=== PATIENT | male | born 1965 | race Caucasian/White ===

== ENCOUNTER → 2017-12-27 16:40 | Outpatient (CLI) | payer BC, SELFPAY ==
--- NOTE | 2017-12-27 16:46 | RAD_ITS ---
STUDY: X-RAY - LUMBAR SPINE REASON FOR EXAM: Male, 52 years old. Back pain TECHNIQUE: 5 view(s) of the lumbar spine were obtained. COMPARISON: None FINDINGS: There is normal alignment and curvature of the lumbosacral spine with degenerative disease at L1-L2. There are no acute fractures. The facet joints are normal.. RAD/L/S Spine Min 4 Views IMPRESSION: Disc disease at L1-L2. No fractures Electronically Signed: Tereso Meier, at 7:44 EDT Tel , Service support ,
--- NOTE | 2017-12-27 16:46 | RAD_ITS ---
STUDY: X-RAY - THORACIC SPINE REASON FOR EXAM: Male, 52 years old. Pain TECHNIQUE: 3 view(s) of the thoracic spine were obtained. COMPARISON: None. FINDINGS: There is an accentuation of the kyphotic curvature of the thoracic spine. No acute fractures. Mild degenerative changes in the mid and distal thoracic disc spaces RAD/Thoracic Spine 3 Views IMPRESSION: An accentuation of the kyphotic curvature of the thoracic spine.. Degenerative changes involving the mid and lower thoracic spine. No acute fractures Electronically Signed: Tereso Meier, at 6:47 EDT Tel , Service support ,
== END ==
PROVIDERS: Family Provider Family Medicine; PCP Family Medicine; Visit Provider Family Medicine
DX: M54.5 Low back pain (principal); M54.6 Pain in thoracic spine; G89.29 Other chronic pain
CPT/HCPCS: 72072; 72110

== ENCOUNTER 2018-04-10 11:05 | Emergency (ER) | payer BC, SELFPAY ==
[2018-04-10 11:06] VITALS: BP 124/65; PULSE 55; RESP 18; TEMP 36.4; O2SAT 99; BMI 24.1
[2018-04-10 11:47] VITALS: BP 135/70; PULSE 62; RESP 14; O2SAT 98
[2018-04-10] MEDS: Orphenadrine 60 MG/2 ML Ampul IM (11:49)
[2018-04-10] MEDS: Morphine 4 MG/ML Syringe SC (11:49)
[2018-04-10 13:11] VITALS: BP 131/70; PULSE 60; RESP 14; O2SAT 98
--- NOTE | 2018-04-10 13:50 | ED.VISSUMM ---
- ER Visit Summary Date of Service: 04/10/18 Chief Complaint: Back pain History of Present Illness: The patient is a 53 M who presents with chronic back pain that became worse over the past 2 days. Patient states he does a lot of lifting at work and his pain became more severe today. Patient states he developed some spasms in his low back today. Patient states he was having difficulty ambulating due to the pain. Patient denies any paresthesias or weakness. Patient denies any radiation of his pain to his legs. Patient denies any bowel or bladder changes. Patient denies any saddle anesthesias. Patient denies any specific trauma. Patient states he had recent x-rays which showed degenerative changes. Physical Examination: Vital signs are stable. Patient is afebrile. Patient is in no acute distress. Heart was regular rate and rhythm. Lungs are clear and equal bilateral. Abdomen is soft and nontender. Muscle skeletal exam reveals tenderness and spasm of the lower thoracic and lumbar paraspinal muscles. There is some mild midline tenderness. There is no bony crepitance or step-off. There is no edema or ecchymosis noted. Range of motion was limited in all motions of the lumbar spine secondary to pain. Strength is 5/5 bilateral in the upper and lower extremities. There are no sensory deficits noted. The remaining physical exam is within normal limits. Emergency Department Course and Treatment: Patient was given injection of morphine and Norflex here. Patient felt better on reevaluation. Patient was given prescription for Flexeril to take in addition to his tramadol. Patient was instructed to follow-up with his primary care physician in 3-5 days. Patient understood and was agreeable with the plan. All questions were answered. Disposition: Discharge home Impression: Acute on chronic back pain This note was generated with [employer] dictation software. It may contain incorrect words, spelling, and punctuation that were not noted in review of the chart prior to signing ED Disposition - Plan for ED Patient: Disposition: Home or Assisted Living Chief Complaint: Back Diagnosis: Acute exacerbation of chronic low back pain Instructions: ED Low Back Pain Injury Prescriptions: Cyclobenzaprine [Flexeril] 10 mg PO TID PRN #20 tab PRN Reason: Muscle Spasm Referrals: Shavon Osborne MD [Primary Care Provider] -
--- NOTE | 2018-04-10 13:56 | ED.DCSUM_ITS ---
- ER Visit Summary Date of Service: 04/10/18 Chief Complaint: Back pain History of Present Illness: The patient is a 53 M who presents with chronic back pain that became worse over the past 2 days. Patient states he does a lot of lifting at work and his pain became more severe today. Patient states he developed some spasms in his low back today. Patient states he was having difficulty ambulating due to the pain. Patient denies any paresthesias or weakness. Patient denies any radiation of his pain to his legs. Patient denies any bowel or bladder changes. Patient denies any saddle anesthesias. Patient denies any specific trauma. Patient states he had recent x-rays which showed degenerative changes. Physical Examination: Vital signs are stable. Patient is afebrile. Patient is in no acute distress. Heart was regular rate and rhythm. Lungs are clear and equal bilateral. Abdomen is soft and nontender. Muscle skeletal exam reveals tenderness and spasm of the lower thoracic and lumbar paraspinal muscles. There is some mild midline tenderness. There is no bony crepitance or step- off. There is no edema or ecchymosis noted. Range of motion was limited in all motions of the lumbar spine secondary to pain. Strength is 5/5 bilateral in the upper and lower extremities. There are no sensory deficits noted. The remaining physical exam is within normal limits. Emergency Department Course and Treatment: Patient was given injection of morphine and Norflex here. Patient felt better on reevaluation. Patient was given prescription for Flexeril to take in addition to his tramadol. Patient was instructed to follow-up with his primary care physician in 3-5 days. Patient understood and was agreeable with the plan. All questions were answered. Disposition: Discharge home Impression: Acute on chronic back pain This note was generated with [employer] dictation software. It may contain incorrect words, spelling, and punctuation that were not noted in review of the chart prior to signing ED Disposition - Plan for ED Patient: Disposition: Home or Assisted Living Chief Complaint: Back Diagnosis: Acute exacerbation of chronic low back pain Instructions: ED Low Back Pain Injury Prescriptions: Cyclobenzaprine [Flexeril] 10 mg PO TID PRN #20 tab PRN Reason: Muscle Spasm Referrals: Shavon Osborne MD [Primary Care Provider] -
[2018-04-10 14:17] VITALS: BP 126/78; PULSE 80; RESP 14; O2SAT 99
== END 2018-04-10 14:18 | disposition home or self-care (01) ==
PROVIDERS: Emergency Provider Emergency Medicine; Family Provider Family Medicine; PCP Family Medicine
DX: M54.5 Low back pain (principal); G89.29 Other chronic pain
CPT/HCPCS: 96372; 99282

== ENCOUNTER → 2018-08-02 12:09 | Outpatient (CLI) | payer BC, SELFPAY ==
--- NOTE | 2018-08-02 12:13 | RAD_ITS ---
STUDY: X-RAY - PELVIS REASON FOR EXAM: Male, 53 years old. Pelvic pain following a fall. TECHNIQUE: One view of the pelvis was obtained. COMPARISON: None. FINDINGS: There is a non-specific bowel gas pattern. There are multiple calcified phleboliths. Normal bilateral iliac wings, sacroiliac joints and visualized sacrum. Normal visualized bilateral superior and inferior pubic rami. Normal pubic symphysis. Normal ischial tuberosities. Normal visualized right femoral head. There is osteoarthritic spur formation of the right acetabular rim. There is moderate articular joint space narrowing of the right hip. Normal visualized left femoral head. Normal left acetabulum. There is moderate articular joint space narrowing of the left hip. RAD/Pelvis 1 or 2 Views IMPRESSION: Moderate degree of osteoarthritis involving both hip joints. Electronically Signed: Sunny Horne MD at 13:11 EDT Tel [phone], Service support ,
== END ==
PROVIDERS: Family Provider Family Medicine; PCP Family Medicine; Referring Provider Family Medicine; Visit Provider Family Medicine
DX: S30.0XXA Contusion of lower back and pelvis, initial encounter (principal)
CPT/HCPCS: 72170

== ENCOUNTER → 2018-12-04 14:09 | Outpatient (CLI) | payer BC, SELFPAY ==
--- NOTE | 2018-12-04 14:15 | CT_ITS ---
We are attempting to reach Shavon Osborne MD to discuss findings. An addendum with communication details will be sent when the communication is complete. STUDY: CT ABDOMEN AND PELVIS WITH CONTRAST REASON FOR EXAM: Male, 53 years old. Diffuse abdominal pain. RADIATION DOSAGE (If Supplied By Facility): CTDIvol = ( 15.61 ) mGy, DLP = ( 816.70 ) mGycm TECHNIQUE: Transaxial images were obtained from the dome of the diaphragm to the symphysis pubis with oral contrast. Isovue 300 100CC IV/Oral was administered. Sagittal and coronal images were reconstructed. Individualized dose optimization techniques were used for this CT. COMPARISON: None. FINDINGS: The visualized lung bases are unremarkable. The visualized portions of the heart are within normal limits. Normal liver. Normal gallbladder and extrahepatic biliary system. Normal spleen. Normal pancreas. Normal bilateral adrenal glands. Normal right kidney. Normal left kidney. Normal visualized stomach. Normal small intestine. There is thickening of the wall of the right thumb appears asymmetric suggesting possible left wall mass. This measures approximately 3.6 x 5.9 x 2.5 cm There is minimal stranding of the surrounding fat. Otherwise normal colon. The appendix is visualized and appears normal. Normal abdominal aorta. Normal inferior vena cava. Normal retroperitoneum. Normal urinary bladder. Normal prostate and seminal vesicles. There are phleboliths in the pelvis without lymphadenopathy. No free air or free fluid is seen within the peritoneal cavity. Normal abdominal wall. There is sclerosis of the left initial tuberosity. Focal areas of sclerosis in the left sacral alar and posterior right iliac wing. There are minimal degenerative changes of the lumbar spine by. CT/Abdomen/Pelvis WITH Contrast IMPRESSION: 1. Question rectal or perirectal mass. This would be better evaluated with direct visualization. 2. Focal sclerosis of the left atrial tuberosity of unknown etiology. Question bony metastasis. 3. No other evidence of acute and intra-abdominal or pelvic abnormality. Electronically Signed: Moshe Mendez DO at 17:00 EST Tel [phone], Service support ,
== END ==
PROVIDERS: Family Provider Family Medicine; PCP Family Medicine; Referring Provider Family Medicine; Visit Provider Family Medicine
DX: R10.32 Left lower quadrant pain (principal)
CPT/HCPCS: 74177; Q9967

== ENCOUNTER 2018-12-04 17:36 | Emergency (ER) | payer BC, SELFPAY ==
[2018-12-04 17:38] VITALS: BP 132/79; PULSE 75; RESP 16; TEMP 36.6; O2SAT 97; BMI 34.0
--- NOTE | 2018-12-04 18:22 | ED.DCSUM_ITS ---
- ER Visit Summary Date of Service: 12/04/18 Chief Complaint: Rectal mass History of Present Illness: The patient is a 53 M presenting with essentially 1 week of a vague nausea, mid low abdominal discomfort, and constipation. He saw his primary care doctor today and had a contrast enhanced abdominal/pelvis CT. A rectal mass with questionable bony metastases was discovered. He does note that he has been having some slight difficulty with bowel movements for the past week but denies dark or tarry stool. Denies recent weight loss, fever, chills, or night sweats. Denies previous similar symptoms. He did have a colonoscopy in 2016 that revealed several small polyps. He was told that he will need a nother colonoscopy in 2019. Physical Examination: Vitals are within normal limits. Not in distress. Neck is supple. Heart tones are regular and without murmur. Lungs are clear bilaterally. Abdomen is soft and nontender. Digital rectal examination reveals no obvious palpable mass. No hemorrhoids. Stool is brown. Test Results: CBC and BMP are normal. Emergency Department Course and Treatment: I reviewed the CT scan. Labs are normal. He really has no discomfort on rectal examination or on palpation of his abdomen. He looks quite well. I discussed the findings with Dr. Pate. The patient would prefer to follow-up in the office tomorrow rather than stay in the hospital if he is not going to have the biopsy tonight. I discussed this with Dr. Pate and he is able to see him tomorrow morning to get him prepped for further evaluation. The patient is comfortable with this plan. Treatment Plan: See Dr. Pate tomorrow Disposition: Home stable Impression: Initial encounter rectal mass uncertain etiology This note was generated with [employer] dictation software. It may contain incorrect words, spelling, and punctuation that were not noted in review of the chart prior to signing ED Disposition - Plan for ED Patient: Referrals: Tucker Pate MD [STAFF PHYSICIAN] - (tomorrow morning) Additional Instructions: See Dr. Pate tomorrow morning
[2018-12-04 18:42] LABS: Absolute Lymphocyte Count 1.95 X10^3/ul (0.83-4.51); Basophil# 0.04 X10^3/uL; Basophil% 0.6 % (0-1); Eosinophil# 0.08 X10^3/uL; Eosinophils% 1.2 % (0-5); Hemoglobin 13.2 g/dl (13.0-16.5); Lymphocyte # 1.95 X10^3/ul (4.0); Lymphocyte % 29.1 % (19-41); Mean Corpuscular Hgb 30.9 pg (27.0-32.0); Mean Corpuscular Volume 93.7 fL (80-94); Mean Platelet Vol. 9.2 fl (6.2-12.0); Monocyte# 0.64 X10^3/uL; Monocyte% 9.6 % (0-10); Neutrophil # 3.97 X10^3/uL (2.7-7.7); Neutrophil % 59.4 % (47-70); Platelet Count 240 K/mm3 (150-450); RBC Distribution Width CV 12.1 % (11.6-14.6); RBC Distribution Width SD 40.9 fl (35.1-43.9); Red Blood Count 4.27 M/mm3 (4.6-6.2); White Blood Count 6.7 K/mm3 (4.4-11.0)
[2018-12-04 18:46] LABS: International Normalized Ratio 1.2; Prothrombin Time (Protime)PT. 14.7 SECONDS (11.7-14.9)
[2018-12-04 19:16] LABS: POSITIVE COUNT NO; POSITIVE DIFFERENTIAL NO; POSITIVE MORPHOLOGY NO
[2018-12-04 19:19] LABS: ALB/GLOB Ratio 1.1 RATIO (0.9-2.4); AST(SGOT) 15 U/L (15-37); Alanine Aminotransfer ALT/SGPT 15 U/L (16-61); Albumin, Serum 3.6 g/dL (3.2-5.0); Alkaline Phosphatase 150 U/L (45-117); Anion Gap 7 (5-15); BUN 16 mg/dL (7-18); BUN/Creat Ratio 18.6 RATIO (10-20); Calcium,Total 8.6 mg/dL (8.5-10.1); Chloride 101 mmol/L (98-107); Creatinine, Serum 0.86 mg/dL (0.70-1.30); EST Glomerular Filtration Rate 98 mL/min (>60); Est Glom Filt Rate - Afr Amer 119 mL/min (>60); Globulin 3.4 g/dL (2.2-4.2); Glucose 158 mg/dL (74-106); Potassium 3.4 mmol/L (3.5-5.1); Sodium Level 135 mmol/L (136-145)
--- NOTE | 2018-12-04 19:36 | ED.VISSUMM ---
- ER Visit Summary Date of Service: 12/04/18 Chief Complaint: [] History of Present Illness: The patient is a 53 M [] Physical Examination: [] Test Results: [] Emergency Department Course and Treatment: [] Treatment Plan: [] Disposition: [] Impression: [] This note was generated with [employer] software. It may contain incorrect words, spelling, and punctuation that were not noted in review of the chart prior to signing ED Disposition - Plan for ED Patient: Referrals: Tucker Pate MD [STAFF PHYSICIAN] - (tomorrow morning) Additional Instructions: See Dr. Pate tomorrow morning
[2018-12-04 19:48] VITALS: BP 122/61; PULSE 57; RESP 16; O2SAT 98
[2018-12-04 19:49] VITALS: BP 122/61; PULSE 57; RESP 16; O2SAT 98
== END 2018-12-04 19:50 | disposition home or self-care (01) ==
PROVIDERS: Emergency Provider Emergency Medicine; Family Provider Family Medicine; PCP Family Medicine
DX: K62.89 Other specified diseases of anus and rectum (principal)
CPT/HCPCS: 80053; 85025; 85610; 99283; A4216

== ENCOUNTER → 2018-12-19 10:36 | Outpatient (CLI) | payer BC, SELFPAY ==
[2018-12-05 15:11] VITALS: BMI 34.0
[2018-12-19 12:32] LABS: Absolute Lymphocyte Count 1.29 X10^3/ul (0.83-4.51); Absolute Neutrophil Count 4.2 X10^3/uL (2.0-7.7); Basophil# 0.04 X10^3/uL; Basophil% 0.6 % (0-1); Eosinophil# 0.04 X10^3/uL; Eosinophils% 0.6 % (0-5); Lymphocyte # 1.29 X10^3/ul (4.0); Lymphocyte % 20.5 % (19-41); Mean Corp Hgb Conc 32.5 g/gl (32-36); Mean Corpuscular Hgb 30.8 pg (27.0-32.0); Mean Corpuscular Volume 94.8 fL (80-94); Mean Platelet Vol. 9.8 fl (6.2-12.0); Monocyte# 0.74 X10^3/uL; Monocyte% 11.8 % (0-10); Neutrophil # 4.17 X10^3/uL (2.7-7.7); Neutrophil % 66.3 % (47-70); Platelet Count 326 K/mm3 (150-450); RBC Distribution Width CV 11.7 % (11.6-14.6); RBC Distribution Width SD 39.6 fl (35.1-43.9); Red Blood Count 4.22 M/mm3 (4.6-6.2); White Blood Count 6.3 K/mm3 (4.4-11.0)
[2018-12-19 12:37] LABS: POSITIVE COUNT NO; POSITIVE DIFFERENTIAL NO; POSITIVE MORPHOLOGY NO
[2018-12-19 13:20] LABS: AST(SGOT) 15 U/L (15-37); Alanine Aminotransfer ALT/SGPT 14 U/L (16-61); Albumin, Serum 3.6 g/dL (3.2-5.0); Alkaline Phosphatase 217 U/L (45-117); Anion Gap 8 (5-15); BUN 12 mg/dL (7-18); BUN/Creat Ratio 14.5 RATIO (10-20); Calcium,Total 8.9 mg/dL (8.5-10.1); Chloride 99 mmol/L (98-107); Creatinine, Serum 0.82 mg/dL (0.70-1.30); EST Glomerular Filtration Rate 103 mL/min (>60); Est Glom Filt Rate - Afr Amer 125 mL/min (>60); Globulin 3.5 g/dL (2.2-4.2); Glucose 98 mg/dL (74-106); Potassium 4.4 mmol/L (3.5-5.1); Protein, Total 7.1 g/dL (6.4-8.2); Sodium Level 137 mmol/L (136-145); Thyroid Stim Hormone (TSH) 0.51 uIU/mL (0.358-3.74)
== END ==
PROVIDERS: Family Provider Family Medicine; PCP Family Medicine; Referring Provider Family Medicine; Visit Provider Nurse Practitioner Adult Health
DX: R53.83 Other fatigue (principal)
CPT/HCPCS: 36415; 80053; 84443; 85025

== ENCOUNTER → 2019-01-02 16:22 | Outpatient (CLI) | payer BC, SELFPAY ==
[2018-12-05 15:11] VITALS: BMI 34.0
[2019-01-02 17:42] LABS: Absolute Lymphocyte Count 1.69 X10^3/ul (0.83-4.51); Absolute Neutrophil Count 3.4 X10^3/uL (2.0-7.7); Basophil# 0.04 X10^3/uL; Basophil% 0.7 % (0-1); Eosinophil# 0.09 X10^3/uL; Eosinophils% 1.6 % (0-5); Hematocrit 37.5 % (40-54); Hemoglobin 12.2 g/dl (13.0-16.5); Lymphocyte # 1.69 X10^3/ul (4.0); Lymphocyte % 29.2 % (19-41); Mean Corp Hgb Conc 32.5 g/gl (32-36); Mean Corpuscular Hgb 30.3 pg (27.0-32.0); Mean Corpuscular Volume 93.3 fL (80-94); Mean Platelet Vol. 9.5 fl (6.2-12.0); Monocyte# 0.57 X10^3/uL; Monocyte% 9.8 % (0-10); Neutrophil # 3.38 X10^3/uL (2.7-7.7); Neutrophil % 58.4 % (47-70); Platelet Count 337 K/mm3 (150-450); RBC Distribution Width SD 40.8 fl (35.1-43.9); Red Blood Count 4.02 M/mm3 (4.6-6.2); White Blood Count 5.8 K/mm3 (4.4-11.0)
[2019-01-02 17:47] LABS: POSITIVE COUNT NO; POSITIVE DIFFERENTIAL NO; POSITIVE MORPHOLOGY NO
[2019-01-02 18:06] LABS: ALB/GLOB Ratio 0.9 RATIO (0.9-2.4); AST(SGOT) 20 U/L (15-37); Alanine Aminotransfer ALT/SGPT 20 U/L (16-61); Albumin, Serum 3.3 g/dL (3.2-5.0); Alkaline Phosphatase 278 U/L (45-117); Anion Gap 8 (5-15); BUN 17 mg/dL (7-18); BUN/Creat Ratio 26.5 RATIO (10-20); Calcium,Total 8.8 mg/dL (8.5-10.1); Chloride 103 mmol/L (98-107); Creatinine, Serum 0.64 mg/dL (0.70-1.30); EST Glomerular Filtration Rate 138 mL/min (>60); Est Glom Filt Rate - Afr Amer 167 mL/min (>60); Globulin 3.7 g/dL (2.2-4.2); Glucose 88 mg/dL (74-106); Potassium 4.7 mmol/L (3.5-5.1); Sodium Level 140 mmol/L (136-145)
[2019-01-02 18:07] LABS: Erythrocyte Sedimentation Rate 40 mm/hr (0-20)
== END ==
PROVIDERS: Family Provider Family Medicine; PCP Family Medicine; Referring Provider Family Medicine; Visit Provider Family Medicine
DX: K62.9 Disease of anus and rectum, unspecified (principal); R63.4 Abnormal weight loss
CPT/HCPCS: 36415; 80053; 85025; 85652; 86141

== ENCOUNTER → 2019-01-08 | Outpatient (CLI) | payer BC, SELFPAY ==
[2018-12-05 15:11] VITALS: BMI 34.0
--- NOTE | 2019-01-08 15:50 | MRI_ITS ---
STUDY: MR PELVIS WITH T WITHOUT CONTRAST REASON FOR EXAM: Male, 53 years old. Follow-up evaluation of a rectal mass. TECHNIQUE: Standardized fat and water weighted pulse sequences were obtained in all 3 orthogonal planes, pre-and post contrast administration. 18 ml IV Dotarem was administered for the contrast portion of the examination. Multiple images are limited by patient motion. COMPARISON: CT abdomen and pelvis dated December 04, 2018. FINDINGS: The urinary bladder is not completely distended. There appears to be some thickening of the urinary bladder wall greater on the left from the right. Maximum thickness of the urinary bladder measures 7.4 mm. There is no evidence for dilated bowel. There is a mass located just the left of the rectum measuring approximately 6.3 x 3.0 x 5.9 cm in size. There is abnormal thickening of the quiroga of the rectum as well which measure up to 1.1 cm in size. The left-sided pelvic mass extends into the posterior limits of the pelvis. The abnormal thickening of the quiroga of the colon extend to the distal sigmoid colon as well. Estimated length of the abnormal colon is approximately 8.4 cm in length. There is no pelvic fluid. Normal visualized pelvic arteries. The external iliac veins and common iliac veins are distended. There is abnormal signal within the iliac wings suggesting metastasis. There is also some abnormal signal within the sacrum that may represent metastatic disease. There are nonspecific foci of abnormal signal within the proximal femurs that may represent additional metastasis. Normal abdominal wall. MRI/Pelvis W/WO Contrast IMPRESSION: 1. Abnormal thickening of the quiroga of the rectum and distal sigmoid colon may be neoplastic in etiology. 2. Left-sided pelvic mass adjacent to the rectum may represent direct extension of neoplasm and possible lymphadenopathy. 3. Nonspecific thickening of the urinary bladder wall. 4. Abnormal signal within the bony pelvis suggests metastasis. 5. Technically limited study with multiple images nondiagnostic secondary to patient motion. 6. Venous distention within the pelvis. Deep venous thrombosis cannot be excluded. Electronically Signed: Alyse Rouse MD at 8:34 EDT , Service support ,
== END | disposition home or self-care (01) ==
LOC: MRI 15:54
PROVIDERS: Family Provider Family Medicine; PCP Family Medicine; Referring Provider Family Medicine; Visit Provider Family Medicine
DX: K62.9 Disease of anus and rectum, unspecified (principal)
CPT/HCPCS: 72197; A9575

== ENCOUNTER 2019-01-11 13:12 | Observation (INO) | payer BC, SELFPAY ==
[2018-12-05 15:11] VITALS: BMI 34.0
[2019-01-11] VITALS (9 sets, daily range): BP systolic 88–124; BP diastolic 59–72; PULSE 65–83; RESP 16–24; TEMP 36.9–38.7; O2SAT 92–99; BMI 23.1; BMI 22.3
--- NOTE | 2019-01-11 13:34 | RAD_ITS ---
STUDY: X-RAY CHEST REASON FOR EXAM: Male, 53 years old. Multiple masses. TECHNIQUE: Single AP portable view of the chest. COMPARISON: July 19, 2010. FINDINGS: Cardiac silhouette unremarkable. Pulmonary vascularity unremarkable. Aorta unremarkable. No focal patchy airspace opacities. No pleural effusions. COPD/hyperaeration. Coarse lung markings. Upper abdomen unremarkable. Osseous structures intact. No pneumothorax. Mild degenerative changes at the shoulders and spine. RAD/Chest 1 View (Portable) IMPRESSION: No acute cardiopulmonary findings COPD/hyperaeration with coarse lung markings Electronically Signed: Willian Major DO at 13:54 EDT Tel , Service support ,
[2019-01-11 13:42] LABS: Absolute Lymphocyte Count 0.77 X10^3/ul (0.83-4.51); Absolute Neutrophil Count 7.7 X10^3/uL (2.0-7.7); Basophil# 0.03 X10^3/uL; Basophil% 0.3 % (0-1); Hematocrit 36.1 % (40-54); Hemoglobin 11.9 g/dl (13.0-16.5); Lymphocyte # 0.77 X10^3/ul (4.0); Lymphocyte % 8.1 % (19-41); Mean Corpuscular Hgb 30.3 pg (27.0-32.0); Mean Corpuscular Volume 91.9 fL (80-94); Mean Platelet Vol. 8.8 fl (6.2-12.0); Monocyte# 0.95 X10^3/uL; Monocyte% 10.1 % (0-10); Neutrophil # 7.67 X10^3/uL (2.7-7.7); Neutrophil % 81.2 % (47-70); POSITIVE COUNT NO; POSITIVE DIFFERENTIAL NO; POSITIVE MORPHOLOGY NO; Platelet Count 320 K/mm3 (150-450); RBC Distribution Width CV 12.2 % (11.6-14.6); RBC Distribution Width SD 41.4 fl (35.1-43.9); Red Blood Count 3.93 M/mm3 (4.6-6.2); White Blood Count 9.5 K/mm3 (4.4-11.0)
[2019-01-11] MEDS: 0.9% Normal Saline 1,000 ML 1000 ML IV (13:43)
[2019-01-11] MEDS: HYDROmorphone 1 MG/ML Syringe IV (13:44)
[2019-01-11] MEDS: Ondansetron 4 MG/2 ML Vial IV ×2 (13:44→18:36)
[2019-01-11 13:57] LABS: ALB/GLOB Ratio 0.7 RATIO (0.9-2.4); AST(SGOT) 29 U/L (15-37); Alanine Aminotransfer ALT/SGPT 18 U/L (16-61); Albumin, Serum 3.1 g/dL (3.2-5.0); Alkaline Phosphatase 374 U/L (45-117); Anion Gap 6 (5-15); BUN 14 mg/dL (7-18); BUN/Creat Ratio 15.4 RATIO (10-20); Calcium,Total 8.9 mg/dL (8.5-10.1); Chloride 95 mmol/L (98-107); Creatinine, Serum 0.91 mg/dL (0.70-1.30); EST Glomerular Filtration Rate 92 mL/min (>60); Est Glom Filt Rate - Afr Amer 111 mL/min (>60); Estimated Creatinine Clearance 125.03 ml/min; Globulin 4.4 g/dL (2.2-4.2); Glucose 134 mg/dL (74-106); Lipase 175 U/L (73-393); Protein, Total 7.5 g/dL (6.4-8.2); Sodium Level 131 mmol/L (136-145)
[2019-01-11 14:03] LABS: Lactic Acid 1.4 mmol/L (0.4-2.0)
--- NOTE | 2019-01-11 14:19 | HP.PCM_ITS ---
History of Present Illness Date of Admission: 01/11/19 Chief Complaint: intractable abdominal and back pain The patient is a 53 year old M with no significant PMH. He was admitted with a complaint of abdominal and back pain. Pain was very severe, rated about 10/10 and was mainly in his lower back and radiated to his abdomen. He also had associated fever and chills as well as easy fatigability and generalized malaise. Symptoms have been ongoing for a few months now. Patient was seen in the ED in December [address] scan done then in the ED showed questionable rectal perirectal mass as well as questionable bony metastasis. He was seen by general surgery who referred him to a colorectal surgeon in [place]. Patient had a colonoscopy done which did not reveal any mass. However symptoms persisted and actually worsened abdominal pain severely worsened. He had a pelvic MRI on 01/08/2019 which showed left-sided pelvic mass adjacent to the rectum which may represent direct extension of neoplasm and possible lymphadenopathy as well as abnormal thickening of the quiroga of the rectum and di stal sigmoid colon and venous distention within pelvis, deep vein thrombosis could not be excluded. Patient therefore had a pelvic mass biopsy scheduled for tomorrow 01/10/2019 on outpatient basis. However pain increasingly worsened and so he came into the ED. In the ED, vitals were significant for a temperature of 101.6 Fahrenheit, respiratory rate of 20, sodium of 131 and chloride of 95 as well as elevated ALP of 374. Total protein was 7.5 and albumin was 3.1. CBC showed hemoglobin of 11.9 and platelets of 320 with white cell count of 9.5. He is been admitted to be managed for intractable pain. [] Past Medical History Medical History: Medical History (Last Updated 12/05/18 @ 15:09 by Chrissie Calderon) Knee pain M25.569 Allergies No Known Allergies Allergy (Verified 01/11/19 13:15) Home Medications: Ambulatory Orders Medication Instructions Recorded tramadol 50 mg tablet 50 mg PO DAILY PRN tab 12/05/18 Bisacodyl [Dulcolax] 10 mg PO DAILY 01/11/19 Oxycodone [Oxyir] 5 mg PO Q4H PRN PRN 01/11/19 RX: Ibuprofen 600 - 800 mg PO Q6H PRN PRN 01/11/19 RX: Lansoprazole 15 mg PO DAILY 01/11/19 Lives: With Family Smoking Status: Never smoker Alcohol: Occasional Drugs: None - *Family History Maternal Family History: Family History (Last Updated 12/05/18 @ 15:10 by Chirssie Calderon) Mother Cancer History Items: Cancer - Non-Hodgkin's lymphoma Paternal Family History: Family History (Last Updated 12/05/18 @ 15:10 by Chrissie Calderon) Mother Cancer History Items: COPD Review of Systems Constitutional: Reports: Anorexia, Chills, Fever, Night Sweats, Malaise, Weakness, Fatigue Eyes: Reports: Blurred vision HEENT: Reports: Difficulty Hearing Cardiovascular: Denies: Chest Pain, Chest Pressure, Palpitations Respiratory: Denies: Cough, Shortness of Breath, Shortness of breath at rest, Sputum production Gastrointestinal: Reports: Abdominal Pain, Vomiting. Denies: Diarrhea, Dyspepsia, Hematemesis, Nausea, Melena Genitourinary: Denies: Dysuria Musculoskeletal: Reports: Back Pain. Denies: Arm Pain, Hand Pain, Joint Pain, Joint stiffness, Joint Tenderness, Neck Pain Skin: Denies: Rash, Wounds Neurological: Denies: Numbness, Tingling, Focal weakness Psychiatric: Denies: Anxiety, Depression, Homicidal Ideations, Suicidal Ideatio ns Hematologic/ Lymphatic: Denies: Easy Bruising, Easy Bleeding VTE Information - Inpt Only VTE Present on Admission: No VTE Pharm Prophylaxis ordered?: Yes Patient Problems: Active and Suspected Problems (Last Updated 12/05/18 @ 15:09 by Chrissie Calderon) Prostate cancer (Acute) Intractable pain (Acute) Bone metastases (Acute) Regional lymph node metastasis present (Acute) Weight loss, non-intentional (Acute) - Physical Exam General: Alert, Oriented x3, Cooperative HEENT: Atraumatic, PERRLA, EOMI, Normocephalic Oral: Dry Mucosa Neck: Supple, No JVD, Negative Carotid Bruits Lungs: Clear to auscultation, Normal air movement, No rhonchi, No wheeze, No rales Cardiovascular: Regular rate, Regular Rhythm, Normal S1, Normal S2, No murmurs Abdomen: Bowel Sounds Present, Soft, - - mild generalised tenderness, no guarding or rebound tenderness Extremities: No clubbing, No cyanosis, No edema, Capillary Refill Less than 3 Seconds Skin: No rashes, No breakdown Musculoskeletal: - - severe tenderness on palpation of right paraspinal muscles in lumbar area. Lymphatic: No Cervical, Supraclavicular, or Inguinal Adenopathy Neurological: Cranial nerves II-XII grossly intact, Neuro grossly intact Psych/Mental Status: Agitated - due to pain, Alert and oriented to time, place, person, mood and affect Vital Signs Temp Pulse Resp BP Pulse Ox 101.4 F H 81 24 H 88/69 L 92 01/11/19 13:12 01/11/19 13:12 01/11/19 13:12 01/11/19 13:12 01/11/19 13:12 Oxygen Delivery Method Room Air Weight: 210 lb Body Mass Index (BMI) 23.1 Laboratory Tests Past 24 Hrs 01/11/19 01/11/19 01/11/19 13:25 13:25 13:25 WBC 9.5 RBC 3.93 L Hgb 11.9 L Hct 36.1 L MCV 91.9 MCH 30.3 MCHC 33.0 RDW 12.2 RDW Differential 41.4 Plt Count 320 MPV 8.8 Immature Gran % (Auto) 0.300 Neut % (Auto) 81.2 H Lymph % (Auto) 8.1 L Arthur % (Auto) 10.1 H Eos % (Auto) 0.0 Baso % (Auto) 0.3 Absolute Neuts (auto) 7.7 Absolute Lymphs (auto) 0.77 L Total Counted Not Reportable Sodium 131 L Potassium 4.0 Chloride 95 L Carbon Dioxide 30.0 Anion Gap 6 BUN 14 Creatinine 0.91 Estim Creat Clear Calc 125.03 Est GFR (MDRD) Af Amer 111 Est GFR (MDRD) Non-Af 92 BUN/Creatinine Ratio 15.4 Glucose 134 H Lactic Acid 1.4 Calcium 8.9 Total Bilirubin 0.50 AST 29 ALT 18 Alkaline Phosphatase 374 H Total Protein 7.5 Albumin 3.1 L Globulin 4.4 H Albumin/Globulin Ratio 0.7 L Lipase 175 Diagnostic Data Chest X-Ray 01/11/19 13:34 IMPRESSION: No acute cardiopulmonary findings COPD/hyperaeration with coarse lung markings Electronically Signed: Willian Major DO at 13:54 EDT Tel , Service support , Assessment/Plan All Active Problems (Last Updated 12/05/18 @ 15:09 by Chrissie Calderon) Prostate cancer (Acute) Intractable pain (Acute) Bone metastases (Acute) Regional lymph node metastasis present (Acute) Weight loss, non-intentional (Acute) 53 y/o male admitted with a complaint of severe abdominal and back pain 1. Intractable lower back and abdominal pain likely due to metastatic prostate cancer * pain is rated at 10/10, patient very uncomfortable and in severe pain * MRI done (01/08/19): Abnormal thickening of quiroga of the rectum and distal sigmoid colon, left pelvic mass adjacent to the rectum which may represent direct extension of neoplasm and possible lymphadenopathy, abnormal signal within the bony felt pelvis suggesting metastasis and venous distention within the pelvis and deep vein thrombus cannot be excluded. * is s/p colonoscopy by colorectal surgeon in [place] which was negative for any malignancy * admit to Med Surg with telemetry * give IV morphine prn for pain * hydrate with IVF * for pelvic mass biopsy by radiology tomorrow * PSA is 629 * 2.Probable metastatic prostate cancer * has a pelvic mass; has been having unexplained systemic symptoms for months, including unexplained fever, chills, anorexia, fatigue and weight loss * for pelvic mass biopsy tomorrow. * PSA done today is 629 * will consult oncology- Dr Libertad velasquez. * 3. Acute hypovolemic hyponatremia: * Sodium is 131. * Likely due to dehydration as patient has not been eating and drinking and has been vomiting. * Chloride is also low. * Will hydrate with IV fluid and monitor. 4. SIRS criteria: * Patient was febrile and tach tachypneic. * However tachypnea is likely due to pain that patient is having and fever may be a systemic reaction from the cancer. * He has no clear focus of infection and has no leukocytosis. Blood cultures obtained. * UA showed no evidence of an infection. * Will hold off on antibiotics for now on account of lack of clear source of infection and symptoms being explained by other reasons * DVT prophylaxis: lovenox Code Visit Inpatient E&M: 56574 Init Hosp L3
--- NOTE | 2019-01-11 14:24 | ED.VISSUMM ---
- ER Visit Summary Date of Service: 01/11/19 Chief Complaint: [Abdomen and back pain] History of Present Illness: The patient is a 53 M [presents to the emergency department with complaint of ongoing pain in his back and his abdomen that started over a month ago. Patient's been worked up including CT scan in December that showed a mass in his pelvis/rectum. Patient was evaluated by general surgeon in [place] referred to colorectal surgeon who then performed a colonoscopy and biopsies however it was noted that the mass was not present within the colon but rather outside of it. Patient is scheduled tomorrow to have a biopsy of the mass. Patient had an MRI on January 08 that showed the mass with bony metastasis. Patient with severe pain for several days. Patient has been using Ultram and today took a Colo which helped for several hours but now the pain returned and is severe. Patient also states that he has been having fevers off and on for over a month. Patient denies any cough. He denies urinary symptoms. Patient has no other medical history.] Physical Examination: [HEENT-PERRLA, EOMI. Cranial nerves II through XII grossly intact. TMs clear. Mucous membranes moist. No adenopathy. Cardiovascular-regular rate and rhythm without murmur or ectopy Lungs-clear to auscultation, chest wall stable without crepitus or subcu emphysema Abdomen-normoactive bowel sounds, soft. Patient has diffuse tenderness to palpation especially over left lower quadrant with some guarding. There is no rebound, rigidity, or perineal signs. Back exam-patient does have some fused tenderness palpation over the lumbar spine and lumbar paraspinal musculature. Patient has negative straight leg raises. Tendon reflexes are plus 2 out of 4 bilaterally at the patella and Achilles. Extremities-intact ?4, normal range of motion, normal pulses, atraumatic] Test Results: [CBC with differential showed a white count 9.5, hemoglobin 11.9, hematocrit 36, platelets 320. Chemistries unremarkable. Alk phos was 374. ALT was 18 and AST was 29. Lipase was 179.] Blood cultures ordered and pending. Urinalysis ordered and pending. Chest x-ray showed COPD changes otherwise nothing acute. Emergency Department Course and Treatment: [She was given Dilaudid 1 mg IV. Patient was given Zofran 4 mill grams IV. No antibiotics were started as patient's had fevers for over a month and I suspect may be related to the mass rather than to infectious etiology given his normal white blood cell count and no obvious source of infection. After Dilaudid patient did start to drop his O2 sat and had nasal cannula O2 placed.] Treatment Plan: [Patient will be admitted for pain control and plan on biopsy tomorrow.] Disposition: [Admit.] Impression: [Intractable abdomen and back pain Pelvic mass Fever-etiology uncertain] This note was generated with [employer] dictation software. It may contain incorrect words, spelling, and punctuation that were not noted in review of the chart prior to signing ED Disposition - Plan for ED Patient: Referrals: Shavon Osborne MD [Primary Care Provider] -
--- NOTE | 2019-01-11 14:58 | CASEMGMT ---
Addendum entered by Talita Vale 01/11/19 15:28: Presentation: Rectal Mass Original Note: RN CM Assessment Introduced role of RN CM to patient, Vivienne, and son at bedside.? Patient is alert, oriented and able?to participate in RN CM Assessment. ?Care providers, pharmacy, and demographics verified. Presentation: Past Couple Months with Pain to rectum, back, abd. Fevers, Malaise, Weight loss approx 15lbs. Has had colonoscopy with biopsy, MRI done 01/08/19, Tomorrow at 0700 has needle biopsy here at [facility] scheduled. Seen rectal surgeon Dr Rodriguez at [facility]. Admit Dx: Intractable abdominal pain Re-Admit: No Barriers/Issues: None PCP: Shavon Osborne Specialists: Rectal Surgeon- Dr Rodriguez. Seen Dr Pate here at [facility]. Preferred Pharmacy: [email or web address] Insurance: [employer] Benefit: Yes? ?LNOK: Vivienne Dubon LW/HPOA: No, Would like information from [facility] Living Arrangements:? Lives with in a 2 story home, 7-8 steps in the front, couple steps in the back. 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 Per Son- if patient needed any help/assistance in the home, him and Vivienne would be able to assist , states they have good family support. Son lives down the street. ADL?s: Independent with ambulation and ADL's. The past couple days d/t pain has needed person Assist for ambulation. Transportation: Patient normally drives. Either Vivienne or Son will drive home on [place]. DME: None. If needed DME, Preference with [employer]. HHC: None SNF: None Goal: Home, assistance from family if needed. Does not think will need any DME. DC PLAN: Home with possible DME- WC. Andrei Hampton RNCM
[2019-01-11 15:29] LABS: Mucous, Urine 0 SEEN /hpf (<or=2+); Squamous Epithelial Cells - UA 0 SEEN /hpf (0-5); White Blood Cells 0 SEEN /hpf (0-5)
[2019-01-11 15:31] LABS: Color, Urine Yellow (Yellow); Glucose, Dipstick Normal (Normal); Ketone-Dipstick Negative (Negative); Leukocyte Esterase-Dipstick Negative /ul (Negative); Nitrite-Dipstick Negative (Negative); Occult Blood-Urine 25 /ul (Negative); Protein-Dipstick 15 mg/dl (Negative); Urine Bilirubin Dipstick Negative (Negative); Urine Clarity Clear (Clear); Urine Urobilinogen 8 mg/dl (Normal)
[2019-01-11 15:41] LABS: Bacteria RARE /hpf (None Seen); Red Blood Cells-Urine 0-5 SEEN /hpf (0-5)
[2019-01-11] MEDS: 0.9% Normal Saline 1,000 ML 150 ML IV ×2 (15:41→22:37)
--- NOTE | 2019-01-11 16:00 | NM_ITS ---
CLINICAL: 53-year-old male with reported history of carcinoma of the prostate. WHOLE BODY 99m Tc MDP RADIONUCLIDE BONE SCINTIGRAPHY COMPARISON: CT of the abdomen-pelvis report 12/04/2018 FINDINGS: Following the intravenous administration of 26.0 mCi of 99m Tc MDP, whole body bone images reveal: 1. Multiple foci of increased radiopharmaceutical concentration disseminated throughout the axial skeletal structures, too many to individually articulate to include the proximal-distal sternum, multiple bilateral ribs, thoracic and lumbar vertebra, the bilateral hemipelvis as well as focally defined in the right proximal humeral metaphysis, right distal humeral diaphysis, right proximal humeral metaphysis. 2. Facilitated uptake is visualized in the acromioclavicular compartments of both shoulders, mid cervical spine posteriorly on the right, bilateral wrists and hands, both knee articulations. 3. The remaining skeletal structures are scintigraphically unremarkable with normal-appearing renal images and urinary bladder activity identified. NM/Bone Scan Whole Body IMPRESSION: 1. The multifocal increase in radiopharmaceutical concentration identified in the axial skeletal structures as well as focally defined and the right humerus, right proximal femur is commensurate with diffuse skeletal metastatic disease. 2. Degenerative arthritis appears otherwise expressed in the bilateral shoulders, cervical parenchyma right and left wrist articulations, hands bilaterally, Electronically Signed: Moises Singh DO at 15:05 EDT Tel , Service support ,
--- NOTE | 2019-01-11 17:05 | ONC.CON.INP2 ---
- Problem List (1) Prostate cancer Status: Acute (2) Bone metastases Status: Acute (3) Regional lymph node metastasis present Status: Acute Consult Referring Physician: Hospitalist service Consult Results: Metastatic prostate cancer Subjective Date of Service:: 01/11/19 Chief Complaint: Pelvic PAIN History of Present Illness: 53-year-old male admitted with intractable pelvic pain after failure to respond to outpatient management including narcotic analgesia. He was in his usual state of health until sometime in December 2018 when he experienced increasing pelvic pain. A CT scan of the abdomen and pelvis revealed rectal/perirectal mass and evidence of metastatic malignancy to bones. He underwent a colonoscopy in the [place] area and no mucosal rectal lesion was visualized and biopsies were negative. He was scheduled for an elective outpatient pelvic mass biopsy on January 12, 2019 when he was hospitalized due to intractable uncontrollable pain. Of note his case was presented at the tumor conference at [facility] January 11, [address] Pate and the consensus that metastatic prostate cancer could be the culprit and a PSA was drawn on that day and came back over 600. On direct questioning patient denies being aware of any change in bladder habit however he has experienced increasing constipation recently. He has been anorexic, nauseous and lost over 20 pounds of weight over the course of the past couple of months. Past Medical/Surgical History: Past Medical History - Most Recent Inpatient Visit Past Medical History Start: 01/11/19 14:21 Text: Status: Complete Freq: Protocol: Document 01/11/19 14:23 JOYCE (Rec: 01/11/19 14:26 DanielSamuel [id number]) BMI Required to complete PMH What is Patient's BMI 23.1 Past Medical History Unable History Recalled No Query Text:Pt Unable/Family Not Present Neurologic Medical History Hx Stroke/TIA No Hx Dementia/Alzheimer's No Hx Parkinson's Disease No Hx Seizures No Hx Multiple Sclerosis No Hx Migraines No Cardiac Medical History VTE Present on Admission No Hx of Deep Vein Thrombosis/VTE/PE No Hx Hypertension No Hx Chest Pain/Angina No Hx Heart Attack No Hx Cardiac Surgery/Stents/Etc. No Hx Heart Failure No Hx Pacemaker/AICD No Hx Irregular Heartbeat and/or Afib No Hx Anticoagulant Therapy No Query Text:(Coumadin, Aspirin, Plavix, Xarelto, etc.) Hx Pain in Legs when Walking/Leg Cramps No Respiratory Medical History Hx COPD No Hx Emphysema No Hx Smoking No Smoking Status Never smoker Tobacco Use Non-smoker Hx Tobacco Use in last 12 months No Hx of Pipe Smoking No Hx of Cigar Smoking No Hx Sleep Apnea No Do you snore loudly (louder than talking No or can be heard through closed doors)? Do you often feel tired/ fatigued/ No sleepy during daytime? Has anyone observed you stop breathing No during sleep? STOP Results Negative GI Medical History Hx Ulcer No Hx Hepatitis No Hx Cirrhosis No Hx GI Bleed No Hx Unplanned Weight Loss Yes Genitourinary Medical History Indwelling Catheter in Place on Arrival/ No Admission Hx Renal Disease No Hx Dialysis No Musculoskeletal History Hx Arthritis Yes Hx Rheumatoid Arthritis No Endocrine Medical History Hx Diabetes No Hx Thyroid Disease No Hematologic Medical History Hx of Blood Transfusion No Hx of Transfusion in last 3 Months No Ever experience any problems with No transfusion(s)? Hx of Preganancy in last 3 Months N/A Nurse Filling Out Transfusion & JLAMP Questions: Date: 01/11/19 Time: 14:25 Psycho/Social Medical History Hx Depression No Hx Anxiety No Hx Behavior Disorder No Hx Alcohol Use No Hx Substance Use No Other Medical History Hx Blood Disorders No Hx Anemia No Hx Cancer Yes Hx Drug Resistant Organism No Wound/Pressure Injury Present on Arrival No /Admission Query Text:If yes, chart assessment in Shift/Clinical Findings Central Line/PICC/VAD Present on Arrival No /Admission Antibiotics within last 7 days? No Risk for Readmission Number of Risk Factors 3 At Risk for Readmission Patient is At Risk For Readmission Patient is eligible for Call Back Y Past Medical History (Last Updated 12/05/18 @ 15:09 by Chrissie Calderon) Knee pain (Acute) Maternal Family History: Family History (Last Updated 12/05/18 @ 15:10 by Chrissie Calderon) Mother Cancer Family History: Cancer - Non-Hodgkin's lymphoma Paternal Family History: Family History (Last Updated 12/05/18 @ 15:10 by Chrissie Calderon) Mother Cancer Family History: COPD - Social History Lives: With Family Smoking Status: Never smoker Tobacco Use: Non-smoker Alcohol: Occasional Drugs: None Allergies/Adverse Reactions: Allergy/AdvReac Type Severity Reaction Status Date / Time No Known Allergies Allergy Verified 01/11/19 13:15 Review of Systems Constitutional:: Reports: Weakness - 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 Denies: Sweats, Chills Cardiovascular:: Denies: Chest pain, Palpitations, Dyspnea on exertion, Orthopnea, PND, Shortness of breath Respiratory: Denies: Cough, Hemoptysis, Shortness of Breath, Wheezing Gastrointestinal:: Reports: Nausea, Constipation. Denies: Abdominal pain, Vomiting, Diarrhea, Hematochezia Genitourinary: Denies: Dysuria, Hematuria, 15, Flank pain Musculoskeletal:: Reports: Back pain - He has had chronic back pain, used to see a chiropractor. The newly experienced pain is more deep in the pelvis and tailbone area.. Denies: Myalgia, Arthralgia Skin: Denies: Rash, Skin Changes, Wounds Neurological:: Denies: Headache, Dizziness, Visual changes, Tinnitus, Hearing loss Psychiatric: Denies: Anxiety, Depression, Homicidal Ideations, Suicidal Ideations Vital Signs Height 6 ft 7.92 in Weight: 91.9 kg Weight in Pounds 202.6 lbs Pulse Ox 99 Temperature 101.6 F Pulse Rate 83 Respiratory Rate 20 Blood Pressure 110/61 Blood Pressure Position Semi-Fowlers - Physical Exam General: Alert, Oriented x3, No apparent distress, - - ECOG 1, comfortable when laying still but pain is aggravated by movements HEENT: Atraumatic, PERRLA, EOMI, Normocephalic Oropharynx:: Dry mucosa Neck:: Supple, Trachea midline. Negative for: JVD, bilateral Cardiac:: Regular rate, Regular rhythm, Normal S1, Normal S2. Negative for: Murmur Lungs: Clear to auscultation, Diminished, Excusion symmetrical. Negative for: Rhonchi, Wheezes Abdomen:: Soft, Non-tender, Non-distended. Negative for: Hepatosplenomegaly Extremities:: Negative for: Cyanosis, Edema Neurological: Neuro grossly intact, - - Ambulated independently but was in pain when moving out of bed Skin:: Negative for: Lesions, Rash, Petechiae, Ecchymosis Psychiatric:: Appropriate affect, Euthymic Lymphatics:: Negative for: Cervical lymphadenopathy, Supraclavicular lymphadenopathy, Axillary lymphadenopathy Laboratory Data: Laboratory Tests 01/11/19 01/11/19 01/11/19 Range/Units 15:15 13:25 13:25 WBC (4.4-11.0) K/mm3 RBC (4.6-6.2) M/mm3 Hgb (13.0-16.5) g/dl Hct (40-54) % MCV (80-94) fL MCH (27.0-32.0) pg MCHC (32-36) g/gl RDW (11.6-14.6) % RDW Differential (35.1-43.9) fl Plt Count (150-450) K/mm3 MPV (6.2-12.0) fl Immature Gran % (Auto) (0.0-0.9) % Neut % (Auto) (47-70) % Lymph % (Auto) (19-41) % [place] % (Auto) (0-10) % Eos % (Auto) (0-5) % Baso % (Auto) (0-1) % Absolute Neuts (auto) (2.0-7.7) X10^3/uL Absolute Lymphs (auto) (0.83-4.51) X10^3/ul Total Counted Sodium 131 L (136-145) mmol/L Potassium 4.0 (3.5-5.1) mmol/L Chloride 95 L (98-107) mmol/L Carbon Dioxide 30.0 (21.0-32.0) mmol/L Anion Gap 6 (5-15) BUN 14 (7-18) mg/dL Creatinine 0.91 (0.70-1.30) mg/dL Estim Creat Clear Calc 125.03 ml/min Est GFR (MDRD) Af Amer 111 (>60) mL/min Est GFR (MDRD) Non-Af 92 (>60) mL/min BUN/Creatinine Ratio 15.4 (10-20) RATIO Glucose 134 H (74-106) mg/dL Lactic Acid 1.4 (0.4-2.0) mmol/L Calcium 8.9 (8.5-10.1) mg/dL Total Bilirubin 0.50 (0.20-1.00) mg/dL AST 29 (15-37) U/L ALT 18 (16-61) U/L Alkaline Phosphatase 374 H (45-117) U/L Total Protein 7.5 (6.4-8.2) g/dL Albumin 3.1 L (3.2-5.0) g/dL Globulin 4.4 H (2.2-4.2) g/dL Albumin/Globulin Ratio 0.7 L (0.9-2.4) RATIO Lipase 175 (73-393) U/L Urine Color Yellow (Yellow) Urine Clarity Clear (Clear) Urine pH 8.0 (5.0 - 8.0) Ur Specific [place] 1.010 (1.002-1.030) Urine Protein 15 H (Negative) mg/dl Urine Glucose (UA) Normal (Normal) mg/dl Urine Ketones Negative (Negative) mg/dl Urine Occult Blood 25 H (Negative) /ul Urine Nitrite Negative (Negative) Urine Bilirubin Negative (Negative) mg/dL Urine Urobilinogen 8 H (Normal) mg/dl Ur Leukocyte Esterase Negative (Negative) /ul Urine RBC 0-5 SEEN (0-5) /hpf Urine WBC 0 SEEN (0-5) /hpf Ur Squamous Epith Cells 0 SEEN (0-5) /hpf Urine Bacteria RARE (None Seen) /hpf Urine Mucus 0 SEEN (<or=2+) /hpf 01/11/19 Range/Units 13:25 WBC 9.5 (4.4-11.0) K/mm3 RBC 3.93 L (4.6-6.2) M/mm3 Hgb 11.9 L (13.0-16.5) g/dl Hct 36.1 L (40-54) % MCV 91.9 (80-94) fL MCH 30.3 (27.0-32.0) pg MCHC 33.0 (32-36) g/gl RDW 12.2 (11.6-14.6) % RDW Differential 41.4 (35.1-43.9) fl Plt Count 320 (150-450) K/mm3 MPV 8.8 (6.2-12.0) fl Immature Gran % (Auto) 0.300 (0.0-0.9) % Neut % (Auto) 81.2 H (47-70) % Lymph % (Auto) 8.1 L (19-41) % [place] % (Auto) 10.1 H (0-10) % Eos % (Auto) 0.0 (0-5) % Baso % (Auto) 0.3 (0-1) % Absolute Neuts (auto) 7.7 (2.0-7.7) X10^3/uL Absolute Lymphs (auto) 0.77 L (0.83-4.51) X10^3/ul Total Counted Not Reportable Sodium (136-145) mmol/L Potassium (3.5-5.1) mmol/L Chloride (98-107) mmol/L Carbon Dioxide (21.0-32.0) mmol/L Anion Gap (5-15) BUN (7-18) mg/dL Creatinine (0.70-1.30) mg/dL Estim Creat Clear Calc ml/min Est GFR (MDRD) Af Amer (>60) mL/min Est GFR (MDRD) Non-Af (>60) mL/min BUN/Creatinine Ratio (10-20) RATIO Glucose (74-106) mg/dL Lactic Acid (0.4-2.0) mmol/L Calcium (8.5-10.1) mg/dL Total Bilirubin (0.20-1.00) mg/dL AST (15-37) U/L ALT (16-61) U/L Alkaline Phosphatase (45-117) U/L Total Protein (6.4-8.2) g/dL Albumin (3.2-5.0) g/dL Globulin (2.2-4.2) g/dL Albumin/Globulin Ratio (0.9-2.4) RATIO Lipase (73-393) U/L Urine Color (Yellow) Urine Clarity (Clear) Urine pH (5.0 - 8.0) Ur Specific [place] (1.002-1.030) Urine Protein (Negative) mg/dl Urine Glucose (UA) (Normal) mg/dl Urine Ketones (Negative) mg/dl Urine Occult Blood (Negative) /ul Urine Nitrite (Negative) Urine Bilirubin (Negative) mg/dL Urine Urobilinogen (Normal) mg/dl Ur Leukocyte Esterase (Negative) /ul Urine RBC (0-5) /hpf Urine WBC (0-5) /hpf Ur Squamous Epith Cells (0-5) /hpf Urine Bacteria (None Seen) /hpf Urine Mucus (<or=2+) /hpf Laboratory Tests 01/11/19 08:51 Total PSA 629.00 H Diagnostic Data: Diagnostic Data Chest X-Ray 01/11/19 13:34 IMPRESSION: No acute cardiopulmonary findings COPD/hyperaeration with coarse lung markings Electronically Signed: Willian Monteiroata, at 13:54 EDT Tel , Service support , His CT scan of the abdomen and pelvis of December 2018 was presented and discussed in detail and the tumor conference earlier this morning which I did attend and participate and Assessment and Plan 53-year-old male who presents with intractable pelvic pain, pelvic mass and evidence for metastatic disease to the bony pelvis and a PSA over 600. These findings are diagnostic of metastatic, stage IV, high volume aggressive prostate cancer. Recommendations: 1. Pain management consult to optimize pain control since he has failed outpatient treatment including narcotic analgesia. 2. Patient is scheduled for a pelvic mass biopsy on January 12, 2019 which will pathologically confirmed the diagnosis and rule out any atypical pathology such as neuroendocrine tumors of the prostate (rare, unlikely). 3. Start androgen deprivation therapy once insurance authorization is obtained. His presentation and the PSA over 600 are sufficient for the diagnosis and should not delay initiation of treatment awaiting pathology. This will also aid in expediting pain control. 4. bone scan to assess the extent of metastatic disease and if needed further imaging depending on findings. 5. Follow-up in 1 week with myself in the office with review of findings to date and to discuss systemic chemotherapy with Taxotere prednisone which in clinical trials have been shown to improve both survival and disease-free survival in the high volume metastatic prostate cancer. 6. Bisphosphonate therapy for metastatic painful bony disease to start in the outpatient. Patient was seen with his , discussed impression and plan. Discussed over the phone with Dr. Simon and Dr. Borja. Medications: Prescriptions This Visit Medication Instructions Recorded Bisacodyl [Dulcolax] 10 mg PO DAILY 01/11/19 Ibuprofen 600 - 800 mg PO Q6H PRN PRN 01/11/19 Lansoprazole 15 mg PO DAILY 01/11/19 Oxycodone [Oxyir] 5 mg PO Q4H PRN PRN 01/11/19 Medications Added to Medication List This Visit Category Date Time Status 0.9% Normal Saline 1,000 ml Med 01/11/19 15:30 Active IV 150 mls/hr 0.9% Normal Saline 500 ml Med 01/12/19 07:30 Active IV KVO mls/hr 0.9% Saline Lock Med 01/11/19 16:20 Active 5 - 15 ml IV UD PRN Bisacodyl [Dulcolax] Med 01/12/19 10:00 Active 10 mg PO DAILY Dextrose 50%-Water [D50w Syringe] Med 01/11/19 15:23 Active See Protocol IV X1 PRN Enoxaparin [Lovenox] Med 01/12/19 10:00 Active 40 mg SC DAILY@1000 Glucagon Med 01/11/19 15:23 Active 1 mg IM .X1 PRN Midazolam [Versed] Med 01/12/19 07:30 Active 1 - 2 mg IV UD PRN Ondansetron [Zofran] Med 01/11/19 15:23 Active 4 mg IV Q8H PRN PRN Oxycodone [Oxyir] Med 01/11/19 15:23 Active 5 mg PO Q4H PRN PRN fentaNYL (100mcg ampule) [Sublimaze (100mcg ampule)] Med 01/12/19 07:30 Active 25 - 50 mcg IV UD PRN morphine Inj Med 01/11/19 15:23 Active 2 mg IV Q3H PRN PRN Primary Care Provider: Shavon Osborne MD Referring Provider: Ilana Simon MD
--- NOTE | 2019-01-11 17:06 | CHAPLAIN ---
Type of Pastoral Visit _x__ Initial Visit ___ Follow-up Visit ___ On-call Visit ___ General Patient Visit ___ Spiritual Assessment ___ Family Conference ___ Bereavement ___ Rapid Response ___ Code Blue ___ Other (describe below) Pastoral Care Referral From _x__ Patient ___ Family ___ Nurse ___ Physician ___ Compound Filler ___ Pot Fireman ___ Other (describe below) Sacrament/Intervention _x__ Active listening ___ Anointing ___ Samaritan ___ Bereavement ___ Communion _x__ Leanne exploration ___ ___ Life review _x__ Prayer ___ Reconciliation ___ Sacrament of Sick _x__ Supportive presence ___ Wedding ___ Other (describe below) Pastoral Comments several family members are gathered in room with patient; pt welcomes 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
[2019-01-11 17:30] LABS: Bedside Glucose 164 mg/dL (70-110)
[2019-01-11] MEDS: Morphine 2 MG/ML Syringe IV ×2 (18:36→21:40)
[2019-01-11] MEDS: oxyCODONE 5 MG Tablet PO (20:25)
[2019-01-11] MEDS: oxyCODONE HCl Cr 10 MG Tablet PO (22:37)
[2019-01-12] VITALS (16 sets, daily range): BP systolic 106–132; BP diastolic 51–70; PULSE 60–97; RESP 13–18; TEMP 36.6–37.8; O2SAT 90–100
--- NOTE | 2019-01-12 | IMM_PTH ---
PATIENT: ELIZABETH OSHEA LOC: MS3 U#:[id number] AGE/SX: 53/M ROOM: MS316 RE01/11/[address]: Dr. Ilana Simon MD : 1965 BED: 1 DIS: 01/14/2019 SPEC #: [id number] RECD: 01/15/19 12:39 STATUS: [place] REQ #: [id number] BETO: 01/12/19 00:[address]: Ilana Simon DEPT: IMMUNOHISTOCHEMISTRY RECD BY: Jovita Contreras ENTERED: 01/15/19 12:40 SP TYPE: IMMUNO OTHR DR: MD Dr. Shavon Santiago MD Dr. Mansour Isckarus, MD Tissues: Pelvis, NOS Procedures: RCC (add) NAPSIN A (add) CK20 (add) CK5-6 (add) CK7 (add) CK8 (add) HEP PAR (add) TTF1 (add) Pankeratin (initial) P40 (add) PSAP (add) PHYSICIAN & [address] [address] SPECIMEN INFORMATION: Tissue Source: Left pelvic mass Clinical Info: Pelvic mass Specimen Number: [id number] CPT code: 47810, 13977 x10 METHODOLOGY: Deparaffinized sections of prefer/formalin-fixed tissue or PAP/DQ stained slides are incubated with monoclonal/polyclonal antibodies/oligonucleotide probes. Localization is made via biotin free immunoperoxidase method. Appropriate controls are performed and reacted as expected. Results on target cell population are indicated in the following table: RESULTS: ANTIBODY / CLONE RESULT AE1-3 (AE1/AE3/PCK26) positive CK7 (OV-TL12/30) positive, rare cells CK8 (71mhfaC51) positive CK20 (KS20.8) negative TTF-1 (8G7G3/1) negative Napsin A (Rabbit Polyclonal) negative HepPar (OCh1E5) negative RCC (PN-15) negative PSAP (PASE/4LJ) positive CK5-6 (D5 & 1684) negative P40 (BC28) negative These tests were developed and their performance characteristics determined by [facility]. They may not have been cleared or approved by the U.S. Food and Drug Administration. The FDA has determined that such clearance or approval is not necessary. INTERPRETATION: Left pelvic mass, CT-guided biopsy: Metastatic carcinoma consistent with prostate primary. SJ:romulo 01/16/19 Comment: Clinical correlation is necessary. Case has been reviewed in consultation with Dr. Donaldson who concurs with the above diagnosis. IDC:JANE
--- NOTE | 2019-01-12 | ASPIGT_PTH ---
PATIENT: ELIZABETH OSHEA LOC: [facility] U#:[id number] AGE/SX: 53/M ROOM: [facility]316 RE01/11/[address]: Dr. Ilana Simon MD : 1965 BED: 1 DIS: 01/14/2019 SPEC #: [id number] RECD: 01/12/19 10:51 STATUS: MERRITT REQ #: [id number] BETO: 01/12/19 00:[address]: Ilana Simon DEPT: SURGICAL PATHOLOGY RECD BY: oRb Epperson ENTERED: 01/12/19 10:52 SP TYPE: ASP RAD OTHR DR: MD Dr. Shavon Santiago MD Dr. Mansour Isckarus, MD Tissues: Pelvis, NOS Procedures: FNA Specimen Adequacy Special Stain Group II Surgery Specimen Level IV Imprint (control) HEADER OPERATION: CT-guided pelvic biopsy PRE-OP DIAGNOSIS: Pelvic mass TISSUE SUBMITTED: Left pelvic mass 18 gauge core x6 MICROSCOPIC DIAGNOSIS Left pelvic mass, CT-guided core biopsy: Metastatic carcinoma, consistent with prostate primary. See comment. MYRIAM:romulo 01/15/19 COMMENT The specimen is evaluated at the time of biopsy by Dr. Reyes. Immediate Evaluation: Set 1 (one touch imprint) - Rare atypical cells noted. Set 2 (two touch imprints) - Adequate for evaluation. Malignant cells noted. Immunohistochemistry ([id number]) supports the above diagnosis. Case has been reviewed in consultation with Dr. Donaldson who concurs with the above diagnosis. IDC:AM MICROSCOPIC DESCRIPTION Slides are reviewed. GROSS DESCRIPTION Received in fixative is one container labeled with the patient's name and designated pelvic mass. The specimen consists of multiple irregular fragments of lenz soft tissue that in aggregate measure 1.5 x 0.3 x 0.1 cm. The specimen is totally submitted in one cassette. Three touch imprints are prepared at the time of core biopsy / MYRIAM:romulo 01/12/19 TC:0 CPT: 19488, 79710, 97877 ADDENDUM ADDENDUM ADDENDUM ADDENDUM ADDENDUM ADDENDUM ADDENDUM ADDENDUM ADDENDUM ADDENDUM ADDENDUM ADDENDUM ADDENDUM ADDENDUM ADDENDUM ADDENDUM ADDENDUM 07/08/2021 09:24 ADDENDUM 03/07/2023 10:29 ADDENDUM 07/08/2021 09:24 ADDENDUM 07/08/2021 09:24 ADDENDUM 07/08/2021 09:24 ADDENDUM 07/08/2021 09:24 ONKOSIGHT ADVANCED PROSTATE NGS REPORT FROM [facility] Oncology RESULT SUMMARY: Abnormal IMMUNOTHERAPY BIOMARKERS: Tumor Mutation [place]: Low (1.6 mutations / MB) Microsatellite Instability: MSI negative PERTINENT NEGATIVE RESULTS: The following genes are NEGATIVE for clinically relevant mutations. Mutational hotspots and surrounding exonic regions were interrogated for DNA level point mutations and indels (fusions not assayed). AR, HEATHER, ATR, BARD1, BRCA1, BRCA2, BRIP1, CDK12, CHEK1, CHEK2, EPCAM, TPK752J, FANCA, FANCL, GEN1, HOXB13, MLH1, MRE11A, MSH2, MSH6, MUTYH, NBN, NTRK1, PALB2, PMS2, BSJ8X9H, PTEN, RAD51B, RAD51C, RAD51D, RAD54L, RB1, TERT Please see complete report in e-chart or EMR This addendum is added to incorporate an outside pathology consultation report. The case was examined at [facility] (#[id number]) and the following diagnosis was rendered. Left pelvic mass, CT-guided core biopsy: Metastatic carcinoma compatible with prostatic carcinoma. Please see complete above mentioned consultation report in EMR
[2019-01-12] MEDS: Morphine 2 MG/ML Syringe IV ×2 (01:48→05:30)
[2019-01-12] MEDS: oxyCODONE 5 MG Tablet PO ×2 (03:54→17:32)
[2019-01-12] MEDS: 0.9% NaCl Peripheral Flush Adult/Peds IV (05:30)
[2019-01-12 05:49] LABS: Absolute Lymphocyte Count 1.29 X10^3/ul (0.83-4.51); Absolute Neutrophil Count 6.1 X10^3/uL (2.0-7.7); Basophil# 0.02 X10^3/uL; Basophil% 0.2 % (0-1); Hematocrit 29.3 % (40-54); Hemoglobin 9.5 g/dl (13.0-16.5); Lymphocyte # 1.29 X10^3/ul (4.0); Lymphocyte % 14.9 % (19-41); Mean Corp Hgb Conc 32.4 g/gl (32-36); Mean Corpuscular Hgb 30.1 pg (27.0-32.0); Mean Corpuscular Volume 92.7 fL (80-94); Monocyte# 1.16 X10^3/uL; Monocyte% 13.4 % (0-10); Neutrophil # 6.13 X10^3/uL (2.7-7.7); Platelet Count 258 K/mm3 (150-450); RBC Distribution Width CV 12.3 % (11.6-14.6); Red Blood Count 3.16 M/mm3 (4.6-6.2); White Blood Count 8.6 K/mm3 (4.4-11.0)
[2019-01-12 05:57] LABS: POSITIVE COUNT NO; POSITIVE DIFFERENTIAL NO; POSITIVE MORPHOLOGY NO
[2019-01-12 06:14] LABS: Anion Gap 7 (5-15); BUN 13 mg/dL (7-18); BUN/Creat Ratio 20.6 RATIO (10-20); Chloride 101 mmol/L (98-107); Creatinine, Serum 0.63 mg/dL (0.70-1.30); EST Glomerular Filtration Rate 140 mL/min (>60); Est Glom Filt Rate - Afr Amer 170 mL/min (>60); Estimated Creatinine Clearance 174.24 ml/min; Glucose 113 mg/dL (74-106); Sodium Level 135 mmol/L (136-145)
--- NOTE | 2019-01-12 07:00 | CT_ITS ---
PROCEDURE: CT guided biopsy of the left pararectal mass. DATE OF EXAMINATION: January 12, 2019. INDICATION: Male, 53 years old. Left pararectal mass. PHYSICIAN: Dr. Horne RADIATION DOSAGE (If Supplied By Facility): CTDIvol = ( 15 ) mGy, DLP = ( 473.08 ) mGycm CONSENT: The risks, benefits and alternatives to the procedure were explained to the patient, and the patient agreed to the procedure and signed the consent. SEDATION: 2 mg of Versed and 50 mcg of fentanyl intravenously. Conscious sedation was started 7:55 AM and terminated 8:20 AM. The patient was monitored by the department nurse. STERILE BARRIER TECHNIQUE: The following sterile barrier precautions were used during the procedure: hand hygiene; use of 2% chlorhexidine aseptic; use of a cap, mask, sterile gown, sterile gloves, sterile full body drape, and a large sterile sheet. PROCEDURE/TECHNIQUE: (All elements of maximal sterile barrier technique followed, including US elements as applicable) The risks, benefits, and alternatives to the procedure were explained to patient, and the patient agreed to the procedure and signed a consent form for the procedure. A timeout was performed to confirm the patient's identity, the type of procedure, to be performed and the site of entry. The patient was in the prone position. Overlying skin was prepped and draped in the usual sterile fashion. Following local anesthetic application, an 18-gauge biopsy needle was placed into the left pararectal mass. 6 18-gauge core biopsies were performed. The patient tolerated procedure well. CT/Biopsy/Inj or Needle Placement IMPRESSION: Successful left pararectal biopsy. Electronically Signed: Sunny Horne, at 11:44 EDT , Service support ,
[2019-01-12] MEDS: fentaNYL 100 MCG/2 ML Ampul IV (07:55)
[2019-01-12] MEDS: Midazolam 2 MG/2 ML Syringe IV (07:55)
--- NOTE | 2019-01-12 08:43 | NURSING ---
Concepción, RN from radiology called report for pt status post CT guided biopsy. Sandra, primary RN notified of report and of pt awaiting injection for bone scan later today prior to returning to [facility].
--- NOTE | 2019-01-12 10:51 | CASEMGMT ---
Social Work Note SW received referral for information regarding advanced directives. SW met with pt, pt's family present in room. SW introduced self and role at [facility]. Pt is alert and orientated x3. SW provided pt with HCPOA and LW documents and SW rack card and informed pt that he is able to complete documents while at [facility] or can call number on rack card to meet with SW at hospital to complete documents. Pt states that he will review documents and doesn't want to complete documents at this time. Talita Hanley PHYSICIAN OFFICE SECRETARY, TELETRAY OPERATOR
[2019-01-12] MEDS: Bisacodyl 5 MG Tablet 10 MG PO (10:56)
[2019-01-12] MEDS: oxyCODONE HCl Cr 10 MG Tablet PO (10:56)
--- NOTE | 2019-01-12 11:37 | PCM.PN.HOSP ---
Patient Problems: Active and Suspected Problems (Last Updated 12/05/18 @ 15:09 by Chrissie Calderon) Prostate cancer (Acute) Intractable pain (Acute) Bone metastases (Acute) Regional lymph node metastasis present (Acute) Weight loss, non-intentional (Acute) Subjective: Patient seen and examined. He still does complain of pain in his back and abdomen. He denies any fever or chills, nausea vomiting or diarrhea. He also denies any shortness of breath or chest pain or palpitations. Family was by his bedside. He was evaluated by oncology yesterday after diagnosis of metastatic prostate cancer. He had a CT-guided biopsy of the pelvic mass today and pain management was also consulted. Vitals/I&O's: Vital Signs Temp Pulse Resp BP Pulse Ox 98.2 F 65 18 108/51 L 99 01/12/19 09:15 01/12/19 09:29 01/12/19 09:15 01/12/19 09:15 01/12/19 09:15 Oxygen Flow Rate (L/min) [5] 2 Oxygen Flow Rate (L/min) [4] 3 Oxygen Flow Rate (L/min) [3] 2 Oxygen Flow Rate (L/min) [2] 3 Oxygen Flow Rate (L/min) [1 ( 3 Initial Baseline)] Oxygen Flow Rate (L/min) 2 Oxygen Delivery Method [6] Nasal Cannula Oxygen Delivery Method [5] Nasal Cannula Oxygen Delivery Method [4] Nasal Cannula Oxygen Delivery Method [3] Nasal Cannula Oxygen Delivery Method [2] Nasal Cannula Oxygen Delivery Method [1 ( Nasal Cannula Initial Baseline)] Oxygen Delivery Method Nasal Cannula Weight: 202 lb 9.677 oz Body Mass Index (BMI) 22.3 Intake and Output for Last 24 Hours 01/10/19 01/11/19 01/12/19 23:59 23:59 23:59 Intake Total 835 / 835 1543 / 1543 Output Total 250 / 250 Balance 585 / 585 1543 / 1543 General: Alert, Oriented x3, Cooperative HEENT: Atraumatic, PERRLA, EOMI, Normocephalic Oral: Dry Mucosa Neck: Supple, No JVD, Negative Carotid Bruits Lungs: Clear to auscultation, Normal air movement, No rhonchi, No wheeze, No rales Cardiovascular: Regular rate, Regular Rhythm, Normal S1, Normal S2, No murmurs Abdomen: Bowel Sounds Present, Soft, - - mild generalised tenderness, no guarding or rebound tenderness Extremities: No clubbing, No cyanosis, No edema, Capillary Refill Less than 3 Seconds Skin: No rashes, No breakdown Musculoskeletal: - - severe tenderness on palpation of right paraspinal muscles in lumbar area. Lymphatic: No Cervical, Supraclavicular, or Inguinal Adenopathy Neurological: Cranial nerves II-XII grossly intact, Neuro grossly intact Psych/Mental Status: Alert and oriented to time, place, person, mood and affect Laboratory Results 01/11/19 13:25: WBC 9.5, RBC 3.93 L, Hgb 11.9 L, Hct 36.1 L, MCV 91.9, MCH 30.3, MCHC 33.0, RDW 12.2, RDW Differential 41.4, Plt Count 320, MPV 8.8, Immature Gran % (Auto) 0.300, Neut % (Auto) 81.2 H, Lymph % (Auto) 8.1 L, Baker % (Auto) 10.1 H, Eos % (Auto) 0.0, Baso % (Auto) 0.3, Absolute Neuts (auto) 7.7, Absolute Lymphs (auto) 0.77 L, Total Counted Not Reportable 01/11/19 13:25: Sodium 131 L, Potassium 4.0, Chloride 95 L, Carbon Dioxide 30.0, Anion Gap 6, BUN 14, Creatinine 0.91, Estim Creat Clear Calc 125.03, Est GFR (MDRD) Af Amer 111, Est GFR (MDRD) Non-Af 92, BUN/Creatinine Ratio 15.4, Glucose 134 H, Calcium 8.9, Total Bilirubin 0.50, AST 29, ALT 18, Alkaline Phosphatase 374 H, Total Protein 7.5, Albumin 3.1 L, Globulin 4.4 H, Albumin/Globulin Ratio 0.7 L, Lipase 175 01/11/19 13:25: Lactic Acid 1.4 01/11/19 15:15: Urine Color Yellow, Urine Clarity Clear, Urine pH 8.0, Ur Specific [place] 1.010, Urine Protein 15 H, Urine Glucose (UA) Normal, Urine Ketones Negative, Urine Occult Blood 25 H, Urine Nitrite Negative, Urine Bilirubin Negative, Urine Urobilinogen 8 H, Ur Leukocyte Esterase Negative, Urine RBC 0-5 SEEN, Urine WBC 0 SEEN, Ur Squamous Epith Cells 0 SEEN, Urine Bacteria RARE, Urine Mucus 0 SEEN 01/11/19 16:43: POC Glucose 164 H 01/12/19 05:28: WBC 8.6, RBC 3.16 L, Hgb 9.5 L, Hct 29.3 L, MCV 92.7, MCH 30.1, MCHC 32.4, RDW 12.3, RDW Differential 40.0, Plt Count 258, MPV 9.0, Immature Gran % (Auto) 0.500, Neut % (Auto) 71.0 H, Lymph % (Auto) 14.9 L, Baker % (Auto) 13.4 H, Eos % (Auto) 0.0, Baso % (Auto) 0.2, Absolute Neuts (auto) 6.1, Absolute Lymphs (auto) 1.29, Total Counted Not Reportable 01/12/19 05:28: Sodium 135 L, Potassium 4.0, Chloride 101, Carbon Dioxide 27.0, Anion Gap 7, BUN 13, Creatinine 0.63 L, Estim Creat Clear Calc 174.24, Est GFR (MDRD) Af Amer 170, Est GFR (MDRD) Non-Af 140, BUN/Creatinine Ratio 20.6 H, Glucose 113 H, Calcium 8.0 L Diagnostic Data Chest X-Ray 01/11/19 13:34 IMPRESSION: No acute cardiopulmonary findings COPD/hyperaeration with coarse lung markings Electronically Signed: Willian Major DO at 13:54 EDT Tel , Service support , Current Medications Bisacodyl (Dulcolax) 10 mg PO DAILY [facility] Last Admin: 01/12/19 10:56 Dose: 10 mg Dextrose (D50w Syringe) 0 gm IV X1 PRN; Protocol PRN Reason: Hypoglycemia Enoxaparin Sodium (Lovenox) 40 mg SC DAILY@1000 A[facility]A Last Admin: 01/12/19 10:58 Dose: Not Given Fentanyl Citrate (Sublimaze (100mcg Ampule)) 25 - 50 mcg IV UD PRN PRN Reason: Procedural Pain Control Stop: 01/12/19 23:59 Last Admin: 01/12/19 07:55 Dose: 50 mcg Glucagon () 1 mg IM .X1 PRN PRN Reason: Hypoglycemia Midazolam HCl (Versed) 1 - 2 mg IV UD PRN PRN Reason: Procedural Sedation Stop: 01/12/19 23:59 Last Admin: 01/12/19 07:55 Dose: 2 mg Morphine Sulfate () 2 mg IV Q3H PRN PRN PRN Reason: Severe pain (7-07/12) Last Admin: 01/12/19 05:30 Dose: 2 mg Ondansetron HCl (Zofran) 4 mg IV Q8H PRN PRN PRN Reason: NAUSEA/VOMITING Last Admin: 01/11/19 18:36 Dose: 4 mg Oxycodone HCl (Oxyir) 5 mg PO Q4H PRN PRN PRN Reason: PAIN Last Admin: 01/12/19 03:54 Dose: 5 mg Oxycodone HCl (Oxycontin) 10 mg PO BID A[facility] Last Admin: 01/12/19 10:56 Dose: 10 mg Sodium Chloride () 5 - 15 ml IV UD PRN PRN Reason: SALINE FLUSH Last Admin: 01/12/19 05:30 Dose: 10 ml Medical Necessity - Tobacco Use Smoking Status: Never smoker Tobacco Use: Non-smoker Assessment/Plan All Active Problems (Last Updated 12/05/18 @ 15:09 by Chrissie Calderon) Prostate cancer (Acute) Intractable pain (Acute) Bone metastases (Acute) Regional lymph node metastasis present (Acute) Weight loss, non-intentional (Acute) 53 y/o male admitted with a complaint of severe abdominal and back pain 1. Intractable lower back and abdominal pain likely due to metastatic prostate cancer still complains of severe pain MRI done (01/08/19): Abnormal thickening of quiroga of the rectum and distal sigmoid colon, left pelvic mass adjacent to the rectum which may represent direct extension of neoplasm and possible lymphadenopathy, abnormal signal within the bony felt pelvis suggesting metastasis and venous distention within the pelvis and deep vein thrombus cannot be excluded. PSA was 629; had biopsy of pelvic mass today for bone scan as per oncology today pain management consulted; await rec's has appointment with Dr Maurer on Tuesday in his office. 2.Probable metastatic prostate cancer s/p pelvic mass biopsy as under 1. 3. Acute hypovolemic hyponatremia: Sodium was 131 on admission and is now 135 continue hydrating with IVF and monitor 4. SIRS criteria: was likely due to systemic reaction from cancer. Fever has resolved and tachypnea has also resolved. no antibiotics given. Will continue monitoring. DVT prophylaxis: lovenox Code Visit OBSV E&M: 80543 Subsequent observation care L3
--- NOTE | 2019-01-12 11:40 | NURSING ---
PT OFF UNIT FOR BONE SCAN.
--- NOTE | 2019-01-12 11:44 | PN_ITS ---
Patient Problems: Active and Suspected Problems (Last Updated 12/05/18 @ 15:09 by Chrissie Calderon) Prostate cancer (Acute) Intractable pain (Acute) Bone metastases (Acute) Regional lymph node metastasis present (Acute) Weight loss, non-intentional (Acute) Subjective: Patient seen and examined. He still does complain of pain in his back and abdomen. He denies any fever or chills, nausea vomiting or diarrhea. He also denies any shortness of breath or chest pain or palpitations. Family was by his bedside. He was evaluated by oncology yesterday after diagnosis of metastatic prostate cancer. He had a CT-guided biopsy of the pelvic mass today and pain management was also consulted. Vitals/I&O's: Vital Signs Temp Pulse Resp BP Pulse Ox 98.2 F 65 18 108/51 L 99 01/12/19 09:15 01/12/19 09:29 01/12/19 09:15 01/12/19 09:15 01/12/19 09:15 Oxygen Flow Rate (L/min) [5] 2 Oxygen Flow Rate (L/min) [4] 3 Oxygen Flow Rate (L/min) [3] 2 Oxygen Flow Rate (L/min) [2] 3 Oxygen Flow Rate (L/min) [1 ( 3 Initial Baseline)] Oxygen Flow Rate (L/min) 2 Oxygen Delivery Method [6] Nasal Cannula Oxygen Delivery Method [5] Nasal Cannula Oxygen Delivery Method [4] Nasal Cannula Oxygen Delivery Method [3] Nasal Cannula Oxygen Delivery Method [2] Nasal Cannula Oxygen Delivery Method [1 ( Nasal Cannula Initial Baseline)] Oxygen Delivery Method Nasal Cannula Weight: 202 lb 9.677 oz Body Mass Index (BMI) 22.3 Intake and Output for Last 24 Hours 01/10/19 01/11/19 01/12/19 23:59 23:59 23:59 Intake Total 835 / 835 1543 / 1543 Output Total 250 / 250 Balance 585 / 585 1543 / 1543 General: Alert, Oriented x3, Cooperative HEENT: Atraumatic, PERRLA, EOMI, Normocephalic Oral: Dry Mucosa Neck: Supple, No JVD, Negative Carotid Bruits Lungs: Clear to auscultation, Normal air movement, No rhonchi, No wheeze, No rales Cardiovascular: Regular rate, Regular Rhythm, Normal S1, Normal S2, No murmurs Abdomen: Bowel Sounds Present, Soft, - - mild generalised tenderness, no guarding or rebound tenderness Extremities: No clubbing, No cyanosis, No edema, Capillary Refill Less than 3 Seconds Skin: No rashes, No breakdown Musculoskeletal: - - severe tenderness on palpation of right paraspinal muscles in lumbar area. Lymphatic: No Cervical, Supraclavicular, or Inguinal Adenopathy Neurological: Cranial nerves II-XII grossly intact, Neuro grossly intact Psych/Mental Status: Alert and oriented to time, place, person, mood and affect Laboratory Results 01/11/19 13:25: WBC 9.5, RBC 3.93 L, Hgb 11.9 L, Hct 36.1 L, MCV 91.9, MCH 30.3, MCHC 33.0, RDW 12.2, RDW Differential 41.4, Plt Count 320, MPV 8.8, Immature Gran % (Auto) 0.300, Neut % (Auto) 81.2 H, Lymph % (Auto) 8.1 L, [place] % (Auto) 10.1 H, Eos % (Auto) 0.0, Baso % (Auto) 0.3, Absolute Neuts (auto) 7.7, Absolute Lymphs (auto) 0.77 L, Total Counted Not Reportable 01/11/19 13:25: Sodium 131 L, Potassium 4.0, Chloride 95 L, Carbon Dioxide 30.0, Anion Gap 6, BUN 14, Creatinine 0.91, Estim Creat Clear Calc 125.03, Est GFR (MDRD) Af Amer 111, Est GFR (MDRD) Non-Af 92, BUN/Creatinine Ratio 15.4, Glucose 134 H, Calcium 8.9, Total Bilirubin 0.50, AST 29, ALT 18, Alkaline Phosphatase 374 H, Total Protein 7.5, Albumin 3.1 L, Globulin 4.4 H, Albumin/Globulin Ratio 0.7 L, Lipase 175 01/11/19 13:25: Lactic Acid 1.4 01/11/19 15:15: Urine Color Yellow, Urine Clarity Clear, Urine pH 8.0, Ur Specific [place] 1.010, Urine Protein 15 H, Urine Glucose (UA) Normal, Urine Ketones Negative, Urine Occult Blood 25 H, Urine Nitrite Negative, Urine Bilirubin Negative, Urine Urobilinogen 8 H, Ur Leukocyte Esterase Negative, Urine RBC 0-5 SEEN, Urine WBC 0 SEEN, Ur Squamous Epith Cells 0 SEEN, Urine Bacteria RARE, Urine Mucus 0 SEEN 01/11/19 16:43: POC Glucose 164 H 01/12/19 05:28: WBC 8.6, RBC 3.16 L, Hgb 9.5 L, Hct 29.3 L, MCV 92.7, MCH 30.1, MCHC 32.4, RDW 12.3, RDW Differential 40.0, Plt Count 258, MPV 9.0, Immature Gran % (Auto) 0.500, Neut % (Auto) 71.0 H, Lymph % (Auto) 14.9 L, [place] % (Auto) 13.4 H, Eos % (Auto) 0.0, Baso % (Auto) 0.2, Absolute Neuts (auto) 6.1, Absolute Lymphs (auto) 1.29, Total Counted Not Reportable 01/12/19 05:28: Sodium 135 L, Potassium 4.0, Chloride 101, Carbon Dioxide 27.0, Anion Gap 7, BUN 13, Creatinine 0.63 L, Estim Creat Clear Calc 174.24, Est GFR (MDRD) Af Amer 170, Est GFR (MDRD) Non-Af 140, BUN/Creatinine Ratio 20.6 H, Glucose 113 H, Calcium 8.0 L Diagnostic Data Chest X-Ray 01/11/19 13:34 IMPRESSION: No acute cardiopulmonary findings COPD/hyperaeration with coarse lung markings Electronically Signed: Willian Major DO at 13:54 EDT Tel , Service support , Current Medications Bisacodyl (Dulcolax) 10 mg PO DAILY [facility] Last Admin: 01/12/19 10:56 Dose: 10 mg Dextrose (D50w Syringe) 0 gm IV X1 PRN; Protocol PRN Reason: Hypoglycemia Enoxaparin Sodium (Lovenox) 40 mg SC DAILY@1000 [facility] Last Admin: 01/12/19 10:58 Dose: Not Given Fentanyl Citrate (Sublimaze (100mcg Ampule)) 25 - 50 mcg IV UD PRN PRN Reason: Procedural Pain Control Stop: 01/12/19 23:59 Last Admin: 01/12/19 07:55 Dose: 50 mcg Glucagon () 1 mg IM .X1 PRN PRN Reason: Hypoglycemia Midazolam HCl (Versed) 1 - 2 mg IV UD PRN PRN Reason: Procedural Sedation Stop: 01/12/19 23:59 Last Admin: 01/12/19 07:55 Dose: 2 mg Morphine Sulfate () 2 mg IV Q3H PRN PRN PRN Reason: Severe pain (7-07/12) Last Admin: 01/12/19 05:30 Dose: 2 mg Ondansetron HCl (Zofran) 4 mg IV Q8H PRN PRN PRN Reason: NAUSEA/VOMITING Last Admin: 01/11/19 18:36 Dose: 4 mg Oxycodone HCl (Oxyir) 5 mg PO Q4H PRN PRN PRN Reason: PAIN Last Admin: 01/12/19 03:54 Dose: 5 mg Oxycodone HCl (Oxycontin) 10 mg PO BID [facility] Last Admin: 01/12/19 10:56 Dose: 10 mg Sodium Chloride () 5 - 15 ml IV UD PRN PRN Reason: SALINE FLUSH Last Admin: 01/12/19 05:30 Dose: 10 ml Medical Necessity - Tobacco Use Smoking Status: Never smoker Tobacco Use: Non-smoker Assessment/Plan All Active Problems (Last Updated 12/05/18 @ 15:09 by Chrissie Calderon) Prostate cancer (Acute) Intractable pain (Acute) Bone metastases (Acute) Regional lymph node metastasis present (Acute) Weight loss, non-intentional (Acute) 53 y/o male admitted with a complaint of severe abdominal and back pain 1. Intractable lower back and abdominal pain likely due to metastatic prostate cancer * still complains of severe pain * MRI done (01/08/19): Abnormal thickening of quiroga of the rectum and distal sigmoid colon, left pelvic mass adjacent to the rectum which may represent direct extension of neoplasm and possible lymphadenopathy, abnormal signal within the bony felt pelvis suggesting metastasis and venous distention within the pelvis and deep vein thrombus cannot be excluded. * PSA was 629; had biopsy of pelvic mass today * for bone scan as per oncology today * pain management consulted; await rec's * has appointment with Dr Maurer on Tuesday in his office. * 2.Probable metastatic prostate cancer * s/p pelvic mass biopsy * as under 1. * 3. Acute hypovolemic hyponatremia: * Sodium was 131 on admission and is now 135 * continue hydrating with IVF and monitor * 4. SIRS criteria: * was likely due to systemic reaction from cancer. Fever has resolved and tachypnea has also resolved. * no antibiotics given. Will continue monitoring. * DVT prophylaxis: lovenox Code Visit OBSV E&M: 24482 Subsequent observation care L3
[2019-01-12] MEDS: oxyCODONE CR 15 MG Tablet PO (21:35)
[2019-01-13 02:35] VITALS: BP 117/61; PULSE 63; RESP 14; TEMP 36.9; O2SAT 98
[2019-01-13] MEDS: 0.9% NaCl Peripheral Flush Adult/Peds IV ×2 (06:23→21:06)
[2019-01-13] MEDS: oxyCODONE 5 MG Tablet PO ×2 (07:26→17:31)
[2019-01-13 07:58] LABS: Absolute Lymphocyte Count 1.29 X10^3/ul (0.83-4.51); Absolute Neutrophil Count 4.6 X10^3/uL (2.0-7.7); Basophil# 0.02 X10^3/uL; Basophil% 0.3 % (0-1); Eosinophil# 0.02 X10^3/uL; Eosinophils% 0.3 % (0-5); Hematocrit 30.5 % (40-54); Hemoglobin 9.9 g/dl (13.0-16.5); Lymphocyte # 1.29 X10^3/ul (4.0); Lymphocyte % 19.7 % (19-41); Mean Corp Hgb Conc 32.5 g/gl (32-36); Mean Corpuscular Hgb 29.9 pg (27.0-32.0); Mean Corpuscular Volume 92.1 fL (80-94); Mean Platelet Vol. 8.7 fl (6.2-12.0); Monocyte% 9.2 % (0-10); Neutrophil % 70.2 % (47-70); Platelet Count 263 K/mm3 (150-450); RBC Distribution Width CV 12.3 % (11.6-14.6); RBC Distribution Width SD 41.8 fl (35.1-43.9); Red Blood Count 3.31 M/mm3 (4.6-6.2); White Blood Count 6.6 K/mm3 (4.4-11.0)
[2019-01-13 08:02] LABS: POSITIVE COUNT NO; POSITIVE DIFFERENTIAL NO; POSITIVE MORPHOLOGY NO
[2019-01-13 08:18] LABS: Anion Gap 6 (5-15); BUN 12 mg/dL (7-18); BUN/Creat Ratio 18.3 RATIO (10-20); Calcium,Total 8.4 mg/dL (8.5-10.1); Chloride 98 mmol/L (98-107); Creatinine, Serum 0.66 mg/dL (0.70-1.30); EST Glomerular Filtration Rate 134 mL/min (>60); Est Glom Filt Rate - Afr Amer 162 mL/min (>60); Estimated Creatinine Clearance 127.95 ml/min; Glucose 122 mg/dL (74-106); Potassium 3.9 mmol/L (3.5-5.1); Sodium Level 134 mmol/L (136-145)
[2019-01-13] MEDS: oxyCODONE CR 15 MG Tablet PO ×2 (09:43→21:04)
[2019-01-13] MEDS: Bisacodyl 5 MG Tablet 10 MG PO (09:43)
[2019-01-13] MEDS: Enoxaparin 40 MG/0.4 ML Syringe SC (09:43)
[2019-01-13 09:46] VITALS: BP 112/53; PULSE 70; RESP 18; TEMP 37.7; O2SAT 93
--- NOTE | 2019-01-13 11:33 | PCM.PN.HOSP ---
Patient Problems: Active and Suspected Problems (Last Updated 12/05/18 @ 15:09 by Chrissie Calderon) Prostate cancer (Acute) Intractable pain (Acute) Bone metastases (Acute) Regional lymph node metastasis present (Acute) Weight loss, non-intentional (Acute) Subjective: Patient seen and examined. He still complains of pain. He still complains of severe pain but is better than when he came in. Review of systems otherwise negative. Bone scan showed diffuse skeletal metastasis of prostate cancer. Labs and vitals reviewed. Vitals/I&O's: Vital Signs Temp Pulse Resp BP Pulse Ox 99.8 F H 70 18 112/53 L 93 01/13/19 09:46 01/13/19 09:46 01/13/19 09:46 01/13/19 09:46 01/13/19 09:46 Oxygen Flow Rate (L/min) [5] 2 Oxygen Flow Rate (L/min) [4] 3 Oxygen Flow Rate (L/min) [3] 2 Oxygen Flow Rate (L/min) [2] 3 Oxygen Flow Rate (L/min) [1 ( 3 Initial Baseline)] Oxygen Flow Rate (L/min) 2 Oxygen Delivery Method [6] Nasal Cannula Oxygen Delivery Method [5] Nasal Cannula Oxygen Delivery Method [4] Nasal Cannula Oxygen Delivery Method [3] Nasal Cannula Oxygen Delivery Method [2] Nasal Cannula Oxygen Delivery Method [1 ( Nasal Cannula Initial Baseline)] Oxygen Delivery Method Room Air Weight: 202 lb 9.677 oz Body Mass Index (BMI) 22.3 Intake and Output for Last 24 Hours 01/11/19 01/12/19 01/13/19 23:59 23:59 23:59 Intake Total 835 / 835 1843 / 1843 710 / 710 Output Total 250 / 250 575 / 575 Balance 585 / 585 184 / 184 135 / 135 General: Alert, Oriented x3, Cooperative HEENT: Atraumatic, PERRLA, EOMI, Normocephalic Oral: Dry Mucosa Neck: Supple, No JVD, Negative Carotid Bruits Lungs: Clear to auscultation, Normal air movement, No rhonchi, No wheeze, No rales Cardiovascular: Regular rate, Regular Rhythm, Normal S1, Normal S2, No murmurs Abdomen: Bowel Sounds Present, Soft, - - mild generalised tenderness, no guarding or rebound tenderness Extremities: No clubbing, No cyanosis, No edema, Capillary Refill Less than 3 Seconds Skin: No rashes, No breakdown Musculoskeletal: - - moderate tenderness on palpation of right paraspinal muscles in lumbar area. Lymphatic: No Cervical, Supraclavicular, or Inguinal Adenopathy Neurological: Cranial nerves II-XII grossly intact, Neuro grossly intact Psych/Mental Status: Alert and oriented to time, place, person, mood and affect Laboratory Results 01/13/19 07:30: WBC 6.6, RBC 3.31 L, Hgb 9.9 L, Hct 30.5 L, MCV 92.1, MCH 29.9, MCHC 32.5, RDW 12.3, RDW Differential 41.8, Plt Count 263, MPV 8.7, Immature Gran % (Auto) 0.300, Neut % (Auto) 70.2 H, Lymph % (Auto) 19.7, [place] % (Auto) 9.2, Eos % (Auto) 0.3, Baso % (Auto) 0.3, Absolute Neuts (auto) 4.6, Absolute Lymphs (auto) 1.29, Total Counted Not Reportable 01/13/19 07:30: Sodium 134 L, Potassium 3.9, Chloride 98, Carbon Dioxide 30.0, Anion Gap 6, BUN 12, Creatinine 0.66 L, Estim Creat Clear Calc 127.95, Est GFR (MDRD) Af Amer 162, Est GFR (MDRD) Non-Af 134, BUN/Creatinine Ratio 18.3, Glucose 122 H, Calcium 8.4 L Diagnostic Data Chest X-Ray 01/11/19 13:34 IMPRESSION: No acute cardiopulmonary findings COPD/hyperaeration with coarse lung markings Electronically Signed: Willian Major DO at 13:54 EDT Tel , Service support , Bone Scan Nuclear Medicine 01/11/19 16:00 IMPRESSION: 1. The multifocal increase in radiopharmaceutical concentration identified in the axial skeletal structures as well as focally defined and the right humerus, right proximal femur is commensurate with diffuse skeletal metastatic disease. 2. Degenerative arthritis appears otherwise expressed in the bilateral shoulders, cervical parenchyma right and left wrist articulations, hands bilaterally, Electronically Signed: Moises Singh, DO at 15:05 EDT Tel , Service support , Biopsy CT 01/12/19 07:00 IMPRESSION: Successful left pararectal biopsy. Electronically Signed: Sunny Coleen, at 11:44 EDT , Service support , Current Medications Acetaminophen (Tylenol) 650 mg PO Q6H PRN PRN PRN Reason: Non-cardiac pain (mod-severe) Al Hydroxide/Mg Hydroxide (Mylanta Ii) 15 - 30 ml PO Q4H PRN PRN PRN Reason: INDIGESTION Albuterol Sulfate (Ventolin Aerosols) 2.5 mg INHALATION Q2H PRN PRN PRN Reason: dyspnea, wheezing Bisacodyl (Dulcolax) 10 mg PO DAILY [facility] Last Admin: 01/13/19 09:43 Dose: 10 mg Dextrose (D50w Syringe) 0 gm IV X1 PRN; Protocol PRN Reason: Hypoglycemia Enoxaparin Sodium (Lovenox) 40 mg SC DAILY@1000 [facility] Last Admin: 01/13/19 09:43 Dose: 40 mg Glucagon () 1 mg IM .X1 PRN PRN Reason: Hypoglycemia Hydralazine HCl (Apresoline Iv) 10 mg IV Q4H PRN PRN PRN Reason: SBP > 160 Morphine Sulfate () 2 mg IV Q3H PRN PRN PRN Reason: Severe pain (7-10/10) Last Admin: 01/12/19 05:30 Dose: 2 mg Ondansetron HCl (Zofran) 4 mg IV Q8H PRN PRN PRN Reason: NAUSEA/VOMITING Last Admin: 01/11/19 18:36 Dose: 4 mg Oxycodone HCl (Oxyir) 5 mg PO Q4H PRN PRN PRN Reason: PAIN Last Admin: 01/13/19 07:26 Dose: 5 mg Oxycodone HCl (Oxycontin) 15 mg PO BID [facility] Last Admin: 01/13/19 09:43 Dose: 15 mg Sodium Chloride () 5 - 15 ml IV UD PRN PRN Reason: SALINE FLUSH Last Admin: 01/13/19 06:23 Dose: 10 ml Temazepam (Restoril) 15 mg PO QHS PRN PRN PRN Reason: INSOMNIA Medical Necessity - Tobacco Use Smoking Status: Never smoker Tobacco Use: Non-smoker Assessment/Plan All Active Problems (Last Updated 12/05/18 @ 15:09 by Chrissie Calderon) Prostate cancer (Acute) Intractable pain (Acute) Bone metastases (Acute) Regional lymph node metastasis present (Acute) Weight loss, non-intentional (Acute) 53 y/o male admitted with a complaint of severe abdominal and back pain 1. Intractable lower back and abdominal pain likely due to metastatic prostate cancer pain has improved slightly MRI done (01/08/19): Abnormal thickening of quiroga of the rectum and distal sigmoid colon, left pelvic mass adjacent to the rectum which may represent direct extension of neoplasm and possible lymphadenopathy, abnormal signal within the bony felt pelvis suggesting metastasis and venous distention within the pelvis and deep vein thrombus cannot be excluded. PSA was 629; is s/p biopsy of pelvic mass; pathology report is pending bone scan showed multifocal increase in radiopharmaceutical concentration in the axial skeletal structures as well as focally defined in the right humerus, right proximal femur commensurate with diffuse skeletal metastatic disease, and also degenerative arthritis in bilateral shoulders, cervical parenchyma on right and left wrists and hands. on oxycontin 15mg bid and oxycodone prn as per pain management has appointment with Dr Maurer on Tuesday in his office. appointment made for patient with Dr Borja for Tuesday01/15/19 at 9:15am 2.Probable metastatic prostate cancer s/p pelvic mass biopsy as under 1. 3. Acute hypovolemic hyponatremia: Sodium was 131 on admission and is now 134 encourage 4. SIRS criteria: was likely due to systemic reaction from cancer. Fever has resolved and tachypnea has also resolved. no antibiotics given. Will continue monitoring. DVT prophylaxis: lovenox Code Visit Inpatient E&M: 37469 Subs Hosp L2
--- NOTE | 2019-01-13 11:41 | PN_ITS ---
Patient Problems: Active and Suspected Problems (Last Updated 12/05/18 @ 15:09 by Chrissie Calderon) Prostate cancer (Acute) Intractable pain (Acute) Bone metastases (Acute) Regional lymph node metastasis present (Acute) Weight loss, non-intentional (Acute) Subjective: Patient seen and examined. He still complains of pain. He still complains of severe pain but is better than when he came in. Review of systems otherwise negative. Bone scan showed diffuse skeletal metastasis of prostate cancer. Labs and vitals reviewed. Vitals/I&O's: Vital Signs Temp Pulse Resp BP Pulse Ox 99.8 F H 70 18 112/53 L 93 01/13/19 09:46 01/13/19 09:46 01/13/19 09:46 01/13/19 09:46 01/13/19 09:46 Oxygen Flow Rate (L/min) [5] 2 Oxygen Flow Rate (L/min) [4] 3 Oxygen Flow Rate (L/min) [3] 2 Oxygen Flow Rate (L/min) [2] 3 Oxygen Flow Rate (L/min) [1 ( 3 Initial Baseline)] Oxygen Flow Rate (L/min) 2 Oxygen Delivery Method [6] Nasal Cannula Oxygen Delivery Method [5] Nasal Cannula Oxygen Delivery Method [4] Nasal Cannula Oxygen Delivery Method [3] Nasal Cannula Oxygen Delivery Method [2] Nasal Cannula Oxygen Delivery Method [1 ( Nasal Cannula Initial Baseline)] Oxygen Delivery Method Room Air Weight: 202 lb 9.677 oz Body Mass Index (BMI) 22.3 Intake and Output for Last 24 Hours 01/11/19 01/12/19 01/13/19 23:59 23:59 23:59 Intake Total 835 / 835 1843 / 1843 710 / 710 Output Total 250 / 250 575 / 575 Balance 585 / 585 184 / 184 135 / 135 General: Alert, Oriented x3, Cooperative HEENT: Atraumatic, PERRLA, EOMI, Normocephalic Oral: Dry Mucosa Neck: Supple, No JVD, Negative Carotid Bruits Lungs: Clear to auscultation, Normal air movement, No rhonchi, No wheeze, No rales Cardiovascular: Regular rate, Regular Rhythm, Normal S1, Normal S2, No murmurs Abdomen: Bowel Sounds Present, Soft, - - mild generalised tenderness, no guarding or rebound tenderness Extremities: No clubbing, No cyanosis, No edema, Capillary Refill Less than 3 Seconds Skin: No rashes, No breakdown Musculoskeletal: - - moderate tenderness on palpation of right paraspinal muscles in lumbar area. Lymphatic: No Cervical, Supraclavicular, or Inguinal Adenopathy Neurological: Cranial nerves II-XII grossly intact, Neuro grossly intact Psych/Mental Status: Alert and oriented to time, place, person, mood and affect Laboratory Results 01/13/19 07:30: WBC 6.6, RBC 3.31 L, Hgb 9.9 L, Hct 30.5 L, MCV 92.1, MCH 29.9, MCHC 32.5, RDW 12.3, RDW Differential 41.8, Plt Count 263, MPV 8.7, Immature Gran % (Auto) 0.300, Neut % (Auto) 70.2 H, Lymph % (Auto) 19.7, [place] % (Auto) 9.2, Eos % (Auto) 0.3, Baso % (Auto) 0.3, Absolute Neuts (auto) 4.6, Absolute Lymphs (auto) 1.29, Total Counted Not Reportable 01/13/19 07:30: Sodium 134 L, Potassium 3.9, Chloride 98, Carbon Dioxide 30.0, Anion Gap 6, BUN 12, Creatinine 0.66 L, Estim Creat Clear Calc 127.95, Est GFR (MDRD) Af Amer 162, Est GFR (MDRD) Non-Af 134, BUN/Creatinine Ratio 18.3, Glucose 122 H, Calcium 8.4 L Diagnostic Data Chest X-Ray 01/11/19 13:34 IMPRESSION: No acute cardiopulmonary findings COPD/hyperaeration with coarse lung markings Electronically Signed: Willian Major DO at 13:54 EDT Tel , Service support , Bone Scan Nuclear Medicine 01/11/19 16:00 IMPRESSION: 1. The multifocal increase in radiopharmaceutical concentration identified in the axial skeletal structures as well as focally defined and the right humerus, right proximal femur is commensurate with diffuse skeletal metastatic disease. 2. Degenerative arthritis appears otherwise expressed in the bilateral shoulders, cervical parenchyma right and left wrist articulations, hands bilaterally, Electronically Signed: Moises Singh, DO at 15:05 EDT Tel , Service support , Biopsy CT 01/12/19 07:00 IMPRESSION: Successful left pararectal biopsy. Electronically Signed: Sunny Coleen, at 11:44 EDT , Service support , Current Medications Acetaminophen (Tylenol) 650 mg PO Q6H PRN PRN PRN Reason: Non-cardiac pain (mod-severe) Al Hydroxide/Mg Hydroxide (Mylanta Ii) 15 - 30 ml PO Q4H PRN PRN PRN Reason: INDIGESTION Albuterol Sulfate (Ventolin Aerosols) 2.5 mg INHALATION Q2H PRN PRN PRN Reason: dyspnea, wheezing Bisacodyl (Dulcolax) 10 mg PO DAILY [facility] Last Admin: 01/13/19 09:43 Dose: 10 mg Dextrose (D50w Syringe) 0 gm IV X1 PRN; Protocol PRN Reason: Hypoglycemia Enoxaparin Sodium (Lovenox) 40 mg SC DAILY@1000 [facility] Last Admin: 01/13/19 09:43 Dose: 40 mg Glucagon () 1 mg IM .X1 PRN PRN Reason: Hypoglycemia Hydralazine HCl (Apresoline Iv) 10 mg IV Q4H PRN PRN PRN Reason: SBP > 160 Morphine Sulfate () 2 mg IV Q3H PRN PRN PRN Reason: Severe pain (7-10/10) Last Admin: 01/12/19 05:30 Dose: 2 mg Ondansetron HCl (Zofran) 4 mg IV Q8H PRN PRN PRN Reason: NAUSEA/VOMITING Last Admin: 01/11/19 18:36 Dose: 4 mg Oxycodone HCl (Oxyir) 5 mg PO Q4H PRN PRN PRN Reason: PAIN Last Admin: 01/13/19 07:26 Dose: 5 mg Oxycodone HCl (Oxycontin) 15 mg PO BID [facility] Last Admin: 01/13/19 09:43 Dose: 15 mg Sodium Chloride () 5 - 15 ml IV UD PRN PRN Reason: SALINE FLUSH Last Admin: 01/13/19 06:23 Dose: 10 ml Temazepam (Restoril) 15 mg PO QHS PRN PRN PRN Reason: INSOMNIA Medical Necessity - Tobacco Use Smoking Status: Never smoker Tobacco Use: Non-smoker Assessment/Plan All Active Problems (Last Updated 12/05/18 @ 15:09 by Chrissie Calderon) Prostate cancer (Acute) Intractable pain (Acute) Bone metastases (Acute) Regional lymph node metastasis present (Acute) Weight loss, non-intentional (Acute) 53 y/o male admitted with a complaint of severe abdominal and back pain 1. Intractable lower back and abdominal pain likely due to metastatic prostate cancer * pain has improved slightly * MRI done (01/08/19): Abnormal thickening of quiroga of the rectum and distal sigmoid colon, left pelvic mass adjacent to the rectum which may represent direct extension of neoplasm and possible lymphadenopathy, abnormal signal within the bony felt pelvis suggesting metastasis and venous distention within the pelvis and deep vein thrombus cannot be excluded. * PSA was 629; * is s/p biopsy of pelvic mass; pathology report is pending * bone scan showed multifocal increase in radiopharmaceutical concentration in the axial skeletal structures as well as focally defined in the right humerus, right proximal femur commensurate with diffuse skeletal metastatic disease, and also degenerative arthritis in bilateral shoulders, cervical parenchyma on right and left wrists and hands. * on oxycontin 15mg bid and oxycodone prn as per pain management * has appointment with Dr Maurer on Tuesday in his office. * appointment made for patient with Dr Borja for Tuesday01/15/19 at 9:15am * 2.Probable metastatic prostate cancer * s/p pelvic mass biopsy * as under 1. * 3. Acute hypovolemic hyponatremia: * Sodium was 131 on admission and is now 134 * encourage * 4. SIRS criteria: * was likely due to systemic reaction from cancer. Fever has resolved and tachypnea has also resolved. * no antibiotics given. Will continue monitoring. * DVT prophylaxis: lovenox Code Visit Inpatient E&M: 56386 Subs Hosp L2
[2019-01-13 13:53] VITALS: BP 111/54; PULSE 62; RESP 18; TEMP 36.5; O2SAT 96
--- NOTE | 2019-01-13 17:17 | NURSING ---
DR SAAVEDRA NOTIFIED OF RED RASH ALL OVER BACK, PT C/O ITCHING.
[2019-01-13] MEDS: DiphenhydrAMINE 25 MG Capsule PO (17:31)
[2019-01-13 20:59] VITALS: BP 121/51; PULSE 67; RESP 16; TEMP 37.1; O2SAT 95
[2019-01-13] MEDS: Polyethylene Glycol 3350 17 GM PACKET PO (21:06)
--- NOTE | 2019-01-13 22:52 | NUR.TO.PHY ---
pt concerned about stairs at home and pt not being able to get to bedroom. is requesting hospital bed script at discharge.
[2019-01-14 02:25] VITALS: BP 124/65; PULSE 64; RESP 14; TEMP 36.6; O2SAT 95
[2019-01-14] MEDS: DiphenhydrAMINE 25 MG Capsule PO (04:24)
[2019-01-14 07:13] VITALS: O2SAT 96
[2019-01-14 08:24] VITALS: BP 104/59; PULSE 57; RESP 18; TEMP 36.7; O2SAT 95
[2019-01-14] MEDS: Bisacodyl 5 MG Tablet 10 MG PO (08:30)
[2019-01-14] MEDS: Polyethylene Glycol 3350 17 GM PACKET PO (08:31)
[2019-01-14] MEDS: Enoxaparin 40 MG/0.4 ML Syringe SC (08:31)
[2019-01-14] MEDS: oxyCODONE CR 15 MG Tablet PO (09:54)
--- NOTE | 2019-01-14 10:12 | NURSING ---
500 ML SSE GIVEN PER ORDER. PT TOLERATED WELL.
--- NOTE | 2019-01-14 10:21 | DCINST_ITS ---
You will use the following diet at home:: No restrictions Your food should be the consistency of: Regular Your liquids should be the consistency of: Regular/Thin Discharge Activity: Return to Normal Activity Weight Bearing Status: Weight bearing as tolerated Call your doctor if you observe: Fever of 101 or Higher, Uncontrolled pain Instructions: Hormone Therapy for Prostate Cancer, What Is Prostate Cancer?, Prostate Cancer: Controlling Cancer Symptoms and Spread Allergies/Adverse Reactions: Allergies No Known Allergies Allergy (Verified 01/11/19 13:15) Medications to take at Discharge Bisacodyl [Dulcolax] 10 mg PO DAILY 01/11/19 Ibuprofen 600 - 800 mg PO Q6H PRN PRN 01/11/19 Lansoprazole 15 mg PO DAILY 01/11/19 DiphenhydrAMINE [Benadryl] 25 mg PO BID PRN PRN #30 capsule 01/14/19 Oxycodone CR [Oxycontin] 15 mg PO BID 5 Days #10 tab 01/14/19 Oxycodone [Oxyir] 5 mg PO Q4H PRN PRN 3 Days #20 tab 01/14/19 Polyethylene Glycol 3350 [Miralax] 17 gm PO DAILY #30 packet 01/14/19 Sennosides/Docusate Sodium [Senna-Docusate Sodium Tablet] 1 each PO BID PRN PRN #30 tablet 01/14/19 The following prescriptions were given: Oxycodone [Oxyir] 5 mg PO Q4H PRN PRN 3 Days #20 tab PRN Reason: Pain DiphenhydrAMINE [Benadryl] 25 mg PO BID PRN PRN #30 capsule PRN Reason: Itching Polyethylene Glycol 3350 [Miralax] 17 gm PO DAILY #30 packet Sennosides/Docusate Sodium [Senna-Docusate Sodium Tablet] 1 each PO BID PRN PRN #30 tablet PRN Reason: Constipation Oxycodone CR [Oxycontin] 15 mg PO BID 5 Days #10 tab Primary Care Physician: Shavon Osborne MD [Primary Care Provider] - Please follow up with your Primary Care Physician in: one week Test Results: Test results from this visit will be discussed in further detail at your follow- up appointment, if applicable. Please Follow Up With: Luis Amaral MD When: Tuesday Please Follow Up With: Jayla Borja MD When: TuesdayJanuary 15 at 9:15am Proposed Discharge Date: 01/14/19
--- NOTE | 2019-01-14 10:22 | DS.PCM_ITS ---
Discharge Date and Diagnosis Date of Admission: 01/11/19 Date of Discharge: 01/14/19 - Primary Discharge Diagnosis metastatic prostate cancer intractable abdominal and back pain due to bony metastases from prostate cancer Hospital Course and Treatment Imaging Results: Diagnostic Data Chest X-Ray 01/11/19 13:34 IMPRESSION: No acute cardiopulmonary findings COPD/hyperaeration with coarse lung markings Electronically Signed: Willian Major, DO at 13:54 EDT Tel , Service support , Bone Scan Nuclear Medicine 01/11/19 16:00 IMPRESSION: 1. The multifocal increase in radiopharmaceutical concentration identified in the axial skeletal structures as well as focally defined and the right humerus, right proximal femur is commensurate with diffuse skeletal metastatic disease. 2. Degenerative arthritis appears otherwise expressed in the bilateral shoulders, cervical parenchyma right and left wrist articulations, hands bilaterally, Electronically Signed: Moises Singh, DO at 15:05 EDT Tel , Service support , Biopsy CT 01/12/19 07:00 IMPRESSION: Successful left pararectal biopsy. Electronically Signed: Sunny Horne, at 11:44 EDT , Service support , oncology- Dr Maurer pain management- Dr Borja Operations: None Procedures: None Summary of Care Provided: The patient is a 53 year old M with no significant PMH. He was admitted on 01/11/19 with a complaint of abdominal and back pain. Pain was very severe, rated about 10/10 and was mainly in his lower back and radiated to his abdomen. He also had associated fever and chills as well as easy fatigability and generalized malaise. Symptoms have been ongoing for a few months now. Patient was seen in the ED in December [address] scan done then in the ED showed questionable rectal perirectal mass as well as questionable bony metastasis. He was seen by general surgery who referred him to a colorectal surgeon in [place]. Patient had a colonoscopy done which did not reveal any mass. However symptoms persisted and actually worsened abdominal pain severely worsened. He had a pelvic MRI on 01/08/2019 which showed left-sided pelvic mass adjacent to the rectum which may represent direct extension of neoplasm and possible lymphadenopathy as well as abnormal thickening of the [place] of the rectum and distal sigmoid colon and venous distention within pelvis, deep vein thrombosis could not be excluded. Patient therefore had a pelvic mass biopsy scheduled for tomorrow 01/10/2019 on outpatient basis. However pain increasingly worsened and so he came into the ED. In the ED, vitals were significant for a temperature of 101.6 Fahrenheit, respiratory rate of 20, sodium of 131 and chloride of 95 as well as elevated ALP of 374. Total protein was 7.5 and albumin was 3.1. CBC showed hemoglobin of 11.9 and platelets of 320 with white cell count of 9.5. He was admitted to be managed for intractable pain. PSA which had been checked on outpatient basis resulted at 629 making this diagnosis metastatic prostate cancer. He was also managed for acute hypovolemic hyponatremia with sodium of 131 which resolved with IV fluid hydration. Patient also had positive SIRS criteria based on fever and tachypnea. However these have been present for a while and was thought to be systemic reactions due to the cancer and not an infective process. He was therefore not given antibiotics. Oncology was consulted. He was started on IV morphine for pain. Pain management was also consulted. Bone scan done showed multifocal increase in radiopharmaceutical concentration in the axial skeletal structures as well as focally defined in the right humerus and right proximal femur and commensurate with diffuse skeletal metastatic disease. He also had a biopsy of the pelvic mass. Patient's pain control gradually improved and he will after he was started on OxyContin and oxycodone per Pain management. Patient was scheduled to follow-up with oncology on Tuesday, 17 January where a definite plan for his treatment would be made. Appointment was also made for patient to follow-up with Dr. Guillory of pain management on January 15 at 9:15 AM. Patient was discharged home on 01/14/2019 with a prescription for p.o. OxyContin 50 mg twice daily for total of 10 pills lasting 5 days. He was also given a prescription for p.o. oxycodone 5 mg every 4 hours as needed for total of 20 pills. OA RRS was checked and no red flags were seen. He was discharged home on 01/14/2019 and is to follow-up as mentioned above. Of note, MRI of the abdomen and pelvis done stated deep vein thrombosis could not be excluded on account of venous distention within the pelvis. This was discussed with Dr. Maurre the special assets officer oncologist who felt that the prostate enlargement from prostate cancer could cause the venous distention by compression effect and this was not on Coumadin prostate cancer. He therefore recommended a duplex ultrasound on outpatient basis to rule out a deep vein thrombosis. Patient and his informed about this and told to call his PCP- Dr Shavon Osborne tomorrow morning a nd try to see her in the office. Possible to see Dr. Osborne in the office, to inform her about the need for duplex ultrasound to rule out a DVT of the lower extremities. Patient and expressed understanding of this. Hospitalist called to Dr. Osborne on his cell phone by the bar finish operator and was informed about the need for duplex ultrasound tomorrow to rule out DVT of the lower extremities. Dr. Osborne stated that she would get this ordered tomorrow. And examined prior to discharge. He did complain of some constipation. He denied any fever or chills, palpitations or dizziness, chest pain, diarrhea vomiting. He did complain of back pain and also of constipation. Labs and vitals reviewed. Home medication reviewed and reconciled. o/e: Vital Signs Height 5 ft 9 in Weight: 202 lb 9.677 oz Weight in Pounds 202.6 lbs Pulse Ox 95 Temperature 98.1 F Pulse Rate [6] 71 Pulse Rate [5] 69 Pulse Rate [4] 68 Pulse Rate [3] 65 Pulse Rate [2] 67 Pulse Rate [1 (Initial 65 Baseline)] Pulse Rate 57 Respiratory Rate [6] 16 Respiratory Rate [5] 16 Respiratory Rate [4] 16 Respiratory Rate [3] 13 Respiratory Rate [2] 17 Respiratory Rate [1 (Initial 13 Baseline)] Respiratory Rate 18 Blood Pressure [6] 123/62 Blood Pressure [5] 119/63 Blood Pressure [4] 111/67 Blood Pressure [3] 126/66 Blood Pressure [2] 116/64 Blood Pressure [1 (Initial 113/70 Baseline)] Blood Pressure 104/59 Blood Pressure Position Semi-Fowlers [] General: Alert, Oriented x3, Cooperative HEENT: Atraumatic, PERRLA, EOMI, Normocephalic Oral: Dry Mucosa Neck: Supple, No JVD, Negative Carotid Bruits Lungs: Clear to auscultation, Normal air movement, No rhonchi, No wheeze, No rales Cardiovascular: Regular rate, Regular Rhythm, Normal S1, Normal S2, No murmurs Abdomen: Bowel Sounds Present, Soft, - - mild generalised tenderness, no guarding or rebound tenderness Extremities: No clubbing, No cyanosis, No edema, Capillary Refill Less than 3 Seconds Skin: No rashes, No breakdown Musculoskeletal: - - moderate tenderness on palpation of right paraspinal muscles in lumbar area. Lymphatic: No Cervical, Supraclavicular, or Inguinal Adenopathy Neurological: Cranial nerves II-XII grossly intact, Neuro grossly intact Psych/Mental Status: Alert and oriented to time, place, person, mood and affect He is to follow-up with his primary care doctor tomorrow. - Physical Exam Vital Signs Temp Pulse Resp BP Pulse Ox 98.1 F 57 L 18 104/59 L 95 01/14/19 08:24 01/14/19 08:24 01/14/19 08:24 01/14/19 08:24 01/14/19 08:24 Oxygen Flow Rate (L/min) [5] 2 Oxygen Flow Rate (L/min) [4] 3 Oxygen Flow Rate (L/min) [3] 2 Oxygen Flow Rate (L/min) [2] 3 Oxygen Flow Rate (L/min) [1 ( 3 Initial Baseline)] Oxygen Flow Rate (L/min) 2 Oxygen Delivery Method [6] Nasal Cannula Oxygen Delivery Method [5] Nasal Cannula Oxygen Delivery Method [4] Nasal Cannula Oxygen Delivery Method [3] Nasal Cannula Oxygen Delivery Method [2] Nasal Cannula Oxygen Delivery Method [1 ( Nasal Cannula Initial Baseline)] Oxygen Delivery Method Room Air Weight: 202 lb 9.677 oz Body Mass Index (BMI) 22.3 Intake and Output for Last 24 Hours 01/12/19 01/13/19 01/14/19 23:59 23:59 23:59 Intake Total 1843 / 1843 1870 / 1870 710 / 710 Output Total 575 / 575 Balance 1843 / 1843 1295 / 1295 710 / 710 Microbiology Past 72 Hours 01/11/19 13:25 Blood Culture - Preliminary Blood Culture (Wb) - Arm Right No growth in 48 hours. 01/11/19 13:25 Blood Culture - Preliminary Blood Culture (Wb) - No Site/Description Given No growth in 48 hours. Discharge Diet: No Restrictions Discharge Activity: Return to Normal Activity Weight Bearing Status: Weight bearing as tolerated Call your doctor if you observe: Fever of 101 or Higher, Uncontrolled pain Home Medications: Medications to take at Discharge Bisacodyl [Dulcolax] 10 mg PO DAILY 01/11/19 Ibuprofen 600 - 800 mg PO Q6H PRN PRN 01/11/19 Lansoprazole 15 mg PO DAILY 01/11/19 DiphenhydrAMINE [Benadryl] 25 mg PO BID PRN PRN #30 capsule 01/14/19 Oxycodone CR [Oxycontin] 15 mg PO BID 5 Days #10 tab 01/14/19 Oxycodone [Oxyir] 5 mg PO Q4H PRN PRN 3 Days #20 tab 01/14/19 Polyethylene Glycol 3350 [Miralax] 17 gm PO DAILY #30 packet 01/14/19 Sennosides/Docusate Sodium [Senna-Docusate Sodium Tablet] 1 each PO BID PRN PRN #30 tablet 01/14/19 Following Prescrptions Were Given to Patient: Oxycodone [Oxyir] 5 mg PO Q4H PRN PRN 3 Days #20 tab PRN Reason: Pain DiphenhydrAMINE [Benadryl] 25 mg PO BID PRN PRN #30 capsule PRN Reason: Itching Polyethylene Glycol 3350 [Miralax] 17 gm PO DAILY #30 packet Sennosides/Docusate Sodium [Senna-Docusate Sodium Tablet] 1 each PO BID PRN PRN #30 tablet PRN Reason: Constipation Oxycodone CR [Oxycontin] 15 mg PO BID 5 Days #10 tab Primary Care Physician: Shavon Osborne MD [Primary Care Provider] - Please follow up with your Primary Care Physician in: one week Please Follow Up With: Luis Amaral MD When: Tuesday Please Follow Up With: Jayla Borja MD When: TuesdayJanuary 15 at 9:15am Patient Instructions: Hormone Therapy for Prostate Cancer, What Is Prostate Cancer?, Prostate Cancer: Controlling Cancer Symptoms and Spread Disposition: Home Minutes spent on discharge:: 55 Patient Condition:: Stable Medical Necessity - Tobacco Use Smoking Status: Never smoker Tobacco Use: Non-smoker Meaningful Use Info Meaningful Use Diagnoses (Choose all that apply): None applicable Code Visit Inpatient E&M: 45459 Disch Hosp
[2019-01-14 11:24] VITALS: BP 104/59; PULSE 57; RESP 18; TEMP 36.7; O2SAT 95
== END 2019-01-14 11:25 | disposition home or self-care (01) ==
LOC: ED 13:38 → MS3 14:55
PROVIDERS: Admitting Provider Student in an Organized Health Care Education/Training Program; Emergency Provider Emergency Medicine; Family Provider Family Medicine; PCP Family Medicine; Referring Provider Student in an Organized Health Care Education/Training Program; Visit Provider Student in an Organized Health Care Education/Training Program
DX: G89.3 Neoplasm related pain (acute) (chronic) (principal); C61 Malignant neoplasm of prostate; C79.51 Secondary malignant neoplasm of bone; C77.9 Secondary and unspecified malignant neoplasm of lymph node, unspecified; Z79.899 Other long term (current) drug therapy; E87.1 Hypo-osmolality and hyponatremia; K59.00 Constipation, unspecified
CPT/HCPCS: 49180; 36415; 71045; 77012; 78306; 80048; 80053; 81001; 82962; 83605; 83690; 85025; 87040; 88172; 88305; 88313; 88341; 88342; 96361; 96372; 96374; 96375; 96376; 97802; 99156; 99157; 99218; 99283; J7030; J7040; A4216; G0378; J2405

== ENCOUNTER → 2019-01-11 | Outpatient (CLI) | payer BC, SELFPAY ==
[2018-12-05 15:11] VITALS: BMI 34.0
== END | disposition home or self-care (01) ==
LOC: MFPLAB 08:50
PROVIDERS: Family Provider Family Medicine; PCP Family Medicine; Referring Provider Family Medicine; Visit Provider Family Medicine
DX: R10.32 Left lower quadrant pain (principal)
CPT/HCPCS: 36415; 84153

== ENCOUNTER → 2019-01-15 | Outpatient (CLI) | payer BC, SELFPAY ==
[2019-01-11 15:26] VITALS: BMI 22.3
--- NOTE | 2019-01-15 13:16 | VDLE_ITS ---
Reason For Study: LEG PAIN RIGHT LEFT GSV is normal. GSV is normal. CFV is compressible, spontaneous, phasic, CFV is compressible, spontaneous, phasic, competent and demonstrates normal competent, and demonstrates normal augmentation. augmentation. FV is compressible, spontaneous, phasic, FV is compressible, spontaneous, phasic, competent and demonstrates normal competent and demonstrates normal augmentation. augmentation. POP V is compressible, spontaneous, phasic, POP V is compressible, spontaneous, phasic, competent and demonstrates normal competent and demonstrates normal augmentation. augmentation. T/P Trunk is compressible. T/P Trunk is compressible. PTV is compressible. PTV is compressible. Acute deep vein thrombosis is noted in the LT PerV is compressible. right peroneal vein. Acute deep vein thrombosis is noted in the Acute deep vein thrombosis is noted in the left soleus vein. right soleus vein. Procedure Exam performed in department. Slow flow throughout venous system. A preliminary report was called and/or faxed to Dr. Osborne. Interpretation Summary Acute deep venous thrombosis right peroneal and soleus veins. Acute deep venous thrombosis left soleus vein Patent and compressible bilateral great saphenous veins. Ordering Physician: Shavon Osborne Referring Physician: Shavon Osborne Performed By: Kiana Lanier RVT
== END | disposition home or self-care (01) ==
LOC: CVS 13:14
PROVIDERS: Family Provider Family Medicine; PCP Family Medicine; Referring Provider Family Medicine; Visit Provider Family Medicine
DX: M79.604 Pain in right leg (principal); M79.605 Pain in left leg
CPT/HCPCS: 93970

== ENCOUNTER → 2019-05-28 | Outpatient (CLI) | payer BC, SELFPAY ==
[2019-05-09 10:26] VITALS: BMI 23.8
[2019-05-21 11:12] VITALS: BMI 23.8
--- NOTE | 2019-05-28 06:52 | CT_ITS ---
STUDY: CT ABDOMEN AND PELVIS WITH CONTRAST REASON FOR EXAM: Male, 54 years old. Restaging. Postchemotherapy. History of prostatic carcinoma with metastasis. RADIATION DOSAGE (If Supplied By Facility): CTDIvol = ( 22.08 ) mGy, DLP = ( 3455.98 ) mGycm TECHNIQUE: Transaxial images were obtained from the dome of the diaphragm to the symphysis pubis without oral contrast. 100 IV Isovue 300 was administered. Sagittal and coronal images were reconstructed. Individualized dose optimization techniques were used for this CT. COMPARISON: Comparison is made with prior study dated December 04, 2018. FINDINGS: The visualized lung bases are unremarkable. The visualized portions of the heart are within normal limits. Normal liver. Normal gallbladder and extrahepatic biliary system. Normal spleen. Normal pancreas. Normal bilateral adrenal glands. Normal right kidney. Normal left kidney. There is a small hiatal hernia. Normal small intestine. There are multiple colonic diverticula consistent with diverticulosis. The previously seen left-sided perirectal mass has almost completely resolved at this time. The appendix is visualized and appears normal. Normal abdominal aorta. Normal inferior vena cava. There is borderline retroperitoneal lymphadenopathy with enlarged nodes no greater than 10mm in the short axis diameter. Diffuse bladder wall thickening. Normal abdominal wall. There is now evidence of diffuse sclerotic metastasis involving the axial as well as appendicular skeletons. CT/Abdomen/Pelvis W IV Cont ONLY IMPRESSION: Diffuse sclerotic metastasis involving the axial as well as appendicular skeletons. Interval resolution of the left perirectal mass. Bladder wall thickening Electronically Signed: Sunny Horne, at 13:44 EDT , Service support ,
--- NOTE | 2019-05-28 07:43 | NURSING ---
PER [employer] OPERATOR, NO CONTRAST SHOW ON EXAM. PT REPORTED SENSATION OF BODY WARMTH. IV FLUSHED BY THIS RN WITH 10 ML OF NS, GOOD BLOOD RETURN NOTED. PT DENIES ANY DISCOMFORT.
== END | disposition home or self-care (01) ==
LOC: CT 06:51
PROVIDERS: Family Provider Internal Medicine; PCP Internal Medicine; Referring Provider Internal Medicine Hematology & Oncology; Visit Provider Internal Medicine Hematology & Oncology
DX: C61 Malignant neoplasm of prostate (principal)
CPT/HCPCS: 74177; Q9967

== ENCOUNTER → 2019-05-31 | Outpatient (CLI) | payer BC, SELFPAY ==
[2019-05-09 10:26] VITALS: BMI 23.8
[2019-05-21 11:12] VITALS: BMI 23.8
--- NOTE | 2019-05-31 06:59 | NM_ITS ---
CLINICAL: 54-year-old male with reported history of carcinoma of the prostate metastatic bone. WHOLE BODY 99m Tc MDP RADIONUCLIDE BONE SCINTIGRAPHY COMPARISON: Previous whole body bone scintigraphy study dated 01/12/2019, CT of the abdomen and pelvis report 05/28/2019 FINDINGS: Following the intravenous administration of 26.0 mCi of 99m Tc MDP, whole body bone images reveal: 1. Increased radiopharmaceutical concentration is currently identified in the left wrist, acromioclavicular and sternoclavicular compartments of both shoulders, bilateral knee articulations. 2. Subtle increased uptake is redefined in the right distal humeral diaphysis and newly visualized in the distal left femoral diaphysis. 3. The remaining skeletal structures are scintigraphically unremarkable with normal-appearing renal images and urinary bladder activity identified. Enhanced tracer distribution is defined in the left lacrimal bone likely representing periostitis. Plain film radiography correlation may be of benefit. Facilitated uptake is noted in the midline vertex calvarium and proximity to the sagittal suture most consistent with a normal variant. The previously identified multifocal increase in tracer concentration noted on the FDG PET study dated 01/12/2019, is not apparent on the present examination. NM/Bone Scan Whole Body IMPRESSION: 1. The increase in radiopharmaceutical concentration visualized in the left wrist, bilateral shoulders, right and left knees is commensurate with degenerative arthritis. 2. Mild increased tracer uptake redefined in the distal right humeral diaphysis and presently observed in the distal left femoral diaphysis is consistent with limited expression of skeletal metastatic disease. There is interval resolution of the prior defined additional multifocal appendicular and axial skeletal foci. 3. Overall compared to the previous whole body bone scintigraphy study dated 01/12/2019, there is significant interval improvement with near complete resolution of all prior defined appendicular and axial skeletal metastatic foci. Electronically Signed: Moises Singh DO at 0:24 EDT Tel , Service support ,
[2019-05-31 07:20] LABS: Absolute Lymphocyte Count 1.77 X10^3/uL (0.83-4.51); Absolute Neutrophil Count 2.6 X10^3/uL (2.0-7.7); Basophil# 0.07 X10^3/uL; Basophil% 1.3 % (0-1); Eosinophil# 0.04 X10^3/uL; Eosinophils% 0.8 % (0-5); Hematocrit 41.8 % (40-54); Hemoglobin 13.3 g/dL (13.0-16.5); Lymphocyte # 1.77 X10^3/ul (4.0); Lymphocyte % 33.5 % (19-41); Mean Corp Hgb Conc 31.8 g/dL (32-36); Mean Corpuscular Hgb 30.2 pg (27.0-32.0); Mean Platelet Vol. 9.1 fl (6.2-12.0); Monocyte# 0.69 X10^3/uL; Monocyte% 13.1 % (0-10); NRBC Flagged by Analyzer 0 % (0-5); Neutrophil # 2.63 X10^3/uL (2.7-7.7); Neutrophil % 49.8 % (47-70); Platelet Count 269 K/mm3 (150-450); RBC Distribution Width CV 14.5 % (11.6-14.6); RBC Distribution Width SD 50.2 fl (35.1-43.9); White Blood Count 5.3 K/mm3 (4.4-11.0)
[2019-05-31 07:53] LABS: ALB/GLOB Ratio 1.2 RATIO (0.9-2.4); AST(SGOT) 15 U/L (15-37); Alanine Aminotransfer ALT/SGPT 23 U/L (16-61); Albumin, Serum 3.8 g/dL (3.2-5.0); Alkaline Phosphatase 62 U/L (45-117); Anion Gap 3 (5-15); BUN 12 mg/dL (7-18); BUN/Creat Ratio 14.2 RATIO (10-20); Calcium,Total 8.2 mg/dL (8.5-10.1); Chloride 105 mmol/L (98-107); Creatinine, Serum 0.84 mg/dL (0.70-1.30); EST Glomerular Filtration Rate 100 mL/min (>60); Est Glom Filt Rate - Afr Amer 121 mL/min (>60); Globulin 3.2 g/dL (2.2-4.2); Glucose 91 mg/dL (74-106); PSA,Total- Diagnostic 1.12 ng/mL (0.0-4.0); Sodium Level 141 mmol/L (136-145)
== END | disposition home or self-care (01) ==
LOC: NM 06:59
PROVIDERS: Family Provider Family Medicine; PCP Family Medicine; Referring Provider Internal Medicine Hematology & Oncology; Visit Provider Internal Medicine Hematology & Oncology
DX: C61 Malignant neoplasm of prostate (principal)
CPT/HCPCS: 36415; 78306; 80053; 84153; 85025

== ENCOUNTER → 2019-08-17 | Outpatient (CLI) | payer BC, SELFPAY ==
[2019-08-06 10:27] VITALS: BMI 23.9
[2019-08-17 09:38] LABS: Absolute Lymphocyte Count 1.61 X10^3/uL (0.83-4.51); Absolute Neutrophil Count 2.3 X10^3/uL (2.0-7.7); Basophil# 0.08 X10^3/uL; Basophil% 1.7 % (0-1); Eosinophil# 0.31 X10^3/uL; Eosinophils% 6.5 % (0-5); Hematocrit 39.9 % (40-54); Hemoglobin 13.3 g/dL (13.0-16.5); Lymphocyte # 1.61 X10^3/ul (4.0); Lymphocyte % 33.7 % (19-41); Mean Corp Hgb Conc 33.3 g/dL (32-36); Mean Corpuscular Hgb 31.7 pg (27.0-32.0); Mean Platelet Vol. 9.9 fl (6.2-12.0); Monocyte# 0.43 X10^3/uL; NRBC Flagged by Analyzer 0 % (0-5); Neutrophil # 2.32 X10^3/uL (2.7-7.7); Neutrophil % 48.5 % (47-70); Platelet Count 249 K/mm3 (150-450); RBC Distribution Width CV 12.4 % (11.6-14.6); RBC Distribution Width SD 42.9 fl (35.1-43.9); White Blood Count 4.8 K/mm3 (4.4-11.0)
[2019-08-17 10:28] LABS: ALB/GLOB Ratio 1.2 RATIO (0.9-2.4); AST(SGOT) 17 U/L (15-37); Alanine Aminotransfer ALT/SGPT 27 U/L (16-61); Albumin, Serum 3.7 g/dL (3.2-5.0); Alkaline Phosphatase 111 U/L (45-117); Anion Gap 4 (5-15); BUN 20 mg/dL (7-18); BUN/Creat Ratio 28.6 RATIO (10-20); Calcium,Total 8.6 mg/dL (8.5-10.1); Chloride 104 mmol/L (98-107); EST Glomerular Filtration Rate 124 mL/min (>60); Est Glom Filt Rate - Afr Amer 151 mL/min (>60); Globulin 3.2 g/dL (2.2-4.2); Glucose 132 mg/dL (74-106); PSA,Total- Diagnostic 1.19 ng/mL (0.0-4.0); Potassium 3.9 mmol/L (3.5-5.1); Protein, Total 6.9 g/dL (6.4-8.2); Sodium Level 139 mmol/L (136-145)
[2019-08-17 16:00] LABS: Xtra Tube EP Lab EXTRA TUBE
== END | disposition home or self-care (01) ==
LOC: LAB 07:57
PROVIDERS: Family Provider Internal Medicine; PCP Internal Medicine; Referring Provider Internal Medicine Hematology & Oncology; Visit Provider Internal Medicine Hematology & Oncology
DX: C61 Malignant neoplasm of prostate (principal); C77.9 Secondary and unspecified malignant neoplasm of lymph node, unspecified; C79.51 Secondary malignant neoplasm of bone
CPT/HCPCS: 36415; 80053; 84153; 85025

== ENCOUNTER → 2019-08-27 09:47 | Outpatient (CLI) | payer BC, SELFPAY ==
[2019-08-22 11:38] VITALS: BMI 24.3
--- NOTE | 2019-08-27 09:49 | RAD_ITS ---
STUDY: X-RAY - CERVICAL SPINE REASON FOR EXAM: Male, 54 years old. Neck pain. Back pain. Prostate cancer with bone metastasis. TECHNIQUE: 3 view(s) of the cervical spine were obtained. COMPARISON: None FINDINGS: No acute fracture. No dislocation. Increased sclerosis of the ribs best seen on the AP projection. Increased sclerosis of the C3 posterior elements best seen on the lateral projection. Minimal grade 1 spondylolisthesis at C4-5 and C5-6. Mild/moderate multilevel endplate spondylosis. Small anterior osteophytes. Mild/moderate facet joint arthrosis. Multilevel disc height loss predominating at C4-5 and C5-6. No significant scoliosis. Cervical straightening. Normal lung apices. Normal soft tissue structures. RAD/Cerv Spine 2 or 3 Views IMPRESSION: Skeletal metastasis Moderate cervical spine osteoarthritis Cervical straightening Electronically Signed: Willian Major DO at 10:21 EST Tel , Service support ,
--- NOTE | 2019-08-27 09:49 | RAD_ITS ---
STUDY: X-RAY - LUMBAR SPINE REASON FOR EXAM: Male, 54 years old. Back pain. Prostate cancer with metastasis. TECHNIQUE: 3 view(s) of the lumbar spine were obtained. COMPARISON: December 27, 2017 FINDINGS: Diffuse abnormal osseous sclerosis involving the vertebral bodies, pelvis and sacrum. No acute fracture. No dislocation. Lumbar lordosis preserved. No significant scoliosis. Minimal grade 1 spondylolisthesis at L1-2. No significant endplate spondylosis. Facet joint arthrosis at L4-5 and L5-S1. Neural foramina narrowing at L5-S1. Minimal disc height loss. Normal bowel gas pattern. Normal soft tissue structures. RAD/Lumbar Spine 2 or 3 Views IMPRESSION: Diffuse skeletal blastic metastasis Mild lumbar spine osteoarthritis Electronically Signed: Willian Major DO at 10:25 EST Tel , Service support ,
== END ==
PROVIDERS: Family Provider Family Medicine; PCP Family Medicine; Referring Provider Anesthesiology Pain Medicine; Visit Provider Anesthesiology Pain Medicine
DX: M54.2 Cervicalgia (principal); M54.9 Dorsalgia, unspecified
CPT/HCPCS: 72040; 72100

== ENCOUNTER → 2019-10-08 11:11 | Outpatient (CLI) | payer BC, SELFPAY ==
[2019-10-08 08:30] VITALS: BMI 24.6
--- NOTE | 2019-10-08 11:19 | RAD_ITS ---
STUDY: X-RAY - LUMBAR SPINE REASON FOR EXAM: Male, 54 years old. FALL, HX PROSTATE CA W/ METS TECHNIQUE: 3 view(s) of the lumbar spine were obtained. COMPARISON: August 27, 2019 FINDINGS: Normal lumbar lordosis. Again noted are the multiple sclerotic lesions of the lumbar vertebral body and pelvis, consistent with history of metastatic disease. These are grossly stable in comparison with the prior examination There is multilevel endplate spondylosis of the lumbar vertebrae. There is multi-level degenerative disc disease with multi-level disc space narrowing. The soft tissue structures are unremarkable. RAD/Lumbar Spine 2 or 3 Views IMPRESSION: Degenerative changes of the spine. Metastatic disease Electronically Signed: Niecy Savage MD at 10:16 EST Tel , Service support ,
--- NOTE | 2019-10-08 11:19 | RAD_ITS ---
STUDY: X-RAY - CERVICAL SPINE REASON FOR EXAM: Male, 54 years old. FALL, HX PROSTATE CA W/ METS TECHNIQUE: 4 view(s) of the cervical spine were obtained. COMPARISON: August 27, 2019 FINDINGS: Normal cervical lordosis. There is multi-level endplate spondylosis. There is multi-level degenerative disc disease with multilevel disc space narrowing. There is stable grade 1 retrolisthesis at C4/C5 Again noted is stable increased sclerosis of C3 posterior elements. Increased sclerosis of the ribs best seen on the AP projection is again noted. The soft tissue structures are unremarkable. RAD/Cerv Spine 2 or 3 Views IMPRESSION: Degenerative changes of the spine. Stable increased sclerotic metastatic disease. Electronically Signed: Niecy Savage MD at 8:58 EST Tel , Service support ,
== END ==
PROVIDERS: Family Provider Family Medicine; PCP Family Medicine; Referring Provider Nurse Practitioner Family; Visit Provider Nurse Practitioner Family
DX: M54.2 Cervicalgia (principal); M54.5 Low back pain
CPT/HCPCS: 72040; 72100

== ENCOUNTER → 2019-10-12 08:12 | Outpatient (CLI) | payer BC, SELFPAY ==
[2019-10-08 08:30] VITALS: BMI 24.6
--- NOTE | 2019-10-12 08:27 | CT_ITS ---
STUDY: CT ABDOMEN AND PELVIS WITH CONTRAST REASON FOR EXAM: Male, 54 years old. NAUSEA AND VOMITING. PROSTATE CANCER WITH METS TO BONE. CHEMO RADIATION DOSAGE (If Supplied By Facility): CTDIvol = ( 5.46 ) mGy, DLP = ( 1004.88 ) mGycm TECHNIQUE: Transaxial images were obtained from the dome of the diaphragm to the symphysis pubis with oral contrast. Oral and amp; IV Readi-CAT and amp; 100mL Isovue-300 was administered. Sagittal and coronal images were reconstructed. Individualized dose optimization techniques were used for this CT. COMPARISON: 05/28/2019 FINDINGS: The visualized lung bases are unremarkable. The visualized portions of the heart are within normal limits. Normal liver. Normal gallbladder and extrahepatic biliary system. Normal spleen. Normal pancreas. Normal bilateral adrenal glands. Normal right kidney. Normal left kidney. Normal visualized stomach. Normal small intestine. Normal colon. The appendix is visualized and appears normal. Normal abdominal aorta. Normal inferior vena cava. Normal retroperitoneum. Normal urinary bladder. Normal abdominal wall. Interval progression of diffuse osseous metastatic disease. CT/Abdomen/Pelvis WITH Contrast IMPRESSION: Interval progression of diffuse osseous metastatic disease. No new soft tissue metastatic lesions are detected. No evidence of appendicitis, acute intestinal pathology, or acute obstructive uropathy. Electronically Signed: Meliton Terrell MD at 4:22 EST Tel , Service support ,
== END ==
LOC: CT 08:14
PROVIDERS: Family Provider Family Medicine; PCP Family Medicine; Referring Provider Nurse Practitioner Family; Visit Provider Nurse Practitioner Family
DX: R11.2 Nausea with vomiting, unspecified (principal)
CPT/HCPCS: 74177; Q9967

== ENCOUNTER → 2019-11-06 | Outpatient (CLI) | payer BC, SELFPAY ==
[2019-10-16 14:00] VITALS: BMI 25.0
--- NOTE | 2019-11-06 10:00 | NM_ITS ---
CLINICAL: 54-year-old male with reported history of carcinoma of the prostate. WHOLE BODY 99m Tc MDP RADIONUCLIDE BONE SCINTIGRAPHY COMPARISON: Previous whole body bone scintigraphy study dated 05/31/2019 FINDINGS: Following the intravenous administration of approximately 25.0 mCi of 99m Tc MDP, whole body bone images reveal: 1. Increased radiopharmaceutical concentration remains apparent in the left wrist, acromioclavicular and sternoclavicular compartments of both shoulders, knees bilaterally. 1. Mild increased uptake remains evident in the distal right humeral diaphysis and left superior pubic ramus. 3. The remaining skeletal structures are scintigraphically unremarkable with normal-appearing renal images and urinary bladder activity identified. The prior defined increase in tracer concentration noted in the distal left femoral diaphysis is not apparent on the present examination. There is apparent urine contamination noted in the region of the perineum-external genitalia. NM/Bone Scan Whole Body IMPRESSION: 1. The increase in radiopharmaceutical concentration redefined in the distal right humeral diaphysis and left superior pubic ramus remains consistent with skeletal metastatic disease. 2. Degenerative arthritis appears currently expressed in the left wrist, bilateral shoulders and right-left knee articulations. 3. Overall compared to the previous whole body bone scintigraphy study dated 05/31/2019, there is no significant interval change. The prior defined subtle increase in uptake noted in the distal left femoral diaphysis is not readily apparent on the present examination. Electronically Signed: Mosies Singh DO at 23:29 EST Tel , Service support ,
== END | disposition home or self-care (01) ==
LOC: NM 10:00
PROVIDERS: Family Provider Family Medicine; PCP Internal Medicine; Referring Provider Internal Medicine Hematology & Oncology; Visit Provider Internal Medicine Hematology & Oncology
DX: C61 Malignant neoplasm of prostate (principal); C77.9 Secondary and unspecified malignant neoplasm of lymph node, unspecified; C79.51 Secondary malignant neoplasm of bone
CPT/HCPCS: 78306

== ENCOUNTER → 2019-12-20 | Outpatient (CLI) | payer BC, SELFPAY ==
[2019-11-13 11:26] VITALS: BMI 25.7
[2019-12-20 12:36] LABS: Absolute Lymphocyte Count 1.38 X10^3/uL (0.83-4.51); Absolute Neutrophil Count 2.2 X10^3/uL (2.0-7.7); Basophil# 0.05 X10^3/uL; Basophil% 1.2 % (0-1); Eosinophil# 0.14 X10^3/uL; Eosinophils% 3.4 % (0-5); Hematocrit 40.4 % (40-54); Hemoglobin 13.4 g/dL (13.0-16.5); Lymphocyte # 1.38 X10^3/ul (4.0); Lymphocyte % 33.1 % (19-41); Mean Corp Hgb Conc 33.2 g/dL (32-36); Mean Corpuscular Hgb 31.4 pg (27.0-32.0); Mean Corpuscular Volume 94.6 fL (80-94); Mean Platelet Vol. 9.4 fl (6.2-12.0); Monocyte# 0.36 X10^3/uL; Monocyte% 8.6 % (0-10); NRBC Flagged by Analyzer 0 % (0-5); Neutrophil # 2.22 X10^3/uL (2.7-7.7); Neutrophil % 53.2 % (47-70); Platelet Count 240 K/mm3 (150-450); RBC Distribution Width SD 41.7 fl (35.1-43.9); Red Blood Count 4.27 M/mm3 (4.6-6.2); White Blood Count 4.2 K/mm3 (4.4-11.0)
[2019-12-20 12:59] LABS: ALB/GLOB Ratio 1.1 RATIO (0.9-2.4); AST(SGOT) 22 U/L (15-37); Alanine Aminotransfer ALT/SGPT 40 U/L (16-61); Albumin, Serum 3.7 g/dL (3.2-5.0); Alkaline Phosphatase 61 U/L (45-117); Anion Gap 3 (5-15); BUN 14 mg/dL (7-18); Calcium,Total 8.9 mg/dL (8.5-10.1); Chloride 104 mmol/L (98-107); Creatinine, Serum 0.78 mg/dL (0.70-1.30); EST Glomerular Filtration Rate 110 mL/min (>60); Est Glom Filt Rate - Afr Amer 133 mL/min (>60); Globulin 3.4 g/dL (2.2-4.2); Glucose 116 mg/dL (74-106); PSA,Total- Diagnostic 5.26 ng/mL (0.0-4.0); Protein, Total 7.1 g/dL (6.4-8.2); Sodium Level 137 mmol/L (136-145)
[2019-12-23 12:07] LABS: Testosterone, Free < 0.05 ng/dL (5.00-21.00)
[2019-12-24 13:07] LABS: Testosterone, % Free 1.52 % (1.50-4.20); Testosterone, Total < 3 ng/dL (264-916)
== END | disposition home or self-care (01) ==
LOC: LAB 11:38
PROVIDERS: PCP Internal Medicine; Referring Provider Internal Medicine Hematology & Oncology; Visit Provider Internal Medicine Hematology & Oncology
DX: C61 Malignant neoplasm of prostate (principal); C77.9 Secondary and unspecified malignant neoplasm of lymph node, unspecified; C79.51 Secondary malignant neoplasm of bone
CPT/HCPCS: 36415; 80053; 84153; 84402; 84403; 85025

== ENCOUNTER → 2020-09-08 07:51 | Outpatient (CLI) | payer OTHER, SELFPAY ==
[2020-07-11 08:49] VITALS: BMI 24.7
[2020-09-03 08:23] VITALS: BMI 26.4
--- NOTE | 2020-09-08 07:53 | CT_ITS ---
STUDY: CT ABDOMEN AND PELVIS WITH CONTRAST REASON FOR EXAM: Male, 55 years old. STAGE 4 PROSTATE CA--FOLLOW UP RESPONSE TO TREATMENT -- HAD CHEMO LAST YEAR RADIATION DOSAGE (If Supplied By Facility): CTDIvol = ( 16.72 ) mGy, DLP = ( 993.43 ) mGycm TECHNIQUE: Transaxial images were obtained from the dome of the diaphragm to the symphysis pubis without oral contrast. IV 100mL Isovue-300 was administered. Sagittal and coronal images were reconstructed. Individualized dose optimization techniques were used for this CT. COMPARISON: Comparison is made with prior study dated 10/12/2019. FINDINGS: The visualized lung bases are unremarkable. The visualized portions of the heart are within normal limits. Normal liver. Normal gallbladder and extrahepatic biliary system. Normal spleen. Normal pancreas. Normal bilateral adrenal glands. Normal right kidney. Normal left kidney. Normal visualized stomach. Normal small intestine. There are scattered colonic diverticula consistent with diverticulosis. The appendix is visualized and appears normal. Normal abdominal aorta. Normal inferior vena cava. Normal retroperitoneum. Diffuse bladder wall thickening. Normal abdominal wall. Stable diffuse sclerotic metastasis involving the axial and appendicular skeletons. CT/Abdomen/Pelvis W IV Cont ONLY IMPRESSION: Diffuse sclerotic metastases involving the axial and appendicular skeletons. Stable examination. Electronically Signed: Sunny Horne, at 10:42 EST , Service support ,
== END ==
PROVIDERS: PCP Internal Medicine; Referring Provider Internal Medicine Hematology & Oncology; Visit Provider Internal Medicine Hematology & Oncology
DX: C61 Malignant neoplasm of prostate (principal); C77.9 Secondary and unspecified malignant neoplasm of lymph node, unspecified; C79.51 Secondary malignant neoplasm of bone
CPT/HCPCS: 74177; Q9967

== ENCOUNTER → 2020-09-12 09:07 | Outpatient (CLI) | payer OTHER, SELFPAY ==
[2020-07-11 08:49] VITALS: BMI 24.7
[2020-09-03 08:23] VITALS: BMI 26.4
--- NOTE | 2020-09-12 09:10 | RAD_ITS ---
STUDY: X-RAY CHEST REASON FOR EXAM: Male, 55 years old. PROSTATE CA TECHNIQUE: PA and lateral views of the chest. COMPARISON: 01/11/2019 FINDINGS: The lungs are clear and expanded. There is no demonstrated pleural abnormality. Normal size heart. Normal mediastinum and marc. Normal visualized pulmonary arteries. Normal visualized aortic arch and descending thoracic aorta. Normal visualized thoracic spine. Multiple sclerotic lesions throughout the thoracic spine and ribs consistent with blastic metastases. There is no demonstrated abnormality of the visualized soft tissue structures of the upper abdomen. RAD/Chest PA and Lateral IMPRESSION: 1. No active pulmonary disease. 2. Blastic skeletal metastases. Electronically Signed: Moises Guerrero MD at 8:47 EST Tel , Service support ,
--- NOTE | 2020-09-12 09:10 | NM_ITS ---
CLINICAL: 55-year-old male with history of carcinoma of the prostate. WHOLE BODY 99m Tc MDP RADIONUCLIDE BONE SCINTIGRAPHY COMPARISON: Previous whole body bone scintigraphy study dated 11/06/2019, CT of the abdomen-pelvis report 09/08/2020 FINDINGS: Following the intravenous administration of 26.8 mCi of 99m Tc MDP, whole body bone images reveal: 1. Increased radiopharmaceutical concentration is currently defined in the right upper lateral chest wall-second rib. 2. Enhanced tracer uptake is observed in the acromioclavicular and sternoclavicular compartments of both shoulders, left wrist, patellofemoral, medial and lateral tibial compartments of both knees, fifth lumbar vertebra posteriorly on the left. 3. The remaining skeletal structures are scintigraphically unremarkable with normal-appearing renal images and urinary bladder activity identified. NM/Bone Scan Whole Body IMPRESSION: 1. The increase in radiopharmaceutical concentration observed in the right upper lateral chest wall-second rib may be further investigated with plain film radiography in the setting of known prostate carcinoma. 2. Degenerative arthritis appears expressed in the bilateral shoulders, left wrist, bilateral knees, fifth lumbar vertebra. 3. Overall compared to the previous whole body bone scintigraphy study dated 11/06/2019, newly identified increased tracer uptake noted in the right lateral second rib may be further investigated with plain film radiography. There is no definitive typical scintigraphic evidence of diffuse axial skeletal metastatic disease on the current examination. Diffuse sclerotic changes noted throughout the visualized skeletal structures on review of CT of the abdomen pelvis dated 09/08/2020 without evidence of corresponding increased radiopharmaceutical concentration on review of the current bone scintigraphic results, likely represents quiescent skeletal metastatic disease. Electronically Signed: Moises Singh DO at 11:59 EST Tel , Service support ,
== END ==
PROVIDERS: PCP Internal Medicine; Referring Provider Internal Medicine Hematology & Oncology; Visit Provider Internal Medicine Hematology & Oncology
DX: C61 Malignant neoplasm of prostate (principal); C77.9 Secondary and unspecified malignant neoplasm of lymph node, unspecified; C79.51 Secondary malignant neoplasm of bone
CPT/HCPCS: 36415; 71046; 78306; 80053; 84153; 85025

== ENCOUNTER → 2020-09-16 08:03 | Outpatient (CLI) | payer OTHER, SELFPAY ==
[2020-07-11 08:49] VITALS: BMI 24.7
[2020-09-03 08:23] VITALS: BMI 26.4
--- NOTE | 2020-09-16 08:06 | CT_ITS ---
STUDY: CT SCAN LOWER EXTREMITY LEFT REASON FOR EXAM: Male, 55 years old. LEFT KNEE PAIN. KNOWN BONE METS FROM PROSTATE CA. IRIS protocol. RADIATION DOSAGE (If Supplied By Facility): CTDIvol = ( 18.76 ) mGy, DLP = ( 1389.63 ) mGycm. Individualized dose optimization techniques were used for this CT.? TECHNIQUE: Multiple axial tomographic images of the left hip, left knee and left ankle were obtained. Coronal and sagittal reconstructions obtained as well. COMPARISON: None. FINDINGS: Imaging of the left hip demonstrates marked degree of the osteosclerotic metastasis involving the left hemipelvis. Sclerotic foci are also seen in the proximal visualized portion of the left femur. There is a mild degree of joint space narrowing of the hip joint. Marked degree of joint space narrowing involving the medial compartment of the knee joint with degenerative spur formation of the medial femoral condyle and medial tibial plateau. There is also evidence of a degenerative spur formation along the anterior aspect of the medial femoral condyle. Mild degree of the joint space narrowing involving the patellofemoral joint. Imaging of the ankle was obtained as well. The ankle mortise is symmetrical. No significant abnormality is seen. CT/Extremity Lower without Contra IMPRESSION: Sclerotic metastasis involving the left hemipelvis as well as the visualized portion of the proximal left femur. Marked degree of joint space narrowing with degenerative spurring along the medial compartment of the knee joint involving the medial femoral condyle as well as the medial tibial plateau. Mild degree of the joint space narrowing of the patellofemoral joint. Electronically Signed: Sunny Horne, at 9:12 EST , Service support ,
--- NOTE | 2020-09-16 08:07 | CT_ITS ---
STUDY: CT SCAN LOWER EXTREMITY RIGHT REASON FOR EXAM: Male, 55 years old. RT KNEE OSTEOARTHRITIS. KNOWN METS FROM PROSTATE CA. IRIS protocol RADIATION DOSAGE (If Supplied By Facility): CTDIvol = ( 17.76 ) mGy, DLP = ( 1505.21 ) mGycm. Individualized dose optimization techniques were used for this CT.? TECHNIQUE: Multiple axial tomographic images of the right hip joint, knee joint and ankle joint were obtained. Coronal and sagittal reconstruction was obtained as well. COMPARISON: None. FINDINGS: Is evidence of diffuse sclerotic metastasis in the right hemipelvis as well as in the proximal portion of the visualized right femur. No significant joint space narrowing is seen. Marked degree of joint space narrowing involving the medial compartment of knee joint with degenerative spur formation along the medial femoral condyle and medial tibial plateau. Mild degree of joint space narrowing involving the patellofemoral joint. No significant joint effusion is seen. Imaging of the ankle joint was obtained as well. The ankle mortise is symmetrical. No abnormalities are seen. CT/Extremity Lower without Contra IMPRESSION: Marked degree of joint space narrowing involving the medial compartment of the knee joint with degenerative spur formation along the medial femoral condyle and medial tibial plateau. Mild degree of joint space narrowing involving the patellofemoral joint. Electronically Signed: Sunny Horne, at 9:15 EST , Service support ,
== END ==
PROVIDERS: PCP Internal Medicine; Referring Provider Specialist; Visit Provider Specialist
DX: M17.11 Unilateral primary osteoarthritis, right knee (principal); M17.12 Unilateral primary osteoarthritis, left knee; M21.161 Varus deformity, not elsewhere classified, right knee; M21.162 Varus deformity, not elsewhere classified, left knee
CPT/HCPCS: 73700

== ENCOUNTER → 2020-10-10 15:19 | Outpatient (CLI) | payer OTHER, SELFPAY ==
[2020-09-19 09:49] VITALS: BMI 25.4
[2020-10-10 16:53] LABS: Absolute Lymphocyte Count 1.32 X10^3/uL (0.83-4.51); Absolute Neutrophil Count 5.1 X10^3/uL (2.0-7.7); Basophil# 0.05 X10^3/uL; Basophil% 0.7 % (0-1); Eosinophil# 0.03 X10^3/uL; Eosinophils% 0.4 % (0-5); Hematocrit 39.9 % (40-54); Hemoglobin 13.4 g/dL (13.0-16.5); Lymphocyte # 1.32 X10^3/ul (4.0); Lymphocyte % 19.2 % (19-41); Mean Corp Hgb Conc 33.6 g/dL (32-36); Mean Corpuscular Hgb 31.3 pg (27.0-32.0); Mean Corpuscular Volume 93.2 fL (80-94); Mean Platelet Vol. 9.9 fl (6.2-12.0); Monocyte# 0.29 X10^3/uL; Monocyte% 4.2 % (0-10); NRBC Flagged by Analyzer 0 % (0-5); Neutrophil # 5.14 X10^3/uL (2.7-7.7); Neutrophil % 75.1 % (47-70); Platelet Count 263 K/mm3 (150-450); RBC Distribution Width CV 11.8 % (11.6-14.6); RBC Distribution Width SD 40.9 fl (35.1-43.9); Red Blood Count 4.28 M/mm3 (4.6-6.2); White Blood Count 6.9 K/mm3 (4.4-11.0)
[2020-10-10 17:36] LABS: PSA,Total- Diagnostic 7.47 ng/mL (0.0-4.0)
== END ==
PROVIDERS: PCP Internal Medicine; Referring Provider Internal Medicine Hematology & Oncology; Visit Provider Internal Medicine Hematology & Oncology
DX: C61 Malignant neoplasm of prostate (principal); C77.9 Secondary and unspecified malignant neoplasm of lymph node, unspecified; C79.51 Secondary malignant neoplasm of bone
CPT/HCPCS: 36415; 84153; 85025

== ENCOUNTER 2020-10-15 10:03 | Observation (INO) | payer OTHER, SELFPAY ==
[2020-07-11 08:49] VITALS: BMI 24.7
--- NOTE | 2020-09-15 14:10 | PCM.HP.BLA ---
History and Physical History and Physical [facility] Patient Name: Jose Dubon : 1965 From: PRATIBHA SALGADO PA-C DATE OF SURGERY: 10/01/2020 SCHEDULED PROCEDURE: left total knee arthroplasty HISTORY OF PRESENT ILLNESS: Preoperative history and physical exam was performed on September 15, 2020. This is a 55-year-old male who has been having ongoing pain in bilateral knees for over 10 years. Left knee is worse than the right. Patient's pain has been constant, aching, sharp, stabbing. Pain is increased with going up and down stairs, driving, sitting, walking. He has difficult time with getting dressed to his knee pain. Leisure activities have been significantly affected including hiking and running. He has stumbled secondary to the knee pain. He feels unsafe climbing ladders. He has attempted heat and previous cortisone injection with no relief in symptoms. He has been through critical care clinical nurse specialist, previous Visco supplementation injection and home exercises with no relief in symptoms. Patient has tried bracing with no relief in symptoms. He states his quality of life is continuing to decrease due to the knee pain. He continues to try to work despite his pain and current medical problem. Patient is being treated for aggressive prostate cancer. 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 Patient is followed by oncologist Dr. Amaral. He is currently being treated medically for the cancer involving medications. He has also seen Dr. Robbins for pain management in which he takes Xtampza. Patient currently denies any chest pain, shortness of breath, fevers chills, recent infections. We are obtaining surgical clearance from the oncologist and primary care physician Dr. Li. Will ask for appropriate time to stop the eliquis prior to surgery. We are also touching base with his pain management doctor with regards to postoperative pain medications. After failing conservative measures and discussing all treatment options with Dr. Leo Sykes, the patient does wish to proceed with a staged knee replacement. He will proceed first with the left total knee arthroplasty. REVIEW OF SYSTEMS: ROS: Const: Denies change in appetite, fever and weight change. CV: Denies chest pain, heart murmur and irregular heartbeat. Resp: Denies cough, pneumonia, shortness of breath, tuberculosis and wheezing. GI: Denies constipation, diarrhea, heartburn, nausea, rectal itching, bloody stools and vomiting. : Denies incontinence. Musculo: Reports trouble walking, but denies leg swelling, pain and weakness. Skin: Denies Raynaud's, history of shingles and tattoo. Neuro: Denies ambulatory dysfunction, dizziness, numbness/tingling and tremor. Psych: Denies anxiety, insomnia and stress. Rm/Lymph: Denies anemia, bleeding/bruising tendency and past transfusion. Reviewed, no changes. PAST MEDICAL HISTORY: Advance Care Plan: No Advance Directives Effective Date: 11/02/2018 PMH: Medical Problems: Arthritis Cancer - PROSTATE Migraines Accidents: Hand Laceration - (1969) RT Pinky Finger - (1969) Surgical Hx: Tonsillectomy - A CHILD Anesthesia Complications: None Assistive Devices: Contacts Reviewed, no changes. 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 Personal Habits: Cigarette Use: Never Smoked Cigarettes.Smokeless Tobacco: Never Used Smokeless Tobacco.E-Cigarette Use: Never used.Alcohol: Weekly use.Drug Use: Denies Use.Enjoy Exercising: Daily. Reviewed, no changes. VITALS: Ht: 78 Wt: 238lb Wt k.957 BMI: 27.5 BP: 120/66 Pulse: 70 Resp: 18 T: 96.8 T: 36.0C ALLERGIES: No Known Drug Allergy MEDICATIONS: Eliquis 5 mg 1po qday, Prednisone 10 mg 1po qday, Stool Softener 250 mg 3 po qd, Diclofenac Sodium 2-3 times daily, Mens 50+ Advanced 1 po qd, Calcium 600 + D 600-200 MG-Unit 1 po qd, Turmeric 1 po qd, Flonase Allergy Relief daily, Zofran 4 mg prn, Imitrex 25 mg 1po qday, prn, Zytiga 250 mg 1 qday, Xtampza ER 13.5 mg 1 by mouth every day PRE-OP EXAM: General appearance:NORMAL Other: Eyes: Conjunctivae and lids: NORMAL Pupils: ERR Ears, Nose, Mouth, and Throat: NORMAL Other: Inspection of lips, teeth and gums: NORMAL Other: Neck: Examination of neck: no masses noted. Respiratory: Assessment of respiratory effort: NORMAL Other: Auscultation of lungs: clear to auscultation no wheezes, rhonchi or rales. Cardiovascular: Auscultation of heart: regular rate and rhythm, no murmurs, gallops or rubs. Exam of carotid arteries: NORMAL Other: Gastrointestinal: Exam of abdomen: soft, nontender, nondistended bowel sounds present. PHYSICAL EXAMINATION: Patient walks with an antalgic gait. He has varus alignment bilaterally. Left knee has medial joint line tenderness. Varus deformity which is correctable partially on exam. Range of motion: 5 to 120 flexion with 6 varus deformity. Moderate effusion. Patient's right knee has medial joint line tenderness with varus deformity partially correctable on exam. Range of motion: 7 to 112 flexion with 6 varus deformity. Moderate effusion. Sensation intact to light touch. IMAGING STUDIES: Previous x-rays of bilateral knees reveals left knee varus alignment with medial joint space narrowing, subchondral sclerosis, osteophyte formation consistent with severe stage IV tricompartmental osteoarthritis. Right knee reveals varus alignment with medial joint space narrowing, subchondral sclerosis, osteophyte formation consistent with severe stage IV tricompartmental osteoarthritis. IMPRESSION: 1. Stage IV left knee tricompartmental osteoarthritis 2. Stage IV right knee tricompartmental osteoarthritis 3. Prostate cancer 4. Migraines PLAN: Dr. Leo Sykes did discuss and review with the patient all treatment options including surgical versus nonsurgical options. Patient does wish to proceed with the above-stated procedure. Potential risks, benefits, and complications of the procedure were discussed in detail including but not limited to , infection, nerve and blood vessel damage, persistent pain, numbness, tingling, paresthesias, blood clot, pulmonary embolism, and requirement for possible further surgery. The patient expressed full understanding and has no further questions for the doctor. Patient does agree to proceed with the above-stated procedure and has signed the surgery consent form. We discussed the current risks associated with COVID 19. This does include the risk of exposure while in the hospital. Patient was reassured local hospitals have low infection rates and are taking all necessary precautions to avoid exposure to patients. In addition, we discussed strategies that can be used to help limit exposure including those that limit the patient's time in the hospital. Also using strategies to limit the patient's need for continued inpatient services after being discharged from the hospital. Patient was notified that we will need to comply with any screening or testing the hospital wishes to perform or that surgery may be delayed for any positive results. This dictation was created using voice recognition software. Phonetic and/or grammatical errors may exist. ___ I have re-examined the patient. There are no clinical changes since date of exam. ___ See progress notes for changes. ___ Dictated on admission Date: Time: Signature:
[2020-09-17 11:28] LABS: Magnesium 2.2 mg/dL (1.6-2.6)
[2020-09-19 09:49] VITALS: BMI 25.4
--- NOTE | 2020-09-22 10:56 | EKG12_ITS ---
Test Reason : PRE OP Blood Pressure : / mmHG Vent. Rate : 064 BPM Atrial Rate : 064 BPM P-R Int : 158 ms QRS Dur : 112 ms QT Int : 412 ms P-R-T Axes : 059 061 052 degrees QTc Int : 425 ms Normal sinus rhythm Incomplete right bundle branch block Confirmed by LIBIA ARMENDARIZ, JOHNNIE ([id number]), assistant editor DOUG WHITMORE ([id number]) on 09/24/2020 11:01:12 AM Referred By: Leo Sykes Confirmed By:JOHNNIE REZA MD
[2020-10-14 09:02] VITALS: BMI 26.6
[2020-10-15] VITALS (11 sets, daily range): BP systolic 107–125; BP diastolic 57–72; PULSE 58–73; RESP 16; TEMP 36.3–37.4; O2SAT 96–100; BMI 27.2; BMI 27.1
[2020-10-15] MEDS: Gabapentin 600 MG Tablet PO (07:00)
[2020-10-15] MEDS: Acetaminophen 500 MG Tablet 1000 MG PO ×3 (07:00→21:25)
[2020-10-15] MEDS: Lactated Ringers 1,000 ML 999 ML IV ×2 (07:00→12:44)
[2020-10-15] MEDS: Celecoxib 200 MG Capsule 400 MG PO (07:00)
[2020-10-15] MEDS: Lactated Ringers 1,000 ML 75 ML IV (07:00)
[2020-10-15] MEDS: Scopolamine 1mg/72hr Patch 1 PATCH TD (08:00)
[2020-10-15] MEDS: Cefazolin 2 GM in 0.9% Normal Saline 100 ML IV (09:33)
--- NOTE | 2020-10-15 09:45 | KNEE_PTH ---
PATIENT: ELIZABETH OSHEA LOC: [facility] U#:[id number] AGE/SX: 55/M ROOM: CA318 RE10/15/[address]: Dr. Vladimir Lester DO : 1965 BED: 1 DIS: 10/19/2020 SPEC #: [id number] RECD: 10/15/20 13:19 STATUS: MERRITT RESidney #: [id number] BETO: 10/15/20 09:[address]: Leo Sykes DEPT: SURGICAL PATHOLOGY RECD BY: Luciana Yen ENTERED: 10/16/20 06:51 SP TYPE: TOTAL KNEE OTHR DR: MD Dr. Jimy Mansfield MD Tissues: Knee, NOS Procedures: Decalcification bone/plaque Surgery Specimen Level IV HEADER OPERATION: ERAS, total knee replacement robotic arm assist PRE-OP DIAGNOSIS: Stage IV left knee tricompartmental osteoarthritis TISSUE SUBMITTED: Debrided bone and tissue left knee MICROSCOPIC DIAGNOSIS Debrided bone and soft tissue, left knee, total knee replacement/resection: Pieces of bone with degenerative osteoarthritic changes. Fibroadipose tissue, fibroconnective tissue and reactive synovial tissue. MYRIAM:romulo 10/22/2020 MICROSCOPIC DESCRIPTION Slides are reviewed. GROSS DESCRIPTION Received is one container designated bone and soft tissue left knee. The specimen consists of multiple fragments of lenz-yellow bone measuring in aggregate 14 x 14 x 2 cm. Also in the specimen container are multiple fragments of yellow-white soft tissue measuring in aggregate 2 x 2 x 0.8 cm. A number of bony fragments contain articular surfaces consistent with tibial plateau and femoral condyle and displaying prominent osteophyte formation, eburnation, and bone erosion. Oil Paint Shader sections are submitted in two cassettes as follows: 1 - soft tissue, 2 - bone after decalcification. / AM:romulo 10/16/20 TC:5 CPT: 36467, 29188
[2020-10-15 09:50] LABS: Bedside Glucose 106 mg/dL (70-110)
--- NOTE | 2020-10-15 11:01 | OP.PCM_ITS ---
Report of Operation Date of Procedure: 10/15/20 Pre-Operative Diagnosis: Left knee primary osteoarthritis Post-Operative Diagnosis: Left knee primary osteoarthritis Surgery/Procedure Performed:: Left robotic assisted minimally invasive knee replacement Description of Surgical Findings:: Stable knee with good patella tracking occupational health specialist: Jeromy Christianson Type of Anesthesia:: General Anesthesiologist: John Win Special Medications: 2 g Ancef, 1 g TXA at incision, 1 g TXA closure, 10 mg Decadron, joint cocktail (5 mg Duramorph, 30 mL of 0.5% Ropivicaine, 1000 units of epinephrine, 30 mg of Toradol) Specimen's removed: Bony cuts, sent to pathology Estimated Blood Loss (mL): 50 Fluids Replaced: 1200 milliliters crystalloid Description of Procedure: Implants used: 1. Tipton size 8 triathlon cruciate retaining distal femoral press-fit component 2. Prasad size 8 press-fit tritanium tibial baseplate 3. [place]on X3 9 millimeters CS polyethylene 4. Prasad X3 40 mm press-fit asymmetric patella Brief history operative indications: 55-year-old M with history of left knee osteoarthritis with radiographic findings with loss of joint space, osteophyte formation and subchondral sclerosis. Failed conservative measures as mentioned in the H&P. Discussion of total knee arthroplasty as well as risk and benefits were discussed the patient including but not limited to blood loss, DVTs, PEs, neurovascular damage, general risk of anesthesia including loss of life, and stiffness or instability were discussed with patient. Patient demonstrated understanding and was able to sign informed consent. Procedure: On the date of procedure patient's left lower extremity was marked in the preoperative area. The patient was then taken back to the operating room where the patient was placed on the table in the supine position. All bony prominences were identified a well-padded. Anesthesia assumed control of the C-spine and airway and remained controlled throughout the remainder of the procedure. A tourniquet was placed on the left upper thigh and the leg was prepped in a sterile fashion. The surgeon then scrubbed at this time .Upon reentering the room left lower extremity was draped in a standard orthopedic fashion. A timeout was then called and everyone agreed upon the side, the site, the procedure to be performed, patient's identity and antibiotics given. Esmarch bandage was used to exsanguinate the extremity and the tourniquet was placed up to 250 mmHg with the knee in flexion. A midline skin incision was made and sharp dissection was taken down through skin subcutaneous tissue and fat. The standard medial parapatellar incision was made and the patella was subluxed laterally. An Appropriate deep MCL release was done and the fat pad was resected. Our attention was then directed to the patella. The patella was everted and a flat resection was made. The knee was then flexed up in 2 femoral pins were placed inside the incision and 2 tibial pins were placed outside the incision in the medial tibia bicortically. Once this was completed the 2 checkpoints in the femur and tibia were placed. Knee was then flexed up and the bony landmarks were registered. Once this was completed knee was taken through range of motion and manually stressed allowing us to a plan for an appropriate tibial cut. The robotic arm was brought into the field sterilely and checkpoint and saw were registered. Based on the patient's deformity the tibial cut was made in 3 degrees varus. At this time the tensioner was then placed in the joint and ligament tension was checked at 90 degrees and full extension. Based on the patient's ligamentous tension appropriate adjustments were made to the operative plan and ligament releases were done. Once we were happy with our operative plan with balanced flexion and extension gaps our attention was directed to the femur. The robot was brought into the field sterilely and registered. Posterior condylar cuts, anterior chamfer cuts and anterior cuts were appropriately made for a size 8 femur. When these were completed the saws were switched out in the distal femoral and posterior chamfer cuts were made. Protecting the soft tissue throughout this time. A size 8 tibial base plate was selected. the knee was flexed to 90 degrees and the soft tissues and posterior osteophytes were removed from the joint. 40 cc of the periarticular injection was injected into the posterior medial corner of the joint. The appropriate trials were then placed on the femur and tibia. A trial polyethylene was trialed to ensure proper balancing and stability of the knee. The appropriate tibial internal rotation was then marked with a bovie. Our attention was then directed to the patella. The lug holes were drilled and the patella trial was placed. Patellar tracking was checked and deemed glendy ropriate. Once we were happy lug holes were drilled for the femur and trial components were removed. the tibia was subluxed and pinned into place and the keel was punched and drilled appropriately. Final components were verified and opened, and cement was mixed in a vacuum. [employer] Simplex cement was used. The wound was copiously irrigated with normal saline. When the cement was ready the components were impacted into place starting with the tibia, femur and finally press fitting the patella. The trial poly component was placed and the knee was placed in full extension. All excess cement was removed in the process. Once the cement had cured the tracking, alignment and balance were verified and a size 9 mm CS polyethylene component was placed. Once the final components were placed an Irrisept lavage was performed and the wound was copiously irrigated with normal saline solution and the periarticular injection was given. The wound was closed in a layer shankar fashion using #1 vicryl interrupted sutures for the arthrotomy, 2-0 interrupted Vicryl suture for the subcuticular layer and zohaib for final skin closure. A sterile compressive dressing was then placed. The patient was then awakened from anesthesia, transferred to the [place] and transferred to the PACU for recovery. Post op plan DVT ppx: Therapeutic Lovenox for 2 weeks as he awaits his second knee replacement, thigh high compression stockings Follow up: in office in 2 weeks for wound check PT: to start POD #0 at hospital, outpatient PT should be arranged. My physician volleyball assistant coach was a vital part of this case. He was important in appropriate retraction during the case, and protection of soft tissues during bony cuts. His intimate knowledge of the case and my steps aided in safe and expedient completion of the procedure as well as appropriate position of the leg during the case. He was also vital in assisting with closure under my direct supervision. Due to the complexity of this case robotic arm was used to assist in the surgery to improve accuracy and clinical outcomes. - Complications No intraoperative complications - Admit VTE Documentation VTE Present on Admission: No VTE Mechan Device Prophylaxis: SCD's, Thigh High JASON Hose VTE Pharm Prophylaxis ordered?: Yes
--- NOTE | 2020-10-15 12:06 | RAD_ITS ---
STUDY: X-RAY - LEFT KNEE REASON FOR EXAM: Postop left total knee arthroplasty. TECHNIQUE: 2 view(s) of the knee. COMPARISON: CT images 09/16/2020 and radiographs 06/15/2017. FINDINGS: There is a left total knee arthroplasty without evidence of complication. There is postoperative gas in the soft tissues and knee joint. There are overlying skin zohaib. RAD/Knee 1 or 2 Views IMPRESSION: Uncomplicated left total knee arthroplasty. Electronically Signed: Shankar Matos MD at 13:02 EST Tel , Service support ,
[2020-10-15] MEDS: Lactated Ringers 1,000 ML 125 ML IV (16:19)
[2020-10-15] MEDS: Famotidine 20 MG Tablet PO (16:19)
[2020-10-15] MEDS: Senna/Docusate Sodium 1 Tablet 2 TABLET PO ×2 (16:20→21:28)
[2020-10-15] MEDS: predniSONE 10 MG Tablet PO (16:20)
[2020-10-15] MEDS: Calcium Carb/Vitamin D 1 TABLET Tablet PO (16:21)
--- NOTE | 2020-10-15 16:57 | CON.PCM_ITS ---
Problem List (1) Osteoarthritis Status: Chronic Qualifiers: Osteoarthritis location: knee Osteoarthritis type: primary Laterality: bilateral Qualified Code(s): M17.0 - Bilateral primary osteoarthritis of knee (2) Chronic migraine Status: Chronic (3) History of DVT (deep vein thrombosis) Status: Chronic (4) Degenerative disc disease Status: Chronic Qualifiers: Mid-cervical spinal level: unspecified (5) Prostate cancer Status: Chronic (6) Regional lymph node metastasis present Status: Chronic (7) Bone metastases Status: Chronic (8) GERD (gastroesophageal reflux disease) Status: Chronic Qualifiers: Esophagitis presence: esophagitis presence not specified Qualified Code(s): K21.9 - Gastro-esophageal reflux disease without esophagitis Reason for Consult Date of Consultation: 10/15/20 Reason for Consultation: Medical consultation, s/p recent L TKR History of Present Illness: The patient is a 55 y/o M w/ PMHx: Metastatic Stage IV prostate CA to bone following w/ Dr. Amaral, Chronic back pain with DDD, Hx DVT on Eliquis (most recent ~ 2 years prior), Migraines, GERD, Severe BL Knee OA who presents to the [facility] on 10/15/20 for planned left total knee replacement per Dr. Sykes. Patient with bilateral significant knee osteoarthritis therefore he noted plan to left total knee replacement this admission and upcoming right total knee replacement in 2 weeks, had originally been 4 weeks apart but with Covid and incidental events it became shortened to 2 weeks. Discussed this plan at length and given patient debility if following this knee replacement he is having issues and also if occurs after 2nd replacement encouraged him to consider acute rehab for rehabilitation. Postoperatively patient without significant complaints, pain c ontrolled, postoperative vital signs appropriate. Past Medical History Past Medical History (Chronic Problems): Chronic Problems (Last Reviewed 10/14/20 @ 08:55 by Jeni Barrera) Prostate cancer (Chronic) Regional lymph node metastasis present (Chronic) Bone metastases (Chronic) DVT of lower extremity, bilateral (Chronic) Diverticular disease (Chronic) Chronic migraine (Chronic) History of DVT (deep vein thrombosis) (Chronic) Degenerative disc disease (Chronic) Osteoarthritis (Chronic) GERD (gastroesophageal reflux disease) (Chronic) Medical History: Medical History (Last Reviewed 10/14/20 @ 08:55 by Jeni Barrera) Arthritis M19.90 Knee pain M25.569 Prostate cancer C61 Allergies grass pollen Allergy (Verified 10/15/20 09:05) Other eye and nose irritation ragweed pollen Allergy (Verified 10/15/20 09:05) Other eye and nose irritation Home Medications: Ambulatory Orders Medication Instructions Recorded Docusate Sodium [Colace] 100 mg PO TID 02/05/19 Multivitamin [Daily Multiple 1 ea PO DAILY 03/07/19 Vitamin] calcium carbonat and lactate 200 2 tab PO BID 05/21/19 mg calcium-vitamin D3 250 unit tablet Diclofenac Sodium [Voltaren] 2 gm TP TID 01/28/20 Prednisone 10 mg PO DAILY 30 Days #30 tab 01/28/20 abiraterone 500 mg tablet 1,000 mg PO DAILY 06/11/20 tumeric 1 tab PO DAILY 06/11/20 apixaban 5 mg tablet 5 mg PO BID #180 tab 07/07/20 Fluticasone Propionate 2 spray INTRANASAL DAILY PRN 09/17/20 Oxycodone Myristate [Xtampza ER] 9 mg PO QHS 09/17/20 sumatriptan succinate 50 mg tablet 50 mg PO PRN PRN 09/19/20 Surgical History: Surgical History (Last Reviewed 10/14/20 @ 08:55 by Jeni Barrera) No history of previous surgery Surgical History: - - Tonsillectomy, recent left total knee replacement. Psychiatric History: No pertinent psych hx Lives: Spouse/ Significant Other Smoking Status: Never smoker Tobacco Use: Non-smoker, Secondhand Alcohol: None Drugs: None - *Family History Maternal Family History: Family History (Last Reviewed 10/14/20 @ 08:55 by Jeni Barrera) Mother Non Hodgkin's lymphoma Father COPD (chronic obstructive pulmonary disease) Skin cancer Grandmother Cancer Lung cancer Grandfather CVA (cerebral vascular accident) Brother Blood disease History Items: Cancer - Non-Hodgkin's lymphoma Paternal Family History: Family History (Last Reviewed 10/14/20 @ 08:55 by Jeni Barrera) Mother Non Hodgkin's lymphoma Father COPD (chronic obstructive pulmonary disease) Skin cancer Grandmother Cancer Lung cancer Grandfather CVA (cerebral vascular accident) Brother Blood disease History Items: Cancer - Father with a significant melanoma history., COPD, Pulmonary Disease Review of Systems Constitutional: Reports: Malaise, Weakness, Fatigue. Denies: Anorexia, Chills, Fever, Weight Change HEENT: Reports: Head Aches. Denies: Sinus Congestion, Sinus Drainage Cardiovascular: Denies: Chest Pain, Palpitations Respiratory: Denies: Cough, Shortness of breath at rest, Sputum production Gastrointestinal: Denies: Abdominal Pain, Nausea, Vomiting Genitourinary: Denies: Dysuria Musculoskeletal: Reports: Back Pain, Joint Pain, Joint stiffness, Joint swelling, Joint Tenderness, Leg Pain Skin: Denies: Rash, Wounds Neurological: Denies: Numbness, Tingling, Focal weakness Psychiatric: Denies: Anxiety, Depression, Homicidal Ideations, Suicidal Ideations Hematologic/ Lymphatic: Denies: Easy Bruising, Easy Bleeding Subjective: Patient seated upright in the medical surgical bed, fatigued, recent OR, sluggish but improving, no pain currently. Objective: Physical Examination: General: awake, alert but still recuperating from anesthesia, oriented x 3 and cooperative, seated upright in the medical surgical bed, fatigued and mildly sluggish but improving. Skin: normal color, turgor, no icterus, cyanosis except status post left knee total replacement, dressings in place, no drainage noted. HEENT: AT/NC, EOMI, PERRLA, dry MM, no carotid bruits or JVD noted. Lungs: Diminished breath sounds, greater bases, moderate effort, no rales, ronchi or wheezing. Heart: Regular rate and rhythm; no gallop, rub audible. Abdomen: soft, NTTP, ND, normal BS, no HSM. Extremities: no cyanosis or clubbing, mild bilateral ankle edema, status post left total knee replacement, dressings in place, no drainage noted. Neurological: patient awake, alert, oriented as noted; cognitive function near baseline intact, recovering from anesthesia; pupils equally reactive to light and accomodation; cranial nerves II-XII grossly normal, moving all 4 extremities except expected limitation given recent left total knee replacement, strength accordingly moderately to severely global decreased. Psychiatric: affect appears fatigued otherwise normal, no acute evidence of depressive or anxiety feelings. - Physical Exam Vitals/I&O's: Vital Signs Temp Pulse Resp BP Pulse Ox 97.3 F L 69 16 117/64 98 10/15/20 15:40 10/15/20 15:40 10/15/20 15:40 10/15/20 15:40 10/15/20 15:40 Oxygen Flow Rate (L/min) 6 Oxygen Delivery Method Room Air Weight: 241 lb 10.026 oz Body Mass Index (BMI) 27.1 Intake and Output for Last 24 Hours 10/13/20 10/14/20 10/15/20 23:59 23:59 23:59 Intake Total 2336.5 / 2336.5 Balance 2336.5 / 2336.5 Microbiology Past 72 Hours 10/14/20 08:30 Interface Orders SARS-CoV-2 Antigen (Rapid) - Final Laboratory Results 10/15/20 08:57: POC Glucose 106 Current Medications Acetaminophen (Acetaminophen 500 Mg Tablet) 1,000 mg PO Q8 [facility] Last Admin: 10/15/20 16:20 Dose: 1,000 mg Documented by: Calcium/Vitamin D (Calcium Carb/Vitamin D 1 Tablet Tablet) 1 tablet PO BIDCM [facility] Last Admin: 10/15/20 16:21 Dose: 1 tablet Documented by: Enoxaparin Sodium (Enoxaparin 150 Mg/Ml Syringe) 150 mg SC DAILY [facility] Famotidine (Famotidine 20 Mg Tablet) 20 mg PO DAILY [facility] Last Admin: 10/15/20 16:19 Dose: 20 mg Documented by: Fluticasone Propionate (Fluticasone 0.05% 1 [place] Nasal.Sry) 2 spray NASAL DAILY PRN PRN Reason: ALLERGIES Lactated Ringer's () 1,000 mls @ 75 mls/hr IV .[id number] [facility] Stop: 10/15/20 20:19 Last Infusion: 10/15/20 12:42 Dose: Infused Documented by: Lactated Ringer's () 1,000 mls @ 125 mls/hr IV .Q8H [facility] Last Admin: 10/15/20 16:19 Dose: 125 mls/hr Documented by: Cefazolin Sodium () 1 gm in 50 mls @ 150 mls/hr IV Q8H [facility] Stop: 10/16/20 01:49 Insulin Human Lispro (Insulin Lispro 100 Unit/Ml Insuln.Pen) 1 - 6 unit SC Q4H PRN PRN; Protocol PRN Reason: BG>/= 180, SEE PROTOCOL Insulin Human Lispro (Insulin Lispro 100 Unit/Ml Insuln.Pen) 1 - 6 unit SC Q4H PRN PRN; Protocol PRN Reason: BG>/= 180, SEE PROTOCOL Stop: 10/15/20 18:00 Morphine Sulfate (Morphine 2 Mg/Ml Syringe) 2 - 4 mg IV Q2H PRN PRN PRN Reason: Pain Score 6-10 Morphine Sulfate (Morphine 4 Mg/Ml Syringe) 2 - 4 mg IV Q2H PRN PRN PRN Reason: Pain Score 6-10 Multivitamins (Multivitamins,Therapeutic Tablet) 1 tablet PO DAILYCOX BRANSON Non-Formulary Medication (Abiraterone) 1,000 mg PO DAILY [facility] Non-Formulary Medication (Oxycodone Myristate [Xtampza Er]) 9 mg PO QHS [facility] Ondansetron HCl (Ondansetron 4 Mg/2 Ml Vial) 4 mg IV Q8H PRN PRN PRN Reason: NAUSEA Oxycodone HCl (Oxycodone 5 Mg Tablet) 5 - 10 mg PO Q4H PRN PRN PRN Reason: Pain Score 4-10 Prednisone (Prednisone 10 Mg Tablet) 10 mg PO DAILYCOX BRANSON Last Admin: 10/15/20 16:20 Dose: 10 mg Documented by: Promethazine HCl (Promethazine 25 Mg/Ml Syringe) 12.5 mg IM Q6H PRN PRN; Protocol PRN Reason: NAUSEA/VOMITING Rizatriptan Benzoate (Rizatriptan Benzoate 10 Mg Tablet) 10 mg PO PRN PRN PRN Reason: MIGRAINES Senna/Docusate Sodium (Senna/Docusate Sodium 1 Tablet) 2 tablet PO BID [facility] Last Admin: 10/15/20 16:20 Dose: 2 tablet Documented by: Sodium Chloride (0.9% Nacl Peripheral Flush Adult/Peds) 5 - 15 ml IV UD PRN PRN Reason: SALINE FLUSH Sodium Chloride (0.9% Saline Lock 10 Ml Syringe) 10 - 40 ml IV UD PRN PRN Reason: SALINE FLUSH Assessment/Plan All Active Problems (Last Reviewed 10/14/20 @ 08:55 by Jeni Barrera) Intractable pain (Acute) Weight loss, non-intentional (Acute) Encounter for education (Acute) Nocturnal leg cramps (Resolved) Diarrhea (Acute) Chemotherapy management, encounter for (Acute) Nausea & vomiting (Acute) Neck pain (Acute) Low back pain (Acute) The patient is a 55 y/o M w/ PMHx: Metastatic Stage IV prostate CA to bone yissel aranda w/ Dr. Amaral, Chronic back pain with DDD, Hx DVT on Eliquis, Migraines, GERD, Severe BL Knee OA who presents to the [facility] on 10/15/20 for planned left total knee replacement per Dr. Sykes. Patient with bilateral significant knee osteoarthritis therefore he noted plan to left total knee replacement this admission and upcoming right total knee. 1. Severe Osteoarthritis, bilateral knees: Failed conservative therapies and treatments, admitted per Dr. Sykes for planned left total knee replacement, post-operative pain management, bowel regimen, DVT history on Eliquis with hold prior to current operative intervention with planned transition to therapeutic lovenox as planned R TKR in 2 weeks, PT/OT/CM per Orthopedic surgery discretion. Discussed with patient that after his neck surgery if necessary we could consider acute rehab given 2 knee replacements within a matter of 2 weeks. 2. Static stage IV prostate cancer: Metastatic disease to the bone and lymph nodes, following with Dr. Marlow, encourage continued outpatient follow-up with oncology. We will continue patient abiraterone own home regimen as well as chronic prednisone therapy, defer any stress dosing at this time. Mag and phos levels requested. 3. Chronic back pain with DDD: Encourage positional changes, as needed oral and IV pain regimen given acute presentation #1, if necessary may add additional regimen. 4. History of DVT: Associated with patient's metastatic prostate cancer likely, 2 years prior to current presentation nearly, currently Eliquis held with plan transition to therapeutic Lovenox given planned repeat OR intervention in 2 weeks with transition back to home Eliquis following this intervention per discussion with orthopedic surgery. Patient is high risk therefore discussed with Dr. Sykes and will transition from 150 mg subcu daily to 110 mg subcu twice daily otherwise to comply with 1.5 mg/kg once daily would need to go up to 165 mg subcu daily. 5. Chronic migraines: We will continue patient home as needed Maxalt regimen. 6. DVT prophylaxis: SCDs, transition to as noted to 1 mg/kg subcu Lovenox. Inpatient E&M: [id number] [facility] L[facility]
[2020-10-15] MEDS: Cefazolin 1 GM/50 ML BAG IV (18:50)
[2020-10-15] MEDS: oxyCODONE 5 MG Tablet PO (23:54)
[2020-10-16 00:01] VITALS: BP 132/65; PULSE 60; RESP 16; TEMP 37.3; O2SAT 100
[2020-10-16] MEDS: Lactated Ringers 1,000 ML 125 ML IV (00:01)
[2020-10-16] MEDS: Cefazolin 1 GM/50 ML BAG IV (01:07)
[2020-10-16] MEDS: ABIRATERONE ACETATE 250 MG TABLET 1000 MG PO (03:28)
[2020-10-16 05:53] VITALS: BP 148/78; PULSE 72; RESP 16; TEMP 37.1; O2SAT 99
[2020-10-16] MEDS: Enoxaparin 120 MG/0.8 ML Syringe 110 MG SC ×2 (06:09→17:38)
[2020-10-16] MEDS: Acetaminophen 500 MG Tablet 1000 MG PO ×3 (06:11→22:19)
[2020-10-16] MEDS: 0.9% NaCl Peripheral Flush Adult/Peds IV ×3 (06:12→23:56)
[2020-10-16 07:25] VITALS: BP 131/68; PULSE 59; RESP 16; TEMP 37.1; O2SAT 99
[2020-10-16 07:25] LABS: Hematocrit 33.5 % (40-54); Hemoglobin 11.2 g/dL (13.0-16.5); Mean Corp Hgb Conc 33.4 g/dL (32-36); Mean Corpuscular Hgb 31.9 pg (27.0-32.0); Mean Corpuscular Volume 95.4 fL (80-94); Mean Platelet Vol. 9.6 fl (6.2-12.0); Platelet Count 202 K/mm3 (150-450); RBC Distribution Width CV 11.9 % (11.6-14.6); Red Blood Count 3.51 M/mm3 (4.6-6.2); White Blood Count 7.9 K/mm3 (4.4-11.0)
[2020-10-16] MEDS: Multivitamins,Therapeutic Tablet 1 TABLET PO (07:44)
[2020-10-16] MEDS: Senna/Docusate Sodium 1 Tablet 2 TABLET PO ×2 (07:44→22:19)
[2020-10-16] MEDS: Famotidine 20 MG Tablet PO (07:44)
[2020-10-16] MEDS: Calcium Carb/Vitamin D 1 TABLET Tablet PO ×2 (07:44→17:37)
[2020-10-16] MEDS: predniSONE 10 MG Tablet PO (07:45)
[2020-10-16 08:11] LABS: Anion Gap 4 (5-15); BUN 16 mg/dL (7-18); Calcium,Total 8.4 mg/dL (8.5-10.1); Chloride 105 mmol/L (98-107); EST Glomerular Filtration Rate 106 mL/min (>60); Est Glom Filt Rate - Afr Amer 128 mL/min (>60); Estimated Creatinine Clearance 136.65 ml/min; Glucose 101 mg/dL (74-106); Potassium 3.7 mmol/L (3.5-5.1); Sodium Level 138 mmol/L (136-145)
[2020-10-16 08:19] LABS: Phosphorus 2.4 mg/dL (2.5-4.9)
[2020-10-16] MEDS: oxyCODONE 5 MG Tablet PO ×4 (08:45→22:20)
--- NOTE | 2020-10-16 09:22 | PN.ORTHO_ITS ---
Subjective: The patient was sitting in bedside chair upon examination. Patient denies any chest pain, shortness of breath, dizziness, lightheadedness, nausea or vomiting, or calf pain. Pain is controlled on medications. No adverse overnight events. Overall patient is doing well postoperatively. Nursing states he has been up walking. His pain is been controlled. Patient has not had physical therapy at this point. Patient is currently being treated for metastatic stage IV prostate cancer and is followed by oncologist. Also is followed by pain management in which she is on chronic long-acting oxycodone. He states he has not been taking this medication at home. He does wish to try to go home today. Objective: Vital signs stable and afebrile. Patient is able to plantarflex and dorsiflex actively. Sensation is intact to light touch to saphenous, sural, superficial and deep peroneal, and tibial distribution. Dressing is clean dry and intact. Negative Homans bilaterally, negative signs and symptoms of DVT. - Physical Exam Vitals/I&O's: Vital Signs Temp Pulse Resp BP Pulse Ox 98.8 F 59 L 16 131/68 H 99 10/16/20 07:25 10/16/20 07:25 10/16/20 07:25 10/16/20 07:25 10/16/20 07:25 Oxygen Flow Rate (L/min) 6 Oxygen Delivery Method Room Air Weight: 109.6 kg Body Mass Index (BMI) 27.1 Intake and Output for Last 24 Hours 10/14/20 10/15/20 10/16/20 23:59 23:59 23:59 Intake Total 3701.08 / 4301.08 1927.08 / 192.08 Balance 3701.08 / 4301.08 1926.08 / 1926.08 General: Alert, Oriented x3, Cooperative, No apparent distress Microbiology Past 72 Hours 10/14/20 08:30 Interface Orders SARS-CoV-2 Antigen (Rapid) - Final Laboratory Results 10/15/20 08:57: POC Glucose 106 10/16/20 06:52: WBC 7.9, RBC 3.51 L, Hgb 11.2 L, Hct 33.5 L, MCV 95.4 H, MCH 31.9, MCHC 33.4, RDW Std Deviation 41.0, RDW Coeff of Alejo 11.9, Plt Count 202, MPV 9.6 10/16/20 06:52: Sodium 138, Potassium 3.7, Chloride 105, Carbon Dioxide 29.0, Anion Gap 4 L, BUN 16, Creatinine 0.80, Estim Creat Clear Calc 136.65, Est GFR (MDRD) Af Amer 128, Est GFR (MDRD) Non-Af 106, BUN/Creatinine Ratio 20.0, Glucose 101, Calcium 8.4 L 10/16/20 06:52: Phosphorus 2.4 L Current Medications Abiraterone Acetate (Abiraterone Acetate 250 Mg Tablet) 1,000 mg PO DAILY@0600 [facility] Last Admin: 10/16/20 03:28 Dose: 1,000 mg Documented by: Acetaminophen (Acetaminophen 500 Mg Tablet) 1,000 mg PO Q8 [facility] Last Admin: 10/16/20 06:11 Dose: 1,000 mg Documented by: Albuterol Sulfate (Albuterol 2.5 Mg/3 Ml Vial.Neb.) 2.5 mg INHALATION Q2H PRN PRN PRN Reason: Dyspnea, wheezing Calcium/Vitamin D (Calcium Carb/Vitamin D 1 Tablet Tablet) 1 tablet PO BIDCM [facility] Last Admin: 10/16/20 07:44 Dose: 1 tablet Documented by: Enoxaparin Sodium (Enoxaparin 120 Mg/0.8 Ml Syringe) 110 mg SC Q12@0600,1800 [facility] Last Admin: 10/16/20 06:09 Dose: 110 mg Documented by: Famotidine (Famotidine 20 Mg Tablet) 20 mg PO DAILY [facility] Last Admin: 10/16/20 07:44 Dose: 20 mg Documented by: Fluticasone Propionate (Fluticasone 0.05% 1 [place] Nasal.Sry) 2 spray NASAL DAILY PRN PRN Reason: ALLERGIES Hydralazine HCl (Hydralazine 20 Mg/Ml Vial) 10 mg IV Q4H PRN PRN PRN Reason: SBP > 160 Insulin Human Lispro (Insulin Lispro 100 Unit/Ml Insuln.Pen) 1 - 6 unit SC Q4H PRN PRN; Protocol PRN Reason: BG>/= 180, SEE PROTOCOL Morphine Sulfate (Morphine 2 Mg/Ml Syringe) 2 - 4 mg IV Q2H PRN PRN PRN Reason: Pain Score 6-10 Morphine Sulfate (Morphine 4 Mg/Ml Syringe) 2 - 4 mg IV Q2H PRN PRN PRN Reason: Pain Score 6-10 Multivitamins ([facility]it[facility],Therapeutic Tablet) [facility] Last Admin: 10/16/20 07:44 Dose: 1 tablet Documented by: Ondansetron HCl (Ondansetron 4 Mg/2 Ml Vial) 4 mg IV Q8H PRN PRN PRN Reason: NAUSEA Oxycodone HCl (Oxycodone 5 Mg Tablet) 5 - 10 mg PO Q4H PRN PRN PRN Reason: Pain Score 4-10 Last Admin: 10/16/20 08:45 Dose: 10 mg Documented by: Prednisone (Prednisone 10 Mg Tablet) [facility] Last Admin: 10/16/20 07:45 Dose: 10 mg Documented by: Promethazine HCl (Promethazine 25 Mg/Ml Syringe) 12.5 mg IM Q6H PRN PRN; Protocol PRN Reason: NAUSEA/VOMITING Rizatriptan Benzoate (Rizatriptan Benzoate 10 Mg Tablet) 10 mg PO PRN PRN PRN Reason: MIGRAINES Senna/Docusate Sodium (Senna/Docusate Sodium 1 Tablet) 2 tablet PO BID [facility] Last Admin: 10/16/20 07:44 Dose: 1 tablet Documented by: Sodium Chloride (0.9% Nacl Peripheral Flush Adult/Peds) 5 - 15 ml IV UD PRN PRN Reason: SALINE FLUSH Last Admin: 10/16/20 06:12 Dose: 10 ml Documented by: Sodium Chloride (0.9% Saline Lock 10 Ml Syringe) 10 - 40 ml IV UD PRN PRN Reason: SALINE FLUSH Medical Necessity - Tobacco Use Smoking Status: Never smoker Tobacco Use: Non-smoker, Secondhand Assessment/Plan All Active Problems (Last Reviewed 10/14/20 @ 08:55 by Jeni Barrera) Intractable pain (Acute) Weight loss, non-intentional (Acute) Encounter for education (Acute) Nocturnal leg cramps (Resolved) Diarrhea (Acute) Chemotherapy management, encounter for (Acute) Nausea & vomiting (Acute) Neck pain (Acute) Low back pain (Acute) 1. S/P left total knee arthroplasty POD #1 2. Continue Pain Medications: Tylenol and oxycodone 3. DVT Prophylaxis: Currently on therapeutic Lovenox and will continue with this anticipating upcoming surgery on the right knee in 2 weeks. 4. PT/OT: Weightbearing as tolerated 5. H & H: 11.2/33.5, asymptomatic. Postoperative anemia secondary to acute blood loss from surgery without any intra operative complications. 6. Continue postoperative medical management per medicine 7. Encouraged Incentive Spirometry 8. Disposition: Plan will be for possible discharge home today as long as patient's pain is well controlled and tolerates physical therapy. Prescriptions will be E scribed to [facility]. He will continue with the Lovenox as we are anticipating upcoming surgery on the right knee. We have obtained clearance from the pain management doctor to continue with postoperative pain control for the first 6 weeks. Patient states he is not taking his long-acting oxycodone at home. He will follow up per postop instructions. He has outpatient physical therapy established. He is inquiring about purchasing a polar ice unit and he will contact our physical therapy department to purchase 1 of these. I have reviewed the [place] Automated Rx Reporting System (OARRS) report for this patient for refill pattern and other prescriber involvement as part of the [facility] for the provision of acute and chronic controlled medications. The report was requested and reviewed on the date of this entry and was considered in the prescribing process.
--- NOTE | 2020-10-16 09:32 | PCM.DC.TKR ---
Discharge Diet: No Restrictions Discharge Activity: May Not Drive May shower in (days): 1 - Okay to shower if dressing is intact to skin. Turn dressing away from water. Do not submerge underwater for 6 weeks postoperatively. Ice area for (Minutes): 20 - Every 1-2 hours while awake Weight Bearing Status: Weight bearing as tolerated Elevate: Operative Extremity Additional Activity Instructions:: Wear elastic stockings for 2 weeks after your surgery. Call your doctor if your incision/area has: Continuous Slow Oozing, Sudden Increased Bleeding, Increased Pain/ Swelling, Increased Redness, Foul Smelling Discharge Call your doctor if you observe: Fever of 101 or Higher, Coldness, Increased Pain, Numbness or Tingling, Change in Color, Calf discomfort, Uncontrolled pain Remove Dressing in (days):: 4 - Okay to remove dressing on October 20, 2020 Additional Instructions: Follow [facility] Post-op Instructions. Once postoperative dressing has been removed only use gentle soap and water over the incision. Do not use any ointments, Neosporin, salves, alcohol pads over the incision for 6 weeks postoperatively. Do not submerge underwater for 6 weeks postoperatively. Allergies/Adverse Reactions: Allergies grass pollen Allergy (Verified 10/15/20 09:05) Other eye and nose irritation ragweed pollen Allergy (Verified 10/15/20 09:05) Other eye and nose irritation Medications to take at Discharge Docusate Sodium [Colace] 100 mg PO TID 02/05/19 Multivitamin [Daily Multiple Vitamin] 1 ea PO DAILY 03/07/19 calcium carbonat and lactate 200 mg calcium-vitamin D3 250 unit tablet 2 tab PO BID 05/21/19 Diclofenac Sodium [Voltaren] 2 gm TP TID 01/28/20 Prednisone 10 mg PO DAILY 30 Days #30 tab 01/28/20 abiraterone 500 mg tablet 1,000 mg PO DAILY 06/11/20 Fluticasone Propionate 2 spray INTRANASAL DAILY PRN 09/17/20 Oxycodone Myristate [Xtampza ER] 9 mg PO QHS 09/17/20 sumatriptan succinate 50 mg tablet 50 mg PO PRN PRN 09/19/20 Acetaminophen [Tylenol] 1,000 mg PO Q8 #100 tab 10/16/20 Enoxaparin [Lovenox] 110 mg SC Q12@0600,1800 14 Days #28 syringe 10/16/20 Oxycodone [Oxyir] 5 - 10 mg PO Q4H PRN PRN 5 Days #60 tablet 10/16/20 Senna/Docusate Sodium [Senokot-S] 2 tab PO BID #14 tab 10/16/20 The following prescriptions were given: Enoxaparin [Lovenox] 110 mg SC Q12@0600,1800 14 Days #28 syringe Transmission Status: Pending to [facility] Oxycodone [Oxyir] 5 - 10 mg PO Q4H PRN PRN 5 Days #60 tablet PRN Reason: Pain Score 4-10 Transmission Status: Sent to [facility] Senna/Docusate Sodium [Senokot-S] 2 tab PO BID #14 tab Transmission Status: Pending to [facility] Acetaminophen [Tylenol] 1,000 mg PO Q8 #100 tab Transmission Status: Pending to [facility] Primary Care Physician: Jimy Li MD [Primary Care Provider] - Test Results: Test results from this visit will be discussed in further detail at your follow-up appointment, if applicable. Please Follow Up With: [facility] When: 10/20/20 @ 9:30 am Please Follow Up With: Jeromy Christianson PA-C When: 10/29/20 @ 9:30 am
--- NOTE | 2020-10-16 10:56 | CASEMGMT ---
DIAN NORRIS Face to Face with patient for initial transition planning/care coordination assessment. DIAN NORRIS introduced self and role at [facility]. Patient sitting in chair, alert and oriented, at bedside. Patient willing to participate in assessment and is able to answer all questions appropriately. Care providers, pharmacy, and demographics verified. Patient wishes to discharge home and is setup for outpatient therapy at [facility]. Patient requesting appt be moved up to Tuesday. DIAN NORRIS called [facility] and appt for outpatient therapy rescheduled for 10/17/2020 at 4 pm. DIAN NORRIS updated patient and . Patient states he has no further needs or concerns at this time. CM to follow for discharge planning needs that may arise. PCP: Jen Specialists: Munir, oncologist; Huong, pain; Onel, ortho Preferred Pharmacy: [facility] Insurance: MMO Prescription Benefit: yes Living Will/HPOA: none, patient working on them LNOK: Living Arrangements: Patient lives with in a 2 story home with bed and 1/2 bath on first floor. Patient has 2 steps to enter the home. Patient states he was independent at home prior to surgery Transportation: DME/HHC: Patient states he has walker and raised toilet at home. Patient has access to additional DME if needed. No previous HHC. Patient setup for outpatient therapy at [facility] Disposition Plan: Patient to discharge home with outpatient therapy, family support, and follow-up plans in place. Talita CHAKRABORTY, RN, CM
[2020-10-16] MEDS: Morphine 2 MG/ML Syringe IV ×2 (11:01→23:57)
--- NOTE | 2020-10-16 11:58 | PHA.DC.MC ---
Addendum entered and electronically signed by Em Morris 10/16/20 11:59: CORRECTION TO MEDS COUNSELED: 1. ACETAMINOPHEN 1000MG PO Q8H 2. ENOXAPARIN 110MG SC Q12 3. SENNA/DOCUSATE 2T PO BID UNTIL FIRST BM, THEN PRN CONSTIPATION 4. OXYCODONE 5-10MG PO Q4H PRN PAIN Did not marriage counselor minister on aspirin, entered in error. Discussed with patient to not take Xtampza while on oxycodone IR as per note from Jeromy. Original Note: Pharmacy Service has performed discharge medication reconciliation and counseling for this patient. 1. ACETAMINOPHEN 1000MG PO Q8H 2. ASPIRIN 81MG PO BIDCM 3. SENNA/DOCUSATE 2T PO BID UNTIL FIRST BM, THEN PRN CONSTIPATION 4. OXYCODONE 5-10MG PO Q4H PRN PAIN The patient's discharge medication list was reviewed for discrepancies and discrepancies were resolved. Home Medications Docusate Sodium [Colace] 100 mg PO TID 02/05/19 Multivitamin [Daily Multiple Vitamin] 1 ea PO DAILY 03/07/19 calcium carbonat and lactate 200 mg calcium-vitamin D3 250 unit tablet 2 tab PO BID 05/21/19 Diclofenac Sodium [Voltaren] 2 gm TP TID 01/28/20 Prednisone 10 mg PO DAILY 30 Days #30 tab 01/28/20 abiraterone 500 mg tablet 1,000 mg PO DAILY 06/11/20 Fluticasone Propionate 2 spray INTRANASAL DAILY PRN 09/17/20 Oxycodone Myristate [Xtampza ER] 9 mg PO QHS 09/17/20 sumatriptan succinate 50 mg tablet 50 mg PO PRN PRN 09/19/20 Acetaminophen [Tylenol] 1,000 mg PO Q8 #100 tab 10/16/20 Enoxaparin [Lovenox] 110 mg SC Q12@0600,1800 14 Days #28 syringe 10/16/20 Oxycodone [Oxyir] 5 - 10 mg PO Q4H PRN PRN 5 Days #60 tab 10/16/20 Senna/Docusate Sodium [Senokot-S] 2 tab PO BID #14 tab 10/16/20 The patient was counseled on the following discharge medications and changes in medications for homegoing were reviewed. The Reason for Use, instructions for use, and potential side effects were reviewed for all new medications. The patient's questions regarding all of their medications were answered. The patient was able to verbally demonstrate an understanding of their discharge medications.
--- NOTE | 2020-10-16 13:26 | PN_ITS ---
Subjective: Patient is sitting up in a chair next to the bed. Legs are elevated and polarize on left knee. Patient states that he is having stiffness in that knee rather than pain. He is anxious to go home today if able. Vitals/I&O's: Vital Signs Temp Pulse Resp BP Pulse Ox 98.8 F 59 L 16 131/68 H 99 10/16/20 07:25 10/16/20 07:25 10/16/20 07:25 10/16/20 07:25 10/16/20 07:25 Oxygen Flow Rate (L/min) 6 Oxygen Delivery Method Room Air Weight: 109.6 kg Body Mass Index (BMI) 27.1 Intake and Output for Last 24 Hours 10/14/20 10/15/20 10/16/20 23:59 23:59 23:59 Intake Total 3701.08 / 4301.08 1927.08 / 1926.08 Balance 3701.08 / 4301.08 1926.08 / 1926.08 General: Alert, Oriented x3, Cooperative, No apparent distress, Well developed, Well nourished, - - Middle-aged white male, appears comfortable, sitting up in chair with legs elevated and polarize on left knee HEENT: Atraumatic, Normocephalic Oral: Moist Mucosa Lungs: Clear to auscultation, Normal air movement, No rhonchi, No wheeze, No rales Cardiovascular: Regular rate, Regular Rhythm, Normal S1, Normal S2, No murmurs, No Ectopic Activity, No rub noted, No Gallop Abdomen: Bowel Sounds Present, Soft, Non Tender, Non-Distended Extremities: No clubbing, No cyanosis, No edema, Capillary Refill Less than 3 Seconds, Peripheral Pulses Normal Skin: No rashes, No breakdown Musculoskeletal: No Tenderness to Palpation of Joints or Extremities, No Muscle Wasting, Arthritic Changes Neurological: Cranial nerves II-XII grossly intact Psych/Mental Status: Normal Affect, Appropriate, Alert and oriented to time, place, person, mood and affect Microbiology Past 72 Hours 10/14/20 08:30 Interface Orders SARS-CoV-2 Antigen (Rapid) - Final Laboratory Results 10/16/20 06:52: WBC 7.9, RBC 3.51 L, Hgb 11.2 L, Hct 33.5 L, MCV 95.4 H, MCH 31.9, MCHC 33.4, RDW Std Deviation 41.0, RDW Coeff of Alejo 11.9, Plt Count 202, MPV 9.6 10/16/20 06:52: Sodium 138, Potassium 3.7, Chloride 105, Carbon Dioxide 29.0, Anion Gap 4 L, BUN 16, Creatinine 0.80, Estim Creat Clear Calc 136.65, Est GFR (MDRD) Af Amer 128, Est GFR (MDRD) Non-Af 106, BUN/Creatinine Ratio 20.0, Glucose 101, Calcium 8.4 L 10/16/20 06:52: Phosphorus 2.4 L Current Medications Abiraterone Acetate (Abiraterone Acetate 250 Mg Tablet) 1,000 mg PO DAILY@0600 [facility] Last Admin: 10/16/20 03:28 Dose: 1,000 mg Documented by: Acetaminophen (Acetaminophen 500 Mg Tablet) 1,000 mg PO Q8 [facility] Last Admin: 10/16/20 06:11 Dose: 1,000 mg Documented by: Albuterol Sulfate (Albuterol 2.5 Mg/3 Ml Vial.Neb.) 2.5 mg INHALATION Q2H PRN PRN PRN Reason: Dyspnea, wheezing Calcium/Vitamin D (Calcium Carb/Vitamin D 1 Tablet Tablet) 1 tablet PO BIDCM [facility] Last Admin: 10/16/20 07:44 Dose: 1 tablet Documented by: Enoxaparin Sodium (Enoxaparin 120 Mg/0.8 Ml Syringe) 110 mg [place] Q12@0600,1800 [facility] Last Admin: 10/16/20 06:09 Dose: 110 mg Documented by: Famotidine (Famotidine 20 Mg Tablet) 20 mg PO DAILY [facility] Last Admin: 10/16/20 07:44 Dose: 20 mg Documented by: Fluticasone Propionate (Fluticasone 0.05% 1 [place] Nasal.Sry) 2 spray NASAL DAILY PRN PRN Reason: ALLERGIES Hydralazine HCl (Hydralazine 20 Mg/Ml Vial) 10 mg IV Q4H PRN PRN PRN Reason: SBP > 160 Insulin Human Lispro (Insulin Lispro 100 Unit/Ml Insuln.Pen) 1 - 6 unit SC Q4H PRN PRN; Protocol PRN Reason: BG>/= 180, SEE PROTOCOL Morphine Sulfate (Morphine 2 Mg/Ml Syringe) 2 - 4 mg IV Q2H PRN PRN PRN Reason: Pain Score 6-10 Last Admin: 10/16/20 11:01 Dose: 2 mg Documented by: Morphine Sulfate (Morphine 4 Mg/Ml Syringe) 2 - 4 mg IV Q2H PRN PRN PRN Reason: Pain Score 6-10 Multivitamins (Multivitamins,Therapeutic Tablet) [facility] Last Admin: 10/16/20 07:44 Dose: 1 tablet Documented by: Ondansetron HCl (Ondansetron 4 Mg/2 Ml Vial) 4 mg IV Q8H PRN PRN PRN Reason: NAUSEA Oxycodone HCl (Oxycodone 5 Mg Tablet) 5 - 10 mg PO Q4H PRN PRN PRN Reason: Pain Score 4-10 Last Admin: 10/16/20 12:35 Dose: 10 mg Documented by: Prednisone (Prednisone 10 Mg Tablet) [facility] Last Admin: 10/16/20 07:45 Dose: 10 mg Documented by: Promethazine HCl (Promethazine 25 Mg/Ml Syringe) 12.5 mg IM Q6H PRN PRN; Protocol PRN Reason: NAUSEA/VOMITING Rizatriptan Benzoate (Rizatriptan Benzoate 10 Mg Tablet) 10 mg PO PRN PRN PRN Reason: MIGRAINES Senna/Docusate Sodium (Senna/Docusate Sodium 1 Tablet) 2 tablet PO BID [facility] Last Admin: 10/16/20 07:44 Dose: 1 tablet Documented by: Sodium Chloride (0.9% Nacl Peripheral Flush Adult/Peds) 5 - 15 ml IV UD PRN PRN Reason: SALINE FLUSH Last Admin: 10/16/20 11:01 Dose: 10 ml Documented by: Sodium Chloride (0.9% Saline Lock 10 Ml Syringe) 10 - 40 ml IV UD PRN PRN Reason: SALINE FLUSH Medical Necessity - Tobacco Use Smoking Status: Never smoker Tobacco Use: Non-smoker, Secondhand Assessment/Plan All Active Problems (Last Reviewed 10/14/20 @ 08:55 by Jeni Barrera) Intractable pain (Acute) Weight loss, non-intentional (Acute) Encounter for education (Acute) Nocturnal leg cramps (Resolved) Diarrhea (Acute) Chemotherapy management, encounter for (Acute) Nausea & vomiting (Acute) Neck pain (Acute) Low back pain (Acute) Left TKA -Postop day 1 -Requiring minimal narcotics for pain control -Continue bowel regimen -Physical therapy, Occupational Therapy -DVT prophylaxis with therapeutic Lovenox given history of DVTs -Plan is for right total knee arthroplasty in 2 weeks -Discharge is planned for later today after therapies as patient is doing well Stage IV prostate cancer -Metastatic to bone and lymph nodes -Follows with -Continue chronic prednisone -Continue abiraterone Hypophosphatemia -Replacement Mild acute anemia -Baseline hemoglobin appears to be 13-14 -Suspect related to surgery History of DVT -He had been on Eliquis prior to surgery but this was discontinued for his total knee arthroplasty -They are planning for surgery in 2 weeks on his right lower extremity therefore he will be on therapeutic Lovenox so he can be transitioned quickly and placed back on anticoagulation quickly in the perioperative Chronic low back pain with DDD -Pain medication as needed Inpatient E&M: [id number] [facility] L[facility]
[2020-10-16] MEDS: Na Biphos/Potassium Phosphate PACKET 1 PACKET PO (14:47)
[2020-10-16 17:25] VITALS: BP 130/74; PULSE 75; RESP 16; TEMP 37.4; O2SAT 96
[2020-10-16 20:21] VITALS: BP 136/81; PULSE 95; RESP 18; TEMP 37.4; O2SAT 93
[2020-10-16 23:35] VITALS: BP 136/74; PULSE 81; RESP 18; TEMP 37.4; O2SAT 96
[2020-10-17] MEDS: 0.9% NaCl Peripheral Flush Adult/Peds IV ×4 (00:01→23:38)
[2020-10-17 03:23] VITALS: BP 129/77; PULSE 93; RESP 18; TEMP 37.7; O2SAT 95
[2020-10-17] MEDS: oxyCODONE 5 MG Tablet PO ×6 (03:41→23:46)
[2020-10-17] MEDS: Acetaminophen 500 MG Tablet 1000 MG PO ×3 (06:57→21:23)
[2020-10-17] MEDS: ABIRATERONE ACETATE 250 MG TABLET 1000 MG PO (06:57)
[2020-10-17] MEDS: Enoxaparin 120 MG/0.8 ML Syringe 110 MG SC ×2 (06:58→17:39)
[2020-10-17 07:13] LABS: Hematocrit 29.8 % (40-54); Hemoglobin 10.3 g/dL (13.0-16.5); Mean Corp Hgb Conc 34.6 g/dL (32-36); Mean Corpuscular Hgb 32.3 pg (27.0-32.0); Mean Corpuscular Volume 93.4 fL (80-94); Mean Platelet Vol. 9.8 fl (6.2-12.0); Platelet Count 163 K/mm3 (150-450); RBC Distribution Width CV 11.7 % (11.6-14.6); RBC Distribution Width SD 40.1 fl (35.1-43.9); Red Blood Count 3.19 M/mm3 (4.6-6.2); White Blood Count 8.3 K/mm3 (4.4-11.0)
--- NOTE | 2020-10-17 07:25 | PN.ORTHO_ITS ---
Subjective: The patient was sitting in bed upon examination. Patient denies any chest pain, shortness of breath, dizziness, lightheadedness, nausea or vomiting, or calf pain. Patient had to stay an additional night due to pain control. His pain is been 10/10. Patient's block did wear off yesterday. He states minimal improvement this morning. He has been on extended release Xtampza 9mg at home by his pain management physician. Per patient he states he has not been using this as much. He states she has difficulty sleeping and getting comfortable. Patient has history of bone mets. Objective: Vital signs stable with temperature of 99.8 overnight. Denies chest pain or shortness of breath. Patient is able to plantarflex and dorsiflex actively. Sensation is intact to light touch to saphenous, sural, superficial and deep peroneal, and tibial distribution. Dressing is stable with minimal drainage over the main dressing. Negative Homans bilaterally, negative signs and symptoms of DVT. - Physical Exam Vitals/I&O's: Vital Signs Temp Pulse Resp BP Pulse Ox 99.8 F H 93 18 129/77 H 95 10/17/20 03:23 10/17/20 03:23 10/17/20 03:23 10/17/20 03:23 10/17/20 03:23 Oxygen Flow Rate (L/min) 6 Oxygen Delivery Method Room Air Weight: 109.6 kg Body Mass Index (BMI) 27.1 Intake and Output for Last 24 Hours 10/15/20 10/16/20 10/17/20 23:59 23:59 23:59 Intake Total 3701.08 / 4301.08 2427.08 / 2427.08 Balance 3701.08 / 4301.08 2427.08 / 2427.08 General: Alert, Oriented x3, Cooperative, No apparent distress Microbiology Past 72 Hours 10/14/20 08:30 Interface Orders SARS-CoV-2 Antigen (Rapid) - Final Laboratory Results 10/16/20 06:52: WBC 7.9, RBC 3.51 L, Hgb 11.2 L, Hct 33.5 L, MCV 95.4 H, MCH 31.9, MCHC 33.4, RDW Std Deviation 41.0, RDW Coeff of Alejo 11.9, Plt Count 202, MPV 9.6 10/16/20 06:52: Sodium 138, Potassium 3.7, Chloride 105, Carbon Dioxide 29.0, Anion Gap 4 L, BUN 16, Creatinine 0.80, Estim Creat Clear Calc 136.65, Est GFR (MDRD) Af Amer 128, Est GFR (MDRD) Non-Af 106, BUN/Creatinine Ratio 20.0, Glucose 101, Calcium 8.4 L 10/16/20 06:52: Phosphorus 2.4 L 10/17/20 06:44: WBC 8.3, RBC 3.19 L, Hgb 10.3 L, Hct 29.8 L, MCV 93.4, MCH 32.3 H, MCHC 34.6, RDW Std Deviation 40.1, RDW Coeff of Alejo 11.7, Plt Count 163, MPV 9.8 Current Medications Abiraterone Acetate (Abiraterone Acetate 250 Mg Tablet) 1,000 mg PO DAILY@0600 [facility] Last Admin: 10/17/20 06:57 Dose: 1,000 mg Documented by: Acetaminophen (Acetaminophen 500 Mg Tablet) 1,000 mg PO Q8 [facility] Last Admin: 10/17/20 06:57 Dose: 1,000 mg Documented by: Albuterol Sulfate (Albuterol 2.5 Mg/3 Ml Vial.Neb.) 2.5 mg INHALATION Q2H PRN PRN PRN Reason: Dyspnea, wheezing Calcium/Vitamin D (Calcium Carb/Vitamin D 1 Tablet Tablet) 1 tablet PO BIDCM [facility] Last Admin: 10/16/20 17:37 Dose: 1 tablet Documented by: Duloxetine HCl (Duloxetine Hcl 30 Mg Capsule) 30 mg PO DAILY [facility] Enoxaparin Sodium (Enoxaparin 120 Mg/0.8 Ml Syringe) 110 mg SC Q12@0600,1800 [facility] Last Admin: 10/17/20 06:58 Dose: 110 mg Documented by: Famotidine (Famotidine 20 Mg Tablet) 20 mg PO DAILY [facility] Last Admin: 10/16/20 07:44 Dose: 20 mg Documented by: Fluticasone Propionate (Fluticasone 0.05% 1 [place] Nasal.Sry) 2 spray NASAL DAILY PRN PRN Reason: ALLERGIES Hydralazine HCl (Hydralazine 20 Mg/Ml Vial) 10 mg IV Q4H PRN PRN PRN Reason: SBP > 160 Insulin Human Lispro (Insulin Lispro 100 Unit/Ml Insuln.Pen) 1 - 6 unit SC Q4H PRN PRN; Protocol PRN Reason: BG>/= 180, SEE PROTOCOL Morphine Sulfate (Morphine 2 Mg/Ml Syringe) 2 - 4 mg IV Q2H PRN PRN PRN Reason: Pain Score 6-10 Last Admin: 10/16/20 23:57 Dose: 4 mg Documented by: Morphine Sulfate (Morphine 4 Mg/Ml Syringe) 2 - 4 mg IV Q2H PRN PRN PRN Reason: Pain Score 6-10 Multivitamins ([facility]ivitamins,Therapeutic Tablet) [facility] Last Admin: 10/16/20 07:44 Dose: 1 tablet Documented by: Ondansetron HCl (Ondansetron 4 Mg/2 Ml Vial) 4 mg IV Q8H PRN PRN PRN Reason: NAUSEA Oxycodone HCl (Oxycodone 5 Mg Tablet) 5 - 10 mg PO Q4H PRN PRN PRN Reason: Pain Score 4-10 Last Admin: 10/17/20 03:41 Dose: 10 mg Documented by: Oxycodone HCl (Oxycodone Hcl Cr 10 Mg Tablet) 10 mg PO BID [facility] Prednisone (Prednisone 10 Mg Tablet) [facility] Last Admin: 10/16/20 07:45 Dose: 10 mg Documented by: Promethazine HCl (Promethazine 25 Mg/Ml Syringe) 12.5 mg IM Q6H PRN PRN; Protocol PRN Reason: NAUSEA/VOMITING Rizatriptan Benzoate (Rizatriptan Benzoate 10 Mg Tablet) 10 mg PO PRN PRN PRN Reason: MIGRAINES Senna/Docusate Sodium (Senna/Docusate Sodium 1 Tablet) 2 tablet PO BID [facility] Last Admin: 10/16/20 22:19 Dose: 2 tablet Documented by: Sodium Chloride (0.9% Nacl Peripheral Flush Adult/Peds) 5 - 15 ml IV UD PRN PRN Reason: SALINE FLUSH Last Admin: 10/17/20 00:01 Dose: 10 ml Documented by: Sodium Chloride (0.9% Saline Lock 10 Ml Syringe) 10 - 40 ml IV UD PRN PRN Reason: SALINE FLUSH Medical Necessity - Tobacco Use Smoking Status: Never smoker Tobacco Use: Non-smoker, Secondhand Assessment/Plan All Active Problems (Last Reviewed 10/14/20 @ 08:55 by Jeni Barrera) Intractable pain (Acute) Weight loss, non-intentional (Acute) Encounter for education (Acute) Nocturnal leg cramps (Resolved) Diarrhea (Acute) Chemotherapy management, encounter for (Acute) Nausea & vomiting (Acute) Neck pain (Acute) Low back pain (Acute) 1. S/P left total knee arthroplasty POD #2 2. Continue Pain Medications: Tylenol and oxycodone. Case was discussed with Dr. Leo Sykes. At this time we are going to add in long-acting narcotic as he was on at home. I did discuss with inpatient pharmacy and they do not have Xtampza. The equivalent will be OxyContin 10 mg twice daily. Order has been placed to begin this. I discussed with the patient that we will continue with this through Tuesday of next week and then he can contact his pain management doctor on Tuesday for more of the Xtampza. Patient would not have enough of this to get through to Tuesday. Dr. Leo Sykes will also place the patient on Cymbalta 30 mg once daily. If this helps we will send in prescription to the pharmacy. 3. DVT Prophylaxis: Currently on therapeutic Lovenox and will continue with this anticipating upcoming surgery on the right knee in 2 weeks. 4. PT/OT: Weightbearing as tolerated 5. H & H: 10.3/29.8, asymptomatic. Postoperative anemia secondary to acute blood loss from surgery without any intra operative complications. 6. Continue postoperative medical management per medicine 7. Encouraged Incentive Spirometry 8. Disposition: Due to patient's pain control patient had to stay an additional night. Patient may have to stay an additional night tonight depending upon control of his pain. I do feel the medical history involving the bone metastas is with his cancer and his chronic narcotic use is playing a role into pain control postoperatively. The above pain medications were added and this was discussed with Dr. Leo Sykes. We will follow him closely today with regards to his pain control and discharge home. Patient will need to be in touch with his pain management doctor on October 20, 2020 for further long-acting narcotics. I have reviewed the [place] Automated Rx Reporting System (OARRS) report for this patient for refill pattern and other prescriber involvement as part of the appropriate surveillance for the provision of acute and chronic controlled medications. The report was requested and reviewed on the date of this entry and was considered in the prescribing process.
[2020-10-17 08:30] VITALS: BP 155/93; PULSE 89; RESP 18; TEMP 37.4; O2SAT 98
[2020-10-17] MEDS: DULoxetine Hcl 30 MG Capsule PO (08:30)
[2020-10-17] MEDS: oxyCODONE HCl Cr 10 MG Tablet PO ×2 (08:30→21:22)
[2020-10-17] MEDS: Calcium Carb/Vitamin D 1 TABLET Tablet PO ×2 (08:31→17:39)
[2020-10-17] MEDS: Famotidine 20 MG Tablet PO (08:31)
[2020-10-17] MEDS: predniSONE 10 MG Tablet PO (08:31)
[2020-10-17] MEDS: Senna/Docusate Sodium 1 Tablet 2 TABLET PO ×2 (08:31→21:23)
[2020-10-17] MEDS: Multivitamins,Therapeutic Tablet 1 TABLET PO (08:31)
[2020-10-17] MEDS: Ondansetron 4 MG/2 ML Vial IV ×2 (11:15→23:38)
[2020-10-17 14:15] VITALS: BP 131/61; PULSE 73; RESP 18; TEMP 36.6; O2SAT 94
[2020-10-17] MEDS: Morphine 4 MG/ML Syringe IV (15:58)
--- NOTE | 2020-10-17 19:00 | PN_ITS ---
Subjective: Patient was seen and examined today, orthopedic surgery adjusted his pain medications, he remains in the hospital at this time mainly due to debility and uncontrolled pain. Patient complained of constipation today. - Physical Exam Vitals/I&O's: Vital Signs Temp Pulse Resp BP Pulse Ox 97.9 F 73 18 131/61 H 94 10/17/20 14:15 10/17/20 14:15 10/17/20 14:15 10/17/20 14:15 10/17/20 14:15 Oxygen Flow Rate (L/min) 6 Oxygen Delivery Method Room Air Weight: 109.6 kg Body Mass Index (BMI) 27.1 Intake and Output for Last 24 Hours 10/15/20 10/16/20 10/17/20 23:59 23:59 23:59 Intake Total 3701.08 / 4301.08 2427.08 / 2427.08 1800 / 1800 Balance 3701.08 / 4301.08 2427.08 / 2427.08 1800 / 1800 General: Alert, Oriented x3, Cooperative, No apparent distress, Well developed, Well nourished HEENT: Atraumatic, PERRLA, EOMI, Normocephalic Oral: Moist Mucosa Neck: Supple, No JVD, Trachea Midline, Thyroid Normal Size and Texture Lungs: Clear to auscultation, Normal air movement, No rhonchi, No wheeze, No rales Cardiovascular: Regular rate, Regular Rhythm, Normal S1, Normal S2, No murmurs, PMI Normal, No rub noted, No Gallop Abdomen: Bowel Sounds Present, Soft, Non Tender, Non-Distended, No hernias noted Extremities: No clubbing, No cyanosis, Capillary Refill Less than 3 Seconds Skin: No rashes, No breakdown Neurological: Cranial nerves II-XII grossly intact, Neuro grossly intact, Sensory exam intact to light touch and pain Psych/Mental Status: Normal Affect, Appropriate, Alert and oriented to time, place, person, mood and affect Laboratory Results 10/17/20 06:44: WBC 8.3, RBC 3.19 L, Hgb 10.3 L, Hct 29.8 L, MCV 93.4, MCH 32.3 H, MCHC 34.6, RDW Std Deviation 40.1, RDW Coeff of Alejo 11.7, Plt Count 163, MPV 9.8 Current Medications Abiraterone Acetate (Abiraterone Acetate 250 Mg Tablet) 1,000 mg PO DAILY@0600 [facility] Last Admin: 10/17/20 06:57 Dose: 1,000 mg Documented by: Acetaminophen (Acetaminophen 500 Mg Tablet) 1,000 mg PO Q8 [facility] Last Admin: 10/17/20 14:15 Dose: 1,000 mg Documented by: Albuterol Sulfate (Albuterol 2.5 Mg/3 Ml Vial.Neb.) 2.5 mg INHALATION Q2H PRN PRN PRN Reason: Dyspnea, wheezing Calcium/Vitamin D (Calcium Carb/Vitamin D 1 Tablet Tablet) [facility] Last Admin: 10/17/20 17:39 Dose: 1 tablet Documented by: Duloxetine HCl (Duloxetine Hcl 30 Mg Capsule) 30 mg PO DAILY [facility] Last Admin: 10/17/20 08:30 Dose: 30 mg Documented by: Enoxaparin Sodium (Enoxaparin 120 Mg/0.8 Ml Syringe) 110 mg SC Q12@0600,1800 [facility] Last Admin: 10/17/20 17:39 Dose: 110 mg Documented by: Famotidine (Famotidine 20 Mg Tablet) 20 mg PO DAILY [facility] Last Admin: 10/17/20 08:31 Dose: 20 mg Documented by: Fluticasone Propionate (Fluticasone 0.05% 1 [place] Nasal.Sry) 2 spray NASAL DAILY PRN PRN Reason: ALLERGIES Hydralazine HCl (Hydralazine 20 Mg/Ml Vial) 10 mg IV Q4H PRN PRN PRN Reason: SBP > 160 Insulin Human Lispro (Insulin Lispro 100 Unit/Ml Insuln.Pen) 1 - 6 unit SC Q4H PRN PRN; Protocol PRN Reason: BG>/= 180, SEE PROTOCOL Morphine Sulfate (Morphine 2 Mg/Ml Syringe) 2 - 4 mg IV Q2H PRN PRN PRN Reason: Pain Score 6-10 Last Admin: 10/16/20 23:57 Dose: 4 mg Documented by: Morphine Sulfate (Morphine 4 Mg/Ml Syringe) 2 - 4 mg IV Q2H PRN PRN PRN Reason: Pain Score 6-10 Last Admin: 10/17/20 15:58 Dose: 4 mg Documented by: Multivitamins (Multivitamins,Therapeutic Tablet) [facility] Last Admin: 10/17/20 08:31 Dose: 1 tablet Documented by: Ondansetron HCl (Ondansetron 4 Mg/2 Ml Vial) 4 mg IV Q8H PRN PRN PRN Reason: NAUSEA Last Admin: 10/17/20 11:15 Dose: 4 mg Documented by: Oxycodone HCl (Oxycodone 5 Mg Tablet) 5 - 10 mg PO Q4H PRN PRN PRN Reason: Pain Score 4-10 Last Admin: 10/17/20 15:15 Dose: 10 mg Documented by: Oxycodone HCl (Oxycodone Hcl Cr 10 Mg Tablet) 10 mg PO BID [facility] Last Admin: 10/17/20 08:30 Dose: 10 mg Documented by: Prednisone (Prednisone 10 Mg Tablet) [facility] Last Admin: 10/17/20 08:31 Dose: 10 mg Documented by: Promethazine HCl (Promethazine 25 Mg/Ml Syringe) 12.5 mg IM Q6H PRN PRN; Protocol PRN Reason: NAUSEA/VOMITING Rizatriptan Benzoate (Rizatriptan Benzoate 10 Mg Tablet) 10 mg PO PRN PRN PRN Reason: MIGRAINES Senna/Docusate Sodium (Senna/Docusate Sodium 1 Tablet) 2 tablet PO BID [facility] Last Admin: 10/17/20 08:31 Dose: 2 tablet Documented by: Sodium Chloride (0.9% Nacl Peripheral Flush Adult/Peds) 5 - 15 ml IV UD PRN PRN Reason: SALINE FLUSH Last Admin: 10/17/20 15:58 Dose: 10 ml Documented by: Sodium Chloride (0.9% Saline Lock 10 Ml Syringe) 10 - 40 ml IV UD PRN PRN Reason: SALINE FLUSH Medical Necessity - Tobacco Use Smoking Status: Never smoker Tobacco Use: Non-smoker, Secondhand Assessment/Plan All Active Problems (Last Reviewed 10/14/20 @ 08:55 by Jeni Barrera) Intractable pain (Acute) Weight loss, non-intentional (Acute) Encounter for education (Acute) Nocturnal leg cramps (Resolved) Diarrhea (Acute) Chemotherapy management, encounter for (Acute) Nausea & vomiting (Acute) Neck pain (Acute) Low back pain (Acute) #1 osteoarthritis #2 stage IV prostate cancer #3 acute anemia from expected blood loss from total knee replacement-patient does not need a transfusion at this time #4 postop day #2 total knee arthroplasty-robotic assisted minimally invasive-PT and OT will continue to see the patient, pain medications were adjusted by orthopedic surgery Inpatient E&M: 10591 Subs Hosp L2
[2020-10-17 21:19] VITALS: BP 138/81; PULSE 82; RESP 18; TEMP 37.3; O2SAT 93
[2020-10-17] MEDS: Magnesium Citrate 300 ML PO (21:23)
--- NOTE | 2020-10-17 23:15 | PCS.PANDOC ---
PANDEMIC DOCUMENTATION INITIATED: Date: 10/15 Time: 1899
[2020-10-18 01:28] VITALS: BP 122/70; PULSE 73; RESP 18; TEMP 36.4; O2SAT 93
[2020-10-18] MEDS: Morphine 4 MG/ML Syringe IV ×2 (01:47→18:39)
[2020-10-18] MEDS: 0.9% NaCl Peripheral Flush Adult/Peds IV ×4 (01:48→18:39)
[2020-10-18 03:49] VITALS: BP 116/64; PULSE 88; RESP 18; TEMP 37.2; O2SAT 96
[2020-10-18] MEDS: oxyCODONE 5 MG Tablet PO (03:59)
[2020-10-18] MEDS: proMETHazine 25 MG/ML Syringe 12.5 MG IM ×2 (06:07→21:54)
[2020-10-18] MEDS: Acetaminophen 500 MG Tablet 1000 MG PO ×3 (06:08→21:09)
[2020-10-18] MEDS: Enoxaparin 120 MG/0.8 ML Syringe 110 MG SC ×2 (06:08→17:24)
[2020-10-18] MEDS: ABIRATERONE ACETATE 250 MG TABLET 1000 MG PO (06:08)
--- NOTE | 2020-10-18 07:05 | PN.ORTHO_ITS ---
Subjective: Patient continues to have complains of pain in the left knee. He does note that they have seem to have improved. He did have some nausea overnight. He reports abdominal pain this morning. He has been complaining of constipation and has had difficulty with bowel movements since surgery. Due to his pain move been steadily increasing his pain medication. Constipation is likely side effect of this. During the encounter this morning he is noticeably uncomfortable clutching his stomach. No reports of chest pain or shortness of breath. Objective: Postop x-rays were reviewed showing stable well aligned total knee replacement - Physical Exam Vitals/I&O's: Vital Signs Temp Pulse Resp BP Pulse Ox 98.9 F 88 18 116/64 96 10/18/20 03:49 10/18/20 03:49 10/18/20 03:49 10/18/20 03:49 10/18/20 03:49 Oxygen Flow Rate (L/min) 6 Oxygen Delivery Method Room Air Weight: 241 lb 10.026 oz Body Mass Index (BMI) 27.1 Intake and Output for Last 24 Hours 10/16/20 10/17/20 10/18/20 23:59 23:59 23:59 Intake Total 2427.08 / 2427.08 1800 / 1800 Balance 2427.08 / 2427.08 1800 / 1800 General: Alert, Oriented x3, Cooperative, - - Noticeably uncomfortable HEENT: Atraumatic Abdomen: - - Patient has small area of ecchymosis on the abdomen where he is receiving his Lovenox injection. Mild distention of the abdomen. Mild tenderness to palpation. No rebound. Extremities: - - Left lower extremity: Dressing is clean dry and intact Sensations intact to light touch saphenous, sural, superficial peroneal, deep peroneal, and tibial distributions Motors intact EHL, DF, PF calves are soft and supple Laboratory Results 10/17/20 06:44: WBC 8.3, RBC 3.19 L, Hgb 10.3 L, Hct 29.8 L, MCV 93.4, MCH 32.3 H, MCHC 34.6, RDW Std Deviation 40.1, RDW Coeff of Alejo 11.7, Plt Count 163, MPV 9.8 10/18/20 06:54: WBC Pending, RBC Pending, Hgb Pending, Hct Pending, MCV Pending, MCH Pending, MCHC Pending, RDW Std Deviation Pending, RDW Coeff of Alejo Pending, Plt Count Pending Current Medications Abiraterone Acetate (Abiraterone Acetate 250 Mg Tablet) 1,000 mg PO DAILY@0600 [facility] Last Admin: 10/18/20 06:08 Dose: 1,000 mg Documented by: Acetaminophen (Acetaminophen 500 Mg Tablet) 1,000 mg PO Q8 [facility]S [facility] Last Admin: 10/18/20 06:08 Dose: 1,000 mg Documented by: Albuterol Sulfate (Albuterol 2.5 Mg/3 Ml Vial.Neb.) 2.5 mg INHALATION Q2H PRN PRN PRN Reason: Dyspnea, wheezing Calcium/Vitamin D (Calcium Carb/Vitamin D 1 Tablet Tablet) 1 tablet PO BIDCM [facility]S [facility]CLUDE 234 BEDS AT [facility] Last Admin: 10/17/20 17:39 Dose: 1 tablet Documented by: Duloxetine HCl (Duloxetine Hcl 30 Mg Capsule) 30 mg PO DAILY [facility] 234 B[facility]S AT [facility] Last Admin: 10/17/20 08:30 Dose: 30 mg Documented by: Enoxaparin Sodium (Enoxaparin 120 Mg/0.8 Ml Syringe) 110 mg SC Q12@0600,1800 [facility]S [facility] 234 BEDS AT [facility] Last Admin: 10/18/20 06:08 Dose: 110 mg Documented by: Famotidine (Famotidine 20 Mg Tablet) 20 mg PO DAILY [facility]CLUDE 234 BEDS AT [facility] Last Admin: 10/17/20 08:31 Dose: 20 mg Documented by: Fluticasone Propionate (Fluticasone 0.05% 1 [place] Nasal.Sry) 2 spray NASAL DAILY PRN PRN Reason: ALLERGIES Hydralazine HCl (Hydralazine 20 Mg/Ml Vial) 10 mg IV Q4H PRN PRN PRN Reason: SBP > 160 Insulin Human Lispro (Insulin Lispro 100 Unit/Ml Insuln.Pen) 1 - 6 unit SC Q4H PRN PRN; Protocol PRN Reason: BG>/= 180, SEE PROTOCOL Morphine Sulfate (Morphine 2 Mg/Ml Syringe) 2 - 4 mg IV Q2H PRN PRN PRN Reason: Pain Score 6-10 Last Admin: 10/16/20 23:57 Dose: 4 mg Documented by: Morphine Sulfate (Morphine 4 Mg/Ml Syringe) 2 - 4 mg IV Q2H PRN PRN PRN Reason: Pain Score 6-10 Last Admin: 10/18/20 01:47 Dose: 4 mg Documented by: Multivitamins (Multivitamins,Therapeutic Tablet) [facility] Last Admin: 10/17/20 08:31 Dose: 1 tablet Documented by: Ondansetron HCl (Ondansetron 4 Mg/2 Ml Vial) 4 mg IV Q8H PRN PRN PRN Reason: NAUSEA Last Admin: 10/17/20 23:38 Dose: 4 mg Documented by: Oxycodone HCl (Oxycodone 5 Mg Tablet) 5 - 10 mg PO Q4H PRN PRN PRN Reason: Pain Score 4-10 Last Admin: 10/18/20 03:59 Dose: 10 mg Documented by: Oxycodone HCl (Oxycodone Hcl Cr 10 Mg Tablet) 10 mg PO BID [facility] 234 [facility] Last Admin: 10/17/20 21:22 Dose: 10 mg Documented by: Prednisone (Prednisone 10 Mg Tablet) [facility] Last Admin: 10/17/20 08:31 Dose: 10 mg Documented by: Promethazine HCl (Promethazine 25 Mg/Ml Syringe) 12.5 mg IM Q6H PRN PRN; Protocol PRN Reason: NAUSEA/VOMITING Last Admin: 10/18/20 06:07 Dose: 12.5 mg Documented by: Rizatriptan Benzoate (Rizatriptan Benzoate 10 Mg Tablet) 10 mg PO PRN PRN PRN Reason: MIGRAINES Senna/Docusate Sodium (Senna/Docusate Sodium 1 Tablet) 2 tablet PO BID [facility] 234 BEDS AT [facility] Last Admin: 10/17/20 21:23 Dose: 2 tablet Documented by: Sodium Chloride (0.9% Nacl Peripheral Flush Adult/Peds) 5 - 15 ml IV UD PRN PRN Reason: SALINE FLUSH Last Admin: 10/18/20 01:48 Dose: 10 ml Documented by: Sodium Chloride (0.9% Saline Lock 10 Ml Syringe) 10 - 40 ml IV UD PRN PRN Reason: SALINE FLUSH Medical Necessity - Tobacco Use Smoking Status: Never smoker Tobacco Use: Non-smoker, Secondhand Assessment/Plan All Active Problems (Last Reviewed 10/14/20 @ 08:55 by Jeni Barrera) Intractable pain (Acute) Weight loss, non-intentional (Acute) Encounter for education (Acute) Nocturnal leg cramps (Resolved) Diarrhea (Acute) Chemotherapy management, encounter for (Acute) Nausea & vomiting (Acute) Neck pain (Acute) Low back pain (Acute) 1. S/P left total knee arthroplasty POD #2 2. Continue Pain Medications: Tylenol and oxycodone. OxyContin and Cymbalta were added yesterday. Patient is knee pain is reported as improved. However he continues to have constipation and associated abdominal pain. When asked which is more painful patient notes that his abdomen appears more painful than his knee today. He did have nausea and vomiting overnight. He reports this is something that occurs even without surgery at times he will get these bouts at home. He reports they are similar to bouts he has without surgery however, his lack of a bowel movement remains concerning. He has been getting IV morphine which we will discontinue today as we need to continue to look towards discharge home. 3. DVT Prophylaxis: Currently on therapeutic Lovenox and will continue with this anticipating upcoming surgery on the right knee in 2 weeks. 4. PT/OT: Weightbearing as tolerated 5. H & H: Labs are pending, currently asymptomatic. Postoperative anemia secondary to acute blood loss from surgery without any intra operative complications. 6. Continue postoperative medical management per medicine. I spoke with a nurse to have the medical team call me after the assessment today 7. Constipation: Likely related to postoperative changes and narcotic use. Patient has been on relatively high dose of narcotics in the past and is requiring high doses of narcotics now. Currently using Senokot stool softener. At this point I am going to add MiraLAX to his regular regimen and a fleets enema. We will also have him order warm prune juice with breakfast. Will discuss with medicine once have assessed him to see if any further work-up is needed for further intra-abdominal pathology. 7. Encouraged Incentive Spirometry 8. Disposition: At this point patient's constipation is significant I think if we were able to relieve his constipation and get his bowel movements moving he will improve rapidly however I think until we can determine this is the root cause we need to allow monitoring throughout the day. If his bowels do begin to move with this regimen and he feels better we can likely get him home is orthopedically stable. I have reviewed the [place] Automated Rx Reporting System (OARRS) report for this patient for refill pattern and other prescriber involvement as part of the appropriate surveillance for the provision of acute and chronic controlled medications. The report was requested and reviewed on the date of this entry and was considered in the prescribing process.
[2020-10-18 07:06] LABS: Hematocrit 29.4 % (40-54); Hemoglobin 9.8 g/dL (13.0-16.5); Mean Corp Hgb Conc 33.3 g/dL (32-36); Mean Corpuscular Hgb 31.5 pg (27.0-32.0); Mean Corpuscular Volume 94.5 fL (80-94); Platelet Count 154 K/mm3 (150-450); RBC Distribution Width CV 11.9 % (11.6-14.6); RBC Distribution Width SD 41.2 fl (35.1-43.9); Red Blood Count 3.11 M/mm3 (4.6-6.2); White Blood Count 8.8 K/mm3 (4.4-11.0)
[2020-10-18] MEDS: Ondansetron 4 MG/2 ML Vial IV ×2 (08:10→17:26)
[2020-10-18 08:13] VITALS: BP 124/65; PULSE 78; RESP 18; TEMP 36.6; O2SAT 95
[2020-10-18] MEDS: Fleet Enema 1 ML RECTAL (08:18)
[2020-10-18] MEDS: Calcium Carb/Vitamin D 1 TABLET Tablet PO (08:28)
[2020-10-18] MEDS: Multivitamins,Therapeutic Tablet 1 TABLET PO (08:28)
[2020-10-18] MEDS: predniSONE 10 MG Tablet PO (08:28)
[2020-10-18] MEDS: Senna/Docusate Sodium 1 Tablet 2 TABLET PO ×2 (08:28→21:08)
[2020-10-18] MEDS: DULoxetine Hcl 30 MG Capsule PO (08:29)
[2020-10-18] MEDS: Famotidine 20 MG Tablet PO (08:32)
[2020-10-18] MEDS: oxyCODONE HCl Cr 10 MG Tablet PO ×2 (09:26→21:08)
[2020-10-18] MEDS: Polyethylene Glycol 3350 17 GM PACKET PO (09:26)
[2020-10-18] MEDS: Lactulose 20 GM/30 ML UDC 30 GM PO ×2 (11:28→15:24)
[2020-10-18 13:56] VITALS: BP 137/73; PULSE 78; RESP 16; TEMP 36.8; O2SAT 96
--- NOTE | 2020-10-18 17:51 | PN_ITS ---
Subjective: Patient was seen and examined today, he has had abdominal distention today and I gave him doses of lactulose to try to see if I could have him stool, late this afternoon, patient had an emesis and I have decided to make him n.p.o. and get a KUB of the abdomen. On examination, patient does not appear to have rebound abdominal tenderness, his abdomen is tympanic but he does have bowel sounds. I discussed the case with Dr. Sykes today by phone and recommended that he stay another day. - Physical Exam Vitals/I&O's: Vital Signs Temp Pulse Resp BP Pulse Ox 98.3 F 78 16 137/73 H 96 10/18/20 13:56 10/18/20 13:56 10/18/20 13:56 10/18/20 13:56 10/18/20 13:56 Oxygen Flow Rate (L/min) 6 Oxygen Delivery Method Room Air Weight: 109.6 kg Body Mass Index (BMI) 27.1 Intake and Output for Last 24 Hours 10/16/20 10/17/20 10/18/20 23:59 23:59 23:59 Intake Total 2427.08 / 2427.08 1800 / 1800 Balance 2427.08 / 2427.08 1800 / 1800 General: Alert, Oriented x3, Cooperative, No apparent distress, Well developed, Well nourished HEENT: Atraumatic, PERRLA, EOMI, Normocephalic Oral: Moist Mucosa Neck: Supple, No JVD, Trachea Midline, Thyroid Normal Size and Texture Lungs: Clear to auscultation, Normal air movement, No rhonchi, No wheeze, No rales Cardiovascular: Regular rate, Regular Rhythm, Normal S1, Normal S2, No murmurs, PMI Normal, No rub noted, No Gallop Abdomen: Bowel Sounds Present, Soft, Distended, Tender - Mild abdominal tenderness across the abdomen is noted Extremities: No clubbing, No cyanosis, No edema, Capillary Refill Less than 3 Seconds Skin: No rashes, No breakdown Musculoskeletal: No Tenderness to Palpation of Joints or Extremities Neurological: Cranial nerves II-XII grossly intact, Neuro grossly intact, Sensory exam intact to light touch and pain, Coordination normal Psych/Mental Status: Normal Affect, Appropriate, Alert and oriented to time, place, person, mood and affect Laboratory Results 10/18/20 06:54: WBC 8.8, RBC 3.11 L, Hgb 9.8 L, Hct 29.4 L, MCV 94.5 H, MCH 31.5, MCHC 33.3, RDW Std Deviation 41.2, RDW Coeff of [place] 11.9, Plt Count 154, MPV 9.0 Current Medications Abiraterone Acetate (Abiraterone Acetate 250 Mg Tablet) 1,000 mg PO DAILY@0600 [facility] Last Admin: 10/18/20 06:08 Dose: 1,000 mg Documented by: Acetaminophen (Acetaminophen 500 Mg Tablet) 1,000 mg PO Q8 [facility] Last Admin: 10/18/20 14:00 Dose: 1,000 mg Documented by: Albuterol Sulfate (Albuterol 2.5 Mg/3 Ml Vial.Neb.) 2.5 mg INHALATION Q2H PRN PRN PRN Reason: Dyspnea, wheezing Calcium/Vitamin D (Calcium Carb/Vitamin D 1 Tablet Tablet) 1 tablet PO BIDCM [facility] Last Admin: 10/18/20 17:20 Dose: Not Given Documented by: Duloxetine HCl (Duloxetine Hcl 30 Mg Capsule) 30 mg PO DAILY [facility] Last Admin: 10/18/20 08:29 Dose: 30 mg Documented by: Enoxaparin Sodium (Enoxaparin 120 Mg/0.8 Ml Syringe) 110 mg SC Q12@0600,1800 [facility] Last Admin: 10/18/20 17:24 Dose: 110 mg Documented by: Famotidine (Famotidine 20 Mg Tablet) 20 mg PO DAILY [facility] Last Admin: 10/18/20 08:32 Dose: 20 mg Documented by: Fluticasone Propionate (Fluticasone 0.05% 1 [place] Nasal.Sry) 2 spray NASAL DAILY PRN PRN Reason: ALLERGIES Hydralazine HCl (Hydralazine 20 Mg/Ml Vial) 10 mg IV Q4H PRN PRN PRN Reason: SBP > 160 Insulin Human Lispro (Insulin Lispro 100 Unit/Ml Insuln.Pen) 1 - 6 unit SC Q4H PRN PRN; Protocol PRN Reason: BG>/= 180, SEE PROTOCOL Multivitamins (Multivitamins,Therapeutic Tablet) 1 tablet PO DAILYCM [facility] Last Admin: 10/18/20 08:28 Dose: 1 tablet Documented by: Ondansetron HCl (Ondansetron 4 Mg/2 Ml Vial) 4 mg IV Q8H PRN PRN PRN Reason: NAUSEA Last Admin: 10/18/20 17:26 Dose: 4 mg Documented by: Oxycodone HCl (Oxycodone 5 Mg Tablet) 5 - 10 mg PO Q4H PRN PRN PRN Reason: Pain Score 4-10 Last Admin: 10/18/20 03:59 Dose: 10 mg Documented by: Oxycodone HCl (Oxycodone Hcl Cr 10 Mg Tablet) 10 mg PO BID [facility] Last Admin: 10/18/20 09:26 Dose: 10 mg Documented by: Polyethylene Glycol (Polyethylene Glycol 3350 17 Gm Packet) 17 gm PO BID [facility] Last Admin: 10/18/20 09:26 Dose: 17 gm Documented by: Prednisone ([facility] 10 Mg Tablet) [facility] Last Admin: 10/18/20 08:28 Dose: 10 mg Documented by: Promethazine HCl (Promethazine 25 Mg/Ml Syringe) 12.5 mg IM Q6H PRN PRN; Protocol PRN Reason: NAUSEA/VOMITING Last Admin: 10/18/20 06:07 Dose: 12.5 mg Documented by: Rizatriptan Benzoate (Rizatriptan Benzoate 10 Mg Tablet) 10 mg PO PRN PRN PRN Reason: MIGRAINES Senna/Docusate Sodium (Senna/Docusate Sodium 1 Tablet) 2 tablet PO BID [facility] Last Admin: 10/18/20 08:28 Dose: 2 tablet Documented by: Sodium Chloride (0.9% Nacl Peripheral Flush Adult/Peds) 5 - 15 ml IV UD PRN PRN Reason: SALINE FLUSH Last Admin: 10/18/20 17:26 Dose: 10 ml Documented by: Sodium Chloride (0.9% Saline Lock 10 Ml Syringe) 10 - 40 ml IV UD PRN PRN Reason: SALINE FLUSH Medical Necessity - Tobacco Use Smoking Status: Never smoker Tobacco Use: Non-smoker, Secondhand Assessment/Plan All Active Problems (Last Reviewed 10/14/20 @ 08:55 by Jeni Barrera) Intractable pain (Acute) Weight loss, non-intentional (Acute) Encounter for education (Acute) Nocturnal leg cramps (Resolved) Diarrhea (Acute) Chemotherapy management, encounter for (Acute) Nausea & vomiting (Acute) Neck pain (Acute) Low back pain (Acute) #1 osteoarthritis #2 stage IV prostate cancer #3 acute anemia from expected blood loss from total knee replacement-patient does not need a transfusion at this time #4 postop day #3 total knee arthroplasty-robotic assisted minimally invasive-PT and OT will continue to see the patient, pain medications were adjusted by orthopedic surgery #5 abdominal distention-possibly secondary to ileus, I will obtain an abdominal x-ray this afternoon and make the patient n.p.o. except for sips and chips. OBSV E&M: [id number] Subsequent observation care L3
--- NOTE | 2020-10-18 18:15 | NURSING ---
xray called to expedite the Kub.
--- NOTE | 2020-10-18 18:20 | RAD_ITS ---
STUDY: X-RAY - ABDOMEN/PELVIS REASON FOR EXAM: Male, 55 years old. ABDOMEN PAIN patient has a history of prostate cancer. TECHNIQUE: AP supine and upright views of the abdomen and pelvis. COMPARISON: Bone scan 09/12/2020. CT scan 09/08/2020. FINDINGS: Nodular densities throughout the visualized lung bases could be metastatic disease and/or liver lesions. A moderately distended loop of bowel across the upper abdomen is most likely transverse colon. It appears to have wall thickening. Possible colitis or ileitis. Consider CT with oral contrast. The visualized liver, spleen and kidneys are grossly normal in size and morphology. Normal soft tissue structures. Extensive blastic densities throughout the spine, pelvis and femurs consistent with widespread metastatic prostate cancer. RAD/Abdomen Single View (Portable) IMPRESSION: Widespread blastic metastatic disease to the bones. Suspicious loop of large bowel across the upper abdomen with question of wall thickening. Consider CT with oral contrast and appropriate delay. Electronically Signed: Clyde Sofia MD at 19:20 EST , Service support ,
[2020-10-18 18:36] VITALS: BP 125/83; PULSE 74; RESP 18; TEMP 37.1; O2SAT 94
[2020-10-19 02:15] VITALS: BP 143/71; PULSE 90; RESP 18; TEMP 36.9; O2SAT 94
--- NOTE | 2020-10-19 02:37 | NURSING ---
caught pt chugging glass of water upon entering room to do vitals, vitals taken wnl, pt then c/o abd pain but refused need for medication, pt belching then had x1 emesis, Zofran given.
[2020-10-19] MEDS: Ondansetron 4 MG/2 ML Vial IV ×2 (02:49→15:53)
[2020-10-19] MEDS: Morphine 4 MG/ML Syringe IV (03:29)
--- NOTE | 2020-10-19 03:44 | NURSING ---
pt assisted to br. walked in barth, c/o knee pain. pain medication offered but pt refused. Pt was passing lots of gas and belching in barth, BS normoactive x4. Pt then asked this RN can I please have at least some juice or something? Pt was told no, he is NPO status and chugging the water made him vomit. Pt stated drinking the water didn't make me vomit. Damn it! I can't stand this shit! Once back in room pt c/o pain in the left knee again, pain medication offered a second time and pt agreed, morphine given.
[2020-10-19] MEDS: Enoxaparin 120 MG/0.8 ML Syringe 110 MG SC (04:54)
[2020-10-19] MEDS: ABIRATERONE ACETATE 250 MG TABLET 1000 MG PO (04:55)
[2020-10-19] MEDS: Acetaminophen 500 MG Tablet 1000 MG PO ×2 (04:55→13:15)
[2020-10-19] MEDS: oxyCODONE 5 MG Tablet PO ×2 (05:01→15:35)
[2020-10-19 05:18] VITALS: BP 147/79; PULSE 92; RESP 16; TEMP 36.7; O2SAT 96
[2020-10-19 10:04] VITALS: BP 120/74; PULSE 68; PULSE 70; RESP 18; TEMP 37; O2SAT 96
[2020-10-19] MEDS: Polyethylene Glycol 3350 17 GM PACKET PO (10:17)
[2020-10-19] MEDS: Famotidine 20 MG Tablet PO (10:17)
[2020-10-19] MEDS: Senna/Docusate Sodium 1 Tablet 2 TABLET PO (10:17)
[2020-10-19] MEDS: Multivitamins,Therapeutic Tablet 1 TABLET PO (10:18)
[2020-10-19] MEDS: oxyCODONE HCl Cr 10 MG Tablet PO (10:18)
[2020-10-19] MEDS: DULoxetine Hcl 30 MG Capsule PO (10:18)
[2020-10-19] MEDS: Calcium Carb/Vitamin D 1 TABLET Tablet PO (10:18)
[2020-10-19] MEDS: predniSONE 10 MG Tablet PO (10:19)
--- NOTE | 2020-10-19 14:11 | PCM.PN.ORT ---
Subjective: Patient is improved from yesterday. He still has not had a bowel movement but is beginning to pass gas. He notes his knee pain slowly improving. He is still requiring long-acting and short acting narcotic pain medications in addition to the Tylenol. He has not had emesis. He did tolerate some light lunch today. His is at the bedside with him today to discuss the treatment plan. He did receive KUB x-rays yesterday which were reviewed by the in-house hospitalist service. They did not feel there are signs of obstruction or clear indications for further imaging. I discussed the case with him on the phone this morning. They do feel the patient is appropriate for discharge today. Previously we had discussed proceeding with his second knee replacement in 2 weeks however based on his slow recovery and associated abdominal pain I have advised the patient that we should allow for adequate recovery prior to proceeding with any further surgeries. In light of this patient will discontinue his Lovenox and restart his Eliquis today. Objective: Report reviewed and discussed with medicine - Physical Exam Vitals/I&O's: Vital Signs Temp Pulse Resp BP Pulse Ox 98.6 F 70 18 120/74 96 10/19/20 10:04 10/19/20 10:04 10/19/20 10:04 10/19/20 10:04 10/19/20 10:04 Oxygen Flow Rate (L/min) 6 Oxygen Delivery Method Room Air Weight: 241 lb 10.026 oz Body Mass Index (BMI) 27.1 Intake and Output for Last 24 Hours 10/17/20 10/18/20 10/19/20 23:59 23:59 23:59 Intake Total 1800 / 1800 450 / 450 Output Total 200 / 200 Balance 1800 / 1800 250 / 250 General: Alert, Oriented x3, Cooperative Abdomen: - - soft no tenderness palpation today. Ecchymosis from injection sites Extremities: - - Left lower extremity: Dressing is clean dry and intact Sensations intact to light touch saphenous, sural, superficial peroneal, deep peroneal, and tibial distributions Motors intact EHL, DF, PF calves are soft and supple Current Medications Abiraterone Acetate (Abiraterone Acetate 250 Mg Tablet) 1,000 mg PO DAILY@0600 [facility] Last Admin: 10/19/20 04:55 Dose: 1,000 mg Documented by: Acetaminophen (Acetaminophen 500 Mg Tablet) 1,000 mg PO Q8 [facility] Last Admin: 10/19/20 13:15 Dose: 1,000 mg Documented by: Albuterol Sulfate (Albuterol 2.5 Mg/3 Ml Vial.Neb.) 2.5 mg INHALATION Q2H PRN PRN PRN Reason: Dyspnea, wheezing Calcium/Vitamin D (Calcium Carb/Vitamin D 1 Tablet Tablet) [facility] Last Admin: 10/19/20 10:18 Dose: 1 tablet Documented by: Duloxetine HCl (Duloxetine Hcl 30 Mg Capsule) 30 mg PO DAILY [facility] Last Admin: 10/19/20 10:18 Dose: 30 mg Documented by: Enoxaparin Sodium (Enoxaparin 120 Mg/0.8 Ml Syringe) 110 mg SC Q12@0600,1800 [facility] Last Admin: 10/19/20 04:54 Dose: 110 mg Documented by: Famotidine (Famotidine 20 Mg Tablet) 20 mg PO DAILY [facility] Last Admin: 10/19/20 10:17 Dose: 20 mg Documented by: Fluticasone Propionate (Fluticasone 0.05% 1 [place] Nasal.Sry) 2 spray NASAL DAILY PRN PRN Reason: ALLERGIES Hydralazine HCl (Hydralazine 20 Mg/Ml Vial) 10 mg IV Q4H PRN PRN PRN Reason: SBP > 160 Insulin Human Lispro (Insulin Lispro 100 Unit/Ml Insuln.Pen) 1 - 6 unit SC Q4H PRN PRN; Protocol PRN Reason: BG>/= 180, SEE PROTOCOL Morphine Sulfate (Morphine 4 Mg/Ml Syringe) 4 mg IV Q4H PRN PRN PRN Reason: Pain Score 1-10 Last Admin: 10/19/20 03:29 Dose: 4 mg Documented by: Multivitamins (Multivitamins,Therapeutic Tablet) [facility] Last Admin: 10/19/20 10:18 Dose: 1 tablet Documented by: Ondansetron HCl (Ondansetron 4 Mg/2 Ml Vial) 4 mg IV Q8H PRN PRN PRN Reason: NAUSEA Last Admin: 10/19/20 02:49 Dose: 4 mg Documented by: Oxycodone HCl (Oxycodone 5 Mg Tablet) 5 - 10 mg PO Q4H PRN PRN PRN Reason: Pain Score 4-10 Last Admin: 10/19/20 05:01 Dose: 10 mg Documented by: Oxycodone HCl (Oxycodone Hcl Cr 10 Mg Tablet) 10 mg PO BID [facility] Last Admin: 10/19/20 10:18 Dose: 10 mg Documented by: Polyethylene Glycol (Polyethylene Glycol 3350 17 Gm Packet) 17 gm PO BID [facility] Last Admin: 10/19/20 10:17 Dose: 17 gm Documented by: Prednisone (Prednisone 10 Mg Tablet) [facility] Last Admin: 10/19/20 10:19 Dose: 10 mg Documented by: Promethazine HCl (Promethazine 25 Mg/Ml Syringe) 12.5 mg IM Q6H PRN PRN; Protocol PRN Reason: NAUSEA/VOMITING Last Admin: 10/18/20 21:54 Dose: 12.5 mg Documented by: Rizatriptan Benzoate (Rizatriptan Benzoate 10 Mg Tablet) 10 mg PO PRN PRN PRN Reason: MIGRAINES Senna/Docusate Sodium (Senna/Docusate Sodium 1 Tablet) 2 tablet PO BID [facility] Last Admin: 10/19/20 10:17 Dose: 2 tablet Documented by: Sodium Chloride (0.9% Nacl Peripheral Flush Adult/Peds) 5 - 15 ml IV UD PRN PRN Reason: SALINE FLUSH Last Admin: 10/18/20 18:39 Dose: 10 ml Documented by: Sodium Chloride (0.9% Saline Lock 10 Ml Syringe) 10 - 40 ml IV UD PRN PRN Reason: SALINE FLUSH Medical Necessity - Tobacco Use Smoking Status: Never smoker Tobacco Use: Non-smoker, Secondhand Assessment/Plan All Active Problems (Last Reviewed 10/14/20 @ 08:55 by Jeni Barrera) Intractable pain (Acute) Weight loss, non-intentional (Acute) Encounter for education (Acute) Nocturnal leg cramps (Resolved) Diarrhea (Acute) Chemotherapy management, encounter for (Acute) Nausea & vomiting (Acute) Neck pain (Acute) Low back pain (Acute) 1. S/P left total knee arthroplasty POD #4 2. Continue Pain Medications: Tylenol and oxycodone. OxyContin and Cymbalta seem to be improving his pain as well. Patient has Extamsa at home and a limited quantity from previous prescriptions. We will discharge him with a new prescription for OxyContin as well as his pain medicine physician will not be able to see him till Tuesday night. 3. DVT Prophylaxis: Currently on therapeutic Lovenox and based on our discussions today we have elected to hold on a definitive date for his neck surgery. Due to this we will go back to his therapeutic dose of Eliquis. Patient has Eliquis at home. 4. PT/OT: Weightbearing as tolerated 5. H & H: Labs and vitals are stable postoperative anemia secondary to acute blood loss from surgery without any intra operative complications. 6. Continue postoperative medical management per medicine. I spoken with the medicine team today. They feel the patient is appropriate for discharge with his increased bowel gas and decreased emesis. They reviewed the results of the KUB with me did not feel further imaging was necessary. 7. Constipation: Likely related to postoperative changes and narcotic use as well as chronic issues. Patient has been on relatively high dose of narcotics in the past and is requiring high doses of narcotics now. Discussed an aggressive bowel regimen upon discharge as well as regular laps around his house in order to help with mobility and bowel mobility. 8. Encouraged Incentive Spirometry 9. Disposition: After thorough discussion with the patient as well as his today and the medicine service we will plan on discharge home today. Patient will be discharged with instructions to remove his dressing tomorrow. He can shower as long as he keeps the incision clean and dry. He has an appointment in 2 weeks to have the zohaib removed. He has physical therapy scheduled for tomorrow. He has pain management appointment scheduled for Tuesday. We discussed his pain regimen upon discharge which will include Tylenol, OxyContin and oxycodone immediate release. He will be discharged on his therapeutic Eliquis which she will start this evening. I have reviewed the [place] Automated Rx Reporting System (OARRS) report for this patient for refill pattern and other prescriber involvement as part of the appropriate surveillance for the provision of acute and chronic controlled medications. The report was requested and reviewed on the date of this entry and was considered in the prescribing process.
--- NOTE | 2020-10-19 14:37 | DCINST_ITS ---
Discharge Diet: No Restrictions Discharge Activity: May Not Drive May shower in (days): 1 - Okay to shower if dressing is intact to skin. Turn dressing away from water. Do not submerge underwater for 6 weeks postoperatively. Ice area for (Minutes): 20 - Every 1-2 hours while awake Weight Bearing Status: Weight bearing as tolerated Elevate: Operative Extremity Additional Activity Instructions:: Wear elastic stockings for 2 weeks after your surgery. Call your doctor if your incision/area has: Continuous Slow Oozing, Sudden Increased Bleeding, Increased Pain/ Swelling, Increased Redness, Foul Smelling Discharge Call your doctor if you observe: Fever of 101 or Higher, Coldness, Increased Pain, Numbness or Tingling, Change in Color, Calf discomfort, Uncontrolled pain Change Dressing in (Days):: 1 - and daily as needed. Remove Dressing in (days):: 4 - Okay to remove dressing on October 20, 2020 Additional Dressing/Incision Instructions:: If incision is clean dry and intact may leave the wound open to air and continue showering. If there is continued drainage continue daily dry dressing changes and keep incision clean dry and intact until there is no drainage. Additional Instructions: Follow [facility] Post-op Instructions. Once postoperative dressing has been removed only use gentle soap and water over the incision. Do not use any ointments, Neosporin, salves, alcohol pads over the incision for 6 weeks postoperatively. Do not submerge underwater for 6 weeks postoperatively. Allergies/Adverse Reactions: Allergies grass pollen Allergy (Verified 10/15/20 09:05) Other eye and nose irritation ragweed pollen Allergy (Verified 10/15/20 09:05) Other eye and nose irritation Medications to take at Discharge Docusate Sodium [Colace] 100 mg PO TID 02/05/19 Multivitamin [Daily Multiple Vitamin] 1 ea PO DAILY 03/07/19 calcium carbonat and lactate 200 mg calcium-vitamin D3 250 unit tablet 2 tab PO BID 05/21/19 Diclofenac Sodium [Voltaren] 2 gm TP TID 01/28/20 Prednisone 10 mg PO DAILY 30 Days #30 tab 01/28/20 abiraterone 500 mg tablet 1,000 mg PO DAILY 06/11/20 Fluticasone Propionate 2 spray INTRANASAL DAILY PRN 09/17/20 sumatriptan succinate 50 mg tablet 50 mg PO PRN PRN 09/19/20 Acetaminophen [Tylenol] 1,000 mg PO Q8 #100 tab 10/16/20 Oxycodone [Oxyir] 5 - 10 mg PO Q4H PRN PRN 5 Days #60 tab 10/16/20 Senna/Docusate Sodium [Senokot-S] 2 tab PO BID #14 tab 10/16/20 Apixaban [Eliquis] 5 mg PO BID tab 10/19/20 Duloxetine Hcl [Cymbalta] 30 mg PO DAILY #40 cap 10/19/20 Oxycodone CR [Oxycontin] 10 mg PO BID 4 Days #8 tab 10/19/20 Polyethylene Glycol 3350 [Miralax] 17 gm PO BID packet 10/19/20 The following prescriptions were given: Duloxetine Hcl [Cymbalta] 30 mg PO DAILY #40 cap Prescription Printed Oxycodone CR [Oxycontin] 10 mg PO BID 4 Days #8 tab Prescription Printed Oxycodone [Oxyir] 5 - 10 mg PO Q4H PRN PRN 5 Days #60 tab PRN Reason: Pain Score 4-10 Transmission Status: Received by [facility] Senna/Docusate Sodium [Senokot-S] 2 tab PO BID #14 tab Transmission Status: Received by [facility] Acetaminophen [Tylenol] 1,000 mg PO Q8 #100 tab Transmission Status: Received by [facility] Primary Care Physician: Jimy Li MD [Primary Care Provider] - Test Results: Test results from this visit will be discussed in further detail at your follow- up appointment, if applicable. Please Follow Up With: Shikha calderon Physical [facility] When: 10/17/2020 @ 4pm Please Follow Up With: Jeromy Christianson PA-C When: 10/29/20 @ 9:30 am
--- NOTE | 2020-10-19 14:40 | DS.PCM_ITS ---
Discharge Date and Diagnosis Date of Admission: 10/15/20 Date of Discharge: 10/19/20 - Primary Discharge Diagnosis Acute Problems: Left total knee replacement Constipation/abdominal pain - Secondary Discharge Diagnosis Chronic Problems: Chronic Problems (Last Reviewed 10/14/20 @ 08:55 by Jeni Barrera) Prostate cancer (Chronic) Regional lymph node metastasis present (Chronic) Bone metastases (Chronic) DVT of lower extremity, bilateral (Chronic) Diverticular disease (Chronic) Chronic migraine (Chronic) History of DVT (deep vein thrombosis) (Chronic) Degenerative disc disease (Chronic) Osteoarthritis (Chronic) GERD (gastroesophageal reflux disease) (Chronic) Hospital Course and Treatment Imaging Results: Postop knee x-rays [facility] Hospitalist service Operations: total knee replacement Summary of Care Provided: The patient is a 55 year old M with history of end-stage prostate cancer presented for palliative left total knee replacement. Knee replacement went uneventful. However on postop day 1 prior to being discharged home patient developed significant abdominal pain. He also had significant pain in his knee. He was placed on long-acting narcotics. This exacerbated his abdominal pain. He is plagued with constipation throughout his visit. Medicine follow the patient with me. We did perform a KUB no further studies were felt to be needed from the medicine service. He developed gas on postop day 4. He did have some emesis throughout that time. Overall as he improved he was able to pass physical therapy and was eventually ready for discharge home. He was initially started on Lovenox because a second knee replacement was planned for 2 weeks after the first 1 however based on his abdominal pain we have elected to delay the second surgery to a later date. He will go home and continue on his Eliquis which he takes 5 mg twice daily. - Physical Exam Vitals/I&O's: Vital Signs Temp Pulse Resp BP Pulse Ox 98.6 F 70 18 120/74 96 10/19/20 10:04 10/19/20 10:04 10/19/20 10:04 10/19/20 10:04 10/19/20 10:04 Oxygen Flow Rate (L/min) 6 Oxygen Delivery Method Room Air Weight: 241 lb 10.026 oz Body Mass Index (BMI) 27.1 Intake and Output for Last 24 Hours 10/17/20 10/18/20 10/19/20 23:59 23:59 23:59 Intake Total 1800 / 1800 450 / 450 Output Total 200 / 200 Balance 1800 / 1800 250 / 250 General: Alert, Oriented x3, Cooperative Abdomen: - - Mild abdominal distention, minimal tenderness palpation. Extremities: - - Left lower extremity: Dressing is clean dry and intact Sensations intact to light touch saphenous, sural, superficial peroneal, deep peroneal, and tibial distributions Motors intact EHL, DF, PF calves are soft and supple Current Medications Abiraterone Acetate (Abiraterone Acetate 250 Mg Tablet) 1,000 mg PO DAILY@0600 [facility] Last Admin: 10/19/20 04:55 Dose: 1,000 mg Documented by: Acetaminophen (Acetaminophen 500 Mg Tablet) 1,000 mg PO Q8 [facility] Last Admin: 10/19/20 13:15 Dose: 1,000 mg Documented by: Albuterol Sulfate (Albuterol 2.5 Mg/3 Ml Vial.Neb.) 2.5 mg INHALATION Q2H PRN PRN PRN Reason: Dyspnea, wheezing Apixaban (Apixaban 5 Mg Tablet) 5 mg PO BID [facility] Calcium/Vitamin D (Calcium Carb/Vitamin D 1 Tablet [facility]) [facility] Last Admin: 10/19/20 10:18 Dose: 1 tablet Documented by: Duloxetine HCl (Duloxetine Hcl 30 Mg Capsule) 30 mg PO DAILY [facility] Last Admin: 10/19/20 10:18 Dose: 30 mg Documented by: Famotidine (Famotidine 20 Mg Tablet) 20 mg PO DAILY [facility] Last Admin: 10/19/20 10:17 Dose: 20 mg Documented by: Fluticasone Propionate (Fluticasone 0.05% 1 [place] Nasal.Sry) 2 spray NASAL DAILY PRN PRN Reason: ALLERGIES Hydralazine HCl (Hydralazine 20 Mg/Ml Vial) 10 mg IV Q4H PRN PRN PRN Reason: SBP > 160 Insulin Human Lispro (Insulin Lispro 100 Unit/Ml Insuln.Pen) 1 - 6 unit SC Q4H PRN PRN; Protocol PRN Reason: BG>/= 180, SEE PROTOCOL Morphine Sulfate (Morphine 4 Mg/Ml Syringe) 4 mg IV Q4H PRN PRN PRN Reason: Pain Score 1-10 Last Admin: 10/19/20 03:29 Dose: 4 mg Documented by: Multivitamins (Multivitamins,Therapeutic Tablet) [facility] Last Admin: 10/19/20 10:18 Dose: 1 tablet Documented by: Ondansetron HCl (Ondansetron 4 Mg/2 Ml Vial) 4 mg IV Q8H PRN PRN PRN Reason: NAUSEA Last Admin: 10/19/20 02:49 Dose: 4 mg Documented by: Oxycodone HCl (Oxycodone 5 Mg Tablet) 5 - 10 mg PO Q4H PRN PRN PRN Reason: Pain Score 4-10 Last Admin: 10/19/20 05:01 Dose: 10 mg Documented by: Oxycodone HCl (Oxycodone Hcl Cr 10 Mg Tablet) 10 mg PO BID [facility] Last Admin: 10/19/20 10:18 Dose: 10 mg Documented by: Polyethylene Glycol (Polyethylene Glycol 3350 17 Gm Packet) 17 gm PO BID [facility] Last Admin: 10/19/20 10:17 Dose: 17 gm Documented by: Prednisone (Prednisone 10 Mg Tablet) [facility] Last Admin: 10/19/20 10:19 Dose: 10 mg Documented by: Promethazine HCl (Promethazine 25 Mg/Ml Syringe) 12.5 mg IM Q6H PRN PRN; Protocol PRN Reason: NAUSEA/VOMITING Last Admin: 10/18/20 21:54 Dose: 12.5 mg Documented by: Rizatriptan Benzoate (Rizatriptan Benzoate 10 Mg Tablet) 10 mg PO PRN PRN PRN Reason: MIGRAINES Senna/Docusate Sodium (Senna/Docusate Sodium 1 Tablet) 2 tablet PO BID [facility] Last Admin: 10/19/20 10:17 Dose: 2 tablet Documented by: Sodium Chloride (0.9% Nacl Peripheral Flush Adult/Peds) 5 - 15 ml IV UD PRN PRN Reason: SALINE FLUSH Last Admin: 10/18/20 18:39 Dose: 10 ml Documented by: Sodium Chloride (0.9% Saline Lock 10 Ml Syringe) 10 - 40 ml IV UD PRN PRN Reason: SALINE FLUSH Discharge Diet: No Restrictions Discharge Activity: May Not Drive May shower in (days): 1 - Okay to shower if dressing is intact to skin. Turn dressing away from water. Do not submerge underwater for 6 weeks postoperatively. Ice area for (Minutes): 20 - Every 1-2 hours while awake Weight Bearing Status: Weight bearing as tolerated Keep extremity elevated above heart level: Operative Extremity Additional Activity Instructions:: Wear elastic stockings for 2 weeks after your surgery. Call your doctor if your incision/area has: Continuous Slow Oozing, Sudden Increased Bleeding, Increased Pain/ Swelling, Increased Redness, Foul Smelling Discharge Call your doctor if you observe: Fever of 101 or Higher, Coldness, Increased Pain, Numbness or Tingling, Change in Color, Calf discomfort, Uncontrolled pain Change Dressing in (Days):: 1 - and daily as needed. Remove Dressing in (days):: 4 - Okay to remove dressing on October 20, 2020 Additional Dressing/Incision Instructions:: If incision is clean dry and intact may leave the wound open to air and continue showering. If there is continued drainage continue daily dry dressing changes and keep incision clean dry and intact until there is no drainage. Home Medications: Medications to take at Discharge Docusate Sodium [Colace] 100 mg PO TID 02/05/19 Multivitamin [Daily Multiple Vitamin] 1 ea PO DAILY 03/07/19 calcium carbonat and lactate 200 mg calcium-vitamin D3 250 unit tablet 2 tab PO BID 05/21/19 Diclofenac Sodium [Voltaren] 2 gm TP TID 01/28/20 Prednisone 10 mg PO DAILY 30 Days #30 tab 01/28/20 abiraterone 500 mg tablet 1,000 mg PO DAILY 06/11/20 Fluticasone Propionate 2 spray INTRANASAL DAILY PRN 09/17/20 sumatriptan succinate 50 mg tablet 50 mg PO PRN PRN 09/19/20 Acetaminophen [Tylenol] 1,000 mg PO Q8 #100 tab 10/16/20 Oxycodone [Oxyir] 5 - 10 mg PO Q4H PRN PRN 5 Days #60 tab 10/16/20 Senna/Docusate Sodium [Senokot-S] 2 tab PO BID #14 tab 10/16/20 Apixaban [Eliquis] 5 mg PO BID tab 10/19/20 Duloxetine Hcl [Cymbalta] 30 mg PO DAILY #40 cap 10/19/20 Oxycodone CR [Oxycontin] 10 mg PO BID 4 Days #8 tab 10/19/20 Polyethylene Glycol 3350 [Miralax] 17 gm PO BID packet 10/19/20 Following Prescriptions Were Given to Patient: Duloxetine Hcl [Cymbalta] 30 mg PO DAILY #40 cap Prescription Printed Oxycodone CR [Oxycontin] 10 mg PO BID 4 Days #8 tab Prescription Printed Oxycodone [Oxyir] 5 - 10 mg PO Q4H PRN PRN 5 Days #60 tab PRN Reason: Pain Score 4-10 Transmission Status: Received by [facility] Senna/Docusate Sodium [Senokot-S] 2 tab PO BID #14 tab Transmission Status: Received by [facility] Acetaminophen [Tylenol] 1,000 mg PO Q8 #100 tab Transmission Status: Received by [facility] Primary Care Physician: Jimy Li MD [Primary Care Provider] - Please Follow Up With: [facility] When: 10/17/2020 @ 4pm Please Follow Up With: Jeromy Christianson PA-C When: 10/29/20 @ 9:30 am Additional Instructions: Follow [facility] Post-op Instructions. Once postoperative dressing has been removed only use gentle soap and water over the incision. Do not use any ointments, Neosporin, salves, alcohol pads over the incision for 6 weeks postoperatively. Do not submerge underwater for 6 weeks postoperatively. Medical Necessity - Tobacco Use Smoking Status: Never smoker Tobacco Use: Non-smoker, Secondhand Meaningful Use Info Meaningful Use Diagnoses (Choose all that apply): None applicable
--- NOTE | 2020-10-19 15:02 | PN_ITS ---
Subjective: Patient was seen and examined today, I talked briefly with Dr. Sykes about his care. Patient's abdominal distention is improved today, he is passing flatus and is able to eat without nausea or emesis. Patient has Eliquis at home, he will need to resume this medication, unfortunately he will have to take the loading dose of 10 mg twice a day for a week and then reduce the dose to Eliquis 5 mg twice a day thereafter. Objective: General: Alert, Oriented x3, Cooperative, No apparent distress, Well developed, Well nourished HEENT: Atraumatic, PERRLA, EOMI, Normocephalic Oral: Moist Mucosa Neck: Supple, No JVD, Trachea Midline, Thyroid Normal Size and Texture Lungs: Clear to auscultation, Normal air movement, No rhonchi, No wheeze, No rales Cardiovascular: Regular rate, Regular Rhythm, Normal S1, Normal S2, No murmurs, PMI Normal, No rub noted, No Gallop Abdomen: Bowel Sounds Present, Soft, mildly distended, non-tender Extremities: No clubbing, No cyanosis, No edema, Capillary Refill Less than 3 Seconds Skin: No rashes, No breakdown Musculoskeletal: No Tenderness to Palpation of Joints or Extremities Neurological: Cranial nerves II-XII grossly intact, Neuro grossly intact, Sensory exam intact to light touch and pain, Coordination normal Psych/Mental Status: Normal Affect, Appropriate, Alert and oriented to time, place, person, mood and affect - Physical Exam Vitals/I&O's: Vital Signs Temp Pulse Resp BP Pulse Ox 98.6 F 70 18 120/74 96 10/19/20 10:04 10/19/20 10:04 10/19/20 10:04 10/19/20 10:10/19/20 10:04 Oxygen Flow Rate (L/min) 6 Oxygen Delivery Method Room Air Weight: 109.6 kg Body Mass Index (BMI) 27.1 Intake and Output for Last 24 Hours 10/17/20 10/18/20 10/19/20 23:59 23:59 23:59 Intake Total 1800 / 1800 450 / 450 Output Total 200 / 200 Balance 1800 / 1800 250 / 250 Current Medications Abiraterone Acetate (Abiraterone Acetate 250 Mg Tablet) 1,000 mg PO DAILY@0600 [facility] Last Admin: 10/19/20 04:55 Dose: 1,000 mg Documented by: Acetaminophen (Acetaminophen 500 Mg Tablet) 1,000 mg PO Q8 [facility] Last Admin: 10/19/20 13:15 Dose: 1,000 mg Documented by: Albuterol Sulfate (Albuterol 2.5 Mg/3 Ml Vial.Neb.) 2.5 mg INHALATION Q2H PRN PRN PRN Reason: Dyspnea, wheezing Apixaban (Apixaban 5 Mg Tablet) 5 mg PO BID [facility] Calcium/Vitamin D (Calcium Carb/Vitamin D 1 Tablet Tablet) [facility] Last Admin: 10/19/20 10:18 Dose: 1 tablet Documented by: Duloxetine HCl (Duloxetine Hcl 30 Mg Capsule) 30 mg PO DAILY [facility] Last Admin: 10/19/20 10:18 Dose: 30 mg Documented by: Famotidine (Famotidine 20 Mg Tablet) 20 mg PO DAILY [facility] Last Admin: 10/19/20 10:17 Dose: 20 mg Documented by: Fluticasone Propionate (Fluticasone 0.05% 1 [place] Nasal.Sry) 2 spray NASAL LUCERO LY PRN PRN Reason: ALLERGIES Hydralazine HCl (Hydralazine 20 Mg/Ml Vial) 10 mg IV Q4H PRN PRN PRN Reason: SBP > 160 Insulin Human Lispro (Insulin Lispro 100 Unit/Ml Insuln.Pen) 1 - 6 unit SC Q4H PRN PRN; Protocol PRN Reason: BG>/= 180, SEE PROTOCOL Morphine Sulfate (Morphine 4 Mg/Ml Syringe) 4 mg IV Q4H PRN PRN PRN Reason: Pain Score 1-10 Last Admin: 10/19/20 03:29 Dose: 4 mg Documented by: Multivitamins (Multivitamins,Therapeutic Tablet) [facility] Last Admin: 10/19/20 10:18 Dose: 1 tablet Documented by: Ondansetron HCl (Ondansetron 4 Mg/2 Ml Vial) 4 mg IV Q8H PRN PRN PRN Reason: NAUSEA Last Admin: 10/19/20 02:49 Dose: 4 mg Documented by: Oxycodone HCl (Oxycodone 5 Mg Tablet) 5 - 10 mg PO Q4H PRN PRN PRN Reason: Pain Score 4-10 Last Admin: 10/19/20 05:01 Dose: 10 mg Documented by: Oxycodone HCl (Oxycodone Hcl Cr 10 Mg Tablet) 10 mg PO BID [facility] Last Admin: 10/19/20 10:18 Dose: 10 mg Documented by: Polyethylene Glycol (Polyethylene Glycol 3350 17 Gm Packet) 17 gm PO BID [facility] Last Admin: 10/19/20 10:17 Dose: 17 gm Documented by: Prednisone (Prednisone 10 Mg Tablet) [facility] Last Admin: 10/19/20 10:19 Dose: 10 mg Documented by: Promethazine HCl (Promethazine 25 Mg/Ml Syringe) 12.5 mg IM Q6H PRN PRN; Protocol PRN Reason: NAUSEA/VOMITING Last Admin: 10/18/20 21:54 Dose: 12.5 mg Documented by: Rizatriptan Benzoate (Rizatriptan Benzoate 10 Mg Tablet) 10 mg PO PRN PRN PRN Reason: MIGRAINES Senna/Docusate Sodium (Senna/Docusate Sodium 1 Tablet) 2 tablet PO BID [facility] Last Admin: 10/19/20 10:17 Dose: 2 tablet Documented by: Sodium Chloride (0.9% Nacl Peripheral Flush Adult/Peds) 5 - 15 ml IV UD PRN PRN Reason: SALINE FLUSH Last Admin: 10/18/20 18:39 Dose: 10 ml Documented by: Sodium Chloride (0.9% Saline Lock 10 Ml Syringe) 10 - 40 ml IV UD PRN PRN Reason: SALINE FLUSH Medical Necessity - Tobacco Use Smoking Status: Never smoker Tobacco Use: Non-smoker, Secondhand Assessment/Plan All Active Problems (Last Reviewed 10/14/20 @ 08:55 by Jeni Barrera) Intractable pain (Acute) Weight loss, non-intentional (Acute) Encounter for education (Acute) Nocturnal leg cramps (Resolved) Diarrhea (Acute) Chemotherapy management, encounter for (Acute) Nausea & vomiting (Acute) Neck pain (Acute) Low back pain (Acute) #1 osteoarthritis #2 stage IV prostate cancer #3 acute anemia from expected blood loss from total knee replacement #4 postop day #4 total knee arthroplasty-robotic assisted minimally invasive- #5 abdominal distention-possibly secondary to ileus, appears to be resolving at this time #6 recent VTE associated with his prostate cancer-patient will need to resume Eliquis 10 mg twice daily for 14 doses, then reduce the Eliquis to 5 mg twice daily thereafter. Inpatient E&M: 49257 Subs Hosp L2
[2020-10-19 15:37] VITALS: BP 158/55; PULSE 80; RESP 16; TEMP 36.2; O2SAT 100
[2020-10-19] MEDS: 0.9% NaCl Peripheral Flush Adult/Peds IV (15:54)
--- NOTE | 2020-10-19 16:05 | NURSING ---
script/med lovenox from retail pharmacy picked up by Carmen from pharmacy to be returned to retail [facility] as advised by Geoff pharmacist.
== END 2020-10-19 16:15 | disposition home or self-care (01) ==
LOC: SDC 10:04 → MS3 10:04
PROVIDERS: Anesthesiology; Family Medicine; Admitting Provider Specialist; PCP Internal Medicine; Referring Provider Specialist; Visit Provider Internal Medicine
PROC: 0SRD0JZ Replacement of Left Knee Joint with Synthetic Substitute, Open Approach (ICD-10-PCS; CPT 27447; principal; 2020-10-15 09:15)
DX: M17.0 Bilateral primary osteoarthritis of knee (principal); C61 Malignant neoplasm of prostate; G43.909 Migraine, unspecified, not intractable, without status migrainosus; C77.9 Secondary and unspecified malignant neoplasm of lymph node, unspecified; C79.51 Secondary malignant neoplasm of bone; K21.9 Gastro-esophageal reflux disease without esophagitis; Z20.828 Contact with and (suspected) exposure to other viral communicable diseases; Z79.899 Other long term (current) drug therapy; Z79.01 Long term (current) use of anticoagulants; Z79.52 Long term (current) use of systemic steroids; Z86.718 Personal history of other venous thrombosis and embolism; E83.39 Other disorders of phosphorus metabolism
CPT/HCPCS: 01402; 27447; 64447; S2900; 36415; 73560; 74018; 80048; 82962; 83735; 84100; 85027; 87077; 87081; 87426; 88305; 88311; 93005; 96361; 96365; 96366; 96372; 96375; 96376; 97110; 97116; 97162; 97166; 97530; 97535; 99218; 99251; C1776; C9803; J7120; A4216; G0378; G0379; G0463; J2405

== ENCOUNTER → 2020-11-13 | Outpatient (CLI) | payer OTHER, SELFPAY ==
--- NOTE | 2019-01-12 | IMM_PTH ---
PATIENT: ELIZABETH OSHEA LOC: [facility] U#:[id number] AGE/SX: 55/M ROOM: RE11/13/[address]: Dr. Luis Amaral MD : 1965 BED: DIS: 11/13/2020 SPEC #: [id number] RECD: 11/13/20 10:25 STATUS: MERRITT RESidney #: [id number] BETO: 01/12/19 00:[address]: Luis Amaral DEPT: IMMUNOHISTOCHEMISTRY RECD BY: Jovita Contreras ENTERED: 11/13/20 10:27 SP TYPE: IMMUNO OTHR DR: Dr. Jimy Li MD Tissues: Pelvis, NOS Procedures: MSH2 (add) MLH-1 (add) MSH6 (add) Anti-PMS2 (add) P53 (add) KI-67 (initial) PHYSICIAN & INSTITUTION [place] [id number] SPECIMEN INFORMATION: Tissue Source: Left pelvic mass Clinical Info: Pelvic mass Specimen Number: [id number] CPT code: 83812, 72307 x5 METHODOLOGY: Deparaffinized sections of prefer/formalin-fixed tissue or PAP/DQ stained slides are incubated with monoclonal/polyclonal antibodies/oligonucleotide probes. Localization is made via biotin free immunoperoxidase method. Appropriate controls are performed and reacted as expected. Results on target cell population are indicated in the following table: RESULTS: ANTIBODY / CLONE RESULT Ki-67 (30-9) positive, moderate P53 (DO-7) positive, low MLH-1 (M1) positive MSH2 (25D12) positive MSH6 (44) positive PMS2 (OQL7303) positive These tests were developed and their performance characteristics determined by [facility]. They may not have been cleared or approved by the U.S. Food and Drug Administration. The FDA has determined that such clearance or approval is not necessary. The above immunohistochemical/dualISH markers are ordered by Dr. Amaral and reviewed by the Pathologist. INTERPRETATION: Left pelvic mass, CT-guided biopsy: Metastatic carcinoma, consistent with prostate primary. Result of Microsatellite Instability Study: Negative (no loss of mismatch protein; no microsatellite instability detected). Fabricio 11/14/2020 Comment: Please also refer to [id number] and [id number] for complete report.
[2020-11-12 15:07] VITALS: BMI 25.7
== END | disposition home or self-care (01) ==
LOC: LABSPEC 10:24
PROVIDERS: PCP Internal Medicine; Visit Provider Internal Medicine Hematology & Oncology
DX: C61 Malignant neoplasm of prostate (principal); C77.9 Secondary and unspecified malignant neoplasm of lymph node, unspecified; C79.51 Secondary malignant neoplasm of bone; R91.8 Other nonspecific abnormal finding of lung field
CPT/HCPCS: 88341; 88342

== ENCOUNTER → 2020-11-19 17:46 | Outpatient (CLI) | payer OTHER, SELFPAY ==
[2020-11-12 15:07] VITALS: BMI 25.7
--- NOTE | 2020-11-19 17:50 | CT_ITS ---
STUDY: CT CHEST WITH CONTRAST REASON FOR EXAM: Male, 55 years old. Nodules seen on plain film. Shortness of breath. History of prostate cancer with extensive blastic bone metastases. RADIATION DOSAGE (If Supplied By Facility): CTDIvol = ( 13.90 ) mGy, DLP = ( 658.85 ) mGycm TECHNIQUE: Transaxial imaging was performed following intravenous administration of IV 100mL Isovue-300. Multiplanar coronal and sagittal images were reformatted. Individualized dose optimization techniques were used for this CT. COMPARISON: [facility], 10/18/2020. FINDINGS: The lungs are hyperexpanded. No focal mass or infiltrate. There is no demonstrated pleural abnormality. Normal heart and pericardium. Normal mediastinum. Normal hilar regions. Normal enhanced pulmonary arteries. Normal aorta arch and descending thoracic aorta. There is diffuse blastic metastases within the humeri, skull scapula and multiple ribs and multiple thoracic vertebra. There is no demonstrated abnormality of the visualized upper abdomen. CT/Chest WITH Contrast IMPRESSION: 1. No evidence of pulmonary nodules. There is no mass or infiltrate. 2. Diffuse bony metastases. Electronically Signed: Moshe Mendez DO at 22:32 EST Tel [phone], Service support ,
== END ==
PROVIDERS: PCP Internal Medicine; Referring Provider Internal Medicine Hematology & Oncology; Visit Provider Internal Medicine Hematology & Oncology
DX: R91.8 Other nonspecific abnormal finding of lung field (principal)
CPT/HCPCS: 71260; Q9967

== ENCOUNTER → 2021-01-26 16:50 | Outpatient (CLI) | payer OTHER, SELFPAY ==
[2021-01-19 15:48] VITALS: BMI 26.0
--- NOTE | 2021-01-26 17:03 | RAD_ITS ---
STUDY: X-RAY - PELVIS AND BILATERAL HIPS REASON FOR EXAM: Male, 56 years old. History of cancer. Trauma. TECHNIQUE: AP view of the pelvis.? 2 views of the right hip, and 2 views of the left hip were obtained. COMPARISON: Radionuclide bone scan performed 09/12/2020. FINDINGS: There is a non-specific bowel gas pattern. There are multiple calcified phleboliths. Diffuse sclerotic metastases throughout the visualized pelvis and proximal femurs. Findings most compatible with metastatic prostate carcinoma. Normal bilateral iliac wings, sacroiliac joints and visualized sacrum. Normal bilateral superior and inferior pubic rami. Normal pubic symphysis. Normal bilateral ischial tuberosities. Mild arthrosis of both hips. RAD/Hips B/L min 2 views w/ Pelvis IMPRESSION: Diffuse sclerotic metastases as described. Mild arthrosis of both hips. No acute osseous abnormality. Electronically Signed: Jose Ruvalcaba MD at 15:07 EDT , Service support ,
== END ==
PROVIDERS: PCP Internal Medicine; Referring Provider Anesthesiology Pain Medicine; Visit Provider Anesthesiology Pain Medicine
DX: Z85.9 Personal history of malignant neoplasm, unspecified (principal); T14.90XA Injury, unspecified, initial encounter
CPT/HCPCS: 73521

== ENCOUNTER → 2021-04-07 07:31 | Outpatient (CLI) | payer OTHER, SELFPAY ==
[2021-03-03 14:09] VITALS: BMI 26.2
--- NOTE | 2021-04-07 07:34 | NM_ITS ---
CLINICAL: 56-year-old male with reported history of carcinoma of the prostate. WHOLE BODY 99m Tc MDP RADIONUCLIDE BONE SCINTIGRAPHY COMPARISON: Whole body bone scintigraphy study dated 09/12/2020 FINDINGS: Following the intravenous administration of approximately 25.0 mCi of 99m Tc MDP, whole body bone images reveal: 1. Increased radiopharmaceutical concentration is newly defined in the fifth lumbar vertebra involving the vertebral body to left midline anteriorly. 2. Facilitated uptake is persistently visualized in the acromioclavicular and sternoclavicular compartments of both shoulders, medial and lateral tibial compartments of the right knee, the left wrist, first lumbar vertebra posteriorly on the right, third-fourth lumbar vertebra anteriorly in proximity to the intervertebral disc space. 3. The remaining skeletal structures are scintigraphically unremarkable with normal-appearing renal images and urinary bladder activity identified. There is interim placement of an apparent asymptomatic left knee arthroplasty an increase in radiotracer distribution observed in the tibial and femoral components most consistent with normal postsurgical change. NM/Bone Scan Whole Body IMPRESSION: 1. The increase in radiopharmaceutical concentration identified in the fifth lumbar vertebra may be further investigated with plain film radiography in the setting of known prostate carcinoma. 2. Degenerative arthritis appears currently expressed in the bilateral shoulders, right knee, left wrist, first, third-fourth lumbar vertebra. 3. Overall compared to the previous whole body bone scintigraphy study dated 09/12/2020, newly identified increased tracer uptake noted in the fifth lumbar vertebra warrants further radiologic investigation. Electronically Signed: Moises Singh DO at 22:33 EDT Tel , Service support ,
== END ==
PROVIDERS: PCP Internal Medicine; Referring Provider Internal Medicine Hematology & Oncology; Visit Provider Internal Medicine Hematology & Oncology
DX: C61 Malignant neoplasm of prostate (principal); C77.9 Secondary and unspecified malignant neoplasm of lymph node, unspecified; C79.51 Secondary malignant neoplasm of bone
CPT/HCPCS: 78306; A9503

== ENCOUNTER → 2021-07-21 | Outpatient (CLI) | payer OTHER, SELFPAY | END | disposition home or self-care (01) | LOC: LABSPEC 10:39 | PROVIDERS: PCP Internal Medicine; Referring Provider Physician Assistant Surgical; Visit Provider Physician Assistant Surgical | DX: Z11.52 Encounter for screening for COVID-19 (principal) | CPT/HCPCS: 87635; U0005; U0003 ==

== ENCOUNTER → 2021-09-11 09:00 | Outpatient (CLI) | payer OTHER, SELFPAY ==
--- NOTE | 2021-09-11 09:01 | NM_ITS ---
CLINICAL: 56-year-old male with reported history of carcinoma of the prostate. WHOLE BODY 99m Tc MDP RADIONUCLIDE BONE SCINTIGRAPHY COMPARISON: Whole body bone scintigraphy study dated 04/07/2021 FINDINGS: Following the intravenous administration of approximately 25.0 mCi of 99m Tc MDP, whole body bone images reveal: 1. Increased radiopharmaceutical concentration is currently visualized in the eighth, 10th-11th thoracic, second-fifth lumbar vertebra, the left scapula, right iliac wing, the right anterolateral fifth rib, right posterior inferior acetabulum, the right coracoid process. 2. There is increased tracer distribution identified in the sternoclavicular and acromioclavicular compartments of both shoulders, medial tibial compartment of the right knee, the left wrist. 3. The remaining skeletal structures are scintigraphically unremarkable with normal-appearing renal images and urinary bladder activity identified. The visualized presumably asymptomatic left knee prosthesis continues to demonstrate facilitated uptake in the femoral and tibial components most consistent with normal postsurgical change.. NM/Bone Scan Whole Body IMPRESSION: 1. The increase in radiopharmaceutical concentration presently multifocally apparent in the axial skeletal structures is consistent with osseous metastatic disease. 2. Degenerative arthritis is identified in the bilateral shoulders, right knee, the left wrist. 3. Overall compared to the previous whole body bone scintigraphy study dated 09/12/2020, there is interval progression of skeletal metastasis. Electronically Signed: Moises Singh DO at 7:56 EST Tel , Service support ,
== END ==
PROVIDERS: PCP Internal Medicine; Referring Provider Internal Medicine Hematology & Oncology; Visit Provider Internal Medicine Hematology & Oncology
DX: C61 Malignant neoplasm of prostate (principal); C77.9 Secondary and unspecified malignant neoplasm of lymph node, unspecified; C79.51 Secondary malignant neoplasm of bone
CPT/HCPCS: 78306; A9503

== ENCOUNTER → 2021-09-21 10:40 | Outpatient (CLI) | payer OTHER, SELFPAY ==
[2021-09-21 12:04] LABS: Amphetamine Urine VISTA NEGATIVE (<1000 ng/mL); Barbiturate Urine VISTA NEGATIVE (< 200 ng/mL); Benzodiazepine Urine VISTA NEGATIVE (< 200 ng/mL); Cocaine Urine VISTA NEGATIVE (< 300 ng/mL); Ecstacy Urine VISTA NEGATIVE (< 500 ng/mL); Methadone Urine VISTA NEGATIVE (< 300 ng/mL); PCP Urine VISTA NEGATIVE (< 25 ng/mL); THC Urine VISTA NEGATIVE (< 50 ng/mL); Vista UDS pH Range 5
== END ==
PROVIDERS: PCP Internal Medicine; Referring Provider Anesthesiology Pain Medicine; Visit Provider Anesthesiology Pain Medicine
DX: F11.20 Opioid dependence, uncomplicated (principal)
CPT/HCPCS: 80307

== ENCOUNTER 2021-12-03 09:23 | Day surgery (SDC) | payer OTHER, SELFPAY ==
--- NOTE | 2021-12-03 10:22 | HP.PCM_ITS ---
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 Is patient in pain?: No Allergies grass pollen Allergy (Verified 11/30/21 13:28) Other ragweed pollen Allergy (Verified 11/30/21 13:28) Other Medications multivitamin 1 ea PO DAILY 03/07/19 [History Confirmed 11/30/21] calcium carb and lactate 200 mg-vitamin D3 6.25 mcg (250 unit) tablet 2 tab PO BID 05/21/19 [History Confirmed 11/30/21] diclofenac sodium 2 g TP TID 01/28/20 [History Confirmed 11/30/21] abiraterone 500 mg tablet 1,000 mg PO DAILY 06/11/20 [History Confirmed 11/30/21] fluticasone propionate 2 spray INTRANASAL DAILY PRN 09/17/20 [History Confirmed 11/30/21] ondansetron HCl 4 mg tablet 4 mg PO Q6H PRN 10/24/20 [History Confirmed 11/30/21] acetaminophen 1,000 mg PO Q8H PRN 11/12/20 [History Confirmed 11/30/21] oxycodone myristate 9 mg PO BID 11/12/20 [History Confirmed 11/30/21] cetirizine 10 mg tablet 10 mg PO DAILY PRN 05/25/21 [History Confirmed 11/30/21] naloxegol 25 mg tablet 25 mg PO QAM 06/29/21 [History Confirmed 11/30/21] prednisone 10 mg PO DAILY 30 Days #30 tab 07/23/21 [Rx Confirmed 11/30/21] rivaroxaban 20 mg tablet 20 mg PO DAILY #30 tab 11/05/21 [Rx Confirmed 11/30/21] polyethylene glycol 3350 17 gram oral powder packet 17 g PO .QOD ea 11/23/21 [History Confirmed 11/30/21] PFSH Medical History Arthritis Knee pain Prostate cancer Surgical History No history of previous surgery Status post total left knee replacement Family History Mother Non Hodgkin's lymphoma Father COPD (chronic obstructive pulmonary disease) Skin cancer Grandmother Cancer Lung cancer Grandfather CVA (cerebral vascular accident) Brother Blood disease Social History Smoking Status: Never smoker alcohol intake: current alcohol intake frequency: a few times a month substance use type: does not use what type of physical activity do you participate in: other details: physical job HPI HPI HPI: ELIZABETH OSHEA, is a 56 M who presents to the office today for port placement. Patient is being treated for prostate cancer and requires chemotherapy and requires port for venous access. ROS General General: Yes weight change and fatigue; No appetite, colon cancer, breast cancer or weakness HEENT HEENT: No difficulty swallowing, eye injury, eye surgery, swollen glands or hoarseness Endo Endocrine: No thyroid disease, diabetes mellitus, thyroid cancer, Hair loss, heat intolerance or cold intolerance Skin Skin: No rash or changing moles Musc Musculoskeletal: Yes back problems and arthritis; No rheumatoid arthritis, gout or joint pain Cardio Cardiovascular: No murmur, pacemaker, heart disease, atrial fibrillation, high blood pressure, heart attack, heart stent, palpitations, shortness of breat with exertion or chest pain Psych Psychiatric: No depression, anxiety or hearing voices Resp Respiratory: No shortness of breath, No sleep apnea, No cough, No COPD, No asthma, No emphysema and No wheezing Gastro Gastrointestinal: No abdominal pain, No nausea or vomiting, Yes diarrhea, Yes constipation, No blood in stool, No acid reflux, No hemorrhoids, No ulcers, No gallbladder problem and No black,tarry stools Rm Hematologic: Yes blood thinners, No blood disorders, No bleeding, No anemia and No blood clots Neuro Neurologic: No system reviewed and no additional complaints, except as documented, No as per HPI, No abnormal gait, No abnormal hearing, No abnormal movements, No abnormal speech, No behavioral changes, No burning sensations, No confusion, No convulsions, No disequilibrium, No dizziness, No localized weakness, No frequent falls, No headache(s), No lack of coordination, No loss of vision, No memory loss, No numbness, No other visual disturbances, No radicular pain, No restless legs, No sensory deficit, No syncope, No tingling, No tremor(s), No weakness and No other Exam Const General: cooperative Orientation: alert and oriented x3 HENMT Head: normal to inspection Neck Neck: normal visual inspection and full ROM Chest Chest palpation & inspection: normal inspection of the chest Resp Effort & Inspection: normal respiratory effort Auscultation: clear to auscultation bilaterally Cardio Rate: regular rate Rhythm: regular rhythm GI Inspection: non-distended Palpation: soft and nontender Skin General: no rashes or lesions noted Neuro General: patient alert and patient oriented x3 Extrem General: full ROM Psych Appearance: grossly normal Mental Status: mental status grossly normal Assessment and Plan Assessment and Plan (1) Prostate cancer: Status: Chronic Comment: Supportive treatment for cabazitaxel will include premedication with antiemetic, H1 and H2 junior and primary prophylaxis with Neulasta (patient is a high risk for febrile neutropenic sepsis due to advanced stage of disease involving bone marrow and prior heavy treatment that included prior chemotherapy. (2) Encounter for insertion of venous access port: Status: Acute Plan - Dr. Tucker Pate MD: I discussed right chest port placement with the patient in detail. I discussed the risks including but not limited to bleeding, infection, pneumothorax, line infection or DVT. I have asked the patient to stop Xarelto the day before surgery. Patient agrees to proceed. Tucker Pate MD Pager: [facility] [address] [place] [address], [address] [place] [address] Office: I have re-examined the patient. There are no clinical changes since date of exam.
[2021-12-03] MEDS: Cefazolin 2 GM in 0.9% Normal Saline 100 ML IV (10:40)
[2021-12-03] MEDS: Bupivacaine Mpf 0.5% 30 ML VIAL (11:10)
--- NOTE | 2021-12-03 11:32 | OP.PCM_ITS ---
Problems Associated Problem List Diagnoses (1) Encounter for insertion of venous access port: Report of Operation Date of Procedure: 12/03/21 Pre-Operative Diagnosis: Prostate cancer need for vascular access for chemotherapy Post-Operative Diagnosis: Same Surgery/Procedure Performed:: Ultrasound and fluoroscopy guided right chest port placement utilizing right IJ Description of Procedure: After obtaining informed consent patient was brought back to the operating room MAC anesthesia was induced and the right chest and neck were prepped in normal sterile fashion. Ultrasound was used to evaluate both IJs and the right IJ was selected. Next, using a needle, the right IJ was accessed and a guidewire was passed on into the superior vena cava under fluoroscopy guidance. A small incision was made over the puncture site and the dilator introducer was placed over the guidewire. Next this was capped and the pocket was made for the port. 1% lidocaine with epinephrine was injected in the proposed port site. An incision was made with scalpel. Electrocautery was used to make a pocket under the skin and subcutaneous tissue. Hemostasis was obtained. Next, the catheter was tunneled up to the neck incision site and placed through the introducer. The peel-away introducer was removed and the position of the catheter was confirmed on fluoroscopy. Next, the catheter was trimmed and attached to the port with the locking device. Interrupted 2-0 Vicryl sutures were used to anchor the port to the chest wall and then the port was placed inside the pocket. The pocket was then flushed with saline and the port irrigated with saline. There was good blood return and the port flushed easily. Next, heparin was injected into the port. The skin was closed with subcutaneous interrupted 3-0 Vicryl sutures. A single 3-0 Vicryl sutures placed under the skin at the neck incision site. Steri-Strips were placed as well as op sites. Patient tolerated procedure well, was taken to PACU in stable condition. Chest x-ray will be obtained. Grafts/Implants Used: 8 [employer] PowerPort Admit VTE Documentation VTE Mechan Device Prophylaxis: SCD's
--- NOTE | 2021-12-03 11:34 | EX.PCM.DISCH ---
Discharge Instructions Procedure Port-A-Cath Diet Discharge Diet: Light diet - advance as tolerated (Pain medication may cause nausea. You should typically eat light foods as you take your pain medication.) Activity Discharge Activity: Return to Normal Activity and May Shower (with your bandage in place in 1-2 days after surgery. DO NOT SHOWER WHEN YOUR PORT IS ACCESSED.) Dressing / Incision Call your doctor if your incision/area has: Continuous Slow Oozing, Sudden Increased Bleeding, Increased Pain/ Swelling, Increased Redness and Foul Smelling Discharge Call your doctor if you observe: Fever of 101 or Higher Remove Dressing in: 2 days (Remove bandage in 2 days, steri strips in 7-10 days) Cleanse incision/area with: Soap & Water Additional Dressing/Incision Instructions:: Resume blood thinners tomorrow night Follow Up Care Please Follow Up With: Tucker Pate MD When: as needed [phone] Test Results: Test results from this visit will be discussed in further detail at your follow-up appointment, if applicable. Discharge Plan Admission Attending Provider: Tucker Pate Primary Care Provider: Jimy Li Discharge Orders/Prescriptions Prescriptions: No Action calcium carbonat and lactate 200 mg calcium-vitamin D3 250 unit tablet 200 mg calcium -250 unit tablet 2 tab PO BID RF: 0 ondansetron HCl [Zofran] 4 mg tablet 4 mg PO Q6H PRN (Reason: Nausea) RF: 0 cetirizine [All Day Allergy (cetirizine)] 10 mg tablet 10 mg PO DAILY PRN (Reason: ALLERGIES) RF: 0 Movantik 25 mg tablet 25 mg PO QAM RF: 0 polyethylene glycol 3350 [Miralax] 17 gram powder in packet 17 g PO .QOD RF: 0 multivitamin 1 EACH tablet 1 ea PO DAILY RF: 0 diclofenac sodium 1 APPLIC gel 2 g TP TID RF: 0 acetaminophen 500 MG tablet 1,000 mg PO Q8H PRN (Reason: Pain 1-10 Or Fever) RF: 0 prednisone 10 mg Tablet 10 mg PO DAILY 30 Days Qty: 30 RF: 12 fluticasone propionate 16 GM spray,suspension 2 spray INTRANASAL DAILY PRN (Reason: Allergies) RF: 0 pantoprazole 40 mg tablet,delayed release (DR/EC) 40 mg PO DAILY RF: 0 Movantik 25 mg tablet 25 mg PO DAILY RF: 0 Xtampza ER 9 mg cap,sprinkl,ER12hr(DONT CRUSH) 9 mg PO BID RF: 0 Xarelto 20 mg tablet 20 mg PO DAILY RF: 0 Referrals / Follow Up: Jimy Li MD [Primary Care Provider] - Disposition Disposition (needs filled in before D/C Order can be placed): Home, Self Care
--- NOTE | 2021-12-03 11:45 | RAD_ITS ---
STUDY: X-RAY CHEST REASON FOR EXAM: Male, 56 years old. Right jugular chest port. TECHNIQUE: AP COMPARISON: CT 11/19/2020 FINDINGS: Right jugular chest port present with tip overlying the lower SVC. The lungs are clear and expanded. There is no demonstrated pleural abnormality. Normal size heart. Normal mediastinum and marc. Normal visualized pulmonary arteries. Normal visualized aortic arch and descending thoracic aorta. Multiple osseous sclerotic lesions/metastasis. Normal visualized ribs, clavicles, and shoulders. There is no demonstrated abnormality of the visualized soft tissue structures of the upper abdomen. RAD/CXR for Line Placement IMPRESSION: Satisfactory position of right jugular chest port. No pneumothorax. Electronically Signed: Maikel Garland MD ([place]) at 12:01 EST ,
[2021-12-03 12:44] VITALS: BP 111/50; BP 115/51; PULSE 53; RESP 16; TEMP 36.2; O2SAT 97
== END 2021-12-03 23:59 | disposition home or self-care (01) ==
LOC: SDC 09:28 → AC 09:30
PROVIDERS: PCP Internal Medicine; Referring Provider Surgery; Visit Provider Surgery
PROC: (CPT 36561; principal; 2021-12-03 10:45)
DX: C61 Malignant neoplasm of prostate (principal); Z80.8 Family history of malignant neoplasm of other organs or systems; Z80.1 Family history of malignant neoplasm of trachea, bronchus and lung; K21.9 Gastro-esophageal reflux disease without esophagitis; M19.90 Unspecified osteoarthritis, unspecified site
CPT/HCPCS: 36561; 71045; 77001; 87426; J7120; C1788

== ENCOUNTER 2021-12-23 13:05 | Outpatient (CLI) | payer OTHER, SELFPAY ==
--- NOTE | 2021-12-23 13:06 | MRI_ITS ---
STUDY: MRI BRAIN WITH AND WITHOUT CONTRAST ENHANCEMENT 1353 HOURS ON 12/23/2021 REASON FOR EXAM: 56-year-old male with headaches and increasing memory loss. TECHNIQUE: Standardized multiplanar fat and water weighted pulse sequences were obtained. IV 22ML DOTAREM was administered for the contrast portion of the examination. COMPARISON: None. FINDINGS: In the T2 FLAIR sequence, there is a 1.2 cm in diameter high intensity lesion (bright spot) in the central high left parietal region. There is no evidence of any similar abnormal findings in this examination. Causes of this abnormality can be a brain tumor (such as lymphoma), B12 deficiency, a focal site of infection (such as Lyme disease or HIV), lupus, migraines, and multiple sclerosis. There are no other findings in the self-examination of intracranial neoplasms. There is evidence of other findings of ischemic or hemorrhagic cerebral infarction. There is no evidence of a subdural catheter, intracerebral hematoma, hemorrhage or contusion. There is no evidence of significant cortical, central or cerebellar atrophy. There are no findings of focal demyelination. A generous sized sella is noted with a normal pituitary. The brainstem patel and cerebellum are normal. There are normal orbits, globes, and optic nerves. MRI/Brain W/WO Contrast IMPRESSION: 1. Abnormal 1.2 cm diameter high intensity lesion (bright spot in the central marc parietal region on the T2 FLAIR sequence. This finding suggests inflammation or change in water content at that site. Causes of this abnormality can be brain tumor (such as lymphoma), B12 deficiency, a focal site of infection (such as Lyme disease or HIV), lupus, migraines, and multiple sclerosis. 2. No evidence of other abnormalities in the examination. 3. No cortical, central, or cerebellar atrophy. 4. No evidence of distinct ischemic or hemorrhagic cerebral infarcts-(within the possibility of the signal abnormality that was noted.) 5. Generous sized sella and normal pituitary. 6. Normal orbits, globes and optic nerves. Electronically Signed: Masoud Wheeler MD at 2:03 EDT ,
[2021-12-23] MEDS: 0.9% Saline Lock 10 ML Syringe IV (14:30)
== END 2021-12-23 23:59 | disposition home or self-care (01) ==
LOC: MRI 13:06
PROVIDERS: PCP Internal Medicine; Referring Provider Internal Medicine Hematology & Oncology; Visit Provider Internal Medicine Hematology & Oncology
DX: R41.3 Other amnesia (principal); R51.9 Headache, unspecified
CPT/HCPCS: 70553; A9575

== ENCOUNTER → 2022-02-16 | Outpatient (CLI) | payer OTHER, SELFPAY ==
--- NOTE | 2022-02-16 08:51 | RAD_ITS ---
EXAM: XR CHEST, 2 VIEWS CLINICAL INDICATION: covid TECHNIQUE: Frontal and lateral views of the chest. This report was created using [employer] report generation technology. COMPARISON: 12/03/2021 FINDINGS: LUNGS AND PLEURAL SPACES: Unremarkable. No consolidation or edema. No pneumothorax. No effusion. HEART: Unremarkable. Cardiac silhouette not enlarged. MEDIASTINUM: Central airways and mediastinal contour are unremarkable. BONES/JOINTS: Multiple sclerotic bony lesions are unchanged. SOFT TISSUES: Unremarkable. TUBES, LINES AND DEVICES: Right-sided Port-A-Cath in stable position. RAD/Chest PA and Lateral IMPRESSION: Multiple sclerotic bony lesions. There is no acute pulmonary abnormality. There has been no change from the reference exam. Electronically Signed: Jace Khan MD at 17:14 EDT ,
== END | disposition home or self-care (01) ==
LOC: RAD 08:50
PROVIDERS: PCP Internal Medicine; Visit Provider Physician Assistant
DX: U07.1 COVID-19 (principal)
CPT/HCPCS: 71046

== ENCOUNTER → 2022-03-18 | Outpatient (CLI) | payer OTHER, SELFPAY ==
[2022-03-18 18:35] LABS: Thyroid Stim Hormone (TSH) 0.79 uIU/mL (0.358-3.74)
[2022-03-25 13:07] LABS: Free Kappa Light Chains 20.6 mg/L (3.3-19.4); Free Lambda Light Chains 14.5 mg/L (5.7-26.3)
[2022-03-25 18:22] LABS: Vitamin B1, Thiamine 317.7 nmol/L (66.5-200.0)
== END | disposition home or self-care (01) ==
LOC: MTLAB 15:23
PROVIDERS: PCP Internal Medicine; Referring Provider Psychiatry & Neurology Neurology; Visit Provider Psychiatry & Neurology Neurology
DX: G62.9 Polyneuropathy, unspecified (principal)
CPT/HCPCS: 36415; 82746; 83883; 84425; 84443

== ENCOUNTER → 2022-03-30 | Outpatient (CLI) | payer OTHER, SELFPAY ==
--- NOTE | 2022-03-30 16:15 | MRI_ITS ---
EXAM: MR VENOGRAPHY HEAD WITHOUT INTRAVENOUS CONTRAST CLINICAL INDICATION: Headache; cerebrovascular disease TECHNIQUE: Magnetic resonance venography images of the head without intravenous contrast. This report was created using [employer] report generation technology. COMPARISON: Dec 23 2021 1:50pm mri brain FINDINGS: SUPERIOR SAGITTAL SINUS: Unremarkable. Patent. STRAIGHT SINUS: Unremarkable. Patent. TRANSVERSE SINUSES: Unremarkable. Patent. SIGMOID SINUSES: Unremarkable. Patent. INTERNAL JUGULAR VEINS: Unremarkable as visualized. INTERNAL CEREBRAL AND CORTICAL VEINS: Unremarkable as visualized. MRI/MRV Head Without Contrast IMPRESSION: Normal head/brain MRV. Electronically Signed: Tom Persaud MD at 17:07 EDT ,
== END | disposition home or self-care (01) ==
LOC: MRI 16:15
PROVIDERS: PCP Internal Medicine; Referring Provider Psychiatry & Neurology Neurology; Visit Provider Psychiatry & Neurology Neurology
DX: R51.9 Headache, unspecified (principal); I67.9 Cerebrovascular disease, unspecified
CPT/HCPCS: 70544

== ENCOUNTER → 2022-03-31 | Outpatient (CLI) | payer OTHER, SELFPAY ==
--- NOTE | 2022-03-31 12:19 | RAD_ITS ---
STUDY: RIGHT FEMORAL X-RAY SERIES OF 1243 HOURS OF 03/31/2022 REASON FOR STUDY: 57-year-old male with right femoral pain. TECHNIQUE: 6 view(s) of the femur. COMPARISON: None. FINDINGS: There are 15 sclerotic metastatic lesions in the right femoral head and neck and in the subcutaneous scanner territory region varying from 3 mm to 3.46 m in diameter. There is extensive sclerotic metastatic disease in the right pelvis, symphysis pubis, and right acetabulum. There are a few scattered sclerotic metastases in the distal right femur. There is mild narrowing of the right hip joint space. There is no evidence of fractures, diastatic fractures, dislocations. No osseous lytic, sclerotic or mass lesions are present. There is marked narrowing of the medial knee joint with joint surface irregularity and sclerotic changes. There are moderate osteophytic degenerative changes at the medial left knee joint. The patella has normal appearance. RAD/Femur Min 2 Views IMPRESSION: 1. Prominent sclerotic metastatic disease in the right femoral head and neck and a few scattered sclerotic metastases in the distal femur. 2. Extensive sclerotic metastatic disease of the right acetabulum and right pubic rami. 3. No fractures, pathologic fractures, or dislocations. 4. Mild narrowing of the right hip joint space. 5. Prominent narrowing of the medial right knee joint with degenerative sclerotic changes adjacent to the joint. 6. Normal soft tissues. Electronically Signed: Masoud Wheeler MD at 0:51 EDT ,
--- NOTE | 2022-03-31 12:25 | RAD_ITS ---
STUDY: LEFT FEMORAL X-RAY SERIES OF 1249 HOURS ON 03/31/2022 REASON FOR STUDY: 57-year-old male with left femoral pain. TECHNIQUE: 4 view(s) of the femur. COMPARISON: None. FINDINGS: There are 16 sclerotic metastatic lesions (ranging from 3 mm in size to 2.3 cm in size) in the proximal left femoral neck proximal left femur. There are 3 sclerotic metastases in the distal left femur. There is no evidence of fractures or dislocation. Left hip joint. There is mild left hip joint space narrowing. There is no evidence of fractures or dislocations. There is no evidence of pathologic fractures. A complete knee prosthesis is noted without evidence of loosening. 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 Surrounding soft tissues are normal. RAD/Femur Min 2 Views IMPRESSION: 1. Relatively extensive osseous metastatic disease at the left femur. There are extensive pelvic sclerotic metastases are evident. 2. No fractures, pathologic fractures, or dislocations. 3. Mild narrowing of left hip joint space. 4. Left knee prosthesis without dislocation, fracture, or loosening. 5. Normal surrounding soft tissues. Electronically Signed: Masoud Wheeler MD at 0:45 EDT ,
== END | disposition home or self-care (01) ==
PROVIDERS: PCP Internal Medicine; Referring Provider Nurse Practitioner Family; Visit Provider Nurse Practitioner Family
DX: C79.51 Secondary malignant neoplasm of bone (principal); M79.652 Pain in left thigh; M79.651 Pain in right thigh
CPT/HCPCS: 73552

== ENCOUNTER 2022-05-26 13:08 | Emergency (ER) | payer OTHER, SELFPAY ==
[2022-05-26 13:10] VITALS: BP 141/78; PULSE 61; RESP 14; TEMP 37.2; O2SAT 98; BMI 24.7
--- NOTE | 2022-05-26 14:30 | EX.ED.DYSGE1 ---
HPI History of Present Illness Chief Complaint: Weakness Informant: patient and family Narrative Narrative: History of stage IV prostate cancer followed by Dr. Little presents with family today vomiting since yesterday unable to keep things down. Denies bloody emesis. No diarrhea. No fevers. Reports chemo last treatment of last month states did not continue due to it not working. He had grace scan this past week currently going to [facility]. He has an appointment tomorrow for a PET scan. Per spouse and patient cancer into his spine pelvis and femur. She reports there was no progression of cancerous lesions noted on the scan however spouse to discuss this tomorrow. He presents due to increasing vomiting. Currently nauseated. Reporting increasing myalgias and bone pain. He is on Percocet 5 mg every 6 hours last dose was a few hours ago he states he did vomit shortly afterwards. Prior similar symptoms: Yes PFSH PFS Medical History Alcohol use Arthritis Arthritis Cancer DVT (deep venous thrombosis) Encounter for chemotherapy management Excessive bleeding Gastric reflux History of diverticulitis History of epidural anesthesia History of pain when walking History of steroid therapy Injury of back Injury of head and neck Knee pain Leg pain, bilateral Migraine headache Non-smoker Prostate cancer Shortness of breath on exertion Syncope Home Medications multivitamin 1 ea PO DAILY 03/07/19 [History Last Taken 10/10/20 08:00] calcium carb and lactate 200 mg-vitamin D3 6.25 mcg (250 unit) tablet 2 tab PO BID 05/21/19 [History Last Taken 10/10/20 10:00] diclofenac sodium 1 % topical gel 2 g TP TID 01/28/20 [History Last Taken 10/14/20 22:00] fluticasone propionate 50 mcg/actuation nasal spray,suspension 2 spray intranasal DAILY PRN Allergies 09/17/20 [History Last Taken Unknown] ondansetron HCl 4 mg tablet (Zofran) 4 mg PO Q6H PRN Nausea 10/24/20 [History Last Taken Unknown] prednisone 10 mg tablet 10 mg PO DAILY 30 days #30 tabs 07/23/21 [Rx Last Taken Unknown] polyethylene glycol 3350 17 gram oral powder packet (Miralax) 17 g PO .QOD 11/23/21 [History Last Taken Unknown] oxycodone myristate 9 mg capsule sprinkle extended release 12 hr(DON'T CRUSH) (Xtampza ER) 9 mg PO BID 12/02/21 [History Last Taken Unknown] lidocaine-prilocaine 2.5 %-2.5 % topical cream 1 applic topical ONCE PRN port access 30 days #30 grams 12/11/21 [Rx Last Taken Unknown] rivaroxaban 20 mg tablet (Xarelto) 20 mg PO DAILY 30 days #30 tabs 02/08/22 [Rx Last Taken Unknown] slippery elm bark 400 mg capsule mg PO 02/16/22 [History Last Taken Unknown] benzonatate 200 mg capsule 200 mg PO TID PRN cough #60 caps 02/17/22 [Rx Last Taken Unknown] guaifenesin 400 mg tablet 400 mg PO TID PRN congestion, cough #60 tabs 02/17/22 [Rx Last Taken Unknown] loratadine 10 mg tablet 10 mg PO DAILY #30 tabs 03/18/22 [Rx Last Taken Unknown] ubrogepant 100 mg tablet (Ubrelvy) 100 mg PO DAILY PRN headache #10 tabs 03/18/22 [Rx Last Taken Unknown] acetaminophen 500 mg tablet (Tylenol Extra Strength) 500 mg PO Q6H PRN 05/17/22 [History Last Taken Unknown] dexamethasone 4 mg tablet (Decadron) 4 mg PO BID 05/17/22 [History Last Taken Unknown] gabapentin 300 mg capsule 300 mg PO BID 05/17/22 [History Last Taken Unknown] naldemedine 0.2 mg tablet (Symproic) 0.2 mg PO DAILY 05/17/22 [History Last Taken Unknown] oxycodone-acetaminophen 5 mg-325 mg tablet (Percocet) 1 tab PO Q6H PRN 05/17/22 [History Last Taken Unknown] ondansetron 4 mg disintegrating tablet 4 mg PO Q6H PRN nausea and vomiting #10 tabs 05/26/22 [Rx Last Taken Unknown] Allergy/AdvReac Type Severity Reaction Status Date / Time grass pollen Allergy Other Verified 05/26/22 13:10 ragweed pollen Allergy Other Verified 05/26/22 13:10 Family History Mother Non Hodgkin's lymphoma Father COPD (chronic obstructive pulmonary disease) Skin cancer Grandmother Cancer Lung cancer Grandfather CVA (cerebral vascular accident) Brother Blood disease Surgical History Hx of colonoscopy Hx of tonsillectomy Status post total left knee replacement Social History Smoking Status: Never smoker alcohol intake: current alcohol intake frequency: a few times a month substance use type: does not use what type of physical activity do you participate in: other details: physical job seatbelt use: always ROS ROS ED Constitutional Constitutional ED: Denies chills, fever(s) or sweats Eyes Eyes: Denies change in vision ENT ENT ED: Denies dysphagia or sore throat Cardiovascular Cardiovascular: Denies chest pain, leg edema, palpitations or racing heartbeat Respiratory/Chest Respiratory/Chest: Denies cough, dyspnea or dyspnea on exertion Gastrointestinal Gastrointestinal: Reports nausea and vomiting; Denies abdominal pain or diarrhea Genitourinary Genitourinary ED: Denies dysuria, hematuria or urinary frequency Musculoskeletal Musculoskeletal: Reports arthralgias and myalgias; Denies back pain, extremity pain or neck pain Integumentary Denies rash or wounds Neurologic Neurologic: Denies headache(s), paresthesias or weakness EXAM Physical Exam Const Vital Signs: 05/26/22 13:10 05/26/22 14:58 05/26/22 16:14 Temperature 99 F Temperature Source Temporal Pulse Rate 61 Respiratory Rate 14 16 16 Blood Pressure 141/78 H Blood Pressure Mean 99 Pulse Ox 98 Oxygen Delivery Method Room Air Room Air Room Air 05/26/22 16:53 Temperature Temperature Source Pulse Rate 69 Respiratory Rate 17 Blood Pressure Blood Pressure Mean Pulse Ox 97 Oxygen Delivery Method Positive well nourished and well developed General Appearance ED: well developed and NAD HEENT Reports moist mucous membranes normocephalic and atraumatic Eyes PERRL, EOMs intact bilaterally and conjunctivae normal General Eye ED: Yes normal appearance of both eyes Neck no lymphadenopathy and supple General: Negative for tenderness Chest Wall Chest: Negative for tenderness Resp normal respiratory effort and normal air movement Effort and Inspection: symmetric chest movement; Negative for respiratory distress Cardio regular rate, regular rhythm and no murmurs Peripheral Pulses: pulses 2+ throughout GI normal to inspection, nondistended, normoactive bowel sounds and non-tender Palpation: Negative for guarding or rebound tenderness present Back/Spine no CVA tenderness and no thoracic nor lumbar tenderness Extremity normal to inspection General Extremety ED: Negative for edema or tenderness General Extremity: Negative for edema Neuro oriented x3 and no sensory deficits noted Sensorium / Orientation: awake and alert Skin no rashes or lesions noted and no wounds MDM MDM MDM Narrative Medical decision making narrative: Patient vital signs stable nontoxic nonsurgical abdomen. Vomiting since last night. He has pain throughout his metastatic regions. He was given IV fluids Zofran morphine. Symptoms were improving. Basic labs were normal. He is able to tolerate p.o. intake in the ED. He was sent in for Zofran and ODT's. He has oxycodone to use as needed. He has follow-up tomorrow with his oncologist in [place] for further outpatient plan of care. He will keep that appointment. All questions were answered. Lab Data Attestation: I reviewed the patient's lab results. Labs: Laboratory Results - last 24 hr 05/26/22 05/26/22 13:42 13:42 WBC 6.4 RBC 3.42 L Hgb 11.1 L Hct 33.3 L MCV 97.4 H MCH 32.5 H MCHC 33.3 RDW Std Deviation 50.2 H RDW Coeff of [place] 14.1 Plt Count 213 MPV 9.1 Immature Gran % (Auto) 0.500 Neut % (Auto) 78.7 H Lymph % (Auto) 12.2 L [place] % (Auto) 7.5 Eos % (Auto) 0.6 Baso % (Auto) 0.5 Absolute Neuts (auto) 5.0 Absolute Lymphs (auto) 0.78 L Nucleated RBC % 0 Sodium 136 Potassium 3.5 Chloride 101 Carbon Dioxide 31.0 Anion Gap 4 L BUN 11 Creatinine 0.57 L Estim Creat Clear Calc 191.81 Est GFR (MDRD) Af Amer 189 Est GFR (MDRD) Non-Af 156 BUN/Creatinine Ratio 19.3 Glucose 106 Calcium 8.9 Discharge Plan Triage Chief Complaint: Weakness ED Provider: Kevin Gaspar Dx/Rx/DC Orders Clinical Impression: Vomiting, Prostate cancer, Metastatic cancer to bone Instructions: ED Vomiting (Adult) Prescriptions: New ondansetron 4 mg tablet,disintegrating 4 mg PO Q6H PRN (Reason: nausea and vomiting) Qty: 10 0RF No Action calcium carbonat and lactate 200 mg calcium-vitamin D3 250 unit tablet 200 mg calcium -250 unit tablet 2 tab PO BID ondansetron HCl [Zofran] 4 mg tablet 4 mg PO Q6H PRN (Reason: Nausea) polyethylene glycol 3350 [Miralax] 17 gram powder in packet 17 g PO .QOD slippery elm bark 400 mg capsule PO loratadine 10 mg tablet 10 mg PO DAILY Qty: 30 3RF Ubrelvy 100 mg tablet 100 mg PO DAILY PRN (Reason: headache) Qty: 10 3RF dexamethasone [Decadron] 4 mg tablet 4 mg PO BID gabapentin 300 mg capsule 300 mg PO BID Symproic 0.2 mg tablet 0.2 mg PO DAILY oxycodone-acetaminophen [Percocet] 5-325 mg tablet 1 tab PO Q6H PRN acetaminophen [Tylenol Extra Strength] 500 mg tablet 500 mg PO Q6H PRN multivitamin 1 EACH tablet 1 ea PO DAILY diclofenac sodium 1 APPLIC gel 2 g TP TID Rx Instructions: 2 GM TWO TIMES A DAY OR THREE TIMES A DAY prednisone 10 mg Tablet 10 mg PO DAILY 30 Days Qty: 30 12RF Rx Instructions: Start September 14, 2021 with first cycle of chemotherapy Xarelto 20 mg Tablet 20 mg PO DAILY 30 Days Qty: 30 12RF Rx Instructions: must administer with evening meal fluticasone propionate 16 GM spray,suspension 2 spray INTRANASAL DAILY PRN (Reason: Allergies) Rx Instructions: administer into each nostril Xtampza ER 9 mg cap,sprinkl,ER12hr(DONT CRUSH) 9 mg PO BID Label Comments: TAKE 1 CAPSULE TWICE DAILY lidocaine-prilocaine 2.5-2.5 % cream 1 applic topical ONCE PRN (Reason: port access) 30 Days Qty: 30 2RF guaifenesin 400 mg tablet 400 mg PO TID PRN (Reason: congestion, cough) Qty: 60 1RF benzonatate 200 mg capsule 200 mg PO TID PRN (Reason: cough) Qty: 60 1RF Primary Care Provider: Jimy Li Referrals: Jimy Li MD [Primary Care Provider] - Activity Restrictions/Additional Instructions: Recent labs are stable normal creatinine electrolytes. Continue Zofran as needed. May use up to 2 tabs of your Percocet for pain as also reported with your specialist. Keep your follow-up with oncology tomorrow at [facility]. Disposition Disposition: Home, Self Care Discharge Date/Time: 05/26/22 16:56
[2022-05-26 14:39] LABS: Absolute Lymphocyte Count 0.78 X10^3/uL (0.83-4.51); Basophil# 0.03 X10^3/uL; Basophil% 0.5 % (0-1); Eosinophil# 0.04 X10^3/uL; Eosinophils% 0.6 % (0-5); Hematocrit 33.3 % (40-54); Hemoglobin 11.1 g/dL (13.0-16.5); Lymphocyte # 0.78 X10^3/ul (0.83-4.51); Lymphocyte % 12.2 % (19-41); Mean Corp Hgb Conc 33.3 g/dL (32-36); Mean Corpuscular Hgb 32.5 pg (27.0-32.0); Mean Corpuscular Volume 97.4 fL (80-94); Mean Platelet Vol. 9.1 fl (6.2-12.0); Monocyte# 0.48 X10^3/uL; Monocyte% 7.5 % (0-10); NRBC Flagged by Analyzer 0 % (0-5); Neutrophil # 5.03 X10^3/uL (2.7-7.7); Neutrophil % 78.7 % (47-70); Platelet Count 213 K/mm3 (150-450); RBC Distribution Width CV 14.1 % (11.6-14.6); RBC Distribution Width SD 50.2 fl (35.1-43.9); Red Blood Count 3.42 M/mm3 (4.6-6.2); White Blood Count 6.4 K/mm3 (4.4-11.0)
[2022-05-26 14:51] LABS: Anion Gap 4 (5-15); BUN 11 mg/dL (7-18); BUN/Creat Ratio 19.3 RATIO (10-20); Calcium,Total 8.9 mg/dL (8.5-10.1); Chloride 101 mmol/L (98-107); Creatinine, Serum 0.57 mg/dL (0.70-1.30); EST Glomerular Filtration Rate 156 mL/min (>60); Est Glom Filt Rate - Afr Amer 189 mL/min (>60); Estimated Creatinine Clearance 191.81 ml/min; Glucose 106 mg/dL (74-106); Potassium 3.5 mmol/L (3.5-5.1); Sodium Level 136 mmol/L (136-145)
[2022-05-26] MEDS: 0.9% Normal Saline 1,000 ML 1000 ML IV (14:52)
[2022-05-26] MEDS: Morphine 4 MG/ML Syringe IV (14:53)
[2022-05-26] MEDS: Ondansetron 4 MG/2 ML Vial IV (14:54)
[2022-05-26 14:58] VITALS: RESP 16
[2022-05-26 16:14] VITALS: RESP 16
[2022-05-26 16:53] VITALS: PULSE 69; RESP 17; O2SAT 97
== END 2022-05-26 16:56 | disposition home or self-care (01) ==
PROVIDERS: Emergency Provider Emergency Medicine; PCP Internal Medicine; Visit Provider Emergency Medicine
DX: C61 Malignant neoplasm of prostate (principal); C79.51 Secondary malignant neoplasm of bone; R11.10 Vomiting, unspecified; M19.90 Unspecified osteoarthritis, unspecified site; G89.3 Neoplasm related pain (acute) (chronic); Z92.21 Personal history of antineoplastic chemotherapy
CPT/HCPCS: 36591; 80048; 85025; 96361; 96374; 96375; 99283; A4216; J2405

== ENCOUNTER → 2022-07-12 | Outpatient (CLI) | payer OTHER, SELFPAY ==
[2022-07-12 15:35] LABS: Absolute Lymphocyte Count 1.22 X10^3/uL (0.83-4.51); Absolute Neutrophil Count 5.2 X10^3/uL (2.0-7.7); Basophil# 0.04 X10^3/uL; Basophil% 0.6 % (0-1); Eosinophil# 0.01 X10^3/uL; Eosinophils% 0.1 % (0-5); Hematocrit 34.3 % (40-54); Hemoglobin 11.2 g/dL (13.0-16.5); Lymphocyte # 1.22 X10^3/ul (0.83-4.51); Lymphocyte % 17.6 % (19-41); Mean Corp Hgb Conc 32.7 g/dL (32-36); Mean Corpuscular Hgb 32.3 pg (27.0-32.0); Mean Corpuscular Volume 98.8 fL (80-94); Mean Platelet Vol. 8.8 fl (6.2-12.0); Monocyte% 5.8 % (0-10); NRBC Flagged by Analyzer 0 % (0-5); Neutrophil # 5.22 X10^3/uL (2.7-7.7); Neutrophil % 75.5 % (47-70); Platelet Count 250 K/mm3 (150-450); RBC Distribution Width CV 12.5 % (11.6-14.6); RBC Distribution Width SD 44.7 fl (35.1-43.9); Red Blood Count 3.47 M/mm3 (4.6-6.2); White Blood Count 6.9 K/mm3 (4.4-11.0)
[2022-07-12 23:32] LABS: Xtra Tube EP Lab EXTRA TUBE
== END | disposition home or self-care (01) ==
LOC: PAVLAB 15:16
PROVIDERS: PCP Internal Medicine
DX: C61 Malignant neoplasm of prostate (principal); C79.51 Secondary malignant neoplasm of bone
CPT/HCPCS: 36415; 85025

== ENCOUNTER → 2022-08-02 | Outpatient (CLI) | payer OTHER, SELFPAY ==
[2022-08-02 08:42] LABS: Absolute Lymphocyte Count 0.98 X10^3/uL (0.83-4.51); Absolute Neutrophil Count 2.6 X10^3/uL (2.0-7.7); Basophil# 0.04 X10^3/uL; Eosinophil# 0.11 X10^3/uL; Eosinophils% 2.7 % (0-5); Hematocrit 34.5 % (40-54); Hemoglobin 11.8 g/dL (13.0-16.5); Lymphocyte # 0.98 X10^3/ul (0.83-4.51); Mean Corp Hgb Conc 34.2 g/dL (32-36); Mean Corpuscular Hgb 32.6 pg (27.0-32.0); Mean Corpuscular Volume 95.3 fL (80-94); Mean Platelet Vol. 9.1 fl (6.2-12.0); Monocyte% 9.8 % (0-10); NRBC Flagged by Analyzer 0 % (0-5); Neutrophil # 2.55 X10^3/uL (2.7-7.7); Neutrophil % 62.3 % (47-70); Platelet Count 199 K/mm3 (150-450); RBC Distribution Width CV 12.2 % (11.6-14.6); RBC Distribution Width SD 42.6 fl (35.1-43.9); Red Blood Count 3.62 M/mm3 (4.6-6.2); White Blood Count 4.1 K/mm3 (4.4-11.0)
== END | disposition home or self-care (01) ==
LOC: PAVLAB 08:10
PROVIDERS: PCP Internal Medicine; Referring Provider Nurse Practitioner; Visit Provider Nurse Practitioner
DX: C61 Malignant neoplasm of prostate (principal); C79.51 Secondary malignant neoplasm of bone
CPT/HCPCS: 36415; 85025

== ENCOUNTER 2022-08-04 05:22 | Emergency (ER) | payer OTHER, SELFPAY ==
[2022-08-04 05:23] VITALS: BP 165/75; PULSE 77; RESP 16; TEMP 36.4; O2SAT 100; BMI 25.0
[2022-08-04] MEDS: Ondansetron 4 MG/2 ML Vial IV (05:50)
[2022-08-04] MEDS: HYDROmorphone 1 MG/ML Syringe IV (05:50)
[2022-08-04 06:02] LABS: Absolute Lymphocyte Count 1.16 X10^3/uL (0.83-4.51); Absolute Neutrophil Count 2.7 X10^3/uL (2.0-7.7); Basophil# 0.03 X10^3/uL; Basophil% 0.7 % (0-1); Eosinophil# 0.08 X10^3/uL; Eosinophils% 1.8 % (0-5); Hematocrit 33.2 % (40-54); Hemoglobin 11.5 g/dL (13.0-16.5); Lymphocyte # 1.16 X10^3/ul (0.83-4.51); Lymphocyte % 25.8 % (19-41); Mean Corp Hgb Conc 34.6 g/dL (32-36); Mean Corpuscular Hgb 32.5 pg (27.0-32.0); Mean Corpuscular Volume 93.8 fL (80-94); Mean Platelet Vol. 9.2 fl (6.2-12.0); Monocyte# 0.48 X10^3/uL; Monocyte% 10.7 % (0-10); NRBC Flagged by Analyzer 0 % (0-5); Neutrophil # 2.73 X10^3/uL (2.7-7.7); Neutrophil % 60.8 % (47-70); Platelet Count 221 K/mm3 (150-450); RBC Distribution Width CV 12.1 % (11.6-14.6); RBC Distribution Width SD 42.1 fl (35.1-43.9); Red Blood Count 3.54 M/mm3 (4.6-6.2); White Blood Count 4.5 K/mm3 (4.4-11.0)
[2022-08-04] MEDS: DiphenhydrAMINE 50 MG/ML Syringe IV (06:12)
[2022-08-04] MEDS: HYDROmorphone 1 MG/ML Syringe 2 MG IV (06:12)
--- NOTE | 2022-08-04 06:18 | EDS_ITS ---
HPI History of Present Illness Chief Complaint: Other, Pain/Inj Narrative Narrative: Patient has metastatic prostate cancer with multiple bone metastases, he has history of intractable pain, he is on Dilaudid at home, he presents with even worse intractable pain today. It is generalized in his legs knees arms and back this is consistent with his prior pain it is just worse today and patient cannot sleep. He is on palliative care and when he called he was referred to the ED [facility] Medical History Alcohol use Arthritis Arthritis Cancer DVT (deep venous thrombosis) Encounter for chemotherapy management Encounter for chemotherapy management Excessive bleeding Gastric reflux History of diverticulitis History of epidural anesthesia History of pain when walking History of steroid therapy Injury of back Injury of head and neck Knee pain Leg pain, bilateral Migraine headache Non-smoker Prostate cancer Shortness of breath on exertion Syncope Home Medications multivitamin 1 ea PO DAILY 03/07/19 [History Last Taken 10/10/20 08:00] calcium carb and lactate 200 mg-vitamin D3 6.25 mcg (250 unit) tablet 2 tab PO BID 05/21/19 [History Last Taken 10/10/20 10:00] diclofenac sodium 1 % topical gel 2 g TP TID 01/28/20 [History Last Taken 10/14/20 22:00] fluticasone propionate 50 mcg/actuation nasal spray,suspension 2 spray intranasal DAILY PRN Allergies 09/17/20 [History Last Taken Unknown] ondansetron HCl 4 mg tablet (Zofran) 4 mg PO Q6H PRN Nausea 10/24/20 [History Last Taken Unknown] prednisone 10 mg tablet 10 mg PO DAILY 30 days #30 tabs 07/23/21 [Rx Last Taken Unknown] polyethylene glycol 3350 17 gram oral powder packet (Miralax) 17 g PO .QOD 11/23/21 [History Last Taken Unknown] lidocaine-prilocaine 2.5 %-2.5 % topical cream 1 applic topical ONCE PRN port access 30 days #30 grams 12/11/21 [Rx Last Taken Unknown] rivaroxaban 20 mg tablet (Xarelto) 20 mg PO DAILY 30 days #30 tabs 02/08/22 [Rx Last Taken Unknown] slippery elm bark 400 mg capsule mg PO 02/16/22 [History Last Taken Unknown] benzonatate 200 mg capsule 200 mg PO TID PRN cough #60 caps 02/17/22 [Rx Last Taken Unknown] guaifenesin 400 mg tablet 400 mg PO TID PRN congestion, cough #60 tabs 02/17/22 [Rx Last Taken Unknown] loratadine 10 mg tablet 10 mg PO DAILY #30 tabs 03/18/22 [Rx Last Taken Unknown] ubrogepant 100 mg tablet (Ubrelvy) 100 mg PO DAILY PRN headache #10 tabs 03/18/22 [Rx Last Taken Unknown] acetaminophen 500 mg tablet (Tylenol Extra Strength) 500 mg PO Q6H PRN Pain 05/17/22 [History Last Taken Unknown] dexamethasone 4 mg tablet (Decadron) 4 mg PO BID 05/17/22 [History Last Taken Unknown] gabapentin 300 mg capsule 300 mg PO BID 05/17/22 [History Last Taken Unknown] naldemedine 0.2 mg tablet (Symproic) 0.2 mg PO DAILY 05/17/22 [History Last Taken Unknown] ondansetron 4 mg disintegrating tablet 4 mg PO Q6H PRN nausea and vomiting #10 tabs 05/26/22 [Rx Last Taken Unknown] oxycodone 5 mg tablet 5 mg PO Q4H PRN 05/31/22 [History Last Taken Unknown] oxycodone myristate 13.5 mg capsule sprinkle extend release 12hr(DON'T CRUSH) 13.5 mg PO BID 05/31/22 [History Last Taken Unknown] Allergy/AdvReac Type Severity Reaction Status Date / Time grass pollen Allergy Other Verified 08/04/22 05:30 ragweed pollen Allergy Other Verified 08/04/22 05:30 Family History Mother Non Hodgkin's lymphoma Father COPD (chronic obstructive pulmonary disease) Skin cancer Grandmother Cancer Lung cancer Grandfather CVA (cerebral vascular accident) Brother Blood disease Surgical History Hx of colonoscopy Hx of tonsillectomy Status post total left knee replacement Social History Smoking Status: Never smoker alcohol intake: current alcohol intake frequency: a few times a month substance use type: does not use what type of physical activity do you participate in: other details: physical job seatbelt use: always ROS ROS ED ROS Narrative Past medical history: Reviewed Medications: Reviewed Social history: Noncontributory Review of systems: All systems negative except as indicated General: No fever. Some generalized weakness Eyes: No visual changes ENT: No upper airway congestion, normal voice Neck: No neck pain Cardiovascular: No chest pain Respiratory: No shortness of breath or cough Gastrointestinal: No abdominal pain, nausea vomiting or diarrhea Genitourinary: No dysuria Musculoskeletal: Generalized pain Skin: No rash Neurological: No memory loss, confusion or any focal weakness Psych: No recent behavioral changes Hematologic: No easy bleeding or easy bruising EXAM Physical Exam Narrative Exam Narrative: Physical exam General: Patient appears quite uncomfortable. Head: Normocephalic, Atraumatic Eyes: Conjunctiva not pale ENT: Slightly dry mucous membranes Neck: Supple, Nontender, No lymphadenopathy Cardiovascular: Regular rate, Regular rhythm Respiratory: No distress, CTA bilaterally Abdomen: Soft, Nontender, Nondistended Back: Nontender, Normal Inspection. Negative for: CVA tenderness Extremities: Full range of motion without obvious signs of trauma or abnormality but he points towards multiple areas of pain. Skin: Normal color, No rash Neurological: Alert, Normal Strength, Normal Sensation Psychological: Quite anxious Const Vital Signs: 08/04/22 05:23 08/04/22 05:22 08/04/22 05:30 Temperature 97.6 F L Temperature Source Temporal Pulse Rate 77 Respiratory Rate 16 Respiratory Effort Non-Labored Respiratory Pattern Normal Blood Pressure 165/75 H Blood Pressure Mean 105 Pulse Ox 100 Oxygen Delivery Method Room Air Room Air Oxygen Flow Rate (L/min) 08/04/22 06:23 08/04/22 06:23 Temperature Temperature Source Pulse Rate 69 Respiratory Rate 17 Respiratory Effort Respiratory Pattern Blood Pressure 124/71 H Blood Pressure Mean 88 Pulse Ox 89 96 Oxygen Delivery Method Room Air Nasal Cannula Oxygen Flow Rate (L/min) 3 MDM MDM MDM Narrative Medical decision making narrative: Patient is given a milligram of Dilaudid. This did not solve his pain I then gave him 2 mg of Dilaudid and Benadryl per his request. His pain is now controlled. He will follow-up with palliative care this morning at [facility] Data Labs: Laboratory Results - last 24 hr 08/04/22 08/04/22 05:58 05:58 WBC 4.5 RBC 3.54 L Hgb 11.5 L Hct 33.2 L MCV 93.8 MCH 32.5 H MCHC 34.6 RDW Std Deviation 42.1 RDW Coeff of [place] 12.1 Plt Count 221 MPV 9.2 Immature Gran % (Auto) 0.200 Neut % (Auto) 60.8 Lymph % (Auto) 25.8 [place] % (Auto) 10.7 H Eos % (Auto) 1.8 Baso % (Auto) 0.7 Absolute Neuts (auto) 2.7 Absolute Lymphs (auto) 1.16 Nucleated RBC % 0 Sodium 136 Potassium 3.5 Chloride 103 Carbon Dioxide 25.0 Anion Gap 8 BUN 14 Creatinine 0.65 L Estim Creat Clear Calc 164.18 Est GFR (MDRD) Af Amer 163 Est GFR (MDRD) Non-Af 134 BUN/Creatinine Ratio 21.6 H Glucose 106 Calcium 9.1 Total Bilirubin 0.50 AST 19 ALT 26 Alkaline Phosphatase 49 Total Protein 6.7 Albumin 3.5 Globulin 3.2 Albumin/Globulin Ratio 1.1 Discharge Plan Triage Chief Complaint: Other, Pain/Inj ED Provider: Deangelo Leonard Dx/Rx/DC Orders Clinical Impression: Prostate cancer, Bone metastases, Intractable back pain Instructions: Understanding Bone Metastasis Prescriptions: No Action calcium carbonat and lactate 200 mg calcium-vitamin D3 250 unit tablet 200 mg calcium -250 unit tablet 2 tab PO BID ondansetron HCl [Zofran] 4 mg tablet 4 mg PO Q6H PRN (Reason: Nausea) polyethylene glycol 3350 [Miralax] 17 gram powder in packet 17 g PO .QOD slippery elm bark 400 mg capsule PO loratadine 10 mg tablet 10 mg PO DAILY Qty: 30 3RF Ubrelvy 100 mg tablet 100 mg PO DAILY PRN (Reason: headache) Qty: 10 3RF dexamethasone [Decadron] 4 mg tablet 4 mg PO BID gabapentin 300 mg capsule 300 mg PO BID Symproic 0.2 mg tablet 0.2 mg PO DAILY acetaminophen [Tylenol Extra Strength] 500 mg tablet 500 mg PO Q6H PRN (Reason: Pain) oxycodone myristate 13.5 mg cap,sprinkl,ER12hr(DONT CRUSH) 13.5 mg PO BID Rx Instructions: must administer with a meal/food oxycodone 5 mg tablet 5 mg PO Q4H PRN Rx Instructions: 1-2 tablets multivitamin 1 EACH tablet 1 ea PO DAILY diclofenac sodium 1 APPLIC gel 2 g TP TID Rx Instructions: 2 GM TWO TIMES A DAY OR THREE TIMES A DAY prednisone 10 mg Tablet 10 mg PO DAILY 30 Days Qty: 30 12RF Rx Instructions: Start September 14, 2021 with first cycle of chemotherapy Xarelto 20 mg Tablet 20 mg PO DAILY 30 Days Qty: 30 12RF Rx Instructions: must administer with evening meal fluticasone propionate 16 GM spray,suspension 2 spray INTRANASAL DAILY PRN (Reason: Allergies) Rx Instructions: administer into each nostril ondansetron 4 mg tablet,disintegrating 4 mg PO Q6H PRN (Reason: nausea and vomiting) Qty: 10 0RF lidocaine-prilocaine 2.5-2.5 % cream 1 applic topical ONCE PRN (Reason: port access) 30 Days Qty: 30 2RF guaifenesin 400 mg tablet 400 mg PO TID PRN (Reason: congestion, cough) Qty: 60 1RF benzonatate 200 mg capsule 200 mg PO TID PRN (Reason: cough) Qty: 60 1RF Primary Care Provider: Jimy Li Referrals: Jimy Li MD [Primary Care Provider] - Activity Restrictions/Additional Instructions: Follow-up with palliative care at [facility] Disposition: Home, Self Care
[2022-08-04 06:21] LABS: ALB/GLOB Ratio 1.1 RATIO (0.9-2.4); AST(SGOT) 19 U/L (15-37); Alanine Aminotransfer ALT/SGPT 26 U/L (16-61); Albumin, Serum 3.5 g/dL (3.2-5.0); Alkaline Phosphatase 49 U/L (45-117); Anion Gap 8 (5-15); BUN 14 mg/dL (7-18); BUN/Creat Ratio 21.6 RATIO (10-20); Calcium,Total 9.1 mg/dL (8.5-10.1); Chloride 103 mmol/L (98-107); Creatinine, Serum 0.65 mg/dL (0.70-1.30); EST Glomerular Filtration Rate 134 mL/min (>60); Est Glom Filt Rate - Afr Amer 163 mL/min (>60); Estimated Creatinine Clearance 164.18 ml/min; Globulin 3.2 g/dL (2.2-4.2); Glucose 106 mg/dL (74-106); Potassium 3.5 mmol/L (3.5-5.1); Protein, Total 6.7 g/dL (6.4-8.2); Sodium Level 136 mmol/L (136-145)
[2022-08-04 06:23] VITALS: BP 124/71; PULSE 69; RESP 17; O2SAT 89; O2SAT 96
--- NOTE | 2022-08-04 08:55 | NURSING ---
talking to [facility] palliative care doc on phone outside of room now. not decided on what to do. pt to have another palliative radiology tx on tuesday. seems to be resting now on just taking motrin and tylenol. repeat dose of iv dilaudid held this am per request
[2022-08-04 09:13] VITALS: BP 125/74; PULSE 75; RESP 16; O2SAT 96
[2022-08-04] MEDS: 0.9 % NaCl (Sterile) Posiflush 10 mL IV (09:40)
== END 2022-08-04 09:56 | disposition home or self-care (01) ==
PROVIDERS: Emergency Provider Emergency Medicine; PCP Internal Medicine; Visit Provider Emergency Medicine
DX: C61 Malignant neoplasm of prostate (principal); C79.51 Secondary malignant neoplasm of bone; Z51.5 Encounter for palliative care; M54.9 Dorsalgia, unspecified
CPT/HCPCS: 36591; 80053; 85025; 96374; 96375; 99285; A4216; J2405

== ENCOUNTER 2022-08-25 11:11 | Emergency (ER) | payer OTHER, SELFPAY ==
[2022-08-25 11:12] VITALS: BP 111/62; PULSE 66; RESP 16; TEMP 36.2; O2SAT 98; BMI 22.6
--- NOTE | 2022-08-25 11:57 | EX.ED.DYSGE1 ---
HPI History of Present Illness Chief Complaint: Nausea/Vomiting Narrative Narrative: 57-year-old male with history of metastatic prostate cancer with bony metastasis to the pelvis, lumbar, sacrum, proximal femur who recently spent time at [facility] for focal radiation of these areas to try to alleviate some of his pain presenting with nausea and vomiting. He states his pain is not really the issue today its more that he cannot hold down food or fluids. He states he was seen as an outpatient yesterday and had lab work drawn and was given IV fluids. Today is not able to hold anything down. Patient is on methadone 15?10-15 mg p.o. every 8 hours and this was increased on the . He is also on Dilaudid 6 mg p.o. every 4 hours for breakthrough pain. He is on desipramine 50 mg p.o. nightly for neuropathic pain, gabapentin 900 mg p.o. 3 times daily is also prescribed. He is taking dexamethasone 4 mg p.o. twice daily. He still takes Tylenol 975 mg every 8 hours. He previously was on Valium and this was stopped. He was not a candidate for an epidural steroid injection. [facility] Medical History Alcohol use Arthritis Arthritis Cancer DVT (deep venous thrombosis) Encounter for chemotherapy management Encounter for chemotherapy management Excessive bleeding Gastric reflux History of diverticulitis History of epidural anesthesia History of pain when walking History of steroid therapy Injury of back Injury of head and neck Knee pain Leg pain, bilateral Migraine headache Non-smoker Prostate cancer Shortness of breath on exertion Syncope Home Medications multivitamin 1 ea PO DAILY 03/07/19 [History Last Taken 10/10/20 08:00] calcium carb and lactate 200 mg-vitamin D3 6.25 mcg (250 unit) tablet 2 tab PO BID 05/21/19 [History Last Taken 10/10/20 10:00] ondansetron HCl 4 mg tablet (Zofran) 4 mg PO Q8H PRN Nausea 10/24/20 [History Last Taken Unknown] polyethylene glycol 3350 17 gram oral powder packet (Miralax) 17 g PO .QOD 11/23/21 [History Last Taken Unknown] rivaroxaban 20 mg tablet (Xarelto) 20 mg PO DAILY 30 days #30 tabs 02/08/22 [Rx Last Taken Unknown] guaifenesin 400 mg tablet 400 mg PO TID PRN congestion, cough #60 tabs 02/17/22 [Rx Last Taken Unknown] loratadine 10 mg tablet 10 mg PO DAILY #30 tabs 03/18/22 [Rx Last Taken Unknown] acetaminophen 500 mg tablet (Tylenol Extra Strength) 500 mg PO Q6H PRN Pain 05/17/22 [History Last Taken Unknown] dexamethasone 4 mg tablet (Decadron) 4 mg PO BID 05/17/22 [History Last Taken Unknown] gabapentin 300 mg capsule 300 mg PO TID 05/17/22 [History Last Taken Unknown] naldemedine 0.2 mg tablet (Symproic) 0.2 mg PO DAILY 05/17/22 [History Last Taken Unknown] desipramine 25 mg tablet 50 mg PO QHS 08/25/22 [History Last Taken Unknown] haloperidol 2 mg tablet 2 mg PO TID PRN nausea and vomiting #20 tabs 08/25/22 [Rx Last Taken Unknown] hydromorphone 4 mg tablet 6 mg PO Q4H PRN Pain 08/25/22 [History Last Taken Unknown] methadone 5 mg tablet 5 mg PO BID 08/25/22 [History Last Taken Unknown] naldemedine 0.2 mg tablet (Symproic) 0.2 mg PO DAILY 08/25/22 [History Last Taken Unknown] pantoprazole 40 mg tablet,delayed release 40 mg PO DAILY 08/25/22 [History Last Taken Unknown] promethazine 25 mg rectal suppository 25 mg NM Q6H PRN nausea and vomiting #12 ea 08/25/22 [Rx Last Taken Unknown] Allergy/AdvReac Type Severity Reaction Status Date / Time grass pollen Allergy Other Verified 08/25/22 11:15 ragweed pollen Allergy Other Verified 08/25/22 11:15 Family History Mother Non Hodgkin's lymphoma Father COPD (chronic obstructive pulmonary disease) Skin cancer Grandmother Cancer Lung cancer Grandfather CVA (cerebral vascular accident) Brother Blood disease Surgical History Hx of colonoscopy Hx of tonsillectomy Status post total left knee replacement Social History Smoking Status: Never smoker alcohol intake: current alcohol intake frequency: a few times a month substance use type: does not use what type of physical activity do you participate in: other details: physical job seatbelt use: always EXAM Physical Exam Const Vital Signs: 08/25/22 11:12 Temperature 97.2 F L Temperature Source Temporal Pulse Rate 66 Respiratory Rate 16 Blood Pressure 111/62 Blood Pressure Mean 78 Pulse Ox 98 Oxygen Delivery Method Room Air MDM MDM MDM Narrative Medical decision making narrative: Patient medicated with IV fluids and Haldol for nausea. Blood work is obtained and his CBC shows no leukocytosis. His hemoglobin hematocrit are stable. Platelets are normal. Renal function electrolytes appear to be within normal limits. LFTs are normal. Lipase is normal. Review of the medical record shows that he had an MRI performed. On 08/12/2022 MRI of his pelvis showed extensive sclerotic osseous metastases throughout the visualized structures. Patient also had MRIs of the femurs on 08/12/2022 which showed numerous sclerotic osseous lesions throughout the bilateral femoral suggestive of metastases. MRI of the lumbar spine performed 08/11/2022 showed numerous metastases appearing to be progressed from prior PET/CT May 27, 2022 with extensive associated epidural tumor at the L3 level resulting in complete effacement of the spinal canal and severe spinal canal stenosis and likely involving the cauda equina nerve roots at this level tumor also completely effaced and failed bilateral L2-L3 and L3-L4 neural foramina. While he was here he was medicated with IV fluids, and given Haldol for nausea. On reevaluation the patient's nausea is very much improved. I do not believe he needs further imaging. Patient requests Haldol for home as this helped with his nausea and vomiting. I will also give him some Phenergan suppositories to take as needed. He will follow-up with his oncology team at [facility]. Return precautions discussed. Impression: 1. Nausea/vomiting 2. History of metastatic prostate cancer Lab Data Attestation: I reviewed the patient's lab results. Labs: Laboratory Results - last 24 hr 08/25/22 08/25/22 12:11 12:11 WBC 6.9 RBC 4.01 L Hgb 12.6 L Hct 36.6 L MCV 91.3 MCH 31.4 MCHC 34.4 RDW Std Deviation 40.9 RDW Coeff of Alejo 12.2 Plt Count 203 MPV 8.9 Immature Gran % (Auto) 0.400 Neut % (Auto) 74.7 H Lymph % (Auto) 7.2 L [place] % (Auto) 10.4 H Eos % (Auto) 6.9 H Baso % (Auto) 0.4 Absolute Neuts (auto) 5.2 Absolute Lymphs (auto) 0.50 L Nucleated RBC % 0 Differential Comment SCANNED Sodium 135 L Potassium 3.6 Chloride 99 Carbon Dioxide 28.0 Anion Gap 8 BUN 18 Creatinine 0.67 L Estim Creat Clear Calc 158.83 Est GFR (MDRD) Af Amer 155 Est GFR (MDRD) Non-Af 128 BUN/Creatinine Ratio 26.7 H Glucose 104 Calcium 9.2 Total Bilirubin 0.50 AST 13 L ALT 21 Alkaline Phosphatase 52 Total Protein 7.1 Albumin 3.4 Globulin 3.7 Albumin/Globulin Ratio 0.9 Lipase 315 Discharge Plan Triage Chief Complaint: Nausea/Vomiting ED Provider: Samy Strickland Dx/Rx/DC Orders Instructions: ED Vomiting (Adult) Prescriptions: New haloperidol 2 mg tablet 2 mg PO TID PRN (Reason: nausea and vomiting) Qty: 20 0RF promethazine 25 mg suppository 25 mg NM Q6H PRN (Reason: nausea and vomiting) Qty: 12 0RF No Action calcium carbonat and lactate 200 mg calcium-vitamin D3 250 unit tablet 200 mg calcium -250 unit tablet 2 tab PO BID ondansetron HCl [Zofran] 4 mg tablet 4 mg PO Q8H PRN (Reason: Nausea) polyethylene glycol 3350 [Miralax] 17 gram powder in packet 17 g PO .QOD loratadine 10 mg tablet 10 mg PO DAILY Qty: 30 3RF dexamethasone [Decadron] 4 mg tablet 4 mg PO BID gabapentin 300 mg capsule 300 mg PO TID Symproic 0.2 mg tablet 0.2 mg PO DAILY acetaminophen [Tylenol Extra Strength] 500 mg tablet 500 mg PO Q6H PRN (Reason: Pain) multivitamin 1 EACH tablet 1 ea PO DAILY Xarelto 20 mg Tablet 20 mg PO DAILY 30 Days Qty: 30 12RF Rx Instructions: must administer with evening meal desipramine 25 mg tablet 50 mg PO QHS pantoprazole 40 mg tablet,delayed release (DR/EC) 40 mg PO DAILY Label Comments: TAKE 1 TABLET EVERY DAY DIRECTED. hydromorphone 4 mg tablet 6 mg PO Q4H PRN (Reason: Pain) methadone 5 mg tablet 5 mg PO BID Label Comments: TAKE 1 TABLET BY MOUTH EVERY MORNING and ONE TABLET IN THE EVENING AND TAKE 1 & 1/2 (ONE AND ONE-HALF) TABLETS AT BEDTIME Symproic 0.2 mg tablet 0.2 mg PO DAILY guaifenesin 400 mg tablet 400 mg PO TID PRN (Reason: congestion, cough) Qty: 60 1RF Primary Care Provider: Jimy Li Referrals: Jimy Li MD [Primary Care Provider] - Disposition Disposition: Home, Self Care
[2022-08-25] MEDS: 0.9% Normal Saline 1,000 ML 1000 ML IV (12:16)
[2022-08-25] MEDS: Haloperidol Lactate 5 MG/ML Vial 2 MG IV (12:16)
[2022-08-25 12:21] LABS: Absolute Neutrophil Count 5.2 X10^3/uL (2.0-7.7); Basophil# 0.03 X10^3/uL; Basophil% 0.4 % (0-1); Differential Indicated SCAN CRITERIA MET; Eosinophil# 0.48 X10^3/uL; Eosinophils% 6.9 % (0-5); Hematocrit 36.6 % (40-54); Hemoglobin 12.6 g/dL (13.0-16.5); Lymphocyte % 7.2 % (19-41); Mean Corp Hgb Conc 34.4 g/dL (32-36); Mean Corpuscular Hgb 31.4 pg (27.0-32.0); Mean Corpuscular Volume 91.3 fL (80-94); Mean Platelet Vol. 8.9 fl (6.2-12.0); Monocyte# 0.72 X10^3/uL; Monocyte% 10.4 % (0-10); NRBC Flagged by Analyzer 0 % (0-5); Neutrophil # 5.17 X10^3/uL (2.7-7.7); Neutrophil % 74.7 % (47-70); POSITIVE DIFFERENTIAL YES; Platelet Count 203 K/mm3 (150-450); RBC Distribution Width CV 12.2 % (11.6-14.6); RBC Distribution Width SD 40.9 fl (35.1-43.9); Red Blood Count 4.01 M/mm3 (4.6-6.2); White Blood Count 6.9 K/mm3 (4.4-11.0)
[2022-08-25 12:37] LABS: ALB/GLOB Ratio 0.9 RATIO (0.9-2.4); AST(SGOT) 13 U/L (15-37); Alanine Aminotransfer ALT/SGPT 21 U/L (16-61); Albumin, Serum 3.4 g/dL (3.2-5.0); Alkaline Phosphatase 52 U/L (45-117); Anion Gap 8 (5-15); BUN 18 mg/dL (7-18); BUN/Creat Ratio 26.7 RATIO (10-20); Calcium,Total 9.2 mg/dL (8.5-10.1); Chloride 99 mmol/L (98-107); Creatinine, Serum 0.67 mg/dL (0.70-1.30); EST Glomerular Filtration Rate 128 mL/min (>60); Est Glom Filt Rate - Afr Amer 155 mL/min (>60); Estimated Creatinine Clearance 158.83 ml/min; Globulin 3.7 g/dL (2.2-4.2); Glucose 104 mg/dL (74-106); Lipase 315 U/L (73-393); Potassium 3.6 mmol/L (3.5-5.1); Protein, Total 7.1 g/dL (6.4-8.2); Sodium Level 135 mmol/L (136-145)
[2022-08-25 12:54] LABS: Differential Comment SCANNED
[2022-08-25 14:10] VITALS: BP 124/68; PULSE 74; RESP 16; O2SAT 98
== END 2022-08-25 14:11 | disposition home or self-care (01) ==
PROVIDERS: Emergency Provider Student in an Organized Health Care Education/Training Program; PCP Internal Medicine; Visit Provider Student in an Organized Health Care Education/Training Program
DX: R11.2 Nausea with vomiting, unspecified (principal); C79.51 Secondary malignant neoplasm of bone; G62.9 Polyneuropathy, unspecified
CPT/HCPCS: 36591; 80053; 83690; 85025; 96361; 96374; 99282; J7030; A4216

== ENCOUNTER → 2022-11-19 | Outpatient (CLI) | payer OTHER, SELFPAY ==
[2022-11-19 08:06] LABS: Absolute Neutrophil Count 2.3 X10^3/uL (2.0-7.7); Basophil# 0.04 X10^3/uL; Eosinophil# 0.25 X10^3/uL; Eosinophils% 6.4 % (0-5); Hematocrit 34.1 % (40-54); Hemoglobin 11.3 g/dL (13.0-16.5); Lymphocyte % 20.6 % (19-41); Mean Corp Hgb Conc 33.1 g/dL (32-36); Mean Corpuscular Volume 96.6 fL (80-94); Mean Platelet Vol. 8.3 fl (6.2-12.0); Monocyte# 0.45 X10^3/uL; Monocyte% 11.6 % (0-10); NRBC Flagged by Analyzer 0 % (0-5); Neutrophil # 2.31 X10^3/uL (2.7-7.7); Neutrophil % 59.6 % (47-70); Platelet Count 211 K/mm3 (150-450); RBC Distribution Width CV 12.3 % (11.6-14.6); RBC Distribution Width SD 43.6 fl (35.1-43.9); Red Blood Count 3.53 M/mm3 (4.6-6.2); White Blood Count 3.9 K/mm3 (4.4-11.0)
== END | disposition home or self-care (01) ==
LOC: LAB 07:47
PROVIDERS: PCP Internal Medicine; Referring Provider Internal Medicine Medical Oncology; Visit Provider Internal Medicine Medical Oncology
DX: G89.3 Neoplasm related pain (acute) (chronic) (principal)
CPT/HCPCS: 36415; 85025

== ENCOUNTER 2023-09-28 14:39 | Emergency (ER) | payer OTHER, SELFPAY ==
[2023-09-28 14:40] VITALS: BP 128/66; PULSE 83; RESP 14; TEMP 36.2; O2SAT 98; BMI 24.2
--- NOTE | 2023-09-28 15:28 | EX.ED.UPPERE ---
HPI History of Present Illness Chief Complaint: Laceration Detail of Chief Complaint: Laceration dorsum right thumb Informant: patient Occured/Mechanism Mechanism/Context: Yes blunt trauma Comment: Accidentally cut with hedge cutters Onset/Context/Timing Onset: Hours Context: Sudden Onset Timing: Continuous Location: Bleeding dorsum of the right over the proximal phalanx Current Severity: There is no active bleeding Maximum Severity: Severe Worsened by: Patient is on Xarelto for history of deep venous thrombosis both LE Relieved by: Pressure Associated Symptoms Associated Symptoms: Negative for Parasthesia, Weakness or Loss of Funtion Narrative Narrative: Patient is a 58-year-old male with history of bilateral lower extremity DVT on Xarelto due to cancer. He denies paresthesia, anesthesia or motor weakness of his right thumb. He is right-hand dominant. He states he believes his last tetanus was 3 to 4 years ago. Tetanus Immunization: <5 years Prior similar symptoms: No PFSH PFSH Medical History Alcohol use Arthritis Arthritis Cancer DVT (deep venous thrombosis) Encounter for chemotherapy management Encounter for chemotherapy management Excessive bleeding Gastric reflux History of diverticulitis History of epidural anesthesia History of pain when walking History of steroid therapy Injury of back Injury of head and neck Knee pain Leg pain, bilateral Migraine headache Non-smoker Prostate cancer Shortness of breath on exertion Syncope Home Medications multivitamin 1 ea PO DAILY 03/07/19 [History Last Taken 10/10/20 08:00] calcium carb and lactate 200 mg-vitamin D3 6.25 mcg (250 unit) tablet 2 tab PO BID 05/21/19 [History Last Taken 10/10/20 10:00] ondansetron HCl 4 mg tablet (Zofran) 4 mg PO Q8H PRN Nausea 10/24/20 [History Last Taken Unknown] polyethylene glycol 3350 17 gram oral powder packet (Miralax) 17 g PO .QOD 11/23/21 [History Last Taken Unknown] loratadine 10 mg tablet 10 mg PO DAILY #30 tabs 03/18/22 [Rx Last Taken Unknown] acetaminophen 500 mg tablet (Tylenol Extra Strength) 500 mg PO Q6H PRN Pain 05/17/22 [History Last Taken Unknown] gabapentin 300 mg capsule 300 mg PO TID 05/17/22 [History Last Taken Unknown] naldemedine 0.2 mg tablet (Symproic) 0.2 mg PO DAILY 05/17/22 [History Last Taken Unknown] desipramine 25 mg tablet 50 mg PO QHS 08/25/22 [History Last Taken Unknown] haloperidol 2 mg tablet 2 mg PO TID PRN nausea and vomiting #20 tabs 08/25/22 [Rx Last Taken Unknown] naldemedine 0.2 mg tablet (Symproic) 0.2 mg PO DAILY 08/25/22 [History Last Taken Unknown] senna 187 mg tablet 187 mg PO PRN PRN Diarrhea 01/05/23 [History Last Taken Unknown] methadone 5 mg tablet 5 mg PO Q8H 02/14/23 [History Last Taken Unknown] rivaroxaban 20 mg tablet (Xarelto) 20 mg PO DAILY 30 days #30 tabs 03/11/23 [Rx Last Taken Unknown] Allergy/AdvReac Type Severity Reaction Status Date / Time grass pollen Allergy Other Verified 09/28/23 14:40 ragweed pollen Allergy Other Verified 09/28/23 14:40 Family History Mother Non Hodgkin's lymphoma Father COPD (chronic obstructive pulmonary disease) Skin cancer Grandmother Cancer Lung cancer Grandfather CVA (cerebral vascular accident) Brother Blood disease Surgical History Hx of colonoscopy Hx of tonsillectomy Status post total left knee replacement Social History Smoking Status: Never smoker alcohol intake: current alcohol intake frequency: a few times a month substance use type: does not use what type of physical activity do you participate in: other details: physical job seatbelt use: always ROS ROS ED Integumentary Reports other Details: Laceration right thumb Neurologic Neurologic: Reports paresthesias and weakness Hematologic/Lymphatic Hematologic/Lymphatic: Reports easy bleeding and easy bruising EXAM Physical Exam Const Vital Signs: 09/28/23 14:40 Temperature 97.2 F L Temperature Source Temporal Pulse Rate 83 Respiratory Rate 14 Blood Pressure 128/66 H Blood Pressure Mean 86 Pulse Ox 98 Oxygen Delivery Method Room Air Positive well nourished and well developed General Appearance ED: well developed and NAD HEENT normocephalic and atraumatic Eyes PERRL and EOMs intact bilaterally Neck full ROM Resp normal respiratory effort Cardio regular rate and regular rhythm Extremity full ROM; Negative for normal to inspection Extremity Narrative: There is a curvilinear laceration dorsum of the right thumb that is 2.5 cm in length. There is no active bleeding. Capillary fill is normal. 2 point semination is normal. The EPL is intact. There is no point bony tenderness. Neuro oriented x3, CN's II-XII intact bilaterally and moves all extremities Neuro Narrative: Median, radial and ulnar function intact. Psych mental status grossly normal Skin Skin Narrative: Laceration dorsum of the right thumb MDM MDM MDM Narrative Medical decision making narrative: Laceration will require repair. This is documented under the procedure portion of the medical record. Procedures Other Procedures Procedure(s): Wound was anesthetized by local filtration with 2 cc of 1% lidocaine. The wound was irrigated with 150 cc of normal saline. The wound was closed using 4-0 Ethilon. A total of 5 stitches was placed. Patient tolerated procedure well. Discharge Plan Triage Chief Complaint: Laceration ED Provider: Danilo Latham Dx/Rx/DC Orders Clinical Impression: Prostate cancer metastatic to bone, Anticoagulant long-term use, Laceration of right thumb Instructions: ED Laceration, Hand: All Closures Prescriptions: No Action calcium carbonat and lactate 200 mg calcium-vitamin D3 250 unit tablet 200 mg calcium -250 unit tablet 2 tab PO BID ondansetron HCl [Zofran] 4 mg tablet 4 mg PO Q8H PRN (Reason: Nausea) polyethylene glycol 3350 [Miralax] 17 gram powder in packet 17 g PO .QOD loratadine 10 mg tablet 10 mg PO DAILY Qty: 30 3RF gabapentin 300 mg capsule 300 mg PO TID Symproic 0.2 mg tablet 0.2 mg PO DAILY acetaminophen [Tylenol Extra Strength] 500 mg tablet 500 mg PO Q6H PRN (Reason: Pain) senna 187 mg tablet 187 mg PO PRN PRN (Reason: Diarrhea) multivitamin 1 EACH tablet 1 ea PO DAILY desipramine 25 mg tablet 50 mg PO QHS Symproic 0.2 mg tablet 0.2 mg PO DAILY haloperidol 2 mg tablet 2 mg PO TID PRN (Reason: nausea and vomiting) Qty: 20 0RF methadone 5 mg tablet 5 mg PO Q8H Patient Comments: TAKE 1 TABLET BY MOUTH EVERY MORNING and ONE TABLET IN THE EVENING AND TAKE 1 & 1/2 (ONE AND ONE-HALF) TABLETS AT BEDTIME Xarelto 20 mg tablet 20 mg PO DAILY 30 Days Qty: 30 12RF Rx Instructions: must administer with evening meal Primary Care Provider: Jimy Li Referrals: Jimy Li MD [Primary Care Provider] - 10 Day for suture removal Activity Restrictions/Additional Instructions: 1. Keep wound clean and dry for the next 48 to 72 hours 2. Clean wound with peroxide on a Q-tip 3 times a day then apply bacitracin ointment 3. There is any evidence or concern for infection follow-up with your doctor. Disposition Disposition: Home, Self Care
[2023-09-28] MEDS: Lidocaine 1% (20 ml mdv) 20 ML Vial INFILT (15:40)
== END 2023-09-28 16:04 | disposition home or self-care (01) ==
PROVIDERS: Emergency Provider Emergency Medicine; PCP Internal Medicine; Visit Provider Emergency Medicine
DX: S61.011A Laceration without foreign body of right thumb without damage to nail, initial encounter (principal); C79.51 Secondary malignant neoplasm of bone; C61 Malignant neoplasm of prostate; Z79.01 Long term (current) use of anticoagulants; Z86.718 Personal history of other venous thrombosis and embolism; R20.2 Paresthesia of skin; W29.3XXA Contact with powered garden and outdoor hand tools and machinery, initial encounter
CPT/HCPCS: 12001; 99283

== ENCOUNTER 2023-12-11 14:18 | Emergency (ER) | payer OTHER, SELFPAY ==
[2023-12-11 14:20] VITALS: BP 126/79; PULSE 70; RESP 18; TEMP 36.3; O2SAT 98; BMI 24.6
--- NOTE | 2023-12-11 14:45 | CT_ITS ---
STUDY: CTA CHEST REASON FOR EXAM: Male, 58 years old. chest pain RADIATION DOSAGE (If Supplied By Facility): CTDIvol = ( 10.09 ) mGy, DLP = ( 602.21 ) mGycm TECHNIQUE: The examination was performed with the intravenous administration of IV 100mL Isovue-370. Post-processing of the angiographic images was performed, with multiplanar reformation and 3D reconstruction. Individualized dose optimization techniques were used for this CT. COMPARISON: 11/19/2020 FINDINGS: Normal enhancement of the main pulmonary artery and right and left pulmonary arteries. Normal enhancement of the bilateral peripheral pulmonary arteries. Filling defects within segmental branches of the right middle lobe and right lower lobe consistent with pulmonary emboli. Normal thoracic aorta and visualized great vessels. There is no demonstrated aortic dissection. Normal heart and pericardium. No right ventricular dilatation to suggest right heart strain. Normal mediastinum. Normal hilar regions. Normal visualized trachea and bronchi. The lungs are well expanded. Mild bilateral apical scarring. Mild emphysema. No change in a 6 mm noncalcified nodule in the medial left upper lobe of the lungs on image 204 consistent with a noncalcified granuloma. Normal pleura. Normal chest wall structures. Innumerable sclerotic lesions of the axial skeleton consistent with blastic metastases. No pathologic compression fracture. Normal visualized upper abdomen. CT/CTA Chest W/WO Contrast IMPRESSION: 1. Positive for segmental pulmonary emboli within the right middle lobe and right lower lobe. No right heart strain. 2. Mild emphysema with a left upper lobe noncalcified granuloma. 3. Widespread blastic metastases. Electronically Signed: Moises Guerrero MD at 17:19 EDT ,
--- NOTE | 2023-12-11 14:45 | CT_ITS ---
STUDY: CT BRAIN WITHOUT CONTRAST REASON FOR EXAM: Male, 58 years old. headache, recent craniotomy 11/2023 RADIATION DOSAGE (If Supplied By Facility): CTDIvol = ( 43.66 ) mGy, DLP = ( 1677.71 ) mGycm TECHNIQUE: Transaxial CT imaging of the brain was performed without administration of intravenous contrast material. Individualized dose optimization techniques were used for this CT. COMPARISON: No relevant priors. FINDINGS: Normal soft tissue structures. Healed left occipital craniotomy with some subjacent encephalomalacia. Normal size ventricles and extra-axial spaces for the patient''s age. Normal white matter tracts of the cerebral hemispheres. Normal basal ganglia and thalami. Normal brainstem. Normal cerebellum. There is no intracranial hemorrhage. There are no findings of an acute ischemic infarction. Normal visualized paranasal sinuses. CT/Brain/Head without Contrast IMPRESSION: 1. No acute abnormality. 2. Status post left occipital craniotomy with focal resection or encephalomalacia in the left occipital lobe. Electronically Signed: Moises Guerrero MD at 17:08 EDT ,
--- NOTE | 2023-12-11 14:45 | EKG12_ITS ---
Test Reason : OTHER Blood Pressure : / mmHG Vent. Rate : 062 BPM Atrial Rate : 062 BPM P-R Int : 154 ms QRS Dur : 138 ms QT Int : 426 ms P-R-T Axes : 051 016 025 degrees QTc Int : 432 ms Normal sinus rhythm Right bundle branch block Abnormal ECG Confirmed by Marco Eldridge ([id number]), photograph editor JOHN SMALL ([id number]) on 12/13/2023 7:13:57 AM Referred By: Confirmed By:Marco Eldridge
--- NOTE | 2023-12-11 14:47 | EDS_ITS ---
HPI History of Present Illness Chief Complaint: Other, Pain/Inj Detail of Chief Complaint: Headache, right leg weakness and numbness Narrative Narrative: Patient presents secondary to headache and feeling slightly foggy as well as having right lower extremity symptoms. He has a history of prostate cancer that is metastatic. On November 22 of this year he had a left occipital craniotomy and resection of a hemorrhagic brain lesion. This was found to be a metastatic lesion. Given his history of blood clots he was restarted on Xarelto 2 days ago. Patient does report mild headache. He feels that he has some swelling around the incision over the forehead. 3 days ago he had severe pain in the left side of his chest that he described as sharp and cramp-like. Symptoms lasted approximate 12 hours and then subsided. For the last 3 or 4 days he has also noted increased problems with his right leg. He reports having a bad knee on the right and will have intermittent pain. He has had increased pain that is now going down into his calf as well as up into his thigh and feels like his right leg is swollen. He also reports that it feels like it is numb. He called his doctors at [facility] in [place] who encouraged him to come to the nearest emergency room to be evaluated. [facility] Medical History Alcohol use Arthritis Cancer Contact with or exposure to other viral diseases DVT (deep venous thrombosis) Encounter for chemotherapy management Excessive bleeding Gastric reflux History of diverticulitis History of epidural anesthesia History of pain when walking History of steroid therapy Injury of back Injury of head and neck Knee pain Leg pain, bilateral Migraine headache Non-smoker Open wound of right thumb Prostate cancer Shortness of breath on exertion Syncope Home Medications multivitamin 1 ea PO DAILY 03/07/19 [History Last Taken 10/10/20 08:00] calcium carb and lactate 200 mg-vitamin D3 6.25 mcg (250 unit) tablet 2 tab PO BID 05/21/19 [History Last Taken 10/10/20 10:00] polyethylene glycol 3350 17 gram oral powder packet (Miralax) 17 g PO .QOD 0 11/23/21 [History Last Taken Unknown] loratadine 10 mg tablet 10 mg PO DAILY #30 tabs 03/18/22 [Rx Last Taken Unknown] acetaminophen 500 mg tablet (Tylenol Extra Strength) 500 mg PO Q6H PRN Pain 05/17/22 [History Last Taken Unknown] gabapentin 300 mg capsule 300 mg PO TID 05/17/22 [History Last Taken Unknown] desipramine 25 mg tablet 50 mg PO QHS 08/25/22 [History Last Taken Unknown] senna 187 mg tablet 187 mg PO PRN PRN Diarrhea 01/05/23 [History Last Taken Unknown] rivaroxaban 20 mg tablet (Xarelto) 20 mg PO DAILY 30 days #30 tabs 03/11/23 [Rx Last Taken Unknown] famotidine 20 mg tablet (Pepcid) 20 mg PO BID 12/07/23 [History Last Taken Unknown] tizanidine 4 mg capsule 4 mg PO QHS 12/07/23 [History Last Taken Unknown] Allergy/AdvReac Type Severity Reaction Status Date / Time grass pollen Allergy Other Verified 12/11/23 14:19 ragweed pollen Allergy Other Verified 12/11/23 14:19 Family History Mother Non Hodgkin's lymphoma Father COPD (chronic obstructive pulmonary disease) Skin cancer Grandmother Cancer Lung cancer Grandfather CVA (cerebral vascular accident) Brother Blood disease Surgical History Hx of colonoscopy Hx of tonsillectomy Status post total left knee replacement Social History Smoking Status: Never smoker alcohol intake: current alcohol intake frequency: a few times a month substance use type: does not use what type of physical activity do you participate in: other details: physical job seatbelt use: always ROS ROS ED Constitutional Constitutional ED: Denies chills or fever(s) Eyes Eyes: Denies diplopia ENT ENT ED: Denies rhinorrhea or sore throat Cardiovascular Cardiovascular: Reports other Details: Chest pain on 12/07, now resolved. Respiratory/Chest Respiratory/Chest: Denies cough or dyspnea Gastrointestinal Gastrointestinal: Denies abdominal pain or diarrhea Musculoskeletal Musculoskeletal: Denies back pain or neck pain Integumentary Denies abscess or Abrasions Neurologic Neurologic: Reports headache(s), paresthesias and weakness Psychiatric Psychiatric: Denies anxiety or depression EXAM Physical Exam Const Vital Signs: 12/11/23 14:20 12/11/23 15:29 12/11/23 17:57 Temperature 97.3 F L Temperature Source Temporal Pulse Rate 70 61 Respiratory Rate 18 16 Blood Pressure 126/79 H 121/79 H 139/81 H Blood Pressure Mean 94 93 100 Pulse Ox 98 98 Oxygen Delivery Method Room Air Room Air Positive well nourished and well developed General Appearance ED: well developed HEENT HEENT Narrative: Healing surgical scar over the left parietal scalp. No sign of infection. Eyes EOMs intact bilaterally Chest Wall inspection of chest normal and palpation of chest normal Resp normal respiratory effort and clear to auscultation bilaterally Cardio regular rate and regular rhythm GI non-tender Palpation: soft Extremity Extremity Narrative: Mild edema noted to the right lower extremity with mild tenderness around the right knee. Neuro Neuro Narrative: Patient is able to raise his left leg off the bed to the count of 5 without difficulty. Patient is not able to raise his right leg off the bed, however states that has been an ongoing issue for quite some time and is not new over the past 3 days. Although he reports numbness to his right leg, when I test both legs he reports sensation is equal. Normal strength with dorsiflexion and plantarflexion. Sensorium / Orientation: alert Skin no rashes or lesions noted MDM MDM MDM Narrative Medical decision making narrative: IV line initiated. Labwork obtained to evaluate for leukocytosis, anemia, and electrolyte derangement. EKG obtained to evaluate for cardiac arrhythmia/ischemia. CT scan of the head will be obtained given his recent hemorrhagic brain lesion and recently being restarted on Xarelto. I will also obtain a CTA of the chest given his recent chest pain with concern for DVT. He presents on a Tuesday afternoon but I do not have vascular available to perform a venous ultrasound of the lower extremities. History & Record Review Discussion w/independent historian: Patient and Family Lab Data Attestation: I reviewed the patient's lab results. Labs: Laboratory Results - last 24 hr 12/11/23 15:15 WBC 4.4 RBC 2.96 L Hgb 9.5 L Hct 28.8 L MCV 97.3 H MCH 32.1 H MCHC 33.0 RDW Std Deviation 51.2 H RDW Coeff of Alejo 14.5 Plt Count 259 MPV 8.5 Immature Gran % (Auto) 0.500 Neut % (Auto) 83.1 H Lymph % (Auto) 10.7 L Mills % (Auto) 4.3 Eos % (Auto) 0.7 Baso % (Auto) 0.7 Absolute Neuts (auto) 3.7 Absolute Lymphs (auto) 0.47 L Nucleated RBC % 0 D-Dimer Quant (PE/DVT) 1.77 H* Sodium 141 Potassium 4.3 Chloride 106 Carbon Dioxide 28.0 Anion Gap 7 BUN 30 H Creatinine 0.92 Estim Creat Clear Calc 114.58 Est GFR (MDRD) Af Amer 108 Est GFR (MDRD) Non-Af 90 BUN/Creatinine Ratio 32.7 H Glucose 118 H Calcium 8.8 Troponin I High Sens 4 Radiography Diagnostic Testing: Clinical Impression(s) from Imaging Studies Brain CT 12/11/23 14:45 IMPRESSION: 1. No acute abnormality. 2. Status post left occipital craniotomy with focal resection or encephalomalacia in the left occipital lobe. Electronically Signed: Moises Guerrero MD at 17:08 EDT Reading Location ID and State: [id number] / [employer] , Service support , Chest CTA 12/11/23 14:45 IMPRESSION: 1. Positive for segmental pulmonary emboli within the right middle lobe and right lower lobe. No right heart strain. 2. Mild emphysema with a left upper lobe noncalcified granuloma. 3. Widespread blastic metastases. Electronically Signed: Moises Guerrero MD at 17:19 EDT Reading Location ID and State: [id number] / [employer] , Service support , EKG Initial EKG: Attestation: I personally reviewed and interpreted this EKG as follows: Interpretation: Sinus Rhythm (Sinus at 62 with right bundle branch block. No acute ischemia.) Treatment and Re-Evaluation :: CBC was a white count of 4.4 with a hemoglobin 9.5. 83% neutrophils noted. D- dimer is elevated at 1.77. Chemistry studies significantly for BUN of 30 with normal creatinine of 0.92. Glucose is 118. Troponin is normal at 4. CT scan of the head reveals no acute abnormality. He is status post left occipital craniotomy. CTA of the chest is positive for segmental pulmonary emboli in the right middle lobe and right lower lobe. No evidence of heart strain. Patient is stable on room air. He has already restarted his Xarelto. I spoke with the transfer line at [facility] after pushing images to them. Patient stated that the neurosurgeon wanted to see images before he was discharged from the hospital. They called back stating that Dr. Kumar was excepting the patient and they wanted him transferred ER to ER. Discharge Plan Triage Chief Complaint: Other, Pain/Inj Other Complaint: Headache ED Provider: Elma Patricio Dx/Rx/DC Orders Prescriptions: No Action calcium carbonat and lactate 200 mg calcium-vitamin D3 250 unit tablet 200 mg calcium -250 unit tablet 2 tab PO BID polyethylene glycol 3350 [Miralax] 17 gram powder in packet 17 g PO .QOD loratadine 10 mg tablet 10 mg PO DAILY Qty: 30 3RF gabapentin 300 mg capsule 300 mg PO TID acetaminophen [Tylenol Extra Strength] 500 mg tablet 500 mg PO Q6H PRN (Reason: Pain) senna 187 mg tablet 187 mg PO PRN PRN (Reason: Diarrhea) famotidine [Pepcid] 20 mg tablet 20 mg PO BID tizanidine 4 mg capsule 4 mg PO QHS multivitamin 1 EACH tablet 1 ea PO DAILY desipramine 25 mg tablet 50 mg PO QHS Xarelto 20 mg tablet 20 mg PO DAILY 30 Days Qty: 30 12RF Rx Instructions: must administer with evening meal Primary Care Provider: Jimy Li Referrals: Jimy Li MD [Primary Care Provider] -
[2023-12-11 15:25] LABS: Absolute Lymphocyte Count 0.47 X10^3/uL (0.83-4.51); Absolute Neutrophil Count 3.7 X10^3/uL (2.0-7.7); Basophil# 0.03 X10^3/uL; Basophil% 0.7 % (0-1); Eosinophil# 0.03 X10^3/uL; Eosinophils% 0.7 % (0-5); Hematocrit 28.8 % (40-54); Hemoglobin 9.5 g/dL (13.0-16.5); Lymphocyte # 0.47 X10^3/ul (0.83-4.51); Lymphocyte % 10.7 % (19-41); Mean Corpuscular Hgb 32.1 pg (27.0-32.0); Mean Corpuscular Volume 97.3 fL (80-94); Mean Platelet Vol. 8.5 fl (6.2-12.0); Monocyte# 0.19 X10^3/uL; Monocyte% 4.3 % (0-10); NRBC Flagged by Analyzer 0 % (0-5); Neutrophil # 3.65 X10^3/uL (2.7-7.7); Neutrophil % 83.1 % (47-70); POSITIVE DIFFERENTIAL YES; Platelet Count 259 K/mm3 (150-450); RBC Distribution Width CV 14.5 % (11.6-14.6); RBC Distribution Width SD 51.2 fl (35.1-43.9); Red Blood Count 2.96 M/mm3 (4.6-6.2); White Blood Count 4.4 K/mm3 (4.4-11.0)
[2023-12-11 15:29] VITALS: BP 121/79
[2023-12-11 15:49] LABS: Anion Gap 7 (5-15); BUN 30 mg/dL (7-18); BUN/Creat Ratio 32.7 RATIO (10-20); Calcium,Total 8.8 mg/dL (8.5-10.1); Chloride 106 mmol/L (98-107); Creatinine, Serum 0.92 mg/dL (0.70-1.30); EST Glomerular Filtration Rate 90 mL/min (>60); Est Glom Filt Rate - Afr Amer 108 mL/min (>60); Estimated Creatinine Clearance 114.58 ml/min; Glucose 118 mg/dL (74-106); Potassium 4.3 mmol/L (3.5-5.1); Sodium Level 141 mmol/L (136-145); Troponin-I HS 4 pg/mL (3.0-78.0)
[2023-12-11 15:58] LABS: D-Dimer Quantitative (DVT/PE) 1.77 FEU/ug/m (0.27-0.49)
--- NOTE | 2023-12-11 17:48 | NURSING ---
FAXED FACESHEET TO [facility]
[2023-12-11 17:57] VITALS: BP 139/81; PULSE 61; RESP 16; O2SAT 98
--- NOTE | 2023-12-11 18:13 | NURSING ---
CALLED [facility], ETA IS 3 HRS
--- NOTE | 2023-12-11 18:37 | ED.RN ---
pt signed the consent to transfer pt to [facility] and then was informed when squad is to arrive at 2114. Pt's daughter asked if pt could go by private car, this nurse informed Dr. Patricio of same. This nurse then called the transfer line and asked it pt is allowed to arrive by private care and Diandra from [facility], stated that yes pt is okay to arrive by private car and will be triaged in the emergency department. Dr. Patricio informed of same and requested that pt's VAD be de-accessed prior to leaving [facility]. Pt informed of same.
[2023-12-11 18:52] VITALS: BP 139/81; PULSE 61; RESP 16; TEMP 36.5; O2SAT 98
== END 2023-12-11 19:03 | disposition short-term general hospital (02) ==
PROVIDERS: Emergency Provider Emergency Medicine; PCP Internal Medicine; Visit Provider Emergency Medicine
DX: R51.9 Headache, unspecified (principal); I26.99 Other pulmonary embolism without acute cor pulmonale; J43.9 Emphysema, unspecified; R07.9 Chest pain, unspecified; M79.661 Pain in right lower leg; R29.898 Other symptoms and signs involving the musculoskeletal system; Z79.01 Long term (current) use of anticoagulants; Z79.899 Other long term (current) drug therapy; K21.9 Gastro-esophageal reflux disease without esophagitis; R20.2 Paresthesia of skin; Z79.890 Hormone replacement therapy; Z85.46 Personal history of malignant neoplasm of prostate; Z85.841 Personal history of malignant neoplasm of brain; Z85.830 Personal history of malignant neoplasm of bone
CPT/HCPCS: 36591; 70450; 71275; 80048; 84484; 85025; 85379; 93005; 99285; Q9967; A4216

== ENCOUNTER 2024-03-09 11:55 | Emergency (ER) | payer OTHER, SELFPAY ==
[2024-03-09 11:56] VITALS: BP 139/77; PULSE 74; RESP 16; TEMP 36.3; O2SAT 100; BMI 24.3
--- NOTE | 2024-03-09 12:27 | CT_ITS ---
STUDY: CT BRAIN WITH AND WITHOUT CONTRAST REASON FOR EXAM: Male, 59 years old. Headache, on Xarelto. Prior brain surgery for metastatic prostate cancer. RADIATION DOSAGE (If Supplied By Facility): CTDIvol = ( 40.88 ) mGy, DLP = ( 3348.13 ) mGycm TECHNIQUE: Transaxial CT imaging of the brain was performed pre and post contrast administration. The examination was performed with intravenous administration of IV 50mL Isovue-370. Individualized dose optimization techniques were used for this CT. COMPARISON: Comparison is made with prior study dated December 11, 2023. FINDINGS: Normal soft tissue structures. The patient is status post left posterior parietal occipital craniotomy. There is mild cerebral atrophy with widening of the extra-axial spaces and ventricular dilatation. Stable focal M encephalomalacia in the posterior medial aspect of the left occipital lobe. Normal basal ganglia and thalami. Normal brainstem. Normal cerebellum. There is no intracranial hemorrhage. There are no findings of an acute ischemic infarction. Normal visualized paranasal sinuses. CT/Brain/Head W/WO Contrast IMPRESSION: Stable examination. No acute abnormality is seen. Electronically Signed: Sunny Horne MD at 13:39 EDT ,
--- NOTE | 2024-03-09 12:27 | EKG12_ITS ---
Test Reason : GENERAL Blood Pressure : / mmHG Vent. Rate : 065 BPM Atrial Rate : 065 BPM P-R Int : 168 ms QRS Dur : 152 ms QT Int : 442 ms P-R-T Axes : 053 042 037 degrees QTc Int : 459 ms Normal sinus rhythm Right bundle branch block Abnormal ECG Confirmed by JANET ARMENDARIZ, MARIELENA ([id number]), supervising editor trailer JOHN SMALL ([id number]) on 03/12/2024 8:33:53 AM Referred By: Confirmed By:MARIELENA GONZALES MD
--- NOTE | 2024-03-09 12:28 | EDS_ITS ---
HPI History of Present Illness Chief Complaint: Headache Detail of Chief Complaint: Headache and not feeling well Informant: patient and spouse/S.O. Narrative Narrative: Patient presents to the emergency department with multiple complaints today. Patient states that he has had a headache off and on for months. Patient tells me a week or 2 ago he had an episode of vomiting and had severe pain in his left ear. This morning he was working and started having bleeding from the left ear. He complains of feeling off balance. He complains of persistent headache that feels like a sinus into the frontal part of his head. Patient on Xarelto. Patient with history of prostate cancer with metastasis to the brain. He is 5- year survivor of metastatic prostate cancer. Patient was advised to come to the ER and get evaluated. Patient denies any cough or sore throat. recently diagnosed with pharyngitis. Patient's last chemotherapy was 8 days ago. [facility] Medical History (Updated 03/09/24 @ 14:[address] Etta Canales, ) Metastasis to brain Contact with or exposure to other viral diseases Open wound of right thumb Encounter for chemotherapy management Leg pain, bilateral Cancer Alcohol use History of steroid therapy Arthritis Excessive bleeding DVT (deep venous thrombosis) Injury of back Injury of head and neck Migraine headache Syncope History of diverticulitis Gastric reflux Non-smoker Shortness of breath on exertion History of pain when walking History of epidural anesthesia Prostate cancer Knee pain Home Medications ?Medication ?Instructions ?Recorded ?Last Taken ?Type multivitamin 1 ea PO DAILY 03/07/19 10/10/20 08:00 History calcium carb and lactate 200 2 tab PO BID 05/21/19 10/10/20 10:00 History mg-vitamin D3 6.25 mcg (250 unit) tablet polyethylene glycol 3350 17 gram 17 g PO .QOD 11/23/21 Unknown History oral powder packet (Miralax) loratadine 10 mg tablet 10 mg PO DAILY #30 tabs 03/18/22 Unknown Rx acetaminophen 500 mg tablet 500 mg PO Q6H PRN Pain 05/17/22 Unknown History (Tylenol Extra Strength) gabapentin 300 mg capsule 300 mg PO TID 05/17/22 Unknown History desipramine 25 mg tablet 50 mg PO QHS 08/25/22 Unknown History senna 187 mg tablet 187 mg PO PRN PRN Diarrhea 01/05/23 Unknown History rivaroxaban 20 mg tablet (Xarelto) 20 mg PO DAILY 30 days #30 tabs 03/11/23 Unknown Rx famotidine 20 mg tablet (Pepcid) 20 mg PO BID 12/07/23 Unknown History tizanidine 4 mg capsule 4 mg PO QHS 12/07/23 Unknown History amoxicillin 875 mg-potassium 875 mg PO Q12H #20 TABLETS 03/09/24 Unknown Rx clavulanate 125 mg tablet ofloxacin 0.3 % ear drops 5 drp LEFT EAR BID 14 days #10 mL 03/09/24 Unknown Rx Allergy/AdvReac Type Severity Reaction Status Date / Time grass pollen Allergy Other Verified 02/29/24 14:27 ragweed pollen Allergy Other Verified 02/29/24 14:27 Family History Mother Non Hodgkin's lymphoma Father COPD (chronic obstructive pulmonary disease) Skin cancer Grandmother Cancer Lung cancer Grandfather CVA (cerebral vascular accident) Brother Blood disease Surgical History Hx of tonsillectomy Hx of colonoscopy Status post total left knee replacement Social History Smoking Status: Never smoker alcohol intake: current alcohol intake frequency: a few times a month substance use type: does not use what type of physical activity do you participate in: other details: physical job seatbelt use: always ROS ROS ED Review of Systems ROS Unobtainable: other Constitutional Constitutional ED: Reports lethargy; Denies chills, fever(s), sweats or weight loss Eyes Eyes: Denies blurry vision, change in vision or diplopia ENT ENT ED: Reports other Details: Left ear pain and bleeding ; Denies rhinorrhea or sore throat Cardiovascular Cardiovascular: Denies chest pain, orthopnea or racing heartbeat Respiratory/Chest Respiratory/Chest: Denies cough, dyspnea, dyspnea on exertion, orthopnea or sputum Gastrointestinal Gastrointestinal: Reports nausea and vomiting; Denies abdominal pain or diarrhea Genitourinary Genitourinary ED: Denies dysuria, hematuria or urinary frequency Musculoskeletal Musculoskeletal: Denies arthralgias, back pain, myalgias or neck pain Integumentary Denies abscess, Abrasions or rash Neurologic Neurologic: Reports headache(s); Denies weakness Psychiatric Psychiatric: Denies anxiety, depression or suicidal thoughts Endocrine Endocrinology: Denies polydipsia, polyphagia or polyuria Hematologic/Lymphatic Hematologic/Lymphatic: Denies easy bleeding, easy bruising or lymphadenopathy Allergic/Immunologic Allergic/Immunologic ED: Denies mouth swelling, tongue swelling or urticaria EXAM Physical Exam Const Vital Signs: 03/09/24 11:56 03/09/24 11:56 03/09/24 13:56 Temperature 97.4 F L Temperature Source Temporal Pulse Rate 74 74 66 Respiratory Rate 16 16 12 Blood Pressure 139/77 H 139/77 H 124/82 H Blood Pressure Mean 97 97 96 Pulse Ox 100 100 95 Oxygen Delivery Method Room Air Room Air Room Air Positive well nourished and well developed General Appearance ED: well developed and NAD HEENT Reports TM's clear and moist mucous membranes HEENT Narrative: Left TM with dried blood in the ear canal and wax and really unable to visualize the tympanic membrane. No active bleeding. normocephalic and atraumatic; Negative for trauma or tenderness Tympanic Membrane ED: Yes TM's clear Eyes PERRL and EOMs intact bilaterally General Eye ED: Negative for pale conjunctiva or scleral icterus Neck no lymphadenopathy, supple and no JVD General: Negative for tenderness Chest Wall inspection of chest normal and palpation of chest normal Chest Narrative: Patient with a Mediport in right chest. Chest: Negative for tenderness Resp normal respiratory effort and clear to auscultation bilaterally Effort and Inspection: Negative for respiratory distress or pain with movement Auscultation: Negative for rhonchi, wheezes or diminished lung sounds Cardio regular rate, regular rhythm, S1 normal heart sound, S2 normal heart sound and no murmurs Peripheral Pulses: pulses 2+ throughout GI normal to inspection, nondistended, normoactive bowel sounds, soft to palpation, non-tender, non-distended and no masses Back/Spine no CVA tenderness and no thoracic nor lumbar tenderness Extremity normal to inspection General Extremety ED: Negative for edema General Extremity: Negative for edema Neuro oriented x3, CN's II-XII intact bilaterally, no sensory deficits noted and gait normal Sensorium / Orientation: awake, alert, oriented to person, oriented to place and oriented to time Motor Exam: strength 5/5 throughout and strength abnormal Psych mental status grossly normal Skin no rashes or lesions noted and no wounds MDM MDM MDM Narrative Medical decision making narrative: Patient presents with multiple complaints today. Patient is a cancer patient prostate cancer that is metastasized with mets to the brain as well. Patient on Xarelto. Presents with headache and bleeding from the left ear. Has had intermittent nausea. He denies chest pain or shortness of breath. Does have some history of migraines and he complains of photophobia. Headaches have been ongoing for weeks. He called his oncologist who advised him to be evaluated and get a brain scan. Patient states that his ear actually feels better now. Has not had any fevers or chills or sweats. He chronically takes prednisone and gets Neulasta after chemo and his last chemo was about 8 days ago. IV line established. CBC with differential obtained showed an elevated white count of 20.4 with hemoglobin of 8.8 and platelet count of 269. Chemistries unremarkable. Absolute neutrophil count 15.7. Chemistries unremarkable. LFTs were normal. Lipase normal. Troponin was normal. CT scan of the brain with and without contrast showed no intracranial hemorrhage or mass lesions. Stable exam when compared with prior. I did order Reglan and Benadryl as well as a liter saline fluid bolus. Will discuss case with ENT regarding the bleeding from the ears I suspect he may have had a TM perforation and recommend follow- up. I did discuss case with ENT. Dr. Shelton recommended we start patient on Floxin drops to the left ear as well as Augmentin orally. If his ear should bleed again and he is to squirt Afrin into the ear. At this point clinically he looks well. I do not feel patient is otherwise infected. Had long discussion with patient and his . He wants to go home does not want to be admitted. feels like she can care for him and her daughters there as well that can help with caring for the patient. Their main concern was intracranial issue that would warrant emergent transfer for to [facility]. Lab Data Attestation: I reviewed the patient's lab results. Labs: Laboratory Results - last 24 hr 03/09/24 12:20 WBC 20.4 H RBC 2.81 L Hgb 8.8 L Hct 26.9 L MCV 95.7 H MCH 31.3 MCHC 32.7 RDW Std Deviation 56.3 H RDW Coeff of Alejo 15.9 H Plt Count 269 MPV 9.4 Neut % (Auto) Not Reportable Absolute Neuts (auto) 15.7 H Absolute Lymphs (auto) 2.65 Total Counted 100 Neutrophils % (Manual) 76 H Band Neutrophils % 1 Lymphocytes % (Manual) 13 L Monocytes % (Manual) 3 Metamyelocytes % 5 H Myelocytes % 2 H Diff Path Review May foll Toxic Granulation 1+ Dohle Bodies 1+ Polychromasia 1+ Anisocytosis 1+ Macrocytosis 1+ Tear Drop Cells 1+ Ovalocytes 1+ Schistocytes RARE Sodium 136 Potassium 3.8 Chloride 102 Carbon Dioxide 27.0 Anion Gap 7 BUN 19 H Creatinine 0.98 Estim Creat Clear Calc 106.24 Est GFR (MDRD) Af Amer 100 Est GFR (MDRD) Non-Af 82 BUN/Creatinine Ratio 19.3 Glucose 160 H Calcium 8.9 Total Bilirubin 0.30 AST 17 ALT 22 Alkaline Phosphatase 100 Troponin I High Sens 3 Total Protein 6.6 Albumin 3.3 Globulin 3.3 Albumin/Globulin Ratio 1.0 Lipase 17 Radiography Diagnostic Testing: Clinical Impression(s) from Imaging Studies Brain CT 03/09/24 12:27 IMPRESSION: Stable examination. No acute abnormality is seen. Electronically Signed: Sunny Horne MD at 13:39 EDT , EKG Initial EKG: Attestation: I personally reviewed and interpreted this EKG as follows: Comments: Sinus rhythm with rate of 65 bpm with right bundle branch block Discharge Plan Triage Chief Complaint: Headache Other Complaint: Ear Problem ED Provider: Etta Canales Dx/Rx/DC Orders Clinical Impression: Headache, Bleeding from left ear Instructions: ED Headache Unspecified, ED PERFORATED TM Infected [Adult] Prescriptions: New amoxicillin-pot clavulanate 875-125 mg tablet 875 mg PO Q12H Qty: 20 0RF ofloxacin 0.3 % drops 5 drp LEFT EAR BID 14 Days Qty: 10 0RF No Action calcium carb,lactat-vitamin D3 200 mg calcium -250 unit tablet 2 tab PO BID polyethylene glycol 3350 [Miralax] 17 gram powder in packet 17 g PO .QOD loratadine 10 mg tablet 10 mg PO DAILY Qty: 30 3RF gabapentin 300 mg capsule 300 mg PO TID acetaminophen [Tylenol Extra Strength] 500 mg tablet 500 mg PO Q6H PRN (Reason: Pain) senna 187 mg tablet 187 mg PO PRN PRN (Reason: Diarrhea) famotidine [Pepcid] 20 mg tablet 20 mg PO BID tizanidine 4 mg capsule 4 mg PO QHS multivitamin 1 EACH tablet 1 ea PO DAILY desipramine 25 mg tablet 50 mg PO QHS Xarelto 20 mg tablet 20 mg PO DAILY 30 Days Qty: 30 12RF Rx Instructions: must administer with evening meal Primary Care Provider: Jimy Li Referrals: Jimy Li MD [Primary Care Provider] - Cheo Gonzalez MD [Med Staff - Active Staff] - 3-5 Days Print Language: Syriac Disposition Disposition: Home, Self Care
[2024-03-09 12:43] LABS: Hematocrit 26.9 % (40-54); Hemoglobin 8.8 g/dL (13.0-16.5); Mean Corp Hgb Conc 32.7 g/dL (32-36); Mean Corpuscular Hgb 31.3 pg (27.0-32.0); Mean Corpuscular Volume 95.7 fL (80-94); Mean Platelet Vol. 9.4 fl (6.2-12.0); POSITIVE COUNT YES; POSITIVE DIFFERENTIAL YES; POSITIVE MORPHOLOGY YES; Platelet Count 269 K/mm3 (150-450); RBC Distribution Width CV 15.9 % (11.6-14.6); RBC Distribution Width SD 56.3 fl (35.1-43.9); Red Blood Count 2.81 M/mm3 (4.6-6.2); White Blood Count 20.4 K/mm3 (4.4-11.0)
[2024-03-09 12:44] LABS: Differential Indicated MANUAL DIFF
[2024-03-09] MEDS: 0.9% Normal Saline (1000mL) 1,000 ML 1000 ML IV (12:45)
[2024-03-09 12:59] LABS: AST(SGOT) 17 U/L (15-37); Alanine Aminotransfer ALT/SGPT 22 U/L (16-61); Albumin, Serum 3.3 g/dL (3.2-5.0); Alkaline Phosphatase 100 U/L (45-117); Anion Gap 7 (5-15); BUN 19 mg/dL (7-18); BUN/Creat Ratio 19.3 RATIO (10-20); Calcium,Total 8.9 mg/dL (8.5-10.1); Chloride 102 mmol/L (98-107); Creatinine, Serum 0.98 mg/dL (0.70-1.30); EST Glomerular Filtration Rate 82 mL/min (>60); Est Glom Filt Rate - Afr Amer 100 mL/min (>60); Estimated Creatinine Clearance 106.24 ml/min; Globulin 3.3 g/dL (2.2-4.2); Glucose 160 mg/dL (74-106); Lipase 17 U/L (13-75); Potassium 3.8 mmol/L (3.5-5.1); Protein, Total 6.6 g/dL (6.4-8.2); Sodium Level 136 mmol/L (136-145); Troponin-I HS 3 pg/mL (3.0-78.0)
[2024-03-09 13:12] LABS: Lymphocyte 13 % (19-41); Metamyelocyte 5 % (0-1); Monocyte 3 % (0-10); Myelocyte 2 % (0-0); Neutrophil-Band 1 % (0-5); Neutrophil-Segmented 76 % (47-70); Total Cells Counted 100 (MANUAL DIFF)
[2024-03-09 13:13] LABS: Dohle Bodies 1+; Toxic Granulation 1+
[2024-03-09 13:14] LABS: Anisocytosis 1+; Macrocytosis 1+; Ovalocyte 1+; Polychromasia 1+; Schistocytes RARE; Tear Drop Cell 1+
[2024-03-09 13:15] LABS: Absolute Lymphocyte Count 2.65 X10^3/uL (0.83-4.51); Absolute Neutrophil Count 15.7 X10^3/uL (2.0-7.7)
[2024-03-09 13:56] VITALS: BP 124/82; PULSE 66; RESP 12; O2SAT 95
[2024-03-09] MEDS: Metoclopramide 10 MG/2 ML Vial IV (14:07)
[2024-03-09] MEDS: DiphenhydrAMINE 50 MG/ML Syringe 25 MG IV (14:07)
[2024-03-09 14:35] VITALS: BP 128/79; PULSE 64; RESP 12; TEMP 36.1; O2SAT 94
[2024-03-09] MEDS: Amox/Clavulanate 875 MG Tablet PO (14:47)
[2024-03-12 13:57] LABS: Pathologist Review Reviewed
== END 2024-03-09 14:51 | disposition home or self-care (01) ==
PROVIDERS: Emergency Provider Emergency Medicine; PCP Internal Medicine; Visit Provider Emergency Medicine
DX: H92.22 Otorrhagia, left ear (principal); C79.31 Secondary malignant neoplasm of brain; C61 Malignant neoplasm of prostate; R51.9 Headache, unspecified; R11.0 Nausea; Z79.01 Long term (current) use of anticoagulants; K21.9 Gastro-esophageal reflux disease without esophagitis
CPT/HCPCS: 36591; 70470; 80053; 83690; 84484; 85025; 87631; 93005; 96361; 96374; 96375; 99284; J7030; Q9967; A4216

== ENCOUNTER 2024-03-27 17:00 | Outpatient (RCR) | payer OTHER, SELFPAY ==
--- NOTE | 2024-02-13 13:43 | HP.PTEVAL ---
Patient's Visit Information Visit Information Visit Information: ELIZABETH OSHEA is a 59 year old M referred to Physical Therapy by Out of Town Doctor with a diagnosis of R LE weakness. Date of Evaluation: 02/13/24 Physical Therapist: Willian Mark, JOSET, OCS, CSCS Visit Plan Frequency: 2-3x /Week Duration: 4-6 Weeks Plan: 2-3x/week for 4-6 weeks for aquatic based : quad stretching, LB postural correction and core, hip LE strength emphasizing R hip and knee. Progress to HEP as tolerated care with R knee OA and/or I pool program. 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 R knee is bad but cannot be replaced. Has had radiation in back. Nerve damage R LE and it getting weaker. 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 Sometimes trips on R leg and he drags it alot. Does not want to give up work as it fulfills him. Everything else is not bad. 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 Upper leg neuropathy is from CA et in LB. Radiation to spinal cord to shrink tumor. Brain surgery November. Take some out from prostate CA that were causing MORENO and vision issues. Sleep is fair. Pain is not an issue. Can get leg and back pain as he has DDD. Activities: enjoys hiking but has to limit it and would like to do it more. Went a mile and hurt R LE. Wants to ease leg pain and strengthen R leg. Pain R leg: Pain Intensity (Out of 10): 0 Pain Intensity Range: 0 and 9 Objective Objective: Walks with R antalgia and decreased stance time R, varus at the knee and slight steppage but I. Steps reciprocal today with one rail I but sometimes needs to just use L he says. Trasnfeers are I bed and chair, back pain form lying. 35# HS R adb 21# R quad. DF and PF 4- B, hip flexion R 3- and L 3+, hip abduction 4 B, extension 4- B. reflexes 1/3 patella and achilles B. Sensation LE is diminished to light touch in B feet and R quad area. quad R is max tight vs L and painful at knee. AROM knees and hips WFL outside of tightness. Posture is hunched forward from a typical 6'8 to about 6' 4, kyphotic Thoracic spine and max forward head structural, unable to lie flat. Balance/Special Test Scores Functional Gait Assessment Score: 25 % Disability: 16.6700 Lower Extremity Functional Score: 43 Goals Goal 1:: lift R leg I to get out of truck without using UE Goal Time Frame: 4-6 Weeks Goal 2:: I appropriate pool ex to strengthen aand stretch LE Goal Time Frame: 4-6 Weeks Goal 3:: 40# HS and quad strength R to show improved strength in LE. Goal Time Frame: 4-6 Weeks Goal 4:: Pt feel 50% better in pain and streength of R LE Goal Time Frame: 4-6 Weeks Goal 5:: LEFS 55 Goal Time Frame: 4-6 Weeks Rehabilitation Potential Physical Therapy Diagnosis: pain and weakness R LE limiting functiona dn comfort and transfers. Rehabilitation Potential: Fair Anticipated Interventions Patient/Client Instruction: Educate patient on: Condition and Plan of Care For the Purpose of:: To decrease pain, To improve nutrient delivery to tissue, To improve muscle performance and motor function, To increase tolerance to activity/condition/position, To improve ability of physical actions for home/community/work/leisure and To improve gait and locomotor functions Therapeutic Exercise to Include: Strength training, Postural training, Flexibilty training, In an aquatic setting, Passive ROM and Active ROM For the Purpose of:: To decrease pain, To increase ROM, To improve nutrient delivery to tissue, To improve muscle performance and motor function, To increase tolerance to activity/condition/position and To improve gait and locomotor functions Text: Thank you for the opportunity to evaluate your patient. For Medicare and Medicare HMO plans, please review the plan of care and approve it. It will need to be FAXED BACK to us at [phone] for Medicare purposes. For Medicare only, by signing this I certify the plan of care. Please let me know if there are questions or concerns regarding this plan of care. Physician Signature: Date:
--- NOTE | 2024-03-27 17:20 | HP.PTREVAL ---
Re-Evaluation Intro: Out of Town Doctor, It has been my pleasure to treat ELIZABETH OSHEA over the last 10 visits for R LE weakness. Please see the progress note below for an update on the physical therapy plan of care! Subjective Subjective: Better motion, easier to get on shoes. Some days worse than others. Limited some days by pain but does get fatigued. Pain this week 3/10 mostly in leg this week. R leg getting stronger but working all day fatigues it. Therapy makes it even more tired. Getting into car is easier. HEP: No. Has them but no time. To doctor for chemo in a couple weeks. Will not do this on own but will continue work. Wants to hold therapy and call if worsens. Objective Objective/Function: R HS adn quad strength, 58 # HS and 36# quad. Improving. Walking with varus in B knees R>L and some R quad pain but not bad, no antlagia today. Trasnfers easily. Overall feeling and moving better, does not wihs to continue with consistent therapy but willing to return in a month to ensure results are lasting. Plan Plan Plan: f/u one month to check R HS/quad strength, subjective and if needs to return to pool or d/c Will call prior if problems Balance/Gait/Functional tests Balance/Special Test Scores Functional Gait Assessment Score: 25 % Disability: 16.6700 Lower Extremity Functional Score: 42 Goals Goals Goal 1:: lift R leg I to get out of truck without using UE Goal Time Frame: 4-6 Weeks Goal Progress: Goal Met Goal 2:: I appropriate pool ex to strengthen aand stretch LE Goal Time Frame: 4-6 Weeks Goal Progress: noncompliant Goal 3:: 40# HS and quad strength R to show improved strength in LE. Goal Time Frame: 4-6 Weeks Goal 4:: Pt feel 50% better in pain and streength of R LE Goal Time Frame: 4-6 Weeks Goal Progress: Goal Met Goal 5:: LEFS 55 Goal Time Frame: 4-6 Weeks Goal Progress: Progressing Anticipated Interventions Anticipated Interventions Patient/Client Instruction: Educate patient on: Condition and Plan of Care For the Purpose of:: To decrease pain, To improve nutrient delivery to tissue, To improve muscle performance and motor function, To increase tolerance to activity/condition/position, To improve ability of physical actions for home/community/work/leisure and To improve gait and locomotor functions Therapeutic Exercise to Include: Strength training, Postural training, Flexibilty training, In an aquatic setting, Passive ROM and Active ROM For the Purpose of:: To decrease pain, To increase ROM, To improve nutrient delivery to tissue, To improve muscle performance and motor function, To increase tolerance to activity/condition/position and To improve gait and locomotor functions Re-Evaluation Ending Re-evaluation ending: Please do not hesitate to contact me at [phone] by phone or if you have questions or concerns regarding this new plan of care! Sincerely, Willian Mark, DPT, OCS, CSCS
--- NOTE | 2024-05-09 07:39 | HP.PT.NRP ---
Patient Information Patient Information: ELIZABETH OSHEA was seen in my office for initial evaluation on 02/13/24. The following Plan of Care was established for this patient: POC Established Initial Frequency: 2-3x /Week Initial Duration: 4-6 Weeks Anticipated Interventions Patient/Client Instruction: Educate patient on: Condition and Plan of Care For the Purpose of:: To decrease pain, To improve nutrient delivery to tissue, To improve muscle performance and motor function, To increase tolerance to activity/condition/position, To improve ability of physical actions for home/community/work/leisure and To improve gait and locomotor functions Therapeutic Exercise to Include: Strength training, Postural training, Flexibilty training, In an aquatic setting, Passive ROM and Active ROM For the Purpose of:: To decrease pain, To increase ROM, To improve nutrient delivery to tissue, To improve muscle performance and motor function, To increase tolerance to activity/condition/position and To improve gait and locomotor functions Last Seen Last Seen: This patient was last seen in our office 03/27/24. Pertinent comments regarding their Physical therapy will appear below: Pt seen 10 visits of POC and was 50% better. He no showed for his last scheduled visit. At this point it has been over a month and I will discontinue due to nonattendance. At this point I will be discontinuing this patient from physical therapy. I would be happy to see this patient again in the future if found appropriate by the physician. Thank you! Willian Mark, DPT, OCS, CSCS Balance/Gait/Functional tests Balance/Special Test Scores Functional Gait Assessment Score: 25 % Disability: 16.6700 Lower Extremity Functional Score: 42
== END 2024-03-27 19:00 | disposition home or self-care (01) ==
LOC: PT 17:00
PROVIDERS: PCP Internal Medicine
DX: T45.1X5D Adverse effect of antineoplastic and immunosuppressive drugs, subsequent encounter (principal); G62.0 Drug-induced polyneuropathy
CPT/HCPCS: 97113; 97162; 97530

== ENCOUNTER 2024-06-26 10:22 | Outpatient (CLI) | payer OTHER, SELFPAY ==
[2024-06-26 11:28] LABS: AST(SGOT) 21 U/L (15-37); Alanine Aminotransfer ALT/SGPT 20 U/L (16-61); Albumin, Serum 3.5 g/dL (3.2-5.0); Alkaline Phosphatase 63 U/L (45-117); Anion Gap 4 (5-15); BUN 20 mg/dL (7-18); BUN/Creat Ratio 24.6 RATIO (10-20); Calcium,Total 9.3 mg/dL (8.5-10.1); Chloride 103 mmol/L (98-107); Creatinine, Serum 0.81 mg/dL (0.70-1.30); EST Glomerular Filtration Rate 103 mL/min (>60); Est Glom Filt Rate - Afr Amer 125 mL/min (>60); Globulin 3.5 g/dL (2.2-4.2); Glucose 102 mg/dL (74-106); Sodium Level 135 mmol/L (136-145)
== END 2024-06-26 23:59 | disposition home or self-care (01) ==
LOC: PAVLAB 10:37 → MEDOUTP 10:40
PROVIDERS: PCP Internal Medicine; Referring Provider Nurse Practitioner; Visit Provider Nurse Practitioner
DX: C61 Malignant neoplasm of prostate (principal)
CPT/HCPCS: 36591; 80053; A4216

== ENCOUNTER → 2024-07-17 | Outpatient (CLI) | payer OTHER, SELFPAY ==
--- NOTE | 2024-07-17 07:06 | ECHODONC_ITS ---
Reason For Study: BONE CANCER, HIGH RISK MEDS Procedure This was a 2D Doppler, Color Flow transthoracic echocardiogram. The study was technically limited. PT was very uncomfortable, difficulty staying in position. Exam performed in department. Left Ventricle Normal LV size. Left ventricular systolic function is normal. The left ventricular ejection fraction is 60 %. No regional wall motion abnormalities noted. Right Ventricle Normal RV size. Normal systolic function. Atria Normal left atrium. Normal right atrium. Mitral Valve Posterior leaflet mitral valve prolapse. Moderate (2+) anteriorly directed mitral valve insufficiency. Tricuspid Valve Normal tricuspid valve. Aortic Valve Trisinus/trileaflet aortic valve. Pulmonic Valve Normal pulmonic valve. Great Vessels Normal aortic root. The pulmonary artery is normal size. Inferior vena cava collapse with respiration. Pericardium/Pleural No pericardial effusion. MMode/2D Measurements & Calculations LVIDd: 5.8 cm IVSd: 1.1 cm Ao root diam: 3.8 cm LVIDs: 3.8 cm LVPWd: 1.0 cm RVDd: 4.8 cm FS: 34.9 % LAV(MOD-bp): 124.1 ml LA A4 area: 21.4 cm2 LA dimension(2D): 4.9 cm LAV(MOD-bp) Indexed: 53.2 ml/m2 LAV(MOD-sp2): 120.4 ml LAV(MOD-sp4): 84.0 ml TAPSE: 2.5 cm RA A4 area: 16.2 cm2 Time Measurements MV dec time: 0.25 sec Doppler Measurements & Calculations MV E max king: 76.0 cm/sec Lat Peak E' King: 15.3 cm/sec Med Peak E' King: 7.8 cm/sec MV A max king: 64.3 cm/sec E/E' lat: 5.0 E/E' med: 9.8 MV E/A: 1.2 MV V2 max: 82.1 cm/sec MV P1/2t max king: 86.2 cm/sec Ao V2 max: 131.1 cm/sec MV max P.7 mmHg MV P1/2t: 82.4 msec Ao max P.9 mmHg MV V2 mean: 54.0 cm/sec MV dec slope: 306.6 cm/sec2 Ao V2 mean: 94.0 cm/sec MV mean P.3 mmHg Ao mean P.0 mmHg MV V2 VTI: 25.5 cm MVA(P1/2t): 2.7 cm2 Ao V2 VTI: 29.9 cm AV (velocity ratio): 0.72 LV V1 max: 103.7 cm/sec PA V2 max: 116.7 cm/sec LV V1 max P.3 mmHg PA V2 mean: 72.6 cm/sec LV V1 mean P.1 mmHg LV V1 mean: 68.7 cm/sec LV V1 VTI: 21.4 cm ECHO/ONC Echo Complete Interpretation Summary Normal LV size. Left ventricular systolic function is normal. The left ventricular ejection fraction is 60 %. Posterior leaflet mitral valve prolapse. Moderate (2+) anteriorly directed mitral valve insufficiency. The global longitudinal strain is normal. The global longitudinal strain = -20 % (normal). Ordering Physician: Olivia Velasco Referring Physician: Jimy Li Performed By: Adelita Montes De Oca RDCS, RVT
== END | disposition home or self-care (01) ==
LOC: CVS 07:04
PROVIDERS: PCP Internal Medicine; Referring Provider Nurse Practitioner; Visit Provider Nurse Practitioner
DX: C61 Malignant neoplasm of prostate (principal); C79.51 Secondary malignant neoplasm of bone; Z79.899 Other long term (current) drug therapy
CPT/HCPCS: 93306; 93356

== ENCOUNTER 2025-02-16 20:24 | Emergency (ER) | payer OTHER, SELFPAY ==
[2025-02-16 20:25] VITALS: BP 135/109; PULSE 69; RESP 18; TEMP 36.1; O2SAT 99
--- NOTE | 2025-02-16 20:38 | CT_ITS ---
PROCEDURE: SINUS/FACIAL BONE REASON FOR EXAM: INJURY TECHNIQUE: CT of the paranasal sinuses without contrast. Coronal and Sagittal reconstruction series were provided. One or more dose reduction techniques were used (e.g., Automated exposure control, adjustment of the mA and/or kV according to patient size, use of iterative reconstruction technique). COMPARISON: None. FINDINGS: No acute facial bone fractures. Mild paranasal sinus mucosal thickening. Multiple sclerotic lesions throughout the imaged cervical spine, concerning for osseous metastasis. Mild paranasal sinus mucosal thickening. Orbits are unremarkable. No significant soft tissue swelling. CT/Sinus/Facial Bone IMPRESSION: No acute facial bone fracture or sulcal soft tissue swelling. Multiple sclerotic osseous lesions within the cervical spine, concerning for os seous metastasis. Reading Location: [facility]
--- NOTE | 2025-02-16 20:38 | CT_ITS ---
PROCEDURE: SPINE CERVICAL WITHOUT CONTRAS 02/16/2025 REASON FOR EXAM: INJURY TECHNIQUE: Cervical spine CT without contrast. Coronal and Sagittal reconstruction series were provided. One or more dose reduction techniques were used (e.g., Automated exposure control, adjustment of the mA and/or kV according to patient size, use of iterative reconstruction technique COMPARISON: Cervical spine radiograph 10/08/2019 FINDINGS: Alignment: Cervical lordosis is maintained. Atlantoaxial interval is within normal limits. Vertebrae: Vertebral body heights are maintained. Multilevel loss of disc space, throughout the cervical spine. Extensive sclerotic lesions throughout the imaged cervical spine and posterior elements, compatible with osseous metastasis. No acute fracture or traumatic subluxation. Multilevel degenerative changes, with up to mild canal stenosis and moderate neural foraminal narrowing, most prominent at C5-C6. Soft Tissues: No focal soft tissue abnormality. Other: Imaged lung gregory are clear. CT/Spine Cervical without Contras IMPRESSION: No acute fracture or traumatic subluxation. Extensive osseous metastasis. Degenerative changes, most prominent at C5-C6. Reading Location: [facility]
--- NOTE | 2025-02-16 20:38 | CT_ITS ---
PROCEDURE: BRAIN/HEAD WITHOUT CONTRAST 02/16/2025 REASON FOR EXAM: HEAD INJURY TECHNIQUE: Head CT without intravenous contrast. Coronal and Sagittal reconstruction series were provided. One or more dose reduction techniques were used (e.g., Automated exposure control, adjustment of the mA and/or kV according to patient size, use of iterative reconstruction technique. COMPARISON: CT brain 03/09/2024 FINDINGS: Brain: Low density in the periventricular white matter suggests mild chronic small vessel ischemic changes. Encephalomalacia, left occipital lobe, also noted, but less conspicuous in the CT from 2023 and likely represent sequela of prior postoperative changes. Postoperative changes left occipital craniotomy. CSF Spaces: Mild generalized cerebral atrophy Sinuses/Mastoids: Mild mucosal thickening at the paranasal sinuses trace mastoid effusions. Bones: No acute calvarial fracture. Left occipital craniotomy. Orbits/soft tissue: No focal soft tissue abnormality. The orbits are unremarkable. CT/Brain/Head without Contrast IMPRESSION: No acute intracranial abnormality. Chronic findings as described above. Reading Location: [facility]
--- NOTE | 2025-02-16 20:40 | EDS_ITS ---
HPI HPI - Fall History of Present Illness Chief Complaint: Fall Informant: patient and family Narrative Narrative: Here with daughter sent in from hospice for CT scans. Prostate cancer with metastasis. 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 3 falls today with leg giving out. He uses a cane to walk. He is on Xarelto for history recurrent PEs. He is established hospice since November. Fell couple times this morning, [place] the movie theater 5:30 PM had another fall. Family was not aware of this earlier. They contacted hospice who referred him to the ED for CT scans due to being on Xarelto. Denies any significant headache. Pain is a continued back pain with neuropathy, none worsening. He is on pain medicines along with gabapentin through hospice. Prior similar symptoms: Yes PFSH PFS Medical History (Updated 02/16/25 @ 22:[address] Kevin Gaspar, DO) Hospice care patient Leptomeningeal disease Metastasis to brain Contact with or exposure to other viral diseases Open wound of right thumb Encounter for chemotherapy management Leg pain, bilateral Cancer Alcohol use History of steroid therapy Arthritis Excessive bleeding DVT (deep venous thrombosis) Injury of back Injury of head and neck Migraine headache Syncope History of diverticulitis Gastric reflux Non-smoker Shortness of breath on exertion History of pain when walking History of epidural anesthesia Prostate cancer Knee pain Home Medications ?Medication ?Instructions ?Recorded ?Last Taken ?Type multivitamin 1 ea PO DAILY 03/07/1910/10 08:00 History calcium carb and lactate 200 2 tab PO BID 05/21/1905/23 10:00 History mg-vitamin D3 6.25 mcg (250 unit) tablet polyethylene glycol 3350 17 gram 17 g PO .QOD 11/23/21 Unknown History oral powder packet (Miralax) loratadine 10 mg tablet 10 mg PO DAILY #30 tabs 03/03 03/24 Unknown Rx acetaminophen 500 mg tablet 500 mg PO Q6H PRN Pain Unknown History (Tylenol Extra Strength) desipramine 25 mg tablet 50 mg PO QHS 08/25/22 Unknow n History senna 187 mg tablet 187 mg PO PRN PRN Diarrhea 0 01/05/23 Unknown History famotidine 20 mg tablet (Pepcid) 20 mg PO BID 12/07/23 Unknown History tizanidine 4 mg capsule 4 mg PO QHS 12/07/23 Unknown History buprenorphine 5 mcg/hour weekly 1 patch transdermal Q7 D 05/23/24 Unknown History transdermal patch (Butrans) fluticasone propionate 50 1 spray intranasal DAILY Unknown History mcg/actuation nasal spray,suspension cetirizine 10 mg capsule (Allergy 10 mg PO DAILY PRN a llergy symptoms 02/16/25 Unknown History Relief (cetirizine)) dabigatran etexilate 150 mg 150 mg PO BID 02/16/25 Unk nown History capsule (Pradaxa) dexamethasone 4 mg tablet 8 mg PO DAILY pain 02/16/25 Unknown History gabapentin 400 mg capsule 800 mg PO TID neuropathic pa in 02/16/25 Unknown History guaifenesin 600 mg tablet, 600 mg PO BID PRN congestio n 02/16/25 Unknown History extended release 12 hr (Mucinex) lorazepam 0.5 mg tablet 0.5 mg PO Q4H PRN agitation 02/16/25 Unknown History methadone 5 mg tablet 2.5 mg PO DAILY pain 5 Unknown History promethazine 50 mg/mL injection 25 mg IM Q6H PRN nasus ea 02/16/25 Unknown History solution (Phenergan) Allergy/AdvReac Type Severity Reaction Status Date / Time grass pollen Allergy Other Verified 02/16/25 20:25 ragweed pollen Allergy Other Verified 02/16/25 20:25 Family History Mother Non Hodgkin's lymphoma Father COPD (chronic obstructive pulmonary disease) Skin cancer Grandmother Cancer Lung cancer Grandfather CVA (cerebral vascular accident) Brother Blood disease Surgical History Hx of tonsillectomy Hx of colonoscopy Status post total left knee replacement Social History Smoking Status: Never smoker alcohol intake: current alcohol intake frequency: a few times a month substance use type: does not use what type of physical activity do you participate in: other details: physical job seatbelt use: always ROS ROS ED Constitutional Constitutional ED: Denies fever(s) Cardiovascular Cardiovascular: Denies chest pain Respiratory/Chest Respiratory/Chest: Denies cough Gastrointestinal Gastrointestinal: Denies diarrhea or vomiting Musculoskeletal Musculoskeletal: Reports back pain; Denies none Integumentary Denies rash or wounds Neurologic Neurologic: Reports headache(s); Denies weakness EXAM Physical Exam Const Vital Signs: 02/16/25 20:25 02/16/25 20:57 02/16/25 21:24 Temperature 97 F L Temperature Source Temporal Pulse Rate 69 74 Respiratory Rate 18 18 Respiratory Effort Normal Respiratory Depth Normal Respiratory Pattern Normal Blood Pressure 135/109 H 117/69 Blood Pressure Mean 117 85 Pulse Ox 99 97 Oxygen Delivery Method Room Air Room Air Room Air 02/16/25 22:08 Temperature Temperature Source Pulse Rate 74 Respiratory Rate 18 Respiratory Effort Respiratory Depth Respiratory Pattern Blood Pressure 119/68 Blood Pressure Mean 85 Pulse Ox 97 Oxygen Delivery Method Room Air Positive well nourished and well developed Constitutional Narrative: GCS 15. General Appearance ED: well developed HEENT HEENT Narrative: Right forehead contusion abrasion across the nasal bridge. No trismus. normocephalic Eyes General Eye ED: Yes normal appearance of both eyes Neck full ROM Chest Wall inspection of chest normal and palpation of chest normal Resp normal respiratory effort and normal air movement Cardio regular rate and regular rhythm GI soft to palpation Extremity normal to inspection and full ROM Neuro oriented x3 Skin Skin Narrative: See above MDM MDM MDM Narrative Medical decision making narrative: Interventions / MDM: Differential diagnosis: Fall, facial contusion, prostate cancer with bony metastasis Diagnosis considered but do not suspect: Intracranial mass, fracture however CTs are negative. My EKG interpretation: N/A Imaging independently reviewed and interpreted by myself: CT brain: No intracranial hemorrhage. CT facial bones no fractures. CT cervical spine no fracture or bony metastasis seen. Is also read by radiology. External documents reviewed: N/A Test considered but not ordered:N/A ED course: Patient ambulated into the room myself with his daughter using the cane. No focal deficits. IM fentanyl ordered. Trauma scans head face and cervical spine for further evaluation. Trauma scans were negative. Patient ended up declining the pain medicine. Daughter spouses present. He has to stop as hospice has medication at home to use. He will be discharged home with continued hospice care. Re-evaluation: stable Disposition discussed with patient/family/significant other: Patient and family Case discussed with consulting clinician: N/A This note was generated with [employer] dictation software. It may contain incorrect words, spelling, and punctuation that were not noted in checking the note before signing. Radiography Diagnostic Testing: Clinical Impression(s) from Imaging Studies Brain CT 02/16/25 20:38 IMPRESSION: No acute intracranial abnormality. Chronic findings as described above. Reading Location: [facility] Cervical Spine CT 02/16/25 20:38 IMPRESSION: No acute fracture or traumatic subluxation. Extensive osseous metastasis. Degenerative changes, most prominent at C5-C6. Reading Location: [facility] Facial/Sinus 02/16/25 20:38 IMPRESSION: No acute facial bone fracture or sulcal soft tissue swelling. Multiple sclerotic osseous lesions within the cervical spine, concerning for osseous metastasis. Reading Location: [facility] Discharge Plan Triage Chief Complaint: Fall Other Complaint: Head Injury ED Provider: Kevin Gaspar Dx/Rx/DC Orders Clinical Impression: Fall, Bone metastases, Contusion of face, CHI (closed head injury), Chronic anticoagulation Instructions: Bone Metastases, ED Facial Contusion, ED Head Injury (Adult) Prescriptions: No Action calcium carb,lactat-vitamin D3 200 mg calcium -250 unit tablet 2 tab PO BID polyethylene glycol 3350 [Miralax] 17 gram powder in packet 17 g PO .QOD loratadine 10 mg tablet 10 mg PO DAILY Qty: 30 3RF acetaminophen [Tylenol Extra Strength] 500 mg tablet 500 mg PO Q6H PRN (Reason: Pain) senna 187 mg tablet 187 mg PO PRN PRN (Reason: Diarrhea) famotidine [Pepcid] 20 mg tablet 20 mg PO BID tizanidine 4 mg capsule 4 mg PO QHS fluticasone propionate 50 mcg/actuation spray,suspension 1 spray intranasal DAILY Rx Instructions: administer into each nostril buprenorphine [Butrans] 5 mcg/hour patch weekly 1 patch transdermal Q7D multivitamin 1 EACH tablet 1 ea PO DAILY desipramine 25 mg tablet 50 mg PO QHS dabigatran etexilate [Pradaxa] 150 mg capsule 150 mg PO BID lorazepam 0.5 mg tablet 0.5 mg PO Q4H PRN (Reason: agitation) Allergy Relief (cetirizine) 10 mg capsule 10 mg PO DAILY PRN (Reason: allergy symptoms) gabapentin 400 mg capsule 800 mg PO TID guaifenesin [Mucinex] 600 mg tablet extended release 12hr 600 mg PO BID PRN (Reason: congestion) dexamethasone 4 mg tablet 8 mg PO DAILY methadone 5 mg tablet 2.5 mg PO DAILY promethazine [Phenergan] 50 mg/mL solution 25 mg IM Q6H PRN (Reason: nasusea) Primary Care Provider: Jimy Li Referrals: Jimy Li MD [Primary Care Provider] - Activity Restrictions/Additional Instructions: CT head face and neck no fracture no intracranial hemorrhage. Bony mets noted to your cervical spine. Follow-up with hospice, continue home pain medications. Print Language: Kenyan Disposition Disposition: Home, Self Care
[2025-02-16 20:52] VITALS: BMI 24.2
[2025-02-16 21:24] VITALS: BP 117/69; PULSE 74; RESP 18; O2SAT 97
[2025-02-16 22:08] VITALS: BP 119/68; PULSE 74; RESP 18; O2SAT 97
[2025-02-16 22:28] VITALS: BP 115/75; PULSE 78; RESP 16; TEMP 36.6; O2SAT 99
== END 2025-02-16 22:28 | disposition home or self-care (01) ==
PROVIDERS: Emergency Provider Emergency Medicine; PCP Internal Medicine; Visit Provider Emergency Medicine
DX: S00.83XA Contusion of other part of head, initial encounter (principal); C79.51 Secondary malignant neoplasm of bone; C61 Malignant neoplasm of prostate; Z79.01 Long term (current) use of anticoagulants; G62.9 Polyneuropathy, unspecified; K21.9 Gastro-esophageal reflux disease without esophagitis; Z79.899 Other long term (current) drug therapy; R51.9 Headache, unspecified; S00.31XA Abrasion of nose, initial encounter; S09.90XA Unspecified injury of head, initial encounter; Z86.711 Personal history of pulmonary embolism; W19.XXXA Unspecified fall, initial encounter
CPT/HCPCS: 70450; 70486; 72125; 99282